=== PATIENT | female | born 1930 | race Caucasian/White ===

== ENCOUNTER 2016-11-23 23:17 | Inpatient (IN) | payer MEDICARE, OTHER ==
[~2016-11-23] VITALS: Ht 152.4 cm; Wt 70.2 kg
[~2016-11-23 23:17] MED LIST: ACET325T51 PO; ASPI-973 PO; BISA10SU61 RC; CHOL200025 PO; CITA40TA13 PO; FURO80TA83 PO; IPRA3AMP IH; LEVO100T6 PO; MAGN400O4 PO; NA P133E23 RC; POTA10TA12 PO; SIMV40TA5 PO; TOLT2TAB5 PO; WARF3TAB7 PO
[2016-11-24] VITALS (10 sets, daily range): BP systolic 111–115; BP diastolic 53–74; PULSE 82–126; RESP 16–32; O2SAT 91–96
--- NOTE | 2016-11-24 01:47 | NUR ---
Admission note Pt arrived from [facility] She is generally non verbal although she said "it hurts" when her left leg was moved. Breathing is mildly labored. Exp wheezes audible. Arias catheter in place. Moderate amt of dried blood visible Rash to bilat groin. Camoseptime applied. Pt has generalized bruising on all limbs. Saline locked x 2 Pt appears tired. She immediately goes to sleep when myself and SOLE LEATHER CUTTING MACHINE OPERATOR departed from room Will cont to monitor
--- NOTE | 2016-11-24 02:20 | PCM.HPMED ---
Subjective Date of Service Nov 24, 2016 Primary Provider: Admitting Physician: Jocelyn Black MD Primary Care Physician: Zafar Chapman DO Attending Physician: Jocelyn Black MD Admit Status: Direct Admit ([facility]) Chief Complaint: Dyspnea History of Present Illness: Note: Patient unable to give an HPI. HPI from [facility] records. Patient is an 86-year-old female with CHF, atrial fibrillation on warfarin, COPD , DM2 and hypothyroidism who presented to [facility] from her SNF complaining of shortness of breath. SNF called EMS who reported 73% on 3L O2. SNF reports diaphoresis, cough and decreased responsiveness in last day. At [facility] ED, CXR showed patchy opacity of the right lung & small right-sided pleural effusion. Pulmonary edema likely related to CHF. Lactic acid was 3.3, BMP of 530, Trop of 0.070, negative influenza A&B, WBC 13.3. BP 123/68; P 146, temp 36.3; RR was 27. Saturation at 92% on unknown amount of oxygen. [facility] gave her nebulizer treatment,1/2 L of fluid, ceftriaxone 2g and Azithromycin 500 at 16:43 on 11/23/16. She was weaned down from 5L O2 to her usual 3L O2. Review of Systems: Unable to get a ROS due to mental status Allergies Coded Allergies: Sulfa (Sulfonamide Antibiotics) (Verified Allergy, Severe, 10/17/16) lisinopril (Verified Allergy, Unknown, 10/17/16) pt doesn't know of any allergies, on records from [facility], states prinivil and sulfa Home Medications from [facility]: ipratropium/alb neb Q6 scheduled Citalopram 40 mg daily furosemide 40 mg daily levothyroxine 100 mcg daily KCl 10 Meq simvastatin 40 mg daily tolterodine 2mg QHS warfarin 3mg 5 days a week; 1.5mg twice a weekbisacodyl PRN milk of magnesia PRN Imodium PRN acetaminophen PRN aspirin 81mg daily vitamin D 2,000 IU PMH 1. Congestive Heart Failure, Diastolic Dysfunction, Acute Exacerbation: present on admission. Active 2. Acute on Chronic Respiratory Failure, Hypoxemic : present on admission. Acute on chronic. Improving 3. Altered mental status most likely due to pH and electrolyte disturbances with possible hospital delirium, acute. Not present on admission 4. H/o Mitral and Aortic Valve replacement 5. H/o CAD 6. Hypertension 7. Paroxysmal atrial fibrillation ( on Warfarin) : active 8. Hypothyroidism: active . Stable . on hormonal supplement 9. Depression: Active . Stable 10. Elevated troponin of uncertain significant, present on admission. Resolved 11. Hypokalemia, not present on admission, acute. Improving 12. Hypomagnesemia, not present on admission, acute. Resolved 12. Deconditioning, present on admission, acute on chronic. Improving 13. Urinary Retention, present on admission, acute on chronic. Stable Surgical History Aortic and mitral valve replacement Family History Unable to get from patient due to mental status Social History Hx Alcohol Use: No Hx Substance Use: No Hx Tobacco Use: No (QUIT 19 YEARS AGO) Smoking Status: Former Smoker Living Arrangement: [facility] Facility ([facility]) Exam Vital Signs Vital Sign - Last Date Time Temp Pulse Resp B/P Pulse Ox O2 Delivery O2 Flow Rate FiO2 11/24/16 01:28 Supplement Oxygen 11/24/16 01:12 36.7 94 26 115/64 91 3.00 Exam General: sleepy, confused, no acute distress Eyes: scleral anicteric Mouth: mouth normal, mucous membranes moist/pink Neck: supple, no thyromegaly Chest & Lungs:Diffuse wheezing, difficult examination due to patient's mental status Cardiovascular: no murmurs/rubs/gallops, irregular rate/rhythm Pulses: Radial (present and equal), Dorsalis Pedi (present and equal but diminished) Abdomen: soft, non-tender, non-distended, normoactive bowel tones Musculoskeletal: No swollen or erythematous joints Extremities: 1+ edema B/L LE, no cyanosis Skin: Numerous ecchymosis (consistent with warfarin use) Neurological: Confused Lymphatic: Lymph nodes: cervical not palpable Lab and Diagnostics Labs See [facility] New labs have been ordered X-Rays, CTs and MRIs See [facility] notes 12-lead ECG See [facility] note New EKG ordered Assessment & Plan Patient is an 86-year-old female with CHF, atrial fibrillation on warfarin, COPD , DM2 and hypothyroidism who presented to [facility] from her SNF complaining of shortness of breath. SNF called EMS who reported 73% on 3L O2. SNF reports diaphoresis, cough and decreased responsiveness in last day. 1. Severe sepsis, present on admission, acute - WBC 13.3. BP 123/68; P 146, temp 36.3; resp rate was 27 - End organ damage (increased confusion per SNF) - CXR patchy opacity of the right lung & small right-sided pleural effusion. Pulmonary edema likely related to CHF. - negative influenza A&B - Received 500ml of fluid at [facility] after lasix dropped her blood pressure. Patient has good skin turgor and moist oral mucosa. Will not give fluids at this time because of CHF. - Treat underlying condition Lactic acidosis, present on admission, acute - 3.3 at [facility], will trend Pneumonia, present on admission, acute - See above under sepsis - Started on ceftriaxone 2g and azithromycin 500mg at [facility], will continue cef at 2g and azith at 250mg IV until patient cleared to swallow - Procalcitonin pending - Duo Nebs - O2 at 3 liters currently, which is her home dose Altered mental status, present on admission, acute - Most likely from sepsis and pneumonia - fall risk - NPO until swallow evaluation Acute on chronic hypoxia, present on admission, resolved - Initially required 5 L, but now on 3 L which is her home dose Elevated troponin of unknown significance, present on admission, unknown chronicitiy - Chronically elevated in September 2016 and it is the same today - 0.070. Will redraw for trend - Did not find EKG from [facility]. EKG ordered CHF, diastolic, present on admission, chronic - Lasix dropped her blood pressure at [facility] - Holding lasix while patient is septic. Restart when appropriate - Does not appear fluid overloaded. - Difficult pulmonary exam, but no crackles appreciated - BNP is elevated chronically Atrial fibrillation ( on Warfarin), present on admission, chronic - warfarin per pharmacy. Currently therapeutic H/o mitral and aortic valve replacement H/o CAD Hypertension. present on admission. chronic - currently controlled. Re-evaluate Hypothyroidism, present on admission, chronic - continue levothyroxine Depression, present on admission, chronic - continue Citalopram Deconditioning, present on admission, chronic - PT ordered Urinary Retention, present on admission, chronic. - Continued tamsulosin - Patient has Arias Dyslipidemia, present on admission, chronic - Hold the statin in the acute setting - Acetaminophen as needed for mild pain/fever/headache - Bowel regimen as needed - Antiemetic as needed Patient admitted under inpatient status with expected length of stay > 2 midnights for severity of present symptoms, complexities of treatment plan and risk for adverse events. Patient is a resident of [facility]. Code status: Per POLST, DNR/DNI GI Prophylaxis: Proton Pump Inhibitor VTE Prophylaxis: Theraputic Anticoag with Warfarin Resuscitation Status: CPR: Attempt Resuscitation Attending Statement Pt seen and examined by myself and agree with above plan. Bing Day DO Nov 24, 2016 02:19 Jocelyn Black MD Nov 24, 2016 06:43
[2016-11-24] MEDS ORDERED: Acetaminophen IV 1,000 MG in IV Premix 1 EACH IV PRN (02:35)
[2016-11-24] MEDS ORDERED: Magnesium Hydroxide 355 mL Oral Suspension PO PRN (02:50)
[2016-11-24] MEDS: Albuterol-Ipratropium 3 mL Inhalation Solution NEB PRN ×3 (03:10→19:59)
[2016-11-24] MEDS ORDERED: IPRA3AMP IH (03:14)
[2016-11-24] MEDS ORDERED: TAMS0.4C98 PO (03:14)
[2016-11-24 03:25] LABS: Mean Corpuscular Hemoglobin 28.1 pg (27.0-35.0); Mean Corpuscular Volume 95.1 fL (81-100)
[2016-11-24 03:37] LABS: INR 3.08 ratio
[2016-11-24 04:10] LABS: Magnesium 1.7 mg/dL (1.6-2.6)
[2016-11-24 04:12] LABS: TROPONIN T 0.058 ug/L (0.0-0.011)
--- NOTE | 2016-11-24 06:17 | NUR ---
Mentation Pt oriented x 3. Requesting a drink of water I explained to her that speech therapy needs to evaluate her swallow prior to starting a diet Pt verbalized understanding
--- NOTE | 2016-11-24 09:22 | NUR ---
Evaluation completed. Please go to "Notes" then click on "Assessments and Notes" (bottom left corner of screen). Then select appropriate discipline tab on top of screen.
[2016-11-24] MEDS ORDERED: 0.9% Sodium Chloride 100 ML ONE (10:42)
--- NOTE | 2016-11-24 10:47 | NUR ---
Evaluation completed. Please go to "Notes" then click on "Assessments and Notes" (bottom left corner of screen). Then select appropriate discipline tab on top of screen.
[2016-11-24] MEDS ORDERED: Heparin 5,000 Unit/mL Inj IVPUSH ONE ×2 (11:00→12:25)
[2016-11-24] MEDS ORDERED: 0.9% Sodium Chloride 1,000 ML IV ONE ×2 (11:00→12:35)
[2016-11-24] MEDS ORDERED: Heparin 25K Unit/500mL 0.45 NS 25,000 UNIT in IV Premix 1 EACH IV SCH (11:00)
[2016-11-24] MEDS ORDERED: Heparin 5,000 Unit/mL Inj IVPUSH PRN (11:00)
--- NOTE | 2016-11-24 12:00 | NUR ---
heparin drip/1L bolus started heparin drip after baseline ptt was drawn at 1000un/hr 20ml/hr and bolus of 4550un per cardiac hep protocol of 72kg or >, double verified with talita hinson. per md orders admin wide open L of NS and check bp 5 min after completion. BP was 112/52, paged md as requested.
[2016-11-24] MEDS: 0.9% Sodium Chloride 1,000 ML IV SCH ×2 (12:01→13:15)
--- NOTE | 2016-11-24 12:01 | PCM.PHAPRO ---
Progress Warfarin Management by Pharmacy Indication: Afib CHADS2-VASc: 6 Home Dose: Warfarin 1.5 mg Tues/Thurs, 3 mg AOD INR Goal: 2-3 Duration: Unknown Vit K given: No Anticoagulation Trends Lab Date Result Dose INR 11/23/16 3.0 (OS[facility]) None INR 11/24/16 3.08 Pt started on heparin drip for SOB/chest PA on 11/24/16 Assessment/Plan -Supratherapeutic INR with no dose given while inpatient. Unclear if patient had dose prior to admit. -Will hold warfarin dose this evening. -Pharmacy to monitor INR/CBC/signs of bleeding. Thanks, José Manuel Casas, PharmD José Manuel Casas Nov 24, 2016 12:01
--- NOTE | 2016-11-24 13:28 | PCM.PNMED ---
Subjective Date of Service Nov 24, 2016 Subjective Pt oriented x 3. Requesting a drink of water,nurse explained to her that speech therapy needs to evaluate her swallow prior to starting a diet. Speech therapy recommends small bites and sips with supervision, sitting upright, no straw. Pt denies pain but seems to be mildly distressed. Exam Vital Signs Vital Sign - Last Date Time Temp Pulse Resp B/P Pulse Ox O2 Delivery O2 Flow Rate FiO2 11/24/16 04:44 36.6 90 22 112/74 Nasal Cannula 3.00 11/24/16 03:17 96 Intake and Output 11/23/16 11/23/16 11/24/16 Cumulative From/Thru 15:00 23:00 07:00 11/24/16 01:15 - 11/24/16 04:45 Intake Total 0 ml 0 ml Output Total 250 ml 250 ml Balance -250 ml -250 ml Intake Oral 0 ml 0 ml Output Urine Total 250 ml 250 ml Exam General: awake, no acute distress but somewhat anxious Eyes: scleral anicteric Mouth: mouth normal, mucous membranes dry/pink Neck: supple, no thyromegaly Chest & Lungs: Diffuse wheezing bilaterally Cardiovascular: no murmurs/rubs/gallops, irregular rate/rhythm Pulses: Radial (present and equal), Dorsalis Pedi (present and equal but diminished) Abdomen: soft, non-tender, non-distended, normoactive bowel tones Musculoskeletal: No swollen or erythematous joints Extremities: 1+ edema B/L LE, no cyanosis Skin: Numerous ecchymosis (consistent with warfarin use) Lymphatic: Lymph nodes: cervical not palpable Lab and Diagnostics Result Diagram: 11/24/160 Microbiology Microbiology REGINALDO STREP PNEUMONIAE AG URINE Final 11/24/16-741 STREP PNEUMO AG NEGATIVE Tests performed directly on clinical specimens are intended for screening purposes only and should augment, not replace, culture procedures Please Note: Streptococcus pneumoniae vaccine may cause false positive results in urine in the 48 hours following injection. Hence, it is recommended that the Alere Strep pneumoniae Antigen testing not be performed within five days of receiving the S. pneumoniae vaccine ----- NASOPHARYNGEAL: Microbiology ADENOVIRUS RESPIRATORY PCR Final 11/24/16 Not Detected CORONOVIRUS 229E Final 11/24/16 Not Detected CORONOVIRUS HKU1 Final 11/24/16 Not Detected CORONOVIRUS NL63 Final 11/24/16 Not Detected CORONOVIRUS OC43 Final 11/24/16 Not Detected INFLUENZA A PCR Final 11/24/16 Not Detected INFLUENZA B PCR Final 11/24/16 Not Detected METAPNEUMOVIRUS PCR Final 11/24/16 Not Detected RHINOVIRUS OR ENTEROVIRUS PCR Final 11/24/16 Not Detected PARAINFLUENZA 1 PCR Final 11/24/16 Not Detected PARAINFLUENZA 2 PCR Final 11/24/16 Not Detected PARAINFLUENZA 3 PCR Final 11/24/16 Not Detected PARAINFLUENZA 4 PCR Final 11/24/16 Not Detected RESP SYNCYTIAL VIRUS PCR Final 11/24/16 Not Detected CHLAMDOPHILIA PNEUMONIAE PCR Final 11/24/16 Not Detected MYCOPLASMA PNEUMONIAE PCR Final 11/24/16 MYCO PNEUMONIAE PCR Not Detected Reference Interval Not Detected INVERTER [employer] CLIPPER swab is the only specimen type cleared by the FDA. Nasal wash, tracheal aspirate, and bronchial lavage specimen types have not been cleared by the FDA. Therefore results on any specimen type other than nasopharyngeal are considered investigational testing only. X-Rays, CTs and MRIs PROCEDURE: X-RAY CHEST ONE VIEW, PORTABLE ([id number]) INDICATIONS: Follow up for congestive heart failure COMPARISON: [facility], CR, XR CHEST 1VW (PORTABLE), 10/17/2016, 12 :41. FINDINGS: Surgical changes and devices: Post median sternotomy with valvular replacement. Lungs and pleura: Interstitium is prominent no significant change from prior examination. No focal lung consolidation present. Mediastinum: Mediastinal contours appear normal. Heart size is enlarged. Bones and chest wall: No suspicious bony lesions. Overlying soft tissues appear unremarkable. IMPRESSION: 1. Cardiomegaly and chronic interstitial pulmonary densities with no significant change from prior examination which may be chronic but superimposed pulmonary edema cannot be excluded. Recommend clinical correlation. Dictated by: Kolby Turner RRA Interpreted: Tomas Medina MD on 10/23/2016 at 13: 46 Transcribed by: TRUDI on 10/23/2016 at 13:46 Approved by: Tomas Medina M.D. on 10/23/2016 at 15:37 12-lead ECG EKG: Right and left arm electrode reversal, interpretation assumes no reversal . Atrial fibrillation . Ventricular premature complex . Low voltage, extremity leads . Nonspecific T abnormalities, lateral leads . Prolonged QT interval Assessment & Plan Patient is an 86-year-old female with CHF, atrial fibrillation on warfarin, COPD , DM2 and hypothyroidism who presented to [facility] from her SNF complaining of shortness of breath. SNF called EMS who reported 73% on 3L O2. SNF reports diaphoresis, cough and decreased responsiveness in last day. Hospital day 1. 1. Severe sepsis, present on admission, acute - On adm: WBC 13.3, P 146, RR 27 - Today: WBC 11.4, P 90, RR 22 - End organ damage (increased confusion per SNF) - CXR at [facility]: patchy opacity of the right lung & small right-sided pleural effusion. Pulmonary edema likely related to CHF. - negative influenza A&B - negative viral PCR, negative urine L. pneumophilia and St. pneumo Ag - IVF NS 1L bolus at 80 mls/hr - Treat #2 2. Pneumonia, present on admission, acute - See above under sepsis - Started on ceftriaxone 2g and azithromycin 500mg at [facility], will continue cef at 2g and azith at 250mg IV - Procalcitonin 1.10 - Duo Nebs - O2 at 3 liters currently, which is her home dose, pulse ox 96% NC 3. Elevated troponin of unknown significance, present on admission, unknown chronicity - Chronically elevated in September 2016 and it is the same today - 0.070 on admission - 0.058 this morning, will redraw to trend - Did not find EKG from [facility] - EKG at [facility]: Atrial fibrillation, ventricular premature complex, nonspecific T abnormalities, lateral leads, prolonged QT interval - Start metoprolol 12.5 mg PO bid with hold parameters - Atorvastatin 20 mg PO hs 4. Lactic acidosis, acute, present on admission, improved - 3.3 at [facility] - 0.8 this morning 5. Altered mental status, present on admission, acute - Most likely from sepsis and pneumonia - fall risk - NPO until swallow evaluation 6. Acute on chronic hypoxia, present on admission, resolved - Initially required 5 L, but now on 3 L which is her home dose 7. CHF, diastolic, present on admission, chronic - Lasix dropped her blood pressure at [facility] - Holding lasix while patient is septic. Restart when appropriate - Does not appear fluid overloaded - No crackles appreciated - BNP is elevated chronically 8. Atrial fibrillation ( on Warfarin), present on admission, chronic - Warfarin per pharmacy, INR 3.08, today's dose withheld - IVF NS 1 L bolus at 80 mls/hr. Check BP. If BP >120/80 give Diltiazem 10 mg IV push. Recheck BP 9. REBA, acute, present on admission - Cr 1.09 - IVF NS 1 L bolus at 80 mls/hr - Monitor labs H/o mitral and aortic valve replacement H/o CAD Hypertension. present on admission. chronic - currently controlled. Re-evaluate Hypothyroidism, present on admission, chronic - continue levothyroxine Depression, present on admission, chronic - continue Citalopram Deconditioning, present on admission, chronic - PT ordered Urinary Retention, present on admission, chronic. - Continued tamsulosin - Patient has Arias Dyslipidemia, present on admission, chronic - Hold the statin in the acute setting - Acetaminophen as needed for mild pain/fever/headache - Bowel regimen as needed - Antiemetic as needed Patient admitted under inpatient status with expected length of stay > 2 midnights for severity of present symptoms, complexities of treatment plan and risk for adverse events. Patient is a resident of [facility]. Code status: Per POLST, DNR/DNI GI Prophylaxis: Proton Pump Inhibitor VTE Prophylaxis: Theraputic Anticoag with Warfarin Resuscitation Status: CPR: Attempt Resuscitation Attending Statement The patient was seen and examined together with Dr. Bustos on 11/24/2016 and I agree with the history, exam and plan as outlined in the note above. YAYA BUSTOS DO Nov 24, 2016 08:24 Xavier Cruz MD Nov 24, 2016 20:42 Code status: Per POLST, DNR/DNI GI Prophylaxis: Proton Pump Inhibitor VTE Prophylaxis: Theraputic Anticoag with Warfarin Resuscitation Status: CPR: Attempt Resuscitation YAYA BUSTOS DO Nov 24, 2016 08:24
--- NOTE | 2016-11-24 14:57 | NUR ---
Social Work-initial assessment: Data:See initial assessment. Pt is a 86 y/o female who was admitted on 11/24/16 for AFIB per H&P. Pt's insurance is [employer] and [employer] and PCP is Zafar Chapman DO. EMR Reviewed. MILLA placed a call to pt's son Garo Garza, or [phone] to discuss discharge planning, SW role explained. Pt has been residing at [facility] for rehab and family anticipates pt to return to this facility at discharge. MILLA placed a call and spoke with Celestina, admissions at [facility], who confirms that they are able to accept pt back when medically stable with Dr. Canela to follow, access given. Paperwork in the chart. SW will continue to follow. Assessment:Pt who resides at a SNF. Plan:Pt to return to [facility] when medically stable with Dr. Canela to follow when medically stable. Paperwork in the chart. SW will continue to follow. ARTI Garduno Addendum: 11/24/16 at 1506 by JANAE WELLER Amended: Links added.
--- NOTE | 2016-11-24 15:18 | NUR ---
[facility] can accept pt back at discharge with Dr. aLrry Canela to follow. ARTI Garduno
[2016-11-24] MEDS: cefTRIAXone Inj 2,000 MG in IV Premix 1 EACH IV SCH (16:18)
--- NOTE | 2016-11-24 17:43 | NUR ---
Shift note Pt is A&Ox3, QUINTERO, makes needs known and uses call light approp. Pt is tolerating PO meds crushed in applesauce and full liquid diet. 1PA to bsc, bmx2, marlow draining ramon urine. Heparin running at 1000un/hr with NS at 80mlhr. Pt is on 3L NC with Sp02 in mid 90s, lungs and tight and coarse throughout. Located bottom dentures from [facility]
[2016-11-25] VITALS (11 sets, daily range): BP systolic 105–118; BP diastolic 63–71; PULSE 83–114; RESP 24–32; O2SAT 91–96
[2016-11-25 05:49] LABS: INR 3.49 ratio
--- NOTE | 2016-11-25 05:52 | NUR ---
SOB, Urine culture: Pt reported needing air, oxygen has been 3-4 L NC tonight maintaining sats low to mid 90s. Night resident alert to pt's respiratory condition, IV fluids d/c'd; Heparin drip continues. PTTs have been at goal through the night with no changes to rate thus far. Arias draining ramon urine with sediment noted. 400 mls of urine out this shift. [facility] called with urine culture results positive for Klebsiella pneumoniae with susceptibility; in front of chart. aware for results from [facility].
[2016-11-25 07:55] LABS: BASOPHILS % (AUTO) 0.2 % (0-3); EOSINOPHILS % (AUTO) 0.2 % (0-5); MONOCYTES % (AUTO) 12.2 % (4-12); Mean Corpuscular Hemoglobin 28.6 pg (27.0-35.0); Mean Corpuscular Volume 94.3 fL (81-100); NEUTROPHILS % (AUTO) 74.7 % (40-74); Platelet Count 104 bil/L (150-400)
[2016-11-25] MEDS: Albuterol-Ipratropium 3 mL Inhalation Solution NEB PRN ×2 (08:22→14:45)
[2016-11-25] MEDS ORDERED: Diltiazem CD 120 mg ER24 Capsule PO SCH (10:16)
--- NOTE | 2016-11-25 11:23 | NUR ---
Social Work-continued d/c planning: Data:EMR reviewed. Pt is on day 1 of hospitalization for AFIB per H&P. Pt is not medically stable at this time for discharge at this time. Pt's son Garo requested to speak with SW regarding discharge planning. SW met with pt and family at bedside to further discuss. Son has questions about assisted living in [facility] for after discharge from [facility]. SW provided son with list of assisted living facilities. Son in agreement for pt to discharge back to [facility] when medically stable. SW provided update to Celestina at [facility]. Paperwork in the chart. SW will continue to follow. Assessment:Pt who would benefit from SNF. Plan:Pt to discharge back to [facility] with Dr. Canela to follow when medically stable. Paperwork in the chart. SW will continue to follow. ARTI Garduno
--- NOTE | 2016-11-25 14:22 | PCM.PNMED ---
Subjective Date of Service Nov 25, 2016 Subjective Overnight: Pt reported needing air, oxygen has been 3-4 L NC maintaining sats low to mid 90s. [facility] called with urine culture results positive for Klebsiella pneumoniae with susceptibility Pt denies pain. Labored breathing. She states "I am feeling fine". Exam Vital Signs Vital Sign - Last Date Time Temp Pulse Resp B/P Pulse Ox O2 Delivery O2 Flow Rate FiO2 11/25/16 09:31 36.7 101 26 107/68 91 Nasal Cannula 3.50 Intake and Output 11/24/16 11/24/16 11/25/16 Cumulative From/Thru 15:00 23:00 07:00 11/24/16 01:15 - 11/25/16 05:14 Intake Total 1997 ml 445 ml 2442 ml Output Total 425 ml 400 ml 1075 ml Balance 1572 ml 45 ml 1367 ml Intake Oral 400 ml 0 ml 400 ml IV Total 1597 ml 445 ml 2042 ml Output Urine Total 425 ml 400 ml 1075 ml Lab and Diagnostics General: awake, no acute distress, labored breathing Eyes: scleral anicteric Neck: supple, no thyromegaly Chest & Lungs: Diffuse wheezing bilaterally, new bibasilar crackles R>L Cardiovascular: no murmurs/rubs/gallops, irregular rate/rhythm Abdomen: soft, non-tender, non-distended, normoactive bowel tones Extremities: 1+ edema B/L LE, no cyanosis Skin: Numerous ecchymosis (consistent with warfarin use) Result Diagram: 11/25/1674411/25/16 0745 Microbiology Microbiology REGINALDO STREP PNEUMONIAE AG URINE Final 11/24/16-741 STREP PNEUMO AG NEGATIVE Tests performed directly on clinical specimens are intended for screening purposes only and should augment, not replace, culture procedures Please Note: Streptococcus pneumoniae vaccine may cause false positive results in urine in the 48 hours following injection. Hence, it is recommended that the Alere Strep pneumoniae Antigen testing not be performed within five days of receiving the S. pneumoniae vaccine ----- NASOPHARYNGEAL: Microbiology ADENOVIRUS RESPIRATORY PCR Final 11/24/16 Not Detected CORONOVIRUS 229E Final 11/24/16 Not Detected CORONOVIRUS HKU1 Final 11/24/16 Not Detected CORONOVIRUS NL63 Final 11/24/16 Not Detected CORONOVIRUS OC43 Final 11/24/16 Not Detected INFLUENZA A PCR Final 11/24/16 Not Detected INFLUENZA B PCR Final 11/24/16 Not Detected METAPNEUMOVIRUS PCR Final 11/24/16 Not Detected RHINOVIRUS OR ENTEROVIRUS PCR Final 11/24/16 Not Detected PARAINFLUENZA 1 PCR Final 11/24/16 Not Detected PARAINFLUENZA 2 PCR Final 11/24/16 Not Detected PARAINFLUENZA 3 PCR Final 11/24/16 Not Detected PARAINFLUENZA 4 PCR Final 11/24/16 Not Detected RESP SYNCYTIAL VIRUS PCR Final 11/24/16 Not Detected CHLAMDOPHILIA PNEUMONIAE PCR Final 11/24/16 Not Detected MYCOPLASMA PNEUMONIAE PCR Final 11/24/16 MYCO PNEUMONIAE PCR Not Detected Reference Interval Not Detected FARMHAND swab is the only specimen type cleared by the FDA. Nasal wash, tracheal aspirate, and bronchial lavage specimen types have not been cleared by the FDA. Therefore results on any specimen type other than nasopharyngeal are considered investigational testing only. Microbiology REGINALDO OCCULT BLOOD IMMUNOCHEM Final 11/25/16-1103 OCCULT BLD IMMUNOCHEMICAL POSITIVE REFERENCE INTERVAL NEGATIVE X-Rays, CTs and MRIs PROCEDURE: X-RAY CHEST ONE VIEW, PORTABLE ([id number]) INDICATIONS: Follow up for congestive heart failure COMPARISON: [facility], CR, XR CHEST 1VW (PORTABLE), 10/17/2016, 12 :41. FINDINGS: Surgical changes and devices: Post median sternotomy with valvular replacement. Lungs and pleura: Interstitium is prominent no significant change from prior examination. No focal lung consolidation present. Mediastinum: Mediastinal contours appear normal. Heart size is enlarged. Bones and chest wall: No suspicious bony lesions. Overlying soft tissues appear unremarkable. IMPRESSION: 1. Cardiomegaly and chronic interstitial pulmonary densities with no significant change from prior examination which may be chronic but superimposed pulmonary edema cannot be excluded. Recommend clinical correlation. Dictated by: Kolby Turner RRA Interpreted: Tomas Medina MD on 10/23/2016 at 13: 46 Transcribed by: TRUDI on 10/23/2016 at 13:46 Approved by: Tomas Medina M.D. on 10/23/2016 at 15:37 12-lead ECG EKG: Right and left arm electrode reversal, interpretation assumes no reversal . Atrial fibrillation . Ventricular premature complex . Low voltage, extremity leads . Nonspecific T abnormalities, lateral leads . Prolonged QT interval Assessment & Plan Patient is an 86-year-old female with CHF, atrial fibrillation on warfarin, COPD , DM2 and hypothyroidism who presented to [facility] from her SNF complaining of shortness of breath. SNF called EMS who reported 73% on 3L O2. SNF reports diaphoresis, cough and decreased responsiveness in last day. Hospital day 2. 1. Severe sepsis, present on admission, acute - On adm: WBC 13.3, P 146, RR 27 - Today: WBC 8.7, P 111, RR 24 - End organ damage (increased confusion per SNF) - CXR at [facility]: patchy opacity of the right lung & small right-sided pleural effusion. Pulmonary edema likely related to CHF. - negative influenza A&B - negative viral PCR, negative urine L. pneumophilia and St. pneumo Ag - D/C IVF NS 1L bolus at 80 mls/hr - Treat #2 2. Pneumonia, present on admission, acute - See above under sepsis - Started on ceftriaxone 2g and azithromycin 500mg at [facility], will continue cef at 2g and azith at 250mg IV - Procalcitonin 1.10 - Duo Nebs - O2 at 4 liters currently pulse ox 92% NC 3. Elevated troponin of unknown significance, present on admission, unknown chronicity - Chronically elevated in September 2016 and it is the same today - 0.070 on admission - 0.052 this morning, will redraw to trend - Did not find EKG from [facility] - EKG at [facility]: Atrial fibrillation, ventricular premature complex, nonspecific T abnormalities, lateral leads, prolonged QT interval - D/Ct metoprolol 12.5 mg PO bid - Atorvastatin 20 mg PO hs - Cardiology consult, Dr. Baez - Order limited echo - D/C heparin drip (FOBT positive) 4. Urinary tract infection, acute, present on admission - UA positive for Klebsiella Pneumoniae - Continue Ceftriaxone 2 g IV qd 5. Lactic acidosis, acute, present on admission, improved - 3.3 at [facility] - 0.8 this morning 6. Altered mental status, present on admission, acute - Most likely from sepsis and pneumonia - fall risk - NPO until swallow evaluation 7. Acute on chronic hypoxia, present on admission, resolved - Initially required 5 L, but now on 3 L which is her home dose - Angio CT scan chest ordered 8. CHF, diastolic, present on admission, chronic - Lasix dropped her blood pressure at [facility] - Holding lasix while patient is septic. Restart when appropriate - BNP is elevated chronically 9. Atrial fibrillation ( on Warfarin), present on admission, chronic - Warfarin per pharmacy, INR 3.49. Per pharmacy, therapeutic INR with updated INR goal. However, INR has increased while inpatient with no doses given while inpatient. Will hold warfarin again this evening given trend and reassess tomorrow morning. - Pharmacy to monitor INR/CBC/signs of bleeding. - D/C Metoprolol 12.5 mg PO bid - Start Diltiazem 120 mg PO qd 10. REBA, acute, present on admission, improved - Cr 0.85 (down from 1.09) - D/C IVF NS 1 L bolus at 80 mls/hr - Monitor labs H/o mitral and aortic valve replacement H/o CAD Hypertension. present on admission. chronic - currently controlled. Re-evaluate Hypothyroidism, present on admission, chronic - continue levothyroxine Depression, present on admission, chronic - continue Citalopram Deconditioning, present on admission, chronic - PT ordered Urinary Retention, present on admission, chronic. - Continued tamsulosin - Patient has Arias Dyslipidemia, present on admission, chronic - Hold the statin in the acute setting - Acetaminophen as needed for mild pain/fever/headache - Bowel regimen as needed - Antiemetic as needed Patient admitted under inpatient status with expected length of stay > 2 midnights for severity of present symptoms, complexities of treatment plan and risk for adverse events. Patient is a resident of [facility]. Code status: Per POLST, DNR/DNI GI Prophylaxis: Proton Pump Inhibitor VTE Prophylaxis: Theraputic Anticoag with Warfarin Resuscitation Status: CPR: Attempt Resuscitation Attending Statement The patient was seen and examined together with Dr. Bustos on 11/25/2016 and I agree with the history, exam and plan as outlined in the note above. YAYA BUSTOS DO Nov 25, 2016 09:59 Xavier Cruz MD Nov 26, 2016 09:46
--- NOTE | 2016-11-25 15:01 | PCM.PHAPRO ---
Progress Indication: Afib CHADS2-VASc: 6 Home Dose: Warfarin 1.5 mg Tues/Thurs, 3 mg AOD INR Goal: 2.5-3.5 (per Cardiology team on 11/25/16) Duration: Unknown Vit K given: No Anticoagulation Trends Lab Date Result Dose INR 11/23/16 3.0 (OSH) None INR 11/24/16 3.08 None INR 11/25/16 3.49 Heparin was discontinued on 11/25/16 Assessment/Plan -Therapeutic INR with updated INR goal. However, INR has increased while inpatient with no doses given while inpatient. -Will hold warfarin again this evening given trend and reassess tomorrow morning. -Pharmacy to monitor INR/CBC/signs of bleeding. Thanks, José Manuel Casas, PharmD José Manuel Casas Nov 25, 2016 15:01
[2016-11-25] MEDS: cefTRIAXone Inj 2,000 MG in IV Premix 1 EACH IV SCH (16:30)
--- NOTE | 2016-11-25 16:40 | NUR ---
Respiratory- Patient becomes short of breath and has audible wheezes with any exertion. Patient is also very weak, and able to sit up at bedside or on commode for short periods. O2 on at 2 liters. Denies chest pain or increased shortness of breath.
[2016-11-25 17:29] LABS: INR 3.72 ratio
[2016-11-25] MEDS ORDERED: Furosemide 10 mg/mL 4 mL Inj IVPUSH ONE (19:40)
[2016-11-26] VITALS (9 sets, daily range): BP systolic 103–129; BP diastolic 59–75; PULSE 80–95; RESP 2–26; O2SAT 92–98
--- NOTE | 2016-11-26 02:48 | NUR ---
Respiratory: Cough is more productive as the night progresses. Pt has declined offers for breathing treatments. Sating low to mid 90s on 2.5-3L. The operations and intelligence assistant was in to see pt at bedtime. New orders for one time IV Lasix, and Metoprolol scheduled for better rate control. While resting, pt does not sound audibly as wet. Although when awake and moving in bed, increased rattly breath sounds continue. Addendum: 11/26/16 at 0604 by STONE COYNE RN Heart rate decreased to the 80s-90s. Urine out from [facility] 500mls.
--- NOTE | 2016-11-26 06:02 | NUR ---
Tylenol: Tylenol administered x1 for a temp of 37.6 C Axillary.
[2016-11-26 06:50] LABS: INR 2.93 ratio
[2016-11-26 08:44] LABS: BASOPHILS % (AUTO) 0.6 % (0-3); MONOCYTES % (AUTO) 13.6 % (4-12); Mean Corpuscular Volume 94.9 fL (81-100); NEUTROPHILS % (AUTO) 70.9 % (40-74); Platelet Count 114 bil/L (150-400)
[2016-11-26] MEDS ORDERED: Furosemide 10 mg/mL 4 mL Inj IVPUSH ONE (08:55)
--- NOTE | 2016-11-26 09:24 | DRSVH ---
PROCEDURE: CT ANGIO CHEST PULMONARY EMBOLISM ([id number]) INDICATIONS: 86-year-old woman with shortness of breath. TECHNIQUE: After the administration of intravenous contrast, 2 mm thick sections acquired from the pulmonary api ivania to the posterior costophrenic angles. 3-dimensional maximum intensity projection (MIP) coronal a nd sagittal reformats were then acquired through the thorax. For radiation dose reduction, the follo wing was used: automated exposure control, adjustment of mA and/or kV according to patient size. COMPARISON: [facility], CR, XR CHEST 1VW (PORTABLE), 10/17/2016, 12:41. [facility], CR, XR CHEST 1V PORTABLE, 11/23/2016, 3:24 PM. FINDINGS: Image quality: Excellent. Pulmonary arteries: Pulmonary arteries are normal in size, and demonstrate no intraluminal filling d efects to suggest central pulmonary embolism. Lungs and pleura: There are right lower lobe infiltrates and consolidation consistent with pneumonia. Hyperdensities in the right lung base may be related to aspiration. There are small bilateral effusi ons with basilar atelectasis, left greater than right. Bilateral interstitial thickening likely secon jose to pulmonary edema. No pneumothorax. Central and peripheral airways are patent. Mediastinum: Heart is moderately to severely enlarged. No pericardial effusion. There is a prosthet ic aortic valve. No mediastinal or hilar adenopathy. Thoracic aorta is normal in caliber and enhance ment. Severe aortic calcification consistent with atherosclerosis with Esophagus is normal in calibe r, without hiatal hernia. Bones and chest wall: No suspicious bony lesions. Ribs and thoracic spine appear intact throughout. Thyroid gland is normal. No axillary or supraclavicular adenopathy. Abdomen: There is IV contrast reflux into the hepatic vein. A 2.9 x 3.9 cm cystic structure is noted in the left upper quadrant anterior to the superior pole of the left kidney, probably an exophytic cy st. IMPRESSION: 1. No acute central pulmonary embolism. 2. Right lower lobe infiltrates and consolidation consistent pneumonia. 3. Bilateral small pleural effusions with basilar atelectasis. 4. Marked cardiomegaly and prosthetic aortic valve. There is bilateral interstitial thickening sugges ting mild pulmonary edema secondary to congestive heart failure. 5. Hyperdense material in the right lung base suspicious for aspiration. Dictated by: Arsen Valenzuela M.D. on 11/26/2016 at 9:19 Approved by: Arsen Valenzuela M.D. on 11/26/2016 at 9:19
--- NOTE | 2016-11-26 09:35 | DRSVH ---
Study location field not populated with appropriate location Echocardiogram Report Name: CALLIE SINCLAIR Study Date: 11/25/2016 Height: 60 in Hospital Weight: 174 lb Gender: Female BSA: 1.8 m2 : 1930 Age: 86 yrs Performed By: [facility] Referring Physician: YAYA BUSTOS Interpretation Summary Limited echo to evaluate valve gradients for acute shortness of breath. Patient is in chronic afib with RVR. HR 87-105 bpm. Normal LV size; severe concentric LVH; global hypokinesis. EF is 30--35%. Valves are not well seen. 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 Aortic valve is replaced with a mechanical prosthesis. There is mild aortic stenosis. Mean gradient is 17 mm Hg. Compared to prior study 10/19/2016 EF is less dynamic, particularly on apical views. EF is down from about 45-50% to now 30-35%. Valve function is unchanged MMode/2D Measurements & Calculations LVIDd: 4.7 cm IVC diam EDV(MOD-sp2) LV crow. diameter/BSA LVIDs: 3.7 cm : 2.9 cm (cm/m^2): 2.7 FS: 20.8 % IVSd: 0.99 cm LVPWd: 0.96 cm LV sys. diameter/BSA (cm/m^2): 2.1 Doppler Measurements & Calculations Ao V2 max TR max barron MV V2 mean Ao V2 mean : 268.4 cm/sec : 313.1 cm/sec : 119.8 cm/sec : 194.1 cm/sec Ao max PG TR max PG MV mean PG Ao V2 VTI: 48.4 cm : 28.8 mmHg : 39.2 mmHg Ao mean PG MV V2 VTI: 27.9 cm : 16.9 mmHg LVOT Max Barron : 74.4 cm/sec sev ratio: 0.29 LV V1 max PG LV V1 VTI: 14.2 cm Reading Physician:09:34 AM
--- NOTE | 2016-11-26 09:49 | CONS ---
[address] [address] CONSULTATION REPORT PATIENT: CALLIE SINCLAIR : 1930 MR#: [id number] ADMIT: 11/24/2016 JOB ID: [id number] DATE OF SERVICE: 11/25/2016 CARDIOLOGY CONSULTATION: CHIEF COMPLAINT: Shortness of breath. HISTORY OF PRESENT ILLNESS: The patient is an 86-year-old woman admitted on November 24, 2016 from [facility]. She has multiple cardiac conditions and Cardiology is consulted to assist with severe shortness of breath. Interview is actually limited by her severe dyspnea. She is not able to speak in full sentences. The patient says that her shortness of breath is actually better than before but she is still struggling to breathe. She says that the breathing treatments are helping her. She reports cough productive of white frothy sputum. PAST MEDICAL HISTORY: 1. Rheumatic heart disease with critical mitral stenosis, severe aortic stenosis, status post aortic valve and mitral valve replacement at the [facility] February 12, 2006. Mitral valve replaced with a 37 mm Medtronic mechanical valve. Aortic valve replaced with a Region 19 mm mechanical aortic valve. 2. Coronary artery disease status post vein graft to diagonal in January 2006. 3. Postoperative stroke. 4. Peripheral arterial disease with occluded left internal carotid artery. 5. Postoperative course complicated by pericardial pleural effusion and pericardial effusion treated with pericardiocentesis. 6. Paroxysmal AFib diagnosed after surgery in 2005 which progressed since then to chronic Afib. 7. Oral anticoagulation with warfarin. 8. 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 This is a new diagnosis based on echocardiogram November 25, 2016. EF was about 30%-35% on personal review of the study. 9. Renal insufficiency. 10. Depression and panic attacks. 11. Hypothyroidism. 12. Hyperlipidemia. 13. Diabetes. PAST SURGICAL HISTORY: 1. Aortic valve replacement with mechanical prosthesis. 2. Mitral valve replacement with mechanical prosthesis and single-vessel bypass in January 2006 3. Vein stripping. 4. Hysterectomy. 5. Bladder suspension. 6. Cataract extraction. FAMILY HISTORY: Unable to obtain due to severe dyspnea. SOCIAL HISTORY: She does not drink. Does not smoke but she quit 19 years ago. She lives in [facility] and before that she used to live with her son in [place]. ALLERGIES: 1. SULFA. 2. LISINOPRIL. MEDICATIONS: At [place]: 1. Lasix 40 mg daily. 2. Levothyroxine 100 mcg daily. 3. Potassium 10 mEq daily. 4. Zocor 40 mg daily. 5. Detrol 2 mg every night. 6. Warfarin. 7. Aspirin 81 mg daily. 8. Citalopram 40 mg daily and various inhalers. REVIEW OF SYSTEMS: Unobtainable due to severe dyspnea. PHYSICAL EXAMINATION: Vital signs: T-max 37 degrees, blood pressure 105/64 up to 119/63, pulse 83 up to 114. She is satting 91%-96% on 2.5-4 liters nasal cannula. Cachectic woman, no apparent distress. Eyes: No scleral icterus. Heart is mechanical S1 and mechanical S2. There is a 2/6 systolic ejection murmur right upper sternal border and 1/6 holosystolic murmur at the apex. Lungs with diminished breath sounds bilaterally. Abdomen is soft, positive bowel sounds. Extremities show mild edema bilaterally. CURRENT MEDICATIONS: In the hospital: 1. Metoprolol tartrate 25 q.6. 2. Lipitor 20 mg daily. 3. Ceftriaxone. 4. Levothyroxine 100. 5. Potassium chloride 10 mEq daily. 6. She got a single dose of Lasix 40 mg IV on November 25, 2016. 7. Tamsulosin 0.4 mg daily. 8. Citalopram 40 mg daily. 9. Aspirin 81 mg daily. 10. Azithromycin. 11. Warfarin dosed by pharmacy. 12. Various p.r.n.'s. LABORATORIES: Reviewed. She is anemic. Her hematocrit is 27%. She has thrombocytopenia which is chronic at 104. Her INR is 3.7. Her creatinine is 0.85. Her troponin T peaked at 0.061. Her thyroid labs were not checked during this admission. Most recent available thyroid test was performed in September and it showed hypothyroidism. TSH was 5.6. IMAGING: CT scan was obtained November 25. I reviewed it. It showed bilateral severe infiltrates, right side worse than left, consistent with pneumonia in my opinion, and associated pleural effusion. ASSESSMENT AND PLAN: 1. In summary, this is an 86-year-old woman. She has severe new cardiomyopathy. Her EF is about 30%-35% which is new compared to prior echocardiogram in September. I believe her cardiomyopathy is rate-related. I was pleasantly surprised that her prosthetics are functioning well and she does not have mitral stenosis that is causing her pulmonary congestion. Unfortunately she is allergic to LISINOPRIL. I will clarify a little bit more the nature of her allergy but in the intermediate manager if maybe her allergy is cough, I think she would benefit from an attempt at angiotensin receptor bailey. 2. Anticoagulation. She has mechanical prosthetics. Her goal INR is between 2.5 and 3.5. 3. Elevated troponin. I recommend stopping checking serial troponins because I think it has already peaked and there is not much more information to be gained. I think offering this patient cardiac catheterization is prohibitively risky because of her advanced age, frailty, chronic oral anticoagulation, the technical aspects of the procedure and I think that there is a good chance her cardiomyopathy is rate related and we simply need to offer her medical management. I recommend continuing her warfarin. I do not recommend bridging her because I do not plan to do a procedure with her and then she can follow up as an outpatient with her primary information technology internship and see if they want to offer her invasive workup. At this juncture I do not think that is indicated in my opinion. Thank you for the opportunity to evaluate her.
[2016-11-26] MEDS: Albuterol-Ipratropium 3 mL Inhalation Solution NEB PRN ×2 (09:57→21:03)
--- NOTE | 2016-11-26 10:46 | PCM.PHAPRO ---
Progress Indication: Afib, MVR CHADS2-VASc: 6 Home Dose: Warfarin 1.5 mg Tues/Thurs, 3 mg AOD INR Goal: 2.5-3.5 (per Cardiology team on 11/25/16) Duration: Unknown Vit K given: No Anticoagulation Trends Lab Date Result Dose INR 11/23/16 3.0 (OSH) None INR 11/24/16 3.08 None INR 11/25/16 3.49 None INR 11/26/16 2.93 Heparin drip was discontinued on 11/25/16 Assessment/Plan -Therapeutic INR with updated INR goal. Level is now downtrending while inpatient with no doses given. -Will restart warfarin at 1.5 mg this evening given recent trends. -Pharmacy to monitor INR/CBC/signs of bleeding. Thanks, José Manuel Casas, PharmD José Manuel Casas Nov 26, 2016 10:46
--- NOTE | 2016-11-26 15:05 | PCM.PNMED ---
Subjective Date of Service Nov 26, 2016 Subjective Night nurse reports more productive cough, pt declines offers for breezing treatments, O2 90-95% on 3L. Patient was noted to have mild degree of confusion this morning during rounds, however was in her regular state of mind earlier. Exam Vital Signs Vital Sign - Last Date Time Temp Pulse Resp B/P Pulse Ox O2 Delivery O2 Flow Rate FiO2 11/26/16 13:43 36.1 90 20 107/67 92 Nasal Cannula 4.00 Intake and Output 11/25/16 11/25/16 11/26/16 Cumulative From/Thru 15:00 23:00 07:00 11/24/16 01:15 - 11/25/16 19:05 Intake Total 250 ml 412 ml 3104 ml Output Total 300 ml 1375 ml Balance 250 ml 112 ml 1729 ml Intake Oral 300 ml 700 ml IV Total 250 ml 112 ml 2404 ml Output Urine Total 300 ml 1375 ml # Bowel Movements 0 0 Exam General: awake, confused, labored breathing Eyes: scleral anicteric Neck: supple, no thyromegaly Chest & Lungs: Diffuse wheezing bilaterally, bibasilar crackles R>L, ronchi R>L Cardiovascular: no murmurs/rubs/gallops, irregular rate/rhythm Abdomen: soft, non-tender, non-distended, normoactive bowel tones Extremities: no edema LE, no cyanosis Skin: Numerous ecchymosis (consistent with warfarin use) Lab and Diagnostics Result Diagram: 11/26/16 0835 11/25/16 0745 Microbiology Microbiology REGINALDO STREP PNEUMONIAE AG URINE Final 11/24/16-42 STREP PNEUMO AG NEGATIVE Tests performed directly on clinical specimens are intended for screening purposes only and should augment, not replace, culture procedures Please Note: Streptococcus pneumoniae vaccine may cause false positive results in urine in the 48 hours following injection. Hence, it is recommended that the Alere Strep pneumoniae Antigen testing not be performed within five days of receiving the S. pneumoniae vaccine ----- NASOPHARYNGEAL: Microbiology ADENOVIRUS RESPIRATORY PCR Final 11/24/16 Not Detected CORONOVIRUS 229E Final 11/24/16 Not Detected CORONOVIRUS HKU1 Final 11/24/16 Not Detected CORONOVIRUS NL63 Final 11/24/16 Not Detected CORONOVIRUS OC43 Final 11/24/16 Not Detected INFLUENZA A PCR Final 11/24/16 Not Detected INFLUENZA B PCR Final 11/24/16 Not Detected METAPNEUMOVIRUS PCR Final 11/24/16 Not Detected RHINOVIRUS OR ENTEROVIRUS PCR Final 11/24/16 Not Detected PARAINFLUENZA 1 PCR Final 11/24/16 Not Detected PARAINFLUENZA 2 PCR Final 11/24/16 Not Detected PARAINFLUENZA 3 PCR Final 11/24/16 Not Detected PARAINFLUENZA 4 PCR Final 11/24/16 Not Detected RESP SYNCYTIAL VIRUS PCR Final 11/24/16 Not Detected CHLAMDOPHILIA PNEUMONIAE PCR Final 11/24/16 Not Detected MYCOPLASMA PNEUMONIAE PCR Final 11/24/16 MYCO PNEUMONIAE PCR Not Detected Reference Interval Not Detected COLDFUSION swab is the only specimen type cleared by the FDA. Nasal wash, tracheal aspirate, and bronchial lavage specimen types have not been cleared by the FDA. Therefore results on any specimen type other than nasopharyngeal are considered investigational testing only. Microbiology REGINALDO OCCULT BLOOD IMMUNOCHEM Final 11/25/16-1104 OCCULT BLD IMMUNOCHEMICAL POSITIVE REFERENCE INTERVAL NEGATIVE Microbiology REGINALDO CULT NASAL MRSA SCREEN Final 11/25/16-1304 Screen NEGATIVE for Methicillin Resistant Staph Aureus X-Rays, CTs and MRIs PROCEDURE: X-RAY CHEST ONE VIEW, PORTABLE ([id number]) INDICATIONS: Follow up for congestive heart failure COMPARISON: [facility], CR, XR CHEST 1VW (PORTABLE), 10/17/2016, 12 :41. FINDINGS: Surgical changes and devices: Post median sternotomy with valvular replacement. Lungs and pleura: Interstitium is prominent no significant change from prior examination. No focal lung consolidation present. Mediastinum: Mediastinal contours appear normal. Heart size is enlarged. Bones and chest wall: No suspicious bony lesions. Overlying soft tissues appear unremarkable. IMPRESSION: 1. Cardiomegaly and chronic interstitial pulmonary densities with no significant change from prior examination which may be chronic but superimposed pulmonary edema cannot be excluded. Recommend clinical correlation. Dictated by: Kolby Turner [facility] Interpreted: Tomas Medina MD on 10/23/2016 at 13: 46 Transcribed by: TRUDI on 10/23/2016 at 13:46 Approved by: Tomas Medina M.D. on 10/23/2016 at 15:37 PROCEDURE: CT ANGIO CHEST PULMONARY EMBOLISM ([id number]) FINDINGS: Pulmonary arteries: Pulmonary arteries are normal in size, and demonstrate no intraluminal filling defects to suggest central pulmonary embolism. Lungs and pleura: There are right lower lobe infiltrates and consolidation consistent with pneumonia. Hyperdensities in the right lung base may be related to aspiration. There are small bilateral effusions with basilar atelectasis, left greater than right. Bilateral interstitial thickening likely secondary to pulmonary edema. No pneumothorax. Central and peripheral airways are patent. Mediastinum: Heart is moderately to severely enlarged. No pericardial effusion. There is a prosthetic aortic valve. No mediastinal or hilar adenopathy. Thoracic aorta is normal in caliber and enhancement. Severe aortic calcification consistent with atherosclerosis with Esophagus is normal in caliber, without hiatal hernia. Bones and chest wall: No suspicious bony lesions. Ribs and thoracic spine appear intact throughout. Thyroid gland is normal. No axillary or supraclavicular adenopathy. Abdomen: There is IV contrast reflux into the hepatic vein. A 2.9 x 3.9 cm cystic structure is noted in the left upper quadrant anterior to the superior pole of the left kidney, probably an exophytic cyst. IMPRESSION: 1. No acute central pulmonary embolism. 2. Right lower lobe infiltrates and consolidation consistent pneumonia. 3. Bilateral small pleural effusions with basilar atelectasis. 4. Marked cardiomegaly and prosthetic aortic valve. There is bilateral interstitial thickening suggesting mild pulmonary edema secondary to congestive heart failure. 5. Hyperdense material in the right lung base suspicious for aspiration. Dictated by: Arsen Valenzuela M.D. on 11/26/2016 at 9:19 Approved by: Arsen Valenzuela M.D. on 11/26/2016 at 9:19 12-lead ECG EKG: Right and left arm electrode reversal, interpretation assumes no reversal . Atrial fibrillation . Ventricular premature complex . Low voltage, extremity leads . Nonspecific T abnormalities, lateral leads . Prolonged QT interval Cardiac Echo Impressions Echocardiogram Report Interpretation Summary Limited echo to evaluate valve gradients for acute shortness of breath. Patient is in chronic afib with RVR. HR 87-105 bpm. Normal LV size; severe concentric LVH; global hypokinesis. EF is 30--35%. Valves are not well seen. 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 Aortic valve is replaced with a mechanical prosthesis. There is mild aortic stenosis. Mean gradient is 17 mm Hg. Compared to prior study 10/19/2016 EF is less dynamic, particularly on apical views. EF is down from about 45-50% to now 30-35%. Valve function is unchanged Reading Physician:09:34 AM Assessment & Plan Patient is an 86-year-old female with CHF, atrial fibrillation on warfarin, COPD , DM2 and hypothyroidism who presented to [facility] from her SNF complaining of shortness of breath. SNF called EMS who reported 73% on 3L O2. SNF reports diaphoresis, cough and decreased responsiveness in last day. Hospital day 3. 1. Severe sepsis, present on admission, acute - On adm: WBC 13.3, P 146, RR 27 - Today: WBC 7.0, P 92, RR 22 - End organ damage (increased confusion per SNF) - [place] [facility] patchy opacity of the right lung & small right-sided pleural effusion. Pulmonary edema likely related to CHF. - Negative influenza A&B - Negative viral PCR, negative urine L. pneumophilia and St. pneumo Ag - Treat #2 and #4 2. Pneumonia, present on admission, acute - See above under sepsis - Procalcitonin 1.10 - Duo Nebs - CT angio chest: right lower lobe consolidation, bilateral small pleural effusion, hyperdense material in the right lung base suspicious for aspiration - Discontinue Ceftriaxone and Azithromycin - Start Augmentin 850/125 PO bid - Swallow eval 3. Elevated troponin of unknown significance, present on admission, unknown chronicity - Chronically elevated in September 2016 and it is the same today - 0.070 on admission - 0.052 yesterday, will stop trending at this moment - EKG at [facility]: Atrial fibrillation, ventricular premature complex, nonspecific T abnormalities, lateral leads, prolonged QT interval - D/C heparin drip (FOBT positive) - Cardiology consult, Dr. Baez, appreciate your assistance - ECHO: EF down from about 45-50% in September 2016 to 30-35%; marked cardiomegaly - D/C heparin drip (FOBT positive) - Atorvastatin 20 mg PO hs - Start Metoprolol 25 mg PO q6h - Start Losartan 12.5 qd - Patient is not a candidate for cardiac catheterization d/t her advanced age, frailty, chronic oral anticoagulation, the technical aspects of the procedure per Dr. 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 Urinary tract infection, acute, present on admission - UA positive for Klebsiella Pneumoniae - Discontinue Ceftriaxone IV - Start Augmentin PO 5. Lactic acidosis, acute, present on admission, resolved - 3.3 at [facility] - 0.8 this morning 6. Altered mental status, present on admission, acute, ongoing - New episode pf confusion this morning - Most likely from sepsis, UTI, pneumonia - Swallow evaluation 7. Acute on chronic hypoxia, present on admission, resolved - Initially required 5 L, but now on 3 L which is her home dose 8. CHF, diastolic, present on admission, chronic - BNP is elevated chronically - ECHO 11/25/16: EF down from about 45-50% in September 2016 to 30-35%; marked cardiomegaly - Furosemide 40 mg IV qd 9. Atrial fibrillation ( on Warfarin), present on admission, chronic - Warfarin per pharmacy. INR 2.93 today. Warfarin 1.5 mg tonight - H/o mitral and aortic valve replacement, maintain INR 2.5-3.5 - Metoprolol 25 mg PO q6h - Discontinue Diltiazem 120 mg PO qd 10. REBA, acute, present on admission, improved - Cr 0.85 (down from 1.09) - Monitor labs Chronic conditions: Hypertension. present on admission. chronic - currently controlled. Re-evaluate Hypothyroidism, present on admission, chronic - continue levothyroxine Depression, present on admission, chronic - continue Citalopram Deconditioning, present on admission, chronic - PT ordered Urinary Retention, present on admission, chronic. - Continued tamsulosin - Patient has Arias Dyslipidemia, present on admission, chronic - Hold the statin in the acute setting - Acetaminophen as needed for mild pain/fever/headache - Bowel regimen as needed - Antiemetic as needed Patient admitted under inpatient status with expected length of stay > 2 midnights for severity of present symptoms, complexities of treatment plan and risk for adverse events. Patient is a resident of [facility]. Code status: Per POLST, DNR/DNI GI Prophylaxis: Proton Pump Inhibitor VTE Prophylaxis: Theraputic Anticoag with Warfarin Resuscitation Status: CPR: Attempt Resuscitation Attending Statement The patient was seen and examined together with Dr. Bustos on 11/26/2015 and I agree with the history, exam and plan as outlined in the note above. YAYA BUSTOS DO Nov 26, 2016 15:05 Xavier Cruz MD Nov 27, 2016 10:10
[2016-11-26] MEDS: Amoxicillin-Clav 875-125 mg Tablet PO SCH (20:49)
[2016-11-27] VITALS (13 sets, daily range): BP systolic 103–141; BP diastolic 55–71; PULSE 74–110; RESP 20–32; O2SAT 90–98
--- NOTE | 2016-11-27 02:00 | PROG NOTE ---
[address] [address] PROGRESS NOTE PATIENT: CALLIE SINCLAIR : 1930 MR#: [id number] ADMIT: 11/24/2016 JOB ID: [id number] DATE: 11/26/2016 CHIEF COMPLAINT: Shortness of breath. SUBJECTIVE: The patient continues to be quite dyspneic. I personally reviewed her CT scan performed November 25, 2016, and it is quite obvious that she has severe right lower lobe pneumonia. She is accompanied today by her son, Darshan, and her [id number]-bpi, and they were quite happy with the care she is getting and did not really have any questions for me. OBJECTIVE: Vital signs: Temperature 37.6, blood pressure 103/60, up to 129/75, pulse 80, up to 95 beats per minute. She is satting 92% to 98% on 3-4 L nasal cannula. Well-nourished woman with increased use of accessory muscles, she has increased work with breathing. Eyes: No scleral icterus. Lungs with decreased breath sounds bilaterally and coarse breath sounds bilaterally. Heart is irregularly irregular with mechanical S1 and S2. No murmurs. Abdomen: Soft. No lower extremity edema. LABORATORIES: Reviewed. Troponin T 0.061. Creatinine 0.85. Hematocrit 27%, with somewhat diminished platelets of 104. INR was most recently 2.9. ASSESSMENT AND PLAN: This is an 86-year-old woman with severe shortness of breath. She has pneumonia in her right lower lobe and associated hypoxia. Her left ventricular systolic function has come down from prior diagnostic in September 2016 and is now about 30% to 35%. The plan for this patient is to continue attempts at diuresis with Lasix 40 mg IV. Continue warfarin goal INR between 2.5 and 3.5. Continue metoprolol 25 mg by mouth q.6. She carries an allergy to LISINOPRIL, but her son and iuwuesva-yw-vki do not really recall exactly what was the nature of her allergic reaction. We will go ahead and start her on losartan 12.5 mg daily and see if she can tolerate that okay. organism for pneumonia remains unknown. She is closely monitored by the primary team and I agree with their treatment plan. Thank you for the opportunity to evaluate her.
[2016-11-27] MEDS: Albuterol-Ipratropium 3 mL Inhalation Solution NEB PRN ×2 (02:07→21:29)
[2016-11-27] MEDS ORDERED: Furosemide 10 mg/mL 4 mL Inj IVPUSH ONE ×2 (05:55→22:30)
[2016-11-27 06:01] LABS: BASOPHILS % (AUTO) 0.6 % (0-3); EOSINOPHILS % (AUTO) 1.2 % (0-5); MONOCYTES % (AUTO) 14.1 % (4-12); Mean Corpuscular Hemoglobin 28.3 pg (27.0-35.0); NEUTROPHILS % (AUTO) 68.4 % (40-74); Platelet Count 117 bil/L (150-400)
--- NOTE | 2016-11-27 06:16 | NUR ---
RESPIRATORY LS coarse w/ wheezing. Pt has received prn neb treatments x 2 during shift. Pt has weak cough. Pt alternating between NC and oxymask 3-4L, depending on pts tolerance, low to mid 90s. RR mid to high 20s. Towards end of shift, pt using more accessory muscle use, appears in respiratory distress. LS sounds w/ more crackles and coarse than previously. Pt had very low UO for shift, marlow already in place. Noc notified, who came to assess pt. RT also called to assess pt. CXR ordered, IV lasix 40mg x 1 administered. Afrin nasal spray to be ordered, to assess if this will help w/ pts ease of breathing, as pt sounds congested in nares. Continue to monitor. Call light in reach. Bed alarm on. Intentional rounding.
[2016-11-27 06:38] LABS: INR 2.73 ratio
[2016-11-27] MEDS: Amoxicillin-Clav 875-125 mg Tablet PO SCH ×3 (09:09→20:51)
--- NOTE | 2016-11-27 09:40 | DRSVH ---
PROCEDURE: X-RAY CHEST ONE VIEW, PORTABLE ([id number]) INDICATIONS: dyspnea TECHNIQUE: One view of the chest was acquired. COMPARISON: [facility], CT, CT ANGIO CHEST PE, 11/25/2016, 18:56. [facility] , CR, XR CHEST 1VW (PORTABLE), 10/23/2016, 11:57. FINDINGS: Surgical changes and devices: Sternal wires and valve replacement are noted. Lungs and pleura: There is a persistent area of bilateral pulmonary opacities, most prominent in the left base/retrocardiac region, appearing relatively unchanged compared to 11/25/16. Minimal to mild ayanna ateral pleural effusions, left greater than right are noted, unchanged. Mediastinum: Mediastinal contours appear normal. Heart size is normal. Bones and chest wall: No suspicious bony lesions. Overlying soft tissues appear unremarkable. IMPRESSION: Relatively unchanged appearance of bilateral pulmonary opacities and pleural effusions, s uggestive of diffuse airspace disease such as pneumonia. Areas of widespread edema should also be con sidered. Dictated by: Nadege Gauthier M.D. on 11/27/2016 at 9:32 Approved by: Nadege Gauthier M.D. on 11/27/2016 at 9:32
--- NOTE | 2016-11-27 11:00 | NUR ---
Mentation This am RN went to complete assessment and administer medication. RN was having difficulty waking patient. RN voiced this to MD. MD and RN went to examine pt. With sternal rub, able to get pt to open eyes. Pt able to follow MD's directions for hand grasps and moving feet. Pt able to state date of , but did not answer any other questions. Pt's speech garbled. Stat head CT, CBC, CMP, and speech eval ordered. VS stable. Blood glucose obtained. Tele afib 80s- low 100s. MD alerted pt's family. Will continue to monitor closely.
[2016-11-27 11:04] LABS: BASOPHILS % (AUTO) 0.6 % (0-3); EOSINOPHILS % (AUTO) 1.3 % (0-5); MONOCYTES % (AUTO) 12.6 % (4-12); Mean Corpuscular Hemoglobin 28.5 pg (27.0-35.0); Mean Corpuscular Volume 95.1 fL (81-100); NEUTROPHILS % (AUTO) 69.2 % (40-74); Platelet Count 116 bil/L (150-400)
--- NOTE | 2016-11-27 11:04 | DRSVH ---
PROCEDURE: CT BRAIN WITHOUT CONTRAST ([id number]) INDICATIONS: change in mental status TECHNIQUE: Noncontrast 4.5 mm thick angled axial sections acquired from the foramen magnum to the vertex, with c oronal reformats. COMPARISON: [facility], CT, CT BRAIN WO CON, 10/17/2016, 13:13. FINDINGS: Image quality: Excellent. CSF spaces: Basal cisterns are patent. No extra-axial fluid collections. The ventricles are symmet yadira in size and shape. Brain: No intracranial bleeds or masses. There is cerebral volume loss for age, with resultant vent ricular and sulcal prominence. There are periventricular and deep white matter chronic small vessel ischemic changes. Old, small, left caudate body/barlow radiata lacunar infarct noted. Small punctate density in the left frontal periventricular white matter is stable compared to prior examination. The re is intracranial internal carotid artery atherosclerosis. Skull and face: Calvarium and visualized facial bones appear intact, without suspicious lesions. Sinuses: Visualized sinuses and mastoids are clear. IMPRESSION: 1. No acute intracranial disease process. 2. No intracranial hemorrhage. Dictated by: Rachel Nichols MD, PhD on 11/27/2016 at 11:02 Approved by: Rachel Nichols MD, PhD on 11/27/2016 at 11:02
--- NOTE | 2016-11-27 13:08 | NUR ---
Evaluation completed. Rec: NPO except essential medication crushed in applesauce. PATIENT INTAKE COORDINATOR to follow Please go to "Notes" then click on "Assessments and Notes" (bottom left corner of screen). Then select appropriate discipline tab on top of screen.
--- NOTE | 2016-11-27 13:37 | NUR ---
NUTRITION ASSESSMENT: ASSESS: Pt is an 86yo F admitted for SOB and pneumonia. ST is following pt. She was originally placed on FL with NT liquids with variable PO of bites-50%. Today, ST re-evaluated pt and made her NPO due to increased lethargy and increased confusion. RN noted some slurred speech. Pt is to have brain MRI. PMHX: CHF and COPD. CXR revealed patchy opacity of R-lung and small R-side plural effusion. LABS: Reviewed. Cl 96, Bun 36, Award Machine Operator 1.83, Glu 121, Alb 3.1 MEDS: Reviewed. GI: BMx1 11/27 SKIN: Mark 13 CURRENT WTS: 75.7kg, BMI 32.6kg/m2, admit wt 75.6kg, IBW 45.5kg DIET: NPO per EST. NEEDS: BMI Kcals: 1515-1665kcal/day (20-22kcal/kg) Pro: 55-70g/day (1.2-1.5g/kg IBW) NUTRITION DIAGNOSIS: 1.) Chew/swallow difficulty related to AMS and slurred speech as evidence by need for NPO diet order per ST 2.) Inadequate oral intake related to decreased ability to consume sufficient energy as evidenced by current NPO status. NUTRITION INTERVENTION: 1.) Will continue to monitor NPO status 2.) Advance diet per ST MONITOR / EVAL: NPO, ST, wt, diet advc, POC, nutrition status. Will continue to monitor per high nutrition risk guidelines
--- NOTE | 2016-11-27 15:26 | PROG NOTE ---
[address] [address] PROGRESS NOTE PATIENT: CALLIE SINCLAIR : 1930 MR#: [id number] ADMIT: 11/24/2016 JOB ID: [id number] DATE: 11/27/2016 SUBJECTIVE: This morning the patient is sleeping. She looks peaceful. I did not want to wake her up. Review of nursing notes suggests that she was having significant wheezing this morning and was using accessory muscles to breathe, was in respiratory distress. She responded favorably to respiratory therapy and IV Lasix. This morning she was obtunded but eventually responded to sternal rub. PHYSICAL EXAMINATION: Vital signs: Temperature 36.2, blood pressure 103/66 up to 135/68, pulse on tele 74 up to 103 beats per minute. She remains in AFib. She is saturating 90% to 97% on 3-4 L nasal cannula. I's and O's, she was actually, yesterday, t in more than out by 213 mL. Her weight is down 3.2 kg on the standing scale in the past 48 hours. CURRENT MEDICATIONS: 1. Lipitor 20 mg daily. 2. Augmentin. 3. Metoprolol tartrate 25 mg by mouth every 6 hours. 4. Aspirin 81 mg daily. 5. Warfarin dosed by Pharmacy. PHYSICAL EXAMINATION: Chronically ill-appearing woman, somnolent, but arousable. Eyes: No scleral icterus. Heart: Mechanical S1 and S2. No murmurs. Lungs with coarse breath sounds bilaterally. Abdomen is soft, positive bowel sounds. Extremities: No edema. LABORATORIES: Reviewed. Her INR today is 2.7. Creatinine is 1.9 consistent with acute renal failure. She is anemic, hematocrit is 29%. Platelet count 116, white count 6.2. ASSESSMENT AND PLAN: An 86-year-old woman with newly diagnosed cardiomyopathy. Her EF right now is 30% to 35%. She has a mechanical prosthesis in mitral and mechanical prosthesis in the aortic position. Normally, we would aggressively diurese her but we cannot really do that because of acute renal failure. Also, normally would put her on angiotensin-converting enzyme inhibitor. We cannot safely do that again because of renal insufficiency. She is tolerating beta bailey. Normally, I would consider her on digoxin but, again, we cannot really start it because of acute renal failure. Prosthetic valves appeared to be functioning normally. Continue warfarin. Goal INR between 2.5 and 3.5. I will continue to monitor her along with you. I think the imaging is quite compelling and suggests that the primary etiology of her respiratory distress is the infiltrates in the right lower lobe concerning for pneumonia. Thank you for the opportunity to evaluate this patient.
--- NOTE | 2016-11-27 16:05 | DRSVH ---
PROCEDURE: MRI BRAIN WITHOUT CONTRAST ([id number]) INDICATIONS: Slurred speech, unilateral weakness TECHNIQUE: Non-contrast axial T1 spin echo, axial T2 fast spin echo, sagittal and axial FLAIR, coronal T2 fast s pin echo, axial gradient echo, axial diffusion and ADC through the brain. COMPARISON: [facility], MR, MR BRAIN WO CON, 10/18/2016, 13:16. FINDINGS: Image quality: Motion artifact limits evaluation. CSF spaces: Ventricles appear symmetric in size and shape. Basal cisterns are patent. No extra-axi al fluid collections. Brain: No intracranial bleeds or mass effects. There is minimal cerebral volume loss for age. Ther e are mild periventricular and deep white matter chronic small vessel ischemic changes. Brainstem ap pears normal. Diffusion-weighted images show no acute ischemic insults. No chronic ischemic insults . Normal intravascular flow voids are present. Skull and face: Calvarial bone marrow is normal in signal. Orbits are normal. Sinuses: Sinuses and mastoids are clear. IMPRESSION: 1. Markedly limited study due to motion artifact. However, is no increased restricted diffusion to fonseca ggest acute or subacute infarct. 2. Considering patient age, there are only trace senescent finding likely associated with microvascul ar ischemia. Dictated by: Naida Matos M.D. on 11/27/2016 at 16:02 Approved by: Naida Matos M.D. on 11/27/2016 at 16:02
--- NOTE | 2016-11-27 16:06 | NUR ---
MRI Pt off unit at 1500 for MRI, returned at 1540. senior service technician aware. Transported by bed.
[2016-11-27 16:20] LABS: APPEARANCE,URINE CLOUDY (CLEAR,HAZY); COLOR,URINE YELLOW (YELLOW)
[2016-11-27 16:21] LABS: OCCULT BLOOD,URINE MODERATE (NEGATIVE); PH,URINE 5.5 (5.0-8.0); UROBILINOGEN,URINE NORMAL (NORMAL)
--- NOTE | 2016-11-27 17:21 | NUR ---
Mentation/Medications Pt is much more awake at this time. Opening eyes and responding more clearly to questions. RN felt comfortable administering medications to pt. 1430 metoprolol and warfarin administered- crushed in applesauce, with pt up at 90deg angle. Pt able to swallow medications well. Will continue to monitor.
--- NOTE | 2016-11-27 17:22 | PCM.PNMED ---
Subjective Date of Service Nov 27, 2016 Subjective Overnight patient had to use accessory muscles for breathing, received lasix 40 mg IV push once, had repeated x-ray. This morning patient was found to have slurred speech and weakness on the left side in both extremities. CT brain and MRI w/o contrast wee ordered. Patient's son was notified on the phone. Exam Vital Signs Vital Sign - Last Date Time Temp Pulse Resp B/P Pulse Ox O2 Delivery O2 Flow Rate FiO2 11/27/16 16:14 36.4 110 23 131/70 97 Nasal Cannula 3.00 Intake and Output 11/26/16 11/26/16 11/27/16 Cumulative From/Thru 15:00 23:00 07:00 11/24/16 01:15 - 11/27/16 06:51 Intake Total 255 ml 233 ml 50 ml 3642 ml Output Total 275 ml 100 ml 1750 ml Balance 255 ml -42 ml -50 ml 1892 ml Intake Oral 233 ml 50 ml 983 ml IV Total 255 ml 2659 ml Output Urine Total 275 ml 100 ml 1750 ml # Bowel Movements 1 1 2 Exam General: confused, attempting to answer questions but speech is slurred Neck: supple Chest & Lungs: Diffuse wheezing bilaterally Cardiovascular: no murmurs/rubs/gallops, irregular rate/rhythm Abdomen: soft, non-tender, non-distended, normoactive bowel tones Extremities: no edema LE, no cyanosis Skin: Numerous ecchymosis (consistent with warfarin use) Neuro: Slurred speech, following commands, weakness in left upper and lower extremities Lab and Diagnostics Result Diagram: 11/27/16 1050 11/27/16 1050 Microbiology Microbiology REGINALDO STREP PNEUMONIAE AG URINE Final 11/24/16-0742 STREP PNEUMO AG NEGATIVE Tests performed directly on clinical specimens are intended for screening purposes only and should augment, not replace, culture procedures Please Note: Streptococcus pneumoniae vaccine may cause false positive results in urine in the 48 hours following injection. Hence, it is recommended that the Alere Strep pneumoniae Antigen testing not be performed within five days of receiving the S. pneumoniae vaccine ----- NASOPHARYNGEAL: Microbiology ADENOVIRUS RESPIRATORY PCR Final 11/24/16 Not Detected CORONOVIRUS 229E Final 11/24/16 Not Detected CORONOVIRUS HKU1 Final 11/24/16 Not Detected CORONOVIRUS NL63 Final 11/24/16 Not Detected CORONOVIRUS OC43 Final 11/24/16 Not Detected INFLUENZA A PCR Final 11/24/16 Not Detected INFLUENZA B PCR Final 11/24/16 Not Detected METAPNEUMOVIRUS PCR Final 11/24/16 Not Detected RHINOVIRUS OR ENTEROVIRUS PCR Final 11/24/16 Not Detected PARAINFLUENZA 1 PCR Final 11/24/16 Not Detected PARAINFLUENZA 2 PCR Final 11/24/16 Not Detected PARAINFLUENZA 3 PCR Final 11/24/16 Not Detected PARAINFLUENZA 4 PCR Final 11/24/16 Not Detected RESP SYNCYTIAL VIRUS PCR Final 11/24/16 Not Detected CHLAMDOPHILIA PNEUMONIAE PCR Final 11/24/16 Not Detected MYCOPLASMA PNEUMONIAE PCR Final 11/24/16 MYCO PNEUMONIAE PCR Not Detected Reference Interval Not Detected RN PSYCHIATRIC swab is the only specimen type cleared by the FDA. Nasal wash, tracheal aspirate, and bronchial lavage specimen types have not been cleared by the FDA. Therefore results on any specimen type other than nasopharyngeal are considered investigational testing only. Microbiology REGINALDO OCCULT BLOOD IMMUNOCHEM Final 11/25/16-4 OCCULT BLD IMMUNOCHEMICAL POSITIVE REFERENCE INTERVAL NEGATIVE Microbiology REGINALDO CULT NASAL MRSA SCREEN Final 11/25/16-1304 Screen NEGATIVE for Methicillin Resistant Staph Aureus X-Rays, CTs and MRIs PROCEDURE: X-RAY CHEST ONE VIEW, PORTABLE ([id number]) INDICATIONS: Follow up for congestive heart failure COMPARISON: [facility], CR, XR CHEST 1VW (PORTABLE), 10/17/2016, 12 :41. FINDINGS: Surgical changes and devices: Post median sternotomy with valvular replacement. Lungs and pleura: Interstitium is prominent no significant change from prior examination. No focal lung consolidation present. Mediastinum: Mediastinal contours appear normal. Heart size is enlarged. Bones and chest wall: No suspicious bony lesions. Overlying soft tissues appear unremarkable. IMPRESSION: 1. Cardiomegaly and chronic interstitial pulmonary densities with no significant change from prior examination which may be chronic but superimposed pulmonary edema cannot be excluded. Recommend clinical correlation. Dictated by: Kolby Turner RR Interpreted: Tomas Medina MD on 10/23/2016 at 13: 46 Transcribed by: TRUDI on 10/23/2016 at 13:46 Approved by: Tomas Medina M.D. on 10/23/2016 at 15:37 PROCEDURE: CT ANGIO CHEST PULMONARY EMBOLISM ([id number]) FINDINGS: Pulmonary arteries: Pulmonary arteries are normal in size, and demonstrate no intraluminal filling defects to suggest central pulmonary embolism. Lungs and pleura: There are right lower lobe infiltrates and consolidation consistent with pneumonia. Hyperdensities in the right lung base may be related to aspiration. There are small bilateral effusions with basilar atelectasis, left greater than right. Bilateral interstitial thickening likely secondary to pulmonary edema. No pneumothorax. Central and peripheral airways are patent. Mediastinum: Heart is moderately to severely enlarged. No pericardial effusion. There is a prosthetic aortic valve. No mediastinal or hilar adenopathy. Thoracic aorta is normal in caliber and enhancement. Severe aortic calcification consistent with atherosclerosis with Esophagus is normal in caliber, without hiatal hernia. Bones and chest wall: No suspicious bony lesions. Ribs and thoracic spine appear intact throughout. Thyroid gland is normal. No axillary or supraclavicular adenopathy. Abdomen: There is IV contrast reflux into the hepatic vein. A 2.9 x 3.9 cm cystic structure is noted in the left upper quadrant anterior to the superior pole of the left kidney, probably an exophytic cyst. IMPRESSION: 1. No acute central pulmonary embolism. 2. Right lower lobe infiltrates and consolidation consistent pneumonia. 3. Bilateral small pleural effusions with basilar atelectasis. 4. Marked cardiomegaly and prosthetic aortic valve. There is bilateral interstitial thickening suggesting mild pulmonary edema secondary to congestive heart failure. 5. Hyperdense material in the right lung base suspicious for aspiration. Dictated by: Arsen Vaelnzuela M.D. on 11/26/2016 at 9:19 Approved by: Arsen Valenzuela M.D. on 11/26/2016 at 9:19 PROCEDURE: CT BRAIN WITHOUT CONTRAST ([id number]) INDICATIONS: change in mental status FINDINGS: Image quality: Excellent. CSF spaces: Basal cisterns are patent. No extra-axial fluid collections. The ventricles are symmetric in size and shape. Brain: No intracranial bleeds or masses. There is cerebral volume loss for age , with resultant ventricular and sulcal prominence. There are periventricular and deep white matter chronic small vessel ischemic changes. Old, small, left caudate body/barlow radiata lacunar infarct noted. Small punctate density in the left frontal periventricular white matter is stable compared to prior examination. There is intracranial internal carotid artery atherosclerosis. Skull and face: Calvarium and visualized facial bones appear intact, without suspicious lesions. Sinuses: Visualized sinuses and mastoids are clear. IMPRESSION: 1. No acute intracranial disease process. 2. No intracranial hemorrhage. Dictated by: Rachel Nichols MD, PhD on 11/27/2016 at 11:02 Approved by: Rachel Nichols MD, PhD on 11/27/2016 at 11:02 PROCEDURE: MRI BRAIN WITHOUT CONTRAST ([id number]) INDICATIONS: Slurred speech, unilateral weakness FINDINGS: Image quality: Motion artifact limits evaluation. CSF spaces: Ventricles appear symmetric in size and shape. Basal cisterns are patent. No extra-axial fluid collections. Brain: No intracranial bleeds or mass effects. There is minimal cerebral volume loss for age. There are mild periventricular and deep white matter chronic small vessel ischemic changes. Brainstem appears normal. Diffusion- weighted images show no acute ischemic insults. No chronic ischemic insults. Normal intravascular flow voids are present. Skull and face: Calvarial bone marrow is normal in signal. Orbits are normal. Sinuses: Sinuses and mastoids are clear. IMPRESSION: 1. Markedly limited study due to motion artifact. However, is no increased restricted diffusion to suggest acute or subacute infarct. 2. Considering patient age, there are only trace senescent finding likely associated with microvascular ischemia. Dictated by: Naida Matos M.D. on 11/27/2016 at 16:02 Approved by: Naida Matos M.D. on 11/27/2016 at 16:02 12-lead ECG EKG: Right and left arm electrode reversal, interpretation assumes no reversal . Atrial fibrillation . Ventricular premature complex . Low voltage, extremity leads . Nonspecific T abnormalities, lateral leads . Prolonged QT interval Cardiac Echo Impressions Echocardiogram Report Interpretation Summary Limited echo to evaluate valve gradients for acute shortness of breath. Patient is in chronic afib with RVR. HR 87-105 bpm. Normal LV size; severe concentric LVH; global hypokinesis. EF is 30--35%. Valves are not well seen. 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 Aortic valve is replaced with a mechanical prosthesis. There is mild aortic stenosis. Mean gradient is 17 mm Hg. Compared to prior study 10/19/2016 EF is less dynamic, particularly on apical views. EF is down from about 45-50% to now 30-35%. Valve function is unchanged Reading Physician:09:34 AM Assessment & Plan Patient is an 86-year-old female with CHF, atrial fibrillation on warfarin, COPD , DM2 and hypothyroidism who presented to [facility] from her SNF complaining of shortness of breath. SNF called EMS who reported 73% on 3L O2. SNF reports diaphoresis, cough and decreased responsiveness in last day. Hospital day 3. 1. Altered Mental Status - Etiology is unclear - STAT CT of the brain did not reveal any intracranial hemorrhage - Will order a STAT CBC and BMP as well as a UA with culture - Will order a STAT MRI of the brain without contrast to rule out acute embolic stroke 2. Pneumonia, present on admission, acute - See above under sepsis - Procalcitonin 1.10 - Duo Nebs - CT angio chest: right lower lobe consolidation, bilateral small pleural effusion, hyperdense material in the right lung base suspicious for aspiration - Discontinue Ceftriaxone and Azithromycin - Start Augmentin 850/125 PO bid - Swallow eval 3. Elevated troponin of unknown significance, present on admission, unknown chronicity - Chronically elevated in September 2016 and it is the same today - 0.070 on admission - 0.052 yesterday, will stop trending at this moment - EKG at [facility]: Atrial fibrillation, ventricular premature complex, nonspecific T abnormalities, lateral leads, prolonged QT interval - D/C heparin drip (FOBT positive) - Cardiology consult, Dr. Baez, appreciate your assistance - ECHO: EF down from about 45-50% in September 2016 to 30-35%; marked cardiomegaly - D/C heparin drip (FOBT positive) - Atorvastatin 20 mg PO hs - Start Metoprolol 25 mg PO q6h - Start Losartan 12.5 qd - Patient is not a candidate for cardiac catheterization d/t her advanced age, frailty, chronic oral anticoagulation, the technical aspects of the procedure per Dr. 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 Urinary tract infection, acute, present on admission - UA positive for Klebsiella Pneumoniae - Discontinue Ceftriaxone IV - Start Augmentin PO 5. Change in mental status, acute -Slurred speach and unilateral wekness tgis morning - CT head negative - MRI brain w/o con shows no increased restricted diffusion to suggest acute or subacute infarct; there are only trace senescent finding likely associated with microvascular ischemia - Swallow and speech eval- - Continue to monitor 6. Lactic acidosis, acute, present on admission, resolved - 3.3 at [facility], decreased to 0.8 7. Altered mental status, present on admission, acute, ongoing - New episode pf confusion this morning - Most likely from sepsis, UTI, pneumonia - Swallow evaluation 8. Acute on chronic hypoxia, present on admission, resolved - Initially required 5 L, but now on 3 L which is her home dose 9. CHF, diastolic, present on admission, chronic - BNP is elevated chronically - ECHO 11/25/16: EF down from about 45-50% in September 2016 to 30-35%; marked cardiomegaly - Furosemide 40 mg IV qd 10. Atrial fibrillation ( on Warfarin), present on admission, chronic - Warfarin per pharmacy. INR 2.73 today. Warfarin 2 mg tonight - H/o mitral and aortic valve replacement, maintain INR 2.5-3.5 - Metoprolol 25 mg PO q6h - Discontinue Diltiazem 120 mg PO qd 11. REBA, acute, present on admission, improved - Cr increased to 1.83 from 0.85 - Monitor labs - If Cr will not improve, consult nephrology tomorrow Chronic conditions: Hypertension. present on admission. chronic - currently controlled. Re-evaluate Hypothyroidism, present on admission, chronic - continue levothyroxine Depression, present on admission, chronic - continue Citalopram Deconditioning, present on admission, chronic - PT ordered Urinary Retention, present on admission, chronic. - Continued tamsulosin - Patient has Arias Dyslipidemia, present on admission, chronic - Hold the statin in the acute setting - Acetaminophen as needed for mild pain/fever/headache - Bowel regimen as needed - Antiemetic as needed Patient admitted under inpatient status with expected length of stay > 2 midnights for severity of present symptoms, complexities of treatment plan and risk for adverse events. Patient is a resident of [facility]. Code status: Per POLST, DNR/DNI 35 minutes critical care time spent managing pts acute altered mental status concerning for acute stroke. GI Prophylaxis: Proton Pump Inhibitor VTE Prophylaxis: Theraputic Anticoag with Warfarin Resuscitation Status: CPR: Attempt Resuscitation Attending Statement The patient was seen and examined together with Dr. Bustos on 11/27/2016 and I agree with the history, exam and plan as outlined in the note above. YAYA BUSTOS DO Nov 27, 2016 16:58 Xavier Cruz MD Nov 28, 2016 10:05
[2016-11-28] VITALS (9 sets, daily range): BP systolic 105–133; BP diastolic 66–78; PULSE 74–113; RESP 20–32; O2SAT 92–96
[2016-11-28 06:06] LABS: BASOPHILS % (AUTO) 0.8 % (0-3); EOSINOPHILS % (AUTO) 1.6 % (0-5); MONOCYTES % (AUTO) 11.3 % (4-12); Mean Corpuscular Hemoglobin 28.5 pg (27.0-35.0); NEUTROPHILS % (AUTO) 69.5 % (40-74); Platelet Count 124 bil/L (150-400)
[2016-11-28 06:37] LABS: INR 3.69 ratio
--- NOTE | 2016-11-28 06:59 | NUR ---
Industrial Refrigeration Mechanic Note Pt slept off an on all shift, awake more than asleep. Pt had 2 episodes of a minor bloody nose and lips becoming cracked and bleeding on a Oxy Mask. Pt switched back to NC with humidification. Pt has remained alert and oriented to self and place. Requires re-orientation at times Pt is confused. No salas in neurological function all shift.
[2016-11-28] MEDS: Amoxicillin-Clav 875-125 mg Tablet PO SCH ×2 (08:10→19:58)
[2016-11-28] MEDS ORDERED: cefTRIAXone Inj 2,000 MG in IV Premix 1 EACH IV SCH (08:30)
[2016-11-28] MEDS ORDERED: Darbepoetin Alfa 60 mCg/0.3 mL Inj SUBQ ONE (09:40)
[2016-11-28 09:56] LABS: Unsaturated Iron Binding 291.5 ug/dL
--- NOTE | 2016-11-28 10:08 | CONS ---
[address] [address] CONSULTATION REPORT PATIENT: CALLIE SINCLAIR : 1930 MR#: [id number] ADMIT: 11/24/2016 JOB ID: [id number] DATE OF SERVICE: 11/28/2016 RENAL CONSULTATION: HISTORY: The patient is an 86-year-old white female, who was admitted to [facility] in transfer from [facility] for pneumonia. Since admission, she has developed acute kidney injury and renal consultation is being sought for further evaluation and management of her acute kidney injury. The patient is unable to give me much information. Therefore, most of the history has been obtained from the patient's chart. At time of admission, her creatinine was 0.85 and I do not see any evidence of any chronic kidney disease. She does have a history of significant rheumatic heart disease involving both the mitral and aortic valve. She underwent replacement of both of these valves at the [facility] in 2005. She also has a history of coronary artery disease, peripheral vascular disease, atrial fibrillation and hypertension. At time of admission, she was initially at [facility] and subsequently transferred to our facility. She underwent a CT angiography for possible pulmonary embolus and this was negative. Since admission she has had relatively low blood pressures in the low 100 region, and for the last several days, has had minimal fluid intake. Apparently over the evening, she had been complaining of some shortness of breath and was empirically given Lasix which probably led to her worsening renal function. As noted above, I do not see any evidence of any chronic kidney disease. Aside from her significant cardiac history detailed above, there is a note in the chart about diabetes. However, I do not see that she is currently being treated for this as she has no medications for this and her blood sugars have been relatively normal without any type of therapy. Otherwise her past medical history is remarkable for significant cardiac disease as detailed above involving rheumatic heart disease with mitral and aortic valve replacement, coronary artery disease status post vein graft, peripheral vascular disease and an occluded left carotid artery. She developed a postoperative stroke, paroxysmal atrial fibrillation with chronic AFib on anticoagulation, hypothyroidism and hyperlipidemia. PAST SURGICAL HISTORY: Is significant for mitral and aortic valve replacement along with a single-vessel bypass as detailed above, hysterectomy, cataract extraction and a bladder suspension. ALLERGIES: She is allergic to SULFA and LISINOPRIL with unknown reactions. SOCIAL HISTORY: There is a remote history of smoking and no history of alcohol use. She currently was residing in a group home facility prior to her admission. FAMILY HISTORY: Unobtainable. REVIEW OF SYSTEMS: As detailed above. Otherwise is unobtainable. MEDICATIONS: At the time my evaluation, include warfarin, furosemide, Augmentin, metoprolol, atorvastatin and she had been on losartan, aspirin, citalopram, potassium chloride, tamsulosin, levothyroxine, albuterol, ipratropium inhaler. PHYSICAL EXAMINATION: Revealed a thin, pale, chronically ill-appearing 86-year-old white female, who was alert and able to answer only simple questions. Her blood pressure was 113/67 with a heart rate of 109. HEENT examination is remarkable for pale sclerae and bitemporal wasting. Her mucous membranes were somewhat dry. Neck is supple without adenopathy or thyromegaly. However, there was some moderate jugular venous distention at 60 degrees. Lungs showed a few scattered rhonchi and some bibasilar rales. Heart was irregularly regular. Abdomen was mildly distended with normal bowel sounds. There was some mild ill-defined nonfocal tenderness to palpation without rebound, guarding or masses noted. She did have hepatojugular reflux. Extremities not show any clubbing, cyanosis or edema. Skin turgor was slightly diminished and there was no evidence of any rashes. LABORATORY EXAMINATION: This morning, her white count is 6.3, hemoglobin 8.6, hematocrit 28.7. Red cell indices were within normal limits as were her platelets and differential. As noted above at the time of admission, her creatinine was 0.85 and this morning her sodium is 140, potassium 4.1, chloride 98, CO2 of 28, BUN and creatinine were 43 and 2.46. Her blood sugar is 82. Liver function studies are normal and her albumin is 3.1. On November 27, 2016, her urinalysis showed a specific gravity of 1.020, pH is 5.5. Test for protein, occult blood and leukocyte esterase were positive. She had 3-10 RBCs per high-power field and greater than 50 WBCs per high-power field with many epithelial cells and bacteria noted. IMPRESSION: 1. Acute kidney injury secondary to hypotension, intravascular volume depletion, and IV contrast from a CT angiography. 2. Dehydration. 3. Acute cystitis. 4. Hypertension with hypertensive heart disease and hypertensive nephrosclerosis. 5. Anemia which is most likely multifactorial. RECOMMENDATION: 1. I would like to get an abdominal ultrasound on her to evaluate her kidneys. 2. I would like to obtain a serum protein electrophoresis, along with a uric acid, serum iron and TIBC to fully evaluate her anemia. 3. I would like to try some cautious IV hydration with half normal saline over 1 L over a 12 hour period. I would like to try to avoid any further nephrotoxins and tried to raise her blood pressure up. I feel that with her significant left ventricular hypertrophy she probably has some component of diastolic dysfunction and will make her quite volume sensitive. I would also like to start her on Aranesp 60 mg subcutaneously for one dose today. Once again, I would like to thank you for allowing me to participate in the care of this most pleasant and interesting patient. I will be following her closely with you.
--- NOTE | 2016-11-28 12:06 | PCM.CONPHA ---
Subjective Date of Service: Nov 28, 2016 atrial fibrillation with AVR and MVR Reason for Pharmacy Consult: Anticoagulation Management Objective Vital Signs Date Time Temp Pulse Resp B/P Pulse Ox O2 Delivery O2 Flow Rate FiO2 11/28/16 09:00 Supplement Oxygen 11/28/16 08:56 36.8 109 25 113/67 94 Nasal Cannula 3.00 11/28/16 08:00 96 11/28/16 07:45 74 20 94 Nasal Cannula 3.00 11/28/16 04:53 36.6 90 32 123/78 94 OxyMask 4.00 11/28/16 04:52 100 11/28/16 04:00 Supplement Oxygen 11/28/16 01:40 36.7 90 30 133/71 94 OxyMask 4.00 11/27/16 21:30 81 20 98 Nasal Cannula 3.00 11/27/16 21:09 36.4 98 32 141/71 93 Nasal Cannula 3.00 11/27/16 20:26 81 20 98 Nasal Cannula 3.00 11/27/16 20:00 Supplement Oxygen 11/27/16 16:14 36.4 110 23 131/70 97 Nasal Cannula 3.00 11/27/16 14:37 Supplement Oxygen 11/27/16 12:23 36.2 103 21 103/66 97 Nasal Cannula 3.00 Intake and Output 11/26/16 11/27/16 11/28/16 00:00 00:00 00:00 Intake Total 1107 ml 488 ml 168 ml Output Total 700 ml 275 ml 300 ml Balance 407 ml 213 ml -132 ml Weight (Kilograms): 77.500 Height (Feet): 5 Height (Inches): 0.00 Test 11/24/16 03:10 11/24/16 05:00 11/25/16 05:20 11/25/16 17:04 Hemoglobin A1c 6.0% (4.8-5.6) Lactic Acid Level 0.8mmol/L (0.4-2.0) Magnesium Level 1.7mg/dL (1.6-2.6) Urine Legionella pneumophilia Ag Negative (Negative) Troponin T 0.052ug/L (0.0-0.011) Activated Partial Thromboplast Time 38.1sec (22.8-33.0) Test 11/26/16 05:15 11/27/16 15:44 11/28/16 05:25 Procalcitonin 0.59ng/mL (See Comment) Urine Color Yellow (YELLOW) Urine Appearance Cloudy (CLEAR,HAZY) Urine pH 5.5 (5.0-8.0) Urine Specific [place] 1.020 (1.003-1.035) Urine Protein 30mg/dL (NEG,TRACE) Urine Glucose (UA) Negativemg/dL (NEGATIVE) Urine Ketones Negativemg/dL (NEGATIVE) Urine Occult Blood Moderate (NEGATIVE) Urine Nitrite Negative (NEGATIVE) Urine Bilirubin Negative (NEGATIVE) Urine Urobilinogen Normalmg/dL (NORMAL) Urine Leukocyte Esterase Large (NEGATIVE) Urine RBC 3-10/hpf (0-2) Urine WBC >50/hpf (0-5) Urine Epithelial Cells Many/hpf (NONE-MOD) Urine Crystals None seen (NONE SEEN) Urine Bacteria Moderate/hpf (NONE-FEW) Urine Hyaline Casts None/lpf (NONE) Urine Granular Casts None seen (NONE SEEN) Urine Waxy Casts None seen (NONE SEEN) Urine Red Blood Cell Casts None seen (NONE SEEN) Urine White Blood Cell Casts None seen (NONE SEEN) Urine Mucus None seen (None Seen) Urine Trichomonas None seen (NONE SEEN) Urine Yeast None (NONE SEEN) Urinalysis Comment None Urine Culture Reflexed Indicated White Blood Count 6.3th/mm3 (3.8-10.1) Red Blood Count 3.02mil/mm3 (3.90-5.20) Hemoglobin 8.6g/dL (12.0-15.6) Hematocrit 28.7% (35.0-46.0) Mean Corpuscular Volume 95.0fL (81-100) Mean Corpuscular Hemoglobin 28.5pg (27.0-35.0) Mean Corpuscular Hemoglobin Concent 30.0% (32.0-37.0) Red Cell Distribution Width 16.9% (12.3-15.4) Platelet Count 124bil/L (150-400) Neutrophils (%) (Auto) 69.5% (40-74) Lymphocytes (%) (Auto) 16.3% (14-46) Monocytes (%) (Auto) 11.3% (4-12) Eosinophils (%) (Auto) 1.6% (0-5) Basophils (%) (Auto) 0.8% (0-3) Prothrombin Time 40.5sec (8.1-12.5) Prothromb Time International Ratio 3.69ratio Sodium Level 140mEq/L (134-144) Potassium Level 4.1mEq/L (3.5-5.2) Chloride Level 98mEq/L (97-108) Carbon Dioxide Level 28mmol/L (18-29) Blood Urea Nitrogen 43mg/dL (8-27) Creatinine 2.46mg/dL (0.57-1.00) Estimat Glomerular Filtration Rate 27mL/min (>59) Glucose Level 82mg/dL (60-99) Uric Acid 12.4mg/dL (2.6-7.2) Calcium Level 9.4mg/dL (8.5-10.1) Iron Level 71ug/dL (35-150) Total Iron Binding Capacity 363ug/dL (250-450) Percent Iron Saturation 20%sat (15-50) Unsaturated Iron Binding 291.5ug/dL Total Bilirubin 0.4mg/dL (0.0-1.2) Aspartate Amino Transf (AST/SGOT) 25U/L (0-50) Alanine Aminotransferase (ALT/SGPT) 9U/L (0-32) Alkaline Phosphatase 40U/L (25-165) Total Protein 7.3g/dL (6.4-8.4) Assessment/Plan Assessment/Plan Assessment: * Patient is needing warfarin management for atrial fibrillation with AVR and MVR. * Patient received warfarin 2 mg on 11/27/16 after the INR dropped slightly to 2.73. * Patient's INR goal range: 2.5 - 3.5 * Patient's INR on 11/28/16: 3.69 * Patient's INR is just slightly above the goal range, but the INR did make a large increase of 0.96 between 11/27/16 and 11/28/16. Plan: * Will hold the warfarin on 11/28/16 and will reevaluate with the PT/INR on . * Will continue to follow. Edil Fernandez Nov 28, 2016 12:06
--- NOTE | 2016-11-28 13:46 | DRSVH ---
PROCEDURE: US RENAL SONOGRAM INDICATIONS: otis TECHNIQUE: Real-time scanning was performed of the kidneys and bladder, with image documentation. COMPARISON: None. FINDINGS: Kidneys: Kidneys are normal in size. Right kidney measures 10.0 cm long; left kidney measures 10.9 cm long. Right renal cortical thickness is 1.2 cm; left renal cortical thickness is 1.3 cm. Renal c ortical echotexture is normal. No hydronephrosis or nephrolithiasis. No suspicious solid mass lesio ns. In the upper pole of the left kidney is a simple appearing exophytic cyst measuring 29 x 29 x 36 mm, unchanged from prior CT of 11/25/2016 Bladder: A Arias balloon catheter is present within the bladder. Bladder is nonvisualized. Miscellaneous: No free pelvic fluid. IMPRESSION: 1. Normal-appearing kidneys noting exophytic cyst upper pole left kidney 2. Urinary bladder not evaluated secondary to indwelling Arias catheter. Dictated by: Christopher Garcia M.D. on 11/28/2016 at 13:44 Approved by: Christopher Garcia M.D. on 11/28/2016 at 13:44
--- NOTE | 2016-11-28 16:34 | PCM.CHPMED ---
Subjective Date of Service: Nov 28, 2016 Provider requesting consult: YAYA BUSTOS DO Primary Physician: Admitting Physician: Jocelyn Black MD Primary Care Physician: Zafar Chapman DO Attending Physician: Jocelyn Black MD Admit Status: From the Emergency Department Chief Complaint: Chief Complaint: AMS and hypoxic resp distress History of Present Illness: NEUROLOGY CONSULT NOTE Family was not present at time of evaluation; patient unreliable historian 86 year old female with S-CHF, atrial fibrillation on warfarin, aortic and mitral valve replacement, COPD, DM2, and hypothyroidism who currently resides at [facility] presented from SNF on 11/24/16 due to shortness of breath with AMS. Pt does not recall the events that brought her to the hospital. SNF staff reported diaphoresis, cough, and AMS and called EMS, who reported that the patient was severely hypoxic on arrival. Pt was determined to be in acute on chronic CHF exacerbation with new decreased EF of 30%, as well as septic from pneumonia. On the morning of 11/27/16, it was identified that the patient had dramatic left sided weakness of her upper and lower extremities along with left facial droop that lasted through the day. Pt states that she does not remember this episode but that she frequently has global weakness when she awakes in the morning. Denies having hx of stroke, although it appears that she had one postoperatively after valve replacements. She currently denies any weakness, loss of sensation, dizziness, or trouble communicating. Other ROS negative. She states that she does not like machines in her room and disconnected the EEG leads during the exam because she "did not like them." PMH Past Medical History 1. Rheumatic heart disease with critical mitral stenosis, severe aortic stenosis, status post aortic valve and mitral valve replacement at the [facility] February 12, 2006. Mitral valve replaced with a 37 mm Medtronic mechanical valve. Aortic valve replaced with a Region 19 mm mechanical aortic valve. 2. Coronary artery disease status post vein graft to diagonal in January 2006. 3. Postoperative stroke. 4. Peripheral arterial disease with occluded left internal carotid artery. 5. Postoperative course complicated by pericardial pleural effusion and pericardial effusion treated with pericardiocentesis. 6. Paroxysmal AFib diagnosed after surgery in 2005 which progressed since then to chronic Afib. 7. Oral anticoagulation with warfarin. 8. Renal insufficiency. 9. Depression and panic attacks. 10. Hypothyroidism. 11. Hyperlipidemia. 12. Diabetes. Hx Diabetes: YesBedside Blood Glucose: 89 Surgical History 1. Aortic valve replacement with mechanical prosthesis. 2. Mitral valve replacement with mechanical prosthesis and single-vessel bypass in January 2006 3. Vein stripping. 4. Hysterectomy. 5. Bladder suspension. 6. Cataract extraction. Home Medications ipratropium/alb neb Q6 scheduled Citalopram 40 mg daily furosemide 40 mg daily levothyroxine 100 mcg daily KCl 10 Meq simvastatin 40 mg daily tolterodine 2mg QHS warfarin 3mg 5 days a week; 1.5mg twice a weekbisacodyl PRN milk of magnesia PRN Imodium PRN acetaminophen PRN aspirin 81mg daily vitamin D 2,000 IU Allergies: Coded Allergies: Sulfa (Sulfonamide Antibiotics) (Verified Allergy, Severe, 10/17/16) lisinopril (Verified Allergy, Unknown, 10/17/16) pt doesn't know of any allergies, on records from [facility], states prinivil and sulfa Family History Family History unable to obtain from pt Social History Hx Alcohol Use: NoHx Substance Use: NoHx Tobacco Use: No (QUIT 19 YEARS AGO) Smoking Status: Former Smoker Living Arrangement: Jail Facility ([facility]) Exam Vital Signs Vital Sign - Last Date Time Temp Pulse Resp B/P Pulse Ox O2 Delivery O2 Flow Rate FiO2 11/28/16 13:29 36.5 113 23 114/69 92 Nasal Cannula 3.00 Intake and Output 11/27/16 11/27/16 11/28/16 Cumulative From/Thru 15:00 23:00 07:00 11/24/16 01:15 - 11/28/16 04:54 Intake Total 118 ml 3760 ml Output Total 200 ml 1950 ml Balance -82 ml 1810 ml Intake Oral 118 ml 1101 ml IV Total 2659 ml Output Urine Total 200 ml 1950 ml # Bowel Movements 0 2 General: Alert, Cooperative, No Acute Distress, Other (unable to give clear answers on orientation, or would not answer) Head: Normal Eyes: PERRLA Mouth: Mucous Membranes Dry, Other (blood on lips and nose) Chest & Lungs: Chest Wall Normal, Coarse breath sounds Cardiovascular: Other (irregularly irregular; systolic murmur 2nd intercostal on right sternum) Extremities: Generalized Edema Neurological: Other (see below) Additional Information: Neuro: Pt hearing symmetrical to finger rub, PERRLA, unable/unwilling to follow commands to test EOM, sensation symmetric in face; no drooping of mouth or eye; swallowing intact; tongue is midline and symmetrical left to right; shoulders shrug difficult but intact and weak; sensation intact in all for extremities to pressure and touch; lower extremities weak (3 on left and 4 on right) on flexion but pt refused to cooperate half way through; upper extremities symmetrical and 4/5 with exception of elbow extension on left where the patient is 4-/5. Reflexes symmetrical; Babinski asymmetrical with mild upgoing on left. Pt unable to follow commands to assess cerebellar function; unable to do finger to nose. Lab and Diagnostics Result Diagram: 11/28/1652411/28/16524 X-Rays, CTs and MRIs MRI stroke protocol IMPRESSION: 1. Markedly limited study due to motion artifact. However, is no increased restricted diffusion to suggest acute or subacute infarct. 2. Considering patient age, there are only trace senescent finding likely associated with microvascular ischemia. Dictated by: Naida Matos M.D. on 11/27/2016 at 16:02 CT of head IMPRESSION: 1. No acute intracranial disease process. 2. No intracranial hemorrhage. Dictated by: Rachel Nichols MD, PhD on 11/27/2016 at 11:02 Additional Diagnostics: ECHO Interpretation Summary Limited echo to evaluate valve gradients for acute shortness of breath. Patient is in chronic afib with RVR. HR 87-105 bpm. Normal LV size; severe concentric LVH; global hypokinesis. EF is 30--35%. Valves are not well seen. 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 Aortic valve is replaced with a mechanical prosthesis. There is mild aortic stenosis. Mean gradient is 17 mm Hg. Compared to prior study 10/19/2016 EF is less dynamic, particularly on apical views. EF is down from about 45-50% to now 30-35%. Valve function is unchanged Read by Dr. Sissy Baez Assessment & Plan Assessment Impression: 1. Acute encephalopathy second to hypoxia/sepsis 2. Likely TIA vs less-likely Douglas's paralysis 3. Artificial aortic and mitral valves 4. Acute Kidney Injury 5. Chronic Anemia 6. Possible GI bleed Yesterday morning the patient had reported slurred speech and left sided weakness which resolved by the time the primary team rounded in the morning. Pt states that this is not a new event for her and that she has it every morning in the SNF, although at these times she reports it is global weakness in all 4 extremities and resolves throughout the morning. The pt is not a great historian and attempts to obtain information are difficult, and no family is present. MRI/CT of the head were negative for new stroke, however, these were not stroke protocol and will need to be re-ordered. EEG was attempted but pt pulled off the EEG leads. There is a possibility that this morning weakness is either related to a TIA or was post-ictal (Douglas's paralysis); MRI w/o contrast is negative and without an EEG there is no way to say definitively. However, it is likely that these morning symptoms are related to a TIA and we will recommend starting aspirin. Pt was already on maximum therapy for stroke prevention, being on aspirin and warfarin on admit. On admit there was a positive occult blood, however, the Hgb seems to be improving. Review of records suggests chronic anemia with acute drop of hgb prior to admission, with source of bleed unknown at this time. Plan: 1. EEG- if pt cooperates 2. Hold baby aspirin and the warfarin until occult stool repeated; restart if no GI bleed identified as this combination of asa and warfarin has been shown to be more beneficial in preventing stroke in patients with mechanical valves who have had a TIA or stroke while on therapeutic warfarin.Recommend continued optimization of control of stroke risk factors. 3. MRA head and neck and MRI with contrast when kidney injury has resolved 4. Stool test for occult blood 5. Consider starting pt on ranitidine or equivalent Recommend follow-up with primary care provider within 1 week after discharge and follow-up in the Neurology clinic. Thank you for allowing us to take part in the care of this patient. Please feel free to contact us with any questions or concerns. Problems: GI Prophylaxis: Proton Pump Inhibitor VTE Prophylaxis: Theraputic Anticoag with Warfarin VTE Mechanical Devices: Venous Foot Pump Resuscitation Status: CPR: Attempt Resuscitation Attending Statement Seen and examined with resident. Agree with above. Demetrius Hughes DO Nov 28, 2016 16:34 Abdulaziz Hernandez MD Dec 13, 2016 14:58
--- NOTE | 2016-11-28 17:32 | NUR ---
Shift note Pt stayed in bed most shift. Able to make needs known. Uses call light appropriately. Up to BSC. Catheter patent. Worked with PT. Still on NPO, waiting on swallow assessment by ST. Meds given crushed. AM meds given in vanilla pudding-pt noticed to have increasing cough afterwards. mid-day med given in apple sauce, no cough or difficulty swallowing observed. BG checked Q6hrs. EEG done at bedside. Renal US at bedside as well. VSS. Will continue with frequent rounding.
--- NOTE | 2016-11-28 17:41 | PCM.PNMED ---
Subjective Date of Service Nov 28, 2016 Subjective Patient had some difficulties breathing at night again; might be anxiety related. This morning patient is back to he neurological baseline. She is oriented to place and herself. States her breezing is better. Denies chest pain. Exam Vital Signs Vital Sign - Last Date Time Temp Pulse Resp B/P Pulse Ox O2 Delivery O2 Flow Rate FiO2 11/28/16 13:29 36.5 113 23 114/69 92 Nasal Cannula 3.00 Intake and Output 11/27/16 11/27/16 11/28/16 Cumulative From/Thru 15:00 23:00 07:00 11/24/16 01:15 - 11/28/16 04:54 Intake Total 118 ml 3760 ml Output Total 200 ml 1950 ml Balance -82 ml 1810 ml Intake Oral 118 ml 1101 ml IV Total 2659 ml Output Urine Total 200 ml 1950 ml # Bowel Movements 0 2 Exam General: awake, in no acute distress Neck: supple Chest & Lungs: Diffuse wheezing bilaterally, improved Cardiovascular: no murmurs/rubs/gallops, irregular rate/rhythm Abdomen: soft, non-tender, non-distended, normoactive bowel tones Extremities: no edema LE, no cyanosis Skin: Numerous ecchymosis (consistent with warfarin use) Neuro: alert & oriented x 2 Lab and Diagnostics Result Diagram: 11/28/1652411/28/16524 Microbiology Microbiology REGINALDO STREP PNEUMONIAE AG URINE Final 11/24/16-0742 STREP PNEUMO AG NEGATIVE Tests performed directly on clinical specimens are intended for screening purposes only and should augment, not replace, culture procedures Please Note: Streptococcus pneumoniae vaccine may cause false positive results in urine in the 48 hours following injection. Hence, it is recommended that the Alere Strep pneumoniae Antigen testing not be performed within five days of receiving the S. pneumoniae vaccine ----- NASOPHARYNGEAL: Microbiology ADENOVIRUS RESPIRATORY PCR Final 11/24/16-0750 Not Detected CORONOVIRUS 229E Final 11/24/16 Not Detected CORONOVIRUS HKU1 Final 11/24/16 Not Detected CORONOVIRUS NL63 Final 11/24/16 Not Detected CORONOVIRUS OC43 Final 11/24/16 Not Detected INFLUENZA A PCR Final 11/24/16 Not Detected INFLUENZA B PCR Final 11/24/16 Not Detected METAPNEUMOVIRUS PCR Final 11/24/16 Not Detected RHINOVIRUS OR ENTEROVIRUS PCR Final 11/24/16 Not Detected PARAINFLUENZA 1 PCR Final 11/24/16 Not Detected PARAINFLUENZA 2 PCR Final 11/24/16 Not Detected PARAINFLUENZA 3 PCR Final 11/24/16 Not Detected PARAINFLUENZA 4 PCR Final 11/24/16 Not Detected RESP SYNCYTIAL VIRUS PCR Final 11/24/16 Not Detected CHLAMDOPHILIA PNEUMONIAE PCR Final 11/24/16 Not Detected MYCOPLASMA PNEUMONIAE PCR Final 11/24/16 MYCO PNEUMONIAE PCR Not Detected Reference Interval Not Detected TALENT SOURCER swab is the only specimen type cleared by the FDA. Nasal wash, tracheal aspirate, and bronchial lavage specimen types have not been cleared by the FDA. Therefore results on any specimen type other than nasopharyngeal are considered investigational testing only. Microbiology REGINALDO OCCULT BLOOD IMMUNOCHEM Final 11/25/16-1104 OCCULT BLD IMMUNOCHEMICAL POSITIVE REFERENCE INTERVAL NEGATIVE Microbiology REGINALDO CULT NASAL MRSA SCREEN Final 11/25/16-1304 Screen NEGATIVE for Methicillin Resistant Staph Aureus X-Rays, CTs and MRIs PROCEDURE: X-RAY CHEST ONE VIEW, PORTABLE ([id number]) INDICATIONS: Follow up for congestive heart failure COMPARISON: [facility], CR, XR CHEST 1VW (PORTABLE), 10/17/2016, 12 :41. FINDINGS: Surgical changes and devices: Post median sternotomy with valvular replacement. Lungs and pleura: Interstitium is prominent no significant change from prior examination. No focal lung consolidation present. Mediastinum: Mediastinal contours appear normal. Heart size is enlarged. Bones and chest wall: No suspicious bony lesions. Overlying soft tissues appear unremarkable. IMPRESSION: 1. Cardiomegaly and chronic interstitial pulmonary densities with no significant change from prior examination which may be chronic but superimposed pulmonary edema cannot be excluded. Recommend clinical correlation. Dictated by: Kolby Turner [facility] Interpreted: Tomas Medina MD on 10/23/2016 at 13: 46 Transcribed by: TRUDI on 10/23/2016 at 13:46 Approved by: Tomas Medina M.D. on 10/23/2016 at 15:37 PROCEDURE: CT ANGIO CHEST PULMONARY EMBOLISM ([id number]) FINDINGS: Pulmonary arteries: Pulmonary arteries are normal in size, and demonstrate no intraluminal filling defects to suggest central pulmonary embolism. Lungs and pleura: There are right lower lobe infiltrates and consolidation consistent with pneumonia. Hyperdensities in the right lung base may be related to aspiration. There are small bilateral effusions with basilar atelectasis, left greater than right. Bilateral interstitial thickening likely secondary to pulmonary edema. No pneumothorax. Central and peripheral airways are patent. Mediastinum: Heart is moderately to severely enlarged. No pericardial effusion. There is a prosthetic aortic valve. No mediastinal or hilar adenopathy. Thoracic aorta is normal in caliber and enhancement. Severe aortic calcification consistent with atherosclerosis with Esophagus is normal in caliber, without hiatal hernia. Bones and chest wall: No suspicious bony lesions. Ribs and thoracic spine appear intact throughout. Thyroid gland is normal. No axillary or supraclavicular adenopathy. Abdomen: There is IV contrast reflux into the hepatic vein. A 2.9 x 3.9 cm cystic structure is noted in the left upper quadrant anterior to the superior pole of the left kidney, probably an exophytic cyst. IMPRESSION: 1. No acute central pulmonary embolism. 2. Right lower lobe infiltrates and consolidation consistent pneumonia. 3. Bilateral small pleural effusions with basilar atelectasis. 4. Marked cardiomegaly and prosthetic aortic valve. There is bilateral interstitial thickening suggesting mild pulmonary edema secondary to congestive heart failure. 5. Hyperdense material in the right lung base suspicious for aspiration. Dictated by: Arsen Valenzuela M.D. on 11/26/2016 at 9:19 Approved by: Arsen Valenzuela M.D. on 11/26/2016 at 9:19 PROCEDURE: CT BRAIN WITHOUT CONTRAST ([id number]) INDICATIONS: change in mental status FINDINGS: Image quality: Excellent. CSF spaces: Basal cisterns are patent. No extra-axial fluid collections. The ventricles are symmetric in size and shape. Brain: No intracranial bleeds or masses. There is cerebral volume loss for age , with resultant ventricular and sulcal prominence. There are periventricular and deep white matter chronic small vessel ischemic changes. Old, small, left caudate body/barlow radiata lacunar infarct noted. Small punctate density in the left frontal periventricular white matter is stable compared to prior examination. There is intracranial internal carotid artery atherosclerosis. Skull and face: Calvarium and visualized facial bones appear intact, without suspicious lesions. Sinuses: Visualized sinuses and mastoids are clear. IMPRESSION: 1. No acute intracranial disease process. 2. No intracranial hemorrhage. Dictated by: Rachel Nichols MD, PhD on 11/27/2016 at 11:02 Approved by: Rachel Nichols MD, PhD on 11/27/2016 at 11:02 PROCEDURE: MRI BRAIN WITHOUT CONTRAST ([id number]) INDICATIONS: Slurred speech, unilateral weakness FINDINGS: Image quality: Motion artifact limits evaluation. CSF spaces: Ventricles appear symmetric in size and shape. Basal cisterns are patent. No extra-axial fluid collections. Brain: No intracranial bleeds or mass effects. There is minimal cerebral volume loss for age. There are mild periventricular and deep white matter chronic small vessel ischemic changes. Brainstem appears normal. Diffusion- weighted images show no acute ischemic insults. No chronic ischemic insults. Normal intravascular flow voids are present. Skull and face: Calvarial bone marrow is normal in signal. Orbits are normal. Sinuses: Sinuses and mastoids are clear. IMPRESSION: 1. Markedly limited study due to motion artifact. However, is no increased restricted diffusion to suggest acute or subacute infarct. 2. Considering patient age, there are only trace senescent finding likely associated with microvascular ischemia. Dictated by: Naida Matos M.D. on 11/27/2016 at 16:02 Approved by: Naida Matos M.D. on 11/27/2016 at 16:02 PROCEDURE: US RENAL SONOGRAM INDICATIONS: reba IMPRESSION: 1. Normal-appearing kidneys noting exophytic cyst upper pole left kidney 2. Urinary bladder not evaluated secondary to indwelling Arias catheter. Dictated by: Christopher Garcia M.D. on 11/28/2016 at 13:44 Approved by: Christopher Garcia M.D. on 11/28/2016 at 13:44 12-lead ECG EKG: Right and left arm electrode reversal, interpretation assumes no reversal . Atrial fibrillation . Ventricular premature complex . Low voltage, extremity leads . Nonspecific T abnormalities, lateral leads . Prolonged QT interval Cardiac Echo Impressions Echocardiogram Report Interpretation Summary Limited echo to evaluate valve gradients for acute shortness of breath. Patient is in chronic afib with RVR. HR 87-105 bpm. Normal LV size; severe concentric LVH; global hypokinesis. EF is 30--35%. Valves are not well seen. 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 Aortic valve is replaced with a mechanical prosthesis. There is mild aortic stenosis. Mean gradient is 17 mm Hg. Compared to prior study 10/19/2016 EF is less dynamic, particularly on apical views. EF is down from about 45-50% to now 30-35%. Valve function is unchanged Reading Physician:09:34 AM Assessment & Plan Patient is an 86-year-old female with CHF, atrial fibrillation on warfarin, COPD , DM2 and hypothyroidism who presented to [facility] from her SNF complaining of shortness of breath. SNF called EMS who reported 73% on 3L O2. SNF reports diaphoresis, cough and decreased responsiveness in last day. Hospital day 3. 1. TIA, acute, not present on admission, resolved - Etiology is unclear. Patient is on warfarin for A-fib with goal INR of 2.5- 3.5 d/t aortic and mitral valve replacement - STAT CT of the brain and MRI negative - Neurology consulted, we appreciate they assistance. They attempted EEG but pt pulled off the EEG leads - Stop Aspirin and Warfarin (FOBT positive) - MRA head and neck and MRI with contrast when kidney injury is resolved 2. REBA, acute, present on admission, ongoing - Most likely d/t chest CT angio contrast and trial of Losartan - Cr increased to 2.46 from 0.85 - Nephrology consulted, we appreciate their assistance - Abdominal ultrasound revealed normal-appearing kidneys with exophytic cyst upper pole left kidney - Cautious IV hydration with 1/2 NS 1 L over a 12 hour period - Avoid nephrotoxins - Aranesp 60 mg subc x 1 3. Pneumonia, present on admission, acute, ongoing - CT angio chest: right lower lobe consolidation, bilateral small pleural effusion, hyperdense material in the right lung base suspicious for aspiration - Continue Augmentin 850/125 PO bid - Procalcitonin 1.10 4. Urinary tract infection, acute, present on admission, ongoing - UA positive for Klebsiella Pneumoniae - Continue Augmentin PO 5. Elevated troponin of unknown significance, present on admission, unknown chronicity - Chronically elevated in September 2016. 0.070 on admission - EKG at [facility]: Atrial fibrillation, ventricular premature complex, nonspecific T abnormalities, lateral leads, prolonged QT interval - Cardiology consult, Dr. Baez, appreciate your assistance - ECHO: EF down from about 45-50% in September 2016 to 30-35%; marked cardiomegaly - Atorvastatin 20 mg PO hs - Metoprolol 25 mg PO q6h - D/C Losartan - Patient is not a candidate for cardiac catheterization d/t her advanced age, frailty, chronic oral anticoagulation, the technical aspects of the procedure per Dr. 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 Atrial fibrillation, present on admission, chronic - Warfarin per pharmacy - H/o mitral and aortic valve replacement, maintain INR 2.5-3.5 - Metoprolol 25 mg PO q6h - Stop Continue Aspirin and Warfarin for now 7. Lactic acidosis, acute, present on admission, resolved - 3.3 at [facility], decreased to 0.8 8. Acute on chronic hypoxia, present on admission, resolved - Initially required 5 L, but now on 3 L which is her home dose 9. CHF, diastolic, present on admission, chronic - BNP is elevated chronically - ECHO 11/25/16: EF down from about 45-50% in September 2016 to 30-35%; marked cardiomegaly Chronic conditions: Hypertension. present on admission. chronic - currently controlled. Re-evaluate Hypothyroidism, present on admission, chronic - continue levothyroxine Depression, present on admission, chronic - continue Citalopram Deconditioning, present on admission, chronic - PT ordered Urinary Retention, present on admission, chronic. - Continued tamsulosin - Patient has Arias Dyslipidemia, present on admission, chronic - Hold the statin in the acute setting - Acetaminophen as needed for mild pain/fever/headache - Bowel regimen as needed - Antiemetic as needed Patient admitted under inpatient status with expected length of stay > 2 midnights for severity of present symptoms, complexities of treatment plan and risk for adverse events. Patient is a resident of [facility]. Code status: Per POLST, DNR/DNI GI Prophylaxis: Proton Pump Inhibitor VTE Prophylaxis: Theraputic Anticoag with Warfarin VTE Mechanical Devices: Venous Foot Pump Resuscitation Status: CPR: Attempt Resuscitation Attending Statement The patient was seen and examined together with Dr. Bustos on 11/28/2015 and I agree with the history, exam and plan as outlined in the note above. YAYA BUSTOS DO Nov 28, 2016 13:36 Xavier Cruz MD Nov 29, 2016 09:14
--- NOTE | 2016-11-28 22:32 | NUR ---
Mentation / Ambulation Presses call light every 10 minutes or so for first 4 hours of shift. When questioned about this behavior patient indicates she is alone in the room and would like some company. Offered to schedule a spiritual adviser visit in the morning or to call any family or friends she might like to visit. Patient refuses at this time. Up to bsc with minimum sba. Able to sit on commode without indications of fatigue.
[2016-11-29] VITALS (8 sets, daily range): BP systolic 114–132; BP diastolic 62–74; PULSE 83–104; RESP 24–28; O2SAT 91–98
[2016-11-29 05:58] LABS: BASOPHILS % (AUTO) 0.4 % (0-3); EOSINOPHILS % (AUTO) 1.9 % (0-5); MONOCYTES % (AUTO) 10.3 % (4-12); Mean Corpuscular Hemoglobin 27.6 pg (27.0-35.0); Mean Corpuscular Volume 94.2 fL (81-100); NEUTROPHILS % (AUTO) 68.7 % (40-74); Platelet Count 115 bil/L (150-400)
[2016-11-29 06:33] LABS: INR 5.38 ratio
--- NOTE | 2016-11-29 09:58 | PCM.PNMED ---
Subjective Date of Service Nov 29, 2016 Subjective Patient's renal function is slowly improving with IV hydration. Her mental status is still quite and she seems to have some mild conversational dyspnea. Exam Vital Signs Vital Sign - Last Date Time Temp Pulse Resp B/P Pulse Ox O2 Delivery O2 Flow Rate FiO2 11/29/16 06:10 98 11/29/16 05:42 36.6 28 125/66 98 OxyMask 3.00 Intake and Output 11/28/16 11/28/16 11/29/16 Cumulative From/Thru 15:00 23:00 07:00 11/24/16 01:15 - 11/29/16 05:57 Intake Total 0 ml 0 ml 863 ml 4623 ml Output Total 200 ml 250 ml 2400 ml Balance -200 ml -250 ml 863 ml 2223 ml Intake Oral 0 ml 0 ml 1101 ml IV Total 863 ml 3522 ml Output Urine Total 200 ml 250 ml 2400 ml # Bowel Movements 1 3 Exam HEENT examination is remarkable for pale sclera. Neck is supple without adenopathy or thyromegaly. Lungs show diffuse rales and end expiratory wheezes in all lung san. Heart was regular regular. Abdomen soft without tenderness rebound guarding masses or hepatosplenomegaly. Extremities symmetrical she clubbing cyanosis or edema. Skin turgor skull admission O evidence of any rashes. Lab and Diagnostics Result Diagram: 11/29/1652911/29/16 05 Microbiology Microbiology REGINALDO STREP PNEUMONIAE AG URINE Final 11/24/16-0742 STREP PNEUMO AG NEGATIVE Tests performed directly on clinical specimens are intended for screening purposes only and should augment, not replace, culture procedures Please Note: Streptococcus pneumoniae vaccine may cause false positive results in urine in the 48 hours following injection. Hence, it is recommended that the Alere Strep pneumoniae Antigen testing not be performed within five days of receiving the S. pneumoniae vaccine ----- NASOPHARYNGEAL: Microbiology ADENOVIRUS RESPIRATORY PCR Final 11/24/16 Not Detected CORONOVIRUS 229E Final 11/24/16 Not Detected CORONOVIRUS HKU1 Final 11/24/16 Not Detected CORONOVIRUS NL63 Final 11/24/16 Not Detected CORONOVIRUS OC43 Final 11/24/16 Not Detected INFLUENZA A PCR Final 11/24/16 Not Detected INFLUENZA B PCR Final 11/24/16 Not Detected METAPNEUMOVIRUS PCR Final 11/24/16 Not Detected RHINOVIRUS OR ENTEROVIRUS PCR Final 11/24/16 Not Detected PARAINFLUENZA 1 PCR Final 11/24/16 Not Detected PARAINFLUENZA 2 PCR Final 11/24/16 Not Detected PARAINFLUENZA 3 PCR Final 11/24/16 Not Detected PARAINFLUENZA 4 PCR Final 11/24/16 Not Detected RESP SYNCYTIAL VIRUS PCR Final 11/24/16 Not Detected CHLAMDOPHILIA PNEUMONIAE PCR Final 11/24/16 Not Detected MYCOPLASMA PNEUMONIAE PCR Final 11/24/16 MYCO PNEUMONIAE PCR Not Detected Reference Interval Not Detected [employer] swab is the only specimen type cleared by the FDA. Nasal wash, tracheal aspirate, and bronchial lavage specimen types have not been cleared by the FDA. Therefore results on any specimen type other than nasopharyngeal are considered investigational testing only. Microbiology REGINALDO OCCULT BLOOD IMMUNOCHEM Final 11/25/16-1104 OCCULT BLD IMMUNOCHEMICAL POSITIVE REFERENCE INTERVAL NEGATIVE Microbiology REGINALDO CULT NASAL MRSA SCREEN Final 11/25/16-1304 Screen NEGATIVE for Methicillin Resistant Staph Aureus X-Rays, CTs and MRIs PROCEDURE: X-RAY CHEST ONE VIEW, PORTABLE ([id number]) INDICATIONS: Follow up for congestive heart failure COMPARISON: [facility], CR, XR CHEST 1VW (PORTABLE), 10/17/2016, 12 :41. FINDINGS: Surgical changes and devices: Post median sternotomy with valvular replacement. Lungs and pleura: Interstitium is prominent no significant change from prior examination. No focal lung consolidation present. Mediastinum: Mediastinal contours appear normal. Heart size is enlarged. Bones and chest wall: No suspicious bony lesions. Overlying soft tissues appear unremarkable. IMPRESSION: 1. Cardiomegaly and chronic interstitial pulmonary densities with no significant change from prior examination which may be chronic but superimposed pulmonary edema cannot be excluded. Recommend clinical correlation. Dictated by: Kolby Turner [facility] Interpreted: Tomas Medina MD on 10/23/2016 at 13: 46 Transcribed by: TRUDI on 10/23/2016 at 13:46 Approved by: Tomas Medina M.D. on 10/23/2016 at 15:37 PROCEDURE: CT ANGIO CHEST PULMONARY EMBOLISM ([id number]) FINDINGS: Pulmonary arteries: Pulmonary arteries are normal in size, and demonstrate no intraluminal filling defects to suggest central pulmonary embolism. Lungs and pleura: There are right lower lobe infiltrates and consolidation consistent with pneumonia. Hyperdensities in the right lung base may be related to aspiration. There are small bilateral effusions with basilar atelectasis, left greater than right. Bilateral interstitial thickening likely secondary to pulmonary edema. No pneumothorax. Central and peripheral airways are patent. Mediastinum: Heart is moderately to severely enlarged. No pericardial effusion. There is a prosthetic aortic valve. No mediastinal or hilar adenopathy. Thoracic aorta is normal in caliber and enhancement. Severe aortic calcification consistent with atherosclerosis with Esophagus is normal in caliber, without hiatal hernia. Bones and chest wall: No suspicious bony lesions. Ribs and thoracic spine appear intact throughout. Thyroid gland is normal. No axillary or supraclavicular adenopathy. Abdomen: There is IV contrast reflux into the hepatic vein. A 2.9 x 3.9 cm cystic structure is noted in the left upper quadrant anterior to the superior pole of the left kidney, probably an exophytic cyst. IMPRESSION: 1. No acute central pulmonary embolism. 2. Right lower lobe infiltrates and consolidation consistent pneumonia. 3. Bilateral small pleural effusions with basilar atelectasis. 4. Marked cardiomegaly and prosthetic aortic valve. There is bilateral interstitial thickening suggesting mild pulmonary edema secondary to congestive heart failure. 5. Hyperdense material in the right lung base suspicious for aspiration. Dictated by: Arsen Valenzuela M.D. on 11/26/2016 at 9:19 Approved by: Arsen Valenzuela M.D. on 11/26/2016 at 9:19 PROCEDURE: CT BRAIN WITHOUT CONTRAST ([id number]) INDICATIONS: change in mental status FINDINGS: Image quality: Excellent. CSF spaces: Basal cisterns are patent. No extra-axial fluid collections. The ventricles are symmetric in size and shape. Brain: No intracranial bleeds or masses. There is cerebral volume loss for age , with resultant ventricular and sulcal prominence. There are periventricular and deep white matter chronic small vessel ischemic changes. Old, small, left caudate body/barolw radiata lacunar infarct noted. Small punctate density in the left frontal periventricular white matter is stable compared to prior examination. There is intracranial internal carotid artery atherosclerosis. Skull and face: Calvarium and visualized facial bones appear intact, without suspicious lesions. Sinuses: Visualized sinuses and mastoids are clear. IMPRESSION: 1. No acute intracranial disease process. 2. No intracranial hemorrhage. Dictated by: Rachel Nichols MD, PhD on 11/27/2016 at 11:02 Approved by: Rachel Nichols MD, PhD on 11/27/2016 at 11:02 PROCEDURE: MRI BRAIN WITHOUT CONTRAST ([id number]) INDICATIONS: Slurred speech, unilateral weakness FINDINGS: Image quality: Motion artifact limits evaluation. CSF spaces: Ventricles appear symmetric in size and shape. Basal cisterns are patent. No extra-axial fluid collections. Brain: No intracranial bleeds or mass effects. There is minimal cerebral volume loss for age. There are mild periventricular and deep white matter chronic small vessel ischemic changes. Brainstem appears normal. Diffusion- weighted images show no acute ischemic insults. No chronic ischemic insults. Normal intravascular flow voids are present. Skull and face: Calvarial bone marrow is normal in signal. Orbits are normal. Sinuses: Sinuses and mastoids are clear. IMPRESSION: 1. Markedly limited study due to motion artifact. However, is no increased restricted diffusion to suggest acute or subacute infarct. 2. Considering patient age, there are only trace senescent finding likely associated with microvascular ischemia. Dictated by: Naida Matos M.D. on 11/27/2016 at 16:02 Approved by: Naida Matos M.D. on 11/27/2016 at 16:02 PROCEDURE: US RENAL SONOGRAM INDICATIONS: otis IMPRESSION: 1. Normal-appearing kidneys noting exophytic cyst upper pole left kidney 2. Urinary bladder not evaluated secondary to indwelling Arias catheter. Dictated by: Christopher Garcia M.D. on 11/28/2016 at 13:44 Approved by: Christopher Garcia M.D. on 11/28/2016 at 13:44 12-lead ECG EKG: Right and left arm electrode reversal, interpretation assumes no reversal . Atrial fibrillation . Ventricular premature complex . Low voltage, extremity leads . Nonspecific T abnormalities, lateral leads . Prolonged QT interval Cardiac Echo Impressions Echocardiogram Report Interpretation Summary Limited echo to evaluate valve gradients for acute shortness of breath. Patient is in chronic afib with RVR. HR 87-105 bpm. Normal LV size; severe concentric LVH; global hypokinesis. EF is 30--35%. Valves are not well seen. 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 Aortic valve is replaced with a mechanical prosthesis. There is mild aortic stenosis. Mean gradient is 17 mm Hg. Compared to prior study 10/19/2016 EF is less dynamic, particularly on apical views. EF is down from about 45-50% to now 30-35%. Valve function is unchanged Reading Physician:09:34 AM Assessment & Plan Impression #1 kidney injury secondary to contrast and intravascular volume depletion which is resolving #2 pulmonary edema versus pneumonia #3 hypertension with hypertensive heart disease and hypertensive nephrosclerosis recommendations #1 anterior chest x-ray on her and also consider stopping her IV fluids. GI Prophylaxis: Proton Pump Inhibitor VTE Prophylaxis: Theraputic Anticoag with Warfarin VTE Mechanical Devices: Venous Foot Pump Resuscitation Status: CPR: Attempt Resuscitation Jorgito Mckeon DO Nov 29, 2016 09:58
[2016-11-29] MEDS: Amoxicillin-Clav 875-125 mg Tablet PO SCH ×2 (10:02→21:34)
[2016-11-29] MEDS ORDERED: Phytonadione (Adult) 10 MG in Dextrose 5%-Pha MIX 50 ML IV ONE (10:15)
--- NOTE | 2016-11-29 11:58 | DRSVH ---
PROCEDURE: X-RAY CHEST ONE VIEW, PORTABLE ([id number]) INDICATIONS: Acute kidney injury TECHNIQUE: One view of the chest was acquired. COMPARISON: [facility], CR, XR CHEST 1VW (PORTABLE), 11/27/2016, 5:45. FINDINGS: Surgical changes and devices: Sternotomy wires and cardiac valvular prosthesis.. Lungs and pleura: Bilateral small layering pleural effusions. Retrocardiac consolidation unchanged. D iffuse groundglass opacities are unchanged suggesting pulmonary edema. No pneumothorax. Mediastinum: Mediastinal contours appear normal. Heart size is normal. Bones and chest wall: No suspicious bony lesions. Overlying soft tissues appear unremarkable. IMPRESSION: Overall, no gross interval change since 11/27/16 Dictated by: Fili Carlos M.D. on 11/29/2016 at 11:56 Approved by: Fili Carlos M.D. on 11/29/2016 at 11:56
--- NOTE | 2016-11-29 13:23 | PCM.PNMED ---
Subjective Date of Service Nov 29, 2016 Subjective No overnight events. Pt is at her baseline. Denies any pain. Oriented to herself and place. Exam Vital Signs Vital Sign - Last Date Time Temp Pulse Resp B/P Pulse Ox O2 Delivery O2 Flow Rate FiO2 11/29/16 12:02 36.2 88 24 121/68 97 OxyMask 3.00 Intake and Output 11/28/16 11/28/16 11/29/16 Cumulative From/Thru 15:00 23:00 07:00 11/24/16 01:15 - 11/29/16 05:57 Intake Total 0 ml 0 ml 863 ml 4623 ml Output Total 200 ml 250 ml 2400 ml Balance -200 ml -250 ml 863 ml 2223 ml Intake Oral 0 ml 0 ml 1101 ml IV Total 863 ml 3522 ml Output Urine Total 200 ml 250 ml 2400 ml # Bowel Movements 1 3 Exam General: awake, in no acute distress Neck: supple Chest & Lungs: Diffuse wheezing bilaterally, R>L, improved Cardiovascular: no murmurs/rubs/gallops, irregular rate/rhythm Abdomen: soft, non-tender, non-distended, normoactive bowel tones Extremities: no edema LE, no cyanosis Skin: Numerous ecchymosis (consistent with warfarin use) Neuro: alert & oriented x 2 Lab and Diagnostics Result Diagram: 11/29/1652911/29/16529 Microbiology Microbiology REGINALDO STREP PNEUMONIAE AG URINE Final 11/24/16-0742 STREP PNEUMO AG NEGATIVE Tests performed directly on clinical specimens are intended for screening purposes only and should augment, not replace, culture procedures Please Note: Streptococcus pneumoniae vaccine may cause false positive results in urine in the 48 hours following injection. Hence, it is recommended that the Alere Strep pneumoniae Antigen testing not be performed within five days of receiving the S. pneumoniae vaccine ----- NASOPHARYNGEAL: Microbiology ADENOVIRUS RESPIRATORY PCR Final 11/24/16-0750 Not Detected CORONOVIRUS 229E Final 11/24/16 Not Detected CORONOVIRUS HKU1 Final 11/24/16 Not Detected CORONOVIRUS NL63 Final 11/24/16 Not Detected CORONOVIRUS OC43 Final 11/24/16 Not Detected INFLUENZA A PCR Final 11/24/16 Not Detected INFLUENZA B PCR Final 11/24/16 Not Detected METAPNEUMOVIRUS PCR Final 11/24/16 Not Detected RHINOVIRUS OR ENTEROVIRUS PCR Final 11/24/16 Not Detected PARAINFLUENZA 1 PCR Final 11/24/16 Not Detected PARAINFLUENZA 2 PCR Final 11/24/16 Not Detected PARAINFLUENZA 3 PCR Final 11/24/16 Not Detected PARAINFLUENZA 4 PCR Final 11/24/16 Not Detected RESP SYNCYTIAL VIRUS PCR Final 11/24/16 Not Detected CHLAMDOPHILIA PNEUMONIAE PCR Final 11/24/16 Not Detected MYCOPLASMA PNEUMONIAE PCR Final 11/24/16 MYCO PNEUMONIAE PCR Not Detected Reference Interval Not Detected LONG TERM swab is the only specimen type cleared by the FDA. Nasal wash, tracheal aspirate, and bronchial lavage specimen types have not been cleared by the FDA. Therefore results on any specimen type other than nasopharyngeal are considered investigational testing only. Microbiology REGINALDO OCCULT BLOOD IMMUNOCHEM Final 11/25/16-1104 OCCULT BLD IMMUNOCHEMICAL POSITIVE REFERENCE INTERVAL NEGATIVE Microbiology REGINALDO CULT NASAL MRSA SCREEN Final 11/25/16-1304 Screen NEGATIVE for Methicillin Resistant Staph Aureus X-Rays, CTs and MRIs PROCEDURE: X-RAY CHEST ONE VIEW, PORTABLE ([id number]) INDICATIONS: Follow up for congestive heart failure COMPARISON: [facility], CR, XR CHEST 1VW (PORTABLE), 10/17/2016, 12 :41. FINDINGS: Surgical changes and devices: Post median sternotomy with valvular replacement. Lungs and pleura: Interstitium is prominent no significant change from prior examination. No focal lung consolidation present. Mediastinum: Mediastinal contours appear normal. Heart size is enlarged. Bones and chest wall: No suspicious bony lesions. Overlying soft tissues appear unremarkable. IMPRESSION: 1. Cardiomegaly and chronic interstitial pulmonary densities with no significant change from prior examination which may be chronic but superimposed pulmonary edema cannot be excluded. Recommend clinical correlation. Dictated by: Kolby Turner [facility] Interpreted: Tomas Medina MD on 10/23/2016 at 13: 46 Transcribed by: TRUDI on 10/23/2016 at 13:46 Approved by: Tomas Medina M.D. on 10/23/2016 at 15:37 PROCEDURE: CT ANGIO CHEST PULMONARY EMBOLISM ([id number]) FINDINGS: Pulmonary arteries: Pulmonary arteries are normal in size, and demonstrate no intraluminal filling defects to suggest central pulmonary embolism. Lungs and pleura: There are right lower lobe infiltrates and consolidation consistent with pneumonia. Hyperdensities in the right lung base may be related to aspiration. There are small bilateral effusions with basilar atelectasis, left greater than right. Bilateral interstitial thickening likely secondary to pulmonary edema. No pneumothorax. Central and peripheral airways are patent. Mediastinum: Heart is moderately to severely enlarged. No pericardial effusion. There is a prosthetic aortic valve. No mediastinal or hilar adenopathy. Thoracic aorta is normal in caliber and enhancement. Severe aortic calcification consistent with atherosclerosis with Esophagus is normal in caliber, without hiatal hernia. Bones and chest wall: No suspicious bony lesions. Ribs and thoracic spine appear intact throughout. Thyroid gland is normal. No axillary or supraclavicular adenopathy. Abdomen: There is IV contrast reflux into the hepatic vein. A 2.9 x 3.9 cm cystic structure is noted in the left upper quadrant anterior to the superior pole of the left kidney, probably an exophytic cyst. IMPRESSION: 1. No acute central pulmonary embolism. 2. Right lower lobe infiltrates and consolidation consistent pneumonia. 3. Bilateral small pleural effusions with basilar atelectasis. 4. Marked cardiomegaly and prosthetic aortic valve. There is bilateral interstitial thickening suggesting mild pulmonary edema secondary to congestive heart failure. 5. Hyperdense material in the right lung base suspicious for aspiration. Dictated by: Arsen Valenzuela M.D. on 11/26/2016 at 9:19 Approved by: Arsen Valenzuela M.D. on 11/26/2016 at 9:19 PROCEDURE: CT BRAIN WITHOUT CONTRAST ([id number]) INDICATIONS: change in mental status FINDINGS: Image quality: Excellent. CSF spaces: Basal cisterns are patent. No extra-axial fluid collections. The ventricles are symmetric in size and shape. Brain: No intracranial bleeds or masses. There is cerebral volume loss for age , with resultant ventricular and sulcal prominence. There are periventricular and deep white matter chronic small vessel ischemic changes. Old, small, left caudate body/barlow radiata lacunar infarct noted. Small punctate density in the left frontal periventricular white matter is stable compared to prior examination. There is intracranial internal carotid artery atherosclerosis. Skull and face: Calvarium and visualized facial bones appear intact, without suspicious lesions. Sinuses: Visualized sinuses and mastoids are clear. IMPRESSION: 1. No acute intracranial disease process. 2. No intracranial hemorrhage. Dictated by: Rachel Nichols MD, PhD on 11/27/2016 at 11:02 Approved by: Rachel Nichols MD, PhD on 11/27/2016 at 11:02 PROCEDURE: MRI BRAIN WITHOUT CONTRAST ([id number]) INDICATIONS: Slurred speech, unilateral weakness FINDINGS: Image quality: Motion artifact limits evaluation. CSF spaces: Ventricles appear symmetric in size and shape. Basal cisterns are patent. No extra-axial fluid collections. Brain: No intracranial bleeds or mass effects. There is minimal cerebral volume loss for age. There are mild periventricular and deep white matter chronic small vessel ischemic changes. Brainstem appears normal. Diffusion- weighted images show no acute ischemic insults. No chronic ischemic insults. Normal intravascular flow voids are present. Skull and face: Calvarial bone marrow is normal in signal. Orbits are normal. Sinuses: Sinuses and mastoids are clear. IMPRESSION: 1. Markedly limited study due to motion artifact. However, is no increased restricted diffusion to suggest acute or subacute infarct. 2. Considering patient age, there are only trace senescent finding likely associated with microvascular ischemia. Dictated by: Naida Matos M.D. on 11/27/2016 at 16:02 Approved by: Naida Matos M.D. on 11/27/2016 at 16:02 PROCEDURE: US RENAL SONOGRAM INDICATIONS: reba IMPRESSION: 1. Normal-appearing kidneys noting exophytic cyst upper pole left kidney 2. Urinary bladder not evaluated secondary to indwelling Arias catheter. Dictated by: Christopher Garcia M.D. on 11/28/2016 at 13:44 Approved by: Christopher Garcia M.D. on 11/28/2016 at 13:44 PROCEDURE: X-RAY CHEST ONE VIEW, PORTABLE ([id number]) INDICATIONS: Acute kidney injury COMPARISON: [facility], CR, XR CHEST 1VW (PORTABLE), 11/27/2016, 5: 45. FINDINGS: Surgical changes and devices: Sternotomy wires and cardiac valvular prosthesis.. Lungs and pleura: Bilateral small layering pleural effusions. Retrocardiac consolidation unchanged. Diffuse groundglass opacities are unchanged suggesting pulmonary edema. No pneumothorax. Mediastinum: Mediastinal contours appear normal. Heart size is normal. Bones and chest wall: No suspicious bony lesions. Overlying soft tissues appear unremarkable. IMPRESSION: Overall, no gross interval change since 11/27/16 Dictated by: Fili Carlos M.D. on 11/29/2016 at 11:56 Approved by: Fili Carlos M.D. on 11/29/2016 at 11:56 12-lead ECG EKG: Right and left arm electrode reversal, interpretation assumes no reversal . Atrial fibrillation . Ventricular premature complex . Low voltage, extremity leads . Nonspecific T abnormalities, lateral leads . Prolonged QT interval Cardiac Echo Impressions Echocardiogram Report Interpretation Summary Limited echo to evaluate valve gradients for acute shortness of breath. Patient is in chronic afib with RVR. HR 87-105 bpm. Normal LV size; severe concentric LVH; global hypokinesis. EF is 30--35%. Valves are not well seen. 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 Aortic valve is replaced with a mechanical prosthesis. There is mild aortic stenosis. Mean gradient is 17 mm Hg. Compared to prior study 10/19/2016 EF is less dynamic, particularly on apical views. EF is down from about 45-50% to now 30-35%. Valve function is unchanged Reading Physician:09:34 AM Assessment & Plan Patient is an 86-year-old female with CHF, atrial fibrillation on warfarin, COPD , DM2 and hypothyroidism who presented to [facility] from her SNF complaining of shortness of breath. SNF called EMS who reported 73% on 3L O2. SNF reports diaphoresis, cough and decreased responsiveness in last day. Hospital day 5. 1. TIA, acute, not present on admission, resolved - Etiology is unclear. Patient is on warfarin for A-fib with goal INR of 2.5- 3.5 d/t aortic and mitral valve replacement - STAT CT of the brain and MRI negative - Neurology consulted, we appreciate they assistance - Stop Aspirin and Warfarin (FOBT positive, INR 5.38) - MRA head and neck and MRI with contrast when kidney injury is resolved 2. REBA, acute, present on admission, ongoing - Secondary to contrast and intravascular volume depletion - Cr improving, 2.35 today - Nephrology consulted, we appreciate their assistance - Abdominal ultrasound revealed normal-appearing kidneys with exophytic cyst upper pole left kidney - Stop IV hydration, avoid nephrotoxins 3. Pneumonia, present on admission, acute, ongoing - CT angio chest: right lower lobe consolidation, bilateral small pleural effusion, hyperdense material in the right lung base suspicious for aspiration - Continue Augmentin 850/125 PO bid - Procalcitonin dropped to 0.30 - CXR 11/29/15: overall no gross change from 11/27/15 4. Urinary tract infection, acute, present on admission, ongoing - UA positive for Klebsiella Pneumoniae - Continue Augmentin PO 5. Elevated troponin of unknown significance, present on admission, unknown chronicity - Chronically elevated in September 2016. 0.070 on admission - [facility]: Atrial fibrillation, ventricular premature complex, nonspecific T abnormalities, lateral leads, prolonged QT interval - Cardiology consult, Dr. Baez, appreciate your assistance - ECHO: EF down from about 45-50% in September 2016 to 30-35%; marked cardiomegaly - Atorvastatin 20 mg PO hs - Metoprolol 25 mg PO q6h - Patient is not a candidate for cardiac catheterization d/t her advanced age, frailty, chronic oral anticoagulation, the technical aspects of the procedure per Dr. 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 Atrial fibrillation, present on admission, chronic - INR 5.38, Vit K 10 mg IV given - H/o mitral and aortic valve replacement, maintain INR 2.5-3.5 - Metoprolol 25 mg PO q6h - Stop Aspirin and Warfarin (reginaldo occult blood positive) - Monitor HGB&HCT q8h x 3 7. Lactic acidosis, acute, present on admission, resolved - 3.3 at H, decreased to 0.8 8. Acute on chronic hypoxia, present on admission, resolved - Initially required 5 L, but now on 3 L which is her home dose 9. CHF, diastolic, present on admission, chronic - BNP is elevated chronically - ECHO 11/25/16: EF down from about 45-50% in September 2016 to 30-35%; marked cardiomegaly Chronic conditions: Hypertension. present on admission. chronic - currently controlled. Re-evaluate Hypothyroidism, present on admission, chronic - continue levothyroxine Depression, present on admission, chronic - continue Citalopram Deconditioning, present on admission, chronic - PT ordered Urinary Retention, present on admission, chronic. - Continued tamsulosin - Patient has Arias Dyslipidemia, present on admission, chronic - Hold the statin in the acute setting - Acetaminophen as needed for mild pain/fever/headache - Bowel regimen as needed - Antiemetic as needed Patient admitted under inpatient status with expected length of stay > 2 midnights for severity of present symptoms, complexities of treatment plan and risk for adverse events. Patient is a resident of [facility]. Code status: Per POLST, DNR/DNI Impression #1 kidney injury secondary to contrast and intravascular volume depletion which is resolving #2 pulmonary edema versus pneumonia #3 hypertension with hypertensive heart disease and hypertensive nephrosclerosis recommendations #1 anterior chest x-ray on her and also consider stopping her IV fluids. GI Prophylaxis: Proton Pump Inhibitor VTE Prophylaxis: SCDs VTE Mechanical Devices: Venous Foot Pump Resuscitation Status: DNR/DNI:Do Not Resuscitate/Intubate Attending Statement The patient was seen and examined together with Dr. Bustos on 11/29/2016 and I agree with the history, exam and plan as outlined in the note above. YAYA BUSTOS DO Nov 29, 2016 13:23 Xavier Cruz MD Nov 30, 2016 11:13
--- NOTE | 2016-11-29 13:36 | NUR ---
NUTRITION ASSESSMENT: ASSESS: 86 YO female admitted with SOB and pneumonia. Speech Therapy is following pt. She was originally placed on full liquids with NT liquids with variable PO of bites-50%. She was downgraded to NPO status 11/27 due to increased lethargy and increased confusion. Today diet was advanced again to full liquids, nectar thick liquids. PO intake not yet recorded. Her renal function has improved with IV hydration. Her mentation is at baseline. PMHX:CHF and COPD. CXR revealed patchy opacity of R-lung and small R-side plural effusion. LABS: Reviewed. Na 129, Chloride 94, BUN 41, Cr 2.35, Glu 54, Ca 7.3. MEDS:Reviewed. Lopressor, synthroid. GI: BM x 2 today. SKIN: Mark 14. WT: 77.5 kg, BMI 33.0 kg/m2, admit wt 75.6kg, IBW 45.5kg DIET: Full liquid, nectar thick liquid. PO intake not yet recorded. EST. NEEDS: BMI Kcals: 1515-1665kcal/day (20-22kcal/kg) Pro: 55-70g/day (1.2-1.5g/kg IBW) NUTRITION DIAGNOSIS: 1) Chew/swallow difficulty related to AMS and slurred speech as evidence by need for NPO diet order per ST - IMPROVED WITH ADVANCE TO FULL LIQUIDS, NECTAR THICK LIQUIDS. 2) Inadequate oral intake related to decreased ability to consume sufficient energy as evidenced by current NPO status - HOPEFULLY IMPROVED WITH DIET ADVANCE. NUTRITION INTERVENTION: 1) Will add supplements to trays. MONITOR / EVAL: Diet advance, PO intake, labs, POC, nutrition status. Will continue to monitor per high nutrition risk guidelines.
[2016-11-29 17:36] LABS: INR 2.51 ratio
[2016-11-30] VITALS (10 sets, daily range): BP systolic 113–137; BP diastolic 62–78; PULSE 84–108; RESP 20–24; O2SAT 89–98
[2016-11-30 06:37] LABS: INR 1.6 ratio
[2016-11-30 06:48] LABS: BASOPHILS % (AUTO) 0.7 % (0-3); EOSINOPHILS % (AUTO) 1.5 % (0-5); MONOCYTES % (AUTO) 11.4 % (4-12); Mean Corpuscular Volume 93.5 fL (81-100); NEUTROPHILS % (AUTO) 65.9 % (40-74); Platelet Count 133 bil/L (150-400)
--- NOTE | 2016-11-30 08:30 | NUR ---
ANTIONE signed Verbal permission to sign by pt. ARTI Hutchinson
[2016-11-30] MEDS ORDERED: Furosemide 10 mg/mL 10 mL Inj IVPUSH ONE (09:45)
--- NOTE | 2016-11-30 09:46 | PCM.PNMED ---
Subjective Date of Service Nov 30, 2016 Subjective The patient's condition is unchanged. Mental status she was confused and she is only able to answer simple questions. Her chest x-ray is unchanged from her previous exam and continues to demonstrate pulmonary edema. Intake and output for the last 24-hour for 1708 in and 475 out. Her serum creatinine continues to rise to a level of 2.81. Exam Vital Signs Vital Sign - Last Date Time Temp Pulse Resp B/P Pulse Ox O2 Delivery O2 Flow Rate FiO2 11/30/16 09:20 36.7 94 24 137/62 89 OxyMask 3.00 Intake and Output 11/29/16 11/29/16 11/30/16 Cumulative From/Thru 15:00 23:00 07:00 11/24/16 01:15 - 11/30/16 05:27 Intake Total 595 ml 250 ml 0 ml 5468 ml Output Total 275 ml 200 ml 300 ml 3175 ml Balance 320 ml 50 ml -300 ml 2293 ml Intake Oral 0 ml 250 ml 0 ml 1351 ml IV Total 595 ml 4117 ml Output Urine Total 275 ml 200 ml 300 ml 3175 ml # Bowel Movements 2 5 Exam HEENT examination is remarkable for pale sclera and some bitemporal wasting. Neck is supple without adenopathy thyromegaly or turgor venous distention. JVD is noted an approximate 45. Lungs continue to show diffuse rales and expiratory wheezes bilaterally. Heart is regular irregularly irregular. Abdomen soft without any tenderness or rebound guarding masses or hepatosplenomegaly. Extremities no transient clubbing cyanosis or edema. Lab and Diagnostics Result Diagram: 11/30/1655 11/30/16 0555 Microbiology Microbiology REGINALDO STREP PNEUMONIAE AG URINE Final 11/24/16-741 STREP PNEUMO AG NEGATIVE Tests performed directly on clinical specimens are intended for screening purposes only and should augment, not replace, culture procedures Please Note: Streptococcus pneumoniae vaccine may cause false positive results in urine in the 48 hours following injection. Hence, it is recommended that the Alere Strep pneumoniae Antigen testing not be performed within five days of receiving the S. pneumoniae vaccine ----- NASOPHARYNGEAL: Microbiology ADENOVIRUS RESPIRATORY PCR Final 11/24/16 Not Detected CORONOVIRUS 229E Final 11/24/16 Not Detected CORONOVIRUS HKU1 Final 11/24/16 Not Detected CORONOVIRUS NL63 Final 11/24/16 Not Detected CORONOVIRUS OC43 Final 11/24/16 Not Detected INFLUENZA A PCR Final 11/24/16 Not Detected INFLUENZA B PCR Final 11/24/16 Not Detected METAPNEUMOVIRUS PCR Final 11/24/16 Not Detected RHINOVIRUS OR ENTEROVIRUS PCR Final 11/24/16 Not Detected PARAINFLUENZA 1 PCR Final 11/24/16 Not Detected PARAINFLUENZA 2 PCR Final 11/24/16 Not Detected PARAINFLUENZA 3 PCR Final 11/24/16 Not Detected PARAINFLUENZA 4 PCR Final 11/24/16 Not Detected RESP SYNCYTIAL VIRUS PCR Final 11/24/16 Not Detected CHLAMDOPHILIA PNEUMONIAE PCR Final 11/24/16 Not Detected MYCOPLASMA PNEUMONIAE PCR Final 11/24/16 MYCO PNEUMONIAE PCR Not Detected Reference Interval Not Detected FIRER LOCOMOTIVE CRANE swab is the only specimen type cleared by the FDA. Nasal wash, tracheal aspirate, and bronchial lavage specimen types have not been cleared by the FDA. Therefore results on any specimen type other than nasopharyngeal are considered investigational testing only. Microbiology REGINALDO OCCULT BLOOD IMMUNOCHEM Final 11/25/16-4 OCCULT BLD IMMUNOCHEMICAL POSITIVE REFERENCE INTERVAL NEGATIVE Microbiology REGINALDO CULT NASAL MRSA SCREEN Final 11/25/16-1304 Screen NEGATIVE for Methicillin Resistant Staph Aureus X-Rays, CTs and MRIs PROCEDURE: X-RAY CHEST ONE VIEW, PORTABLE ([id number]) INDICATIONS: Follow up for congestive heart failure COMPARISON: [facility], CR, XR CHEST 1VW (PORTABLE), 10/17/2016, 12 :41. FINDINGS: Surgical changes and devices: Post median sternotomy with valvular replacement. Lungs and pleura: Interstitium is prominent no significant change from prior examination. No focal lung consolidation present. Mediastinum: Mediastinal contours appear normal. Heart size is enlarged. Bones and chest wall: No suspicious bony lesions. Overlying soft tissues appear unremarkable. IMPRESSION: 1. Cardiomegaly and chronic interstitial pulmonary densities with no significant change from prior examination which may be chronic but superimposed pulmonary edema cannot be excluded. Recommend clinical correlation. Dictated by: Kolby Turner RR Interpreted: Tomas Medina MD on 10/23/2016 at 13: 46 Transcribed by: TRUDI on 10/23/2016 at 13:46 Approved by: Tomas Medina M.D. on 10/23/2016 at 15:37 PROCEDURE: CT ANGIO CHEST PULMONARY EMBOLISM ([id number]) FINDINGS: Pulmonary arteries: Pulmonary arteries are normal in size, and demonstrate no intraluminal filling defects to suggest central pulmonary embolism. Lungs and pleura: There are right lower lobe infiltrates and consolidation consistent with pneumonia. Hyperdensities in the right lung base may be related to aspiration. There are small bilateral effusions with basilar atelectasis, left greater than right. Bilateral interstitial thickening likely secondary to pulmonary edema. No pneumothorax. Central and peripheral airways are patent. Mediastinum: Heart is moderately to severely enlarged. No pericardial effusion. There is a prosthetic aortic valve. No mediastinal or hilar adenopathy. Thoracic aorta is normal in caliber and enhancement. Severe aortic calcification consistent with atherosclerosis with Esophagus is normal in caliber, without hiatal hernia. Bones and chest wall: No suspicious bony lesions. Ribs and thoracic spine appear intact throughout. Thyroid gland is normal. No axillary or supraclavicular adenopathy. Abdomen: There is IV contrast reflux into the hepatic vein. A 2.9 x 3.9 cm cystic structure is noted in the left upper quadrant anterior to the superior pole of the left kidney, probably an exophytic cyst. IMPRESSION: 1. No acute central pulmonary embolism. 2. Right lower lobe infiltrates and consolidation consistent pneumonia. 3. Bilateral small pleural effusions with basilar atelectasis. 4. Marked cardiomegaly and prosthetic aortic valve. There is bilateral interstitial thickening suggesting mild pulmonary edema secondary to congestive heart failure. 5. Hyperdense material in the right lung base suspicious for aspiration. Dictated by: Arsen Valenzuela M.D. on 11/26/2016 at 9:19 Approved by: Arsen Valenzuela M.D. on 11/26/2016 at 9:19 PROCEDURE: CT BRAIN WITHOUT CONTRAST ([id number]) INDICATIONS: change in mental status FINDINGS: Image quality: Excellent. CSF spaces: Basal cisterns are patent. No extra-axial fluid collections. The ventricles are symmetric in size and shape. Brain: No intracranial bleeds or masses. There is cerebral volume loss for age , with resultant ventricular and sulcal prominence. There are periventricular and deep white matter chronic small vessel ischemic changes. Old, small, left caudate body/barlow radiata lacunar infarct noted. Small punctate density in the left frontal periventricular white matter is stable compared to prior examination. There is intracranial internal carotid artery atherosclerosis. Skull and face: Calvarium and visualized facial bones appear intact, without suspicious lesions. Sinuses: Visualized sinuses and mastoids are clear. IMPRESSION: 1. No acute intracranial disease process. 2. No intracranial hemorrhage. Dictated by: Rachel Nichols MD, PhD on 11/27/2016 at 11:02 Approved by: Rachel Nichols MD, PhD on 11/27/2016 at 11:02 PROCEDURE: MRI BRAIN WITHOUT CONTRAST ([id number]) INDICATIONS: Slurred speech, unilateral weakness FINDINGS: Image quality: Motion artifact limits evaluation. CSF spaces: Ventricles appear symmetric in size and shape. Basal cisterns are patent. No extra-axial fluid collections. Brain: No intracranial bleeds or mass effects. There is minimal cerebral volume loss for age. There are mild periventricular and deep white matter chronic small vessel ischemic changes. Brainstem appears normal. Diffusion- weighted images show no acute ischemic insults. No chronic ischemic insults. Normal intravascular flow voids are present. Skull and face: Calvarial bone marrow is normal in signal. Orbits are normal. Sinuses: Sinuses and mastoids are clear. IMPRESSION: 1. Markedly limited study due to motion artifact. However, is no increased restricted diffusion to suggest acute or subacute infarct. 2. Considering patient age, there are only trace senescent finding likely associated with microvascular ischemia. Dictated by: Naida Matos M.D. on 11/27/2016 at 16:02 Approved by: Naida Matos M.D. on 11/27/2016 at 16:02 PROCEDURE: US RENAL SONOGRAM INDICATIONS: otis IMPRESSION: 1. Normal-appearing kidneys noting exophytic cyst upper pole left kidney 2. Urinary bladder not evaluated secondary to indwelling Arias catheter. Dictated by: Christopher Garcia M.D. on 11/28/2016 at 13:44 Approved by: Christophre Garcia M.D. on 11/28/2016 at 13:44 PROCEDURE: X-RAY CHEST ONE VIEW, PORTABLE ([id number]) INDICATIONS: Acute kidney injury COMPARISON: [facility], CR, XR CHEST 1VW (PORTABLE), 11/27/2016, 5: 45. FINDINGS: Surgical changes and devices: Sternotomy wires and cardiac valvular prosthesis.. Lungs and pleura: Bilateral small layering pleural effusions. Retrocardiac consolidation unchanged. Diffuse groundglass opacities are unchanged suggesting pulmonary edema. No pneumothorax. Mediastinum: Mediastinal contours appear normal. Heart size is normal. Bones and chest wall: No suspicious bony lesions. Overlying soft tissues appear unremarkable. IMPRESSION: Overall, no gross interval change since 11/27/16 Dictated by: Flii Carlos M.D. on 11/29/2016 at 11:56 Approved by: Fili Carlos M.D. on 11/29/2016 at 11:56 12-lead ECG EKG: Right and left arm electrode reversal, interpretation assumes no reversal . Atrial fibrillation . Ventricular premature complex . Low voltage, extremity leads . Nonspecific T abnormalities, lateral leads . Prolonged QT interval Cardiac Echo Impressions Echocardiogram Report Interpretation Summary Limited echo to evaluate valve gradients for acute shortness of breath. Patient is in chronic afib with RVR. HR 87-105 bpm. Normal LV size; severe concentric LVH; global hypokinesis. EF is 30--35%. Valves are not well seen. 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 Aortic valve is replaced with a mechanical prosthesis. There is mild aortic stenosis. Mean gradient is 17 mm Hg. Compared to prior study 10/19/2016 EF is less dynamic, particularly on apical views. EF is down from about 45-50% to now 30-35%. Valve function is unchanged Reading Physician:09:34 AM Assessment & Plan Impression #1 kidney injury secondary to contrast and intravascular volume depletion which is resolving #2 pulmonary edema versus pneumonia #3 hypertension with hypertensive heart disease and hypertensive nephrosclerosis recommendations #1 anterior chest x-ray on her and also consider stopping her IV fluids. Impression #1 acute kidney injury secondary to contrast and probable other etiologies #2. Edema #3 hypertension with hypertensive heart disease and hypertensive nephrosclerosis Recommendation we will cautiously give her a single dose of furosemide today in light of her acute kidney injury I do not want to run the risk of intravascularly volume depleting her. GI Prophylaxis: Proton Pump Inhibitor VTE Prophylaxis: SCDs VTE Mechanical Devices: Venous Foot Pump Resuscitation Status: DNR/DNI:Do Not Resuscitate/Intubate Jorgito Mckeon DO Nov 30, 2016 09:46
--- NOTE | 2016-11-30 10:15 | NUR ---
Social Work: Continued d/c planning Data: Pt is on day 6 of hospitalization. EMR reviewed, pt discussed in rounds. MD states in rounds that pt continues to be very sick and confusion has increased and expects her to remain in hospital for 2-3 more days at least. [employer]INEER will continue to follow. Assessment: Pt from SNF. Plan: Pt will d/c to [facility] when medically stable, MD states likely at least 2-3 more days. [employer] ENGINEER will continue to follow. ARTI Hutchinson
[2016-11-30] MEDS: Amoxicillin-Clav 875-125 mg Tablet PO SCH ×2 (10:42→20:12)
--- NOTE | 2016-11-30 15:39 | NUR ---
Bloody Nose: Patient had dried blood around nasal area and down right side of cheek. Patients face cleaned. MD notified. No new orders received.
--- NOTE | 2016-11-30 15:54 | PCM.PNMED ---
Subjective Date of Service Nov 30, 2016 Subjective Overnight: No acute events reported Today: Patient somewhat interactive, but not responding appropriately to questioning. Mentions a garden when asked location. Stated that she was upset with the garden, but could not tell me why. Cannot correctly identify location or date. Appears confused. No acute distress. Exam Vital Signs Vital Sign - Last Date Time Temp Pulse Resp B/P Pulse Ox O2 Delivery O2 Flow Rate FiO2 11/30/16 15:23 Supplement Oxygen 11/30/16 14:40 37.0 108 24 133/77 95 3.00 Intake and Output 11/29/16 11/29/16 11/30/16 Cumulative From/Thru 15:00 23:00 07:00 11/24/16 01:15 - 11/30/16 05:27 Intake Total 595 ml 250 ml 0 ml 5468 ml Output Total 275 ml 200 ml 300 ml 3175 ml Balance 320 ml 50 ml -300 ml 2293 ml Intake Oral 0 ml 250 ml 0 ml 1351 ml IV Total 595 ml 4117 ml Output Urine Total 275 ml 200 ml 300 ml 3175 ml # Bowel Movements 2 5 Exam General: awake, in no acute distress Neck: supple Chest & Lungs: Diffuse wheezing bilaterally, R>L, faint coarse sounds BL bases Cardiovascular: no murmurs/rubs/gallops, irregular rate/rhythm Abdomen: soft, non-tender, non-distended, normoactive bowel tones Extremities: no edema LE, no cyanosis Skin: Numerous ecchymosis (consistent with warfarin use); warm and dry Neuro: alert & oriented x 2 Lab and Diagnostics Result Diagram: 11/30/1655411/30/16554 Microbiology Microbiology REGINALDO STREP PNEUMONIAE AG URINE Final 11/24/16-741 STREP PNEUMO AG NEGATIVE Tests performed directly on clinical specimens are intended for screening purposes only and should augment, not replace, culture procedures Please Note: Streptococcus pneumoniae vaccine may cause false positive results in urine in the 48 hours following injection. Hence, it is recommended that the Alere Strep pneumoniae Antigen testing not be performed within five days of receiving the S. pneumoniae vaccine ----- NASOPHARYNGEAL: Microbiology ADENOVIRUS RESPIRATORY PCR Final 11/24/16 Not Detected CORONOVIRUS 229E Final 11/24/16 Not Detected CORONOVIRUS HKU1 Final 11/24/16 Not Detected CORONOVIRUS NL63 Final 11/24/16 Not Detected CORONOVIRUS OC43 Final 11/24/16 Not Detected INFLUENZA A PCR Final 11/24/16 Not Detected INFLUENZA B PCR Final 11/24/16 Not Detected METAPNEUMOVIRUS PCR Final 11/24/16 Not Detected RHINOVIRUS OR ENTEROVIRUS PCR Final 11/24/16 Not Detected PARAINFLUENZA 1 PCR Final 11/24/16 Not Detected PARAINFLUENZA 2 PCR Final 11/24/16 Not Detected PARAINFLUENZA 3 PCR Final 11/24/16 Not Detected PARAINFLUENZA 4 PCR Final 11/24/16 Not Detected RESP SYNCYTIAL VIRUS PCR Final 11/24/16 Not Detected CHLAMDOPHILIA PNEUMONIAE PCR Final 11/24/16 Not Detected MYCOPLASMA PNEUMONIAE PCR Final 11/24/16 MYCO PNEUMONIAE PCR Not Detected Reference Interval Not Detected [employer] swab is the only specimen type cleared by the FDA. Nasal wash, tracheal aspirate, and bronchial lavage specimen types have not been cleared by the FDA. Therefore results on any specimen type other than nasopharyngeal are considered investigational testing only. Microbiology REGINALDO OCCULT BLOOD IMMUNOCHEM Final 11/25/16-4 OCCULT BLD IMMUNOCHEMICAL POSITIVE REFERENCE INTERVAL NEGATIVE Microbiology REGINALDO CULT NASAL MRSA SCREEN Final 11/25/16-1304 Screen NEGATIVE for Methicillin Resistant Staph Aureus X-Rays, CTs and MRIs PROCEDURE: X-RAY CHEST ONE VIEW, PORTABLE ([id number]) INDICATIONS: Follow up for congestive heart failure COMPARISON: [facility], CR, XR CHEST 1VW (PORTABLE), 10/17/2016, 12 :41. FINDINGS: Surgical changes and devices: Post median sternotomy with valvular replacement. Lungs and pleura: Interstitium is prominent no significant change from prior examination. No focal lung consolidation present. Mediastinum: Mediastinal contours appear normal. Heart size is enlarged. Bones and chest wall: No suspicious bony lesions. Overlying soft tissues appear unremarkable. IMPRESSION: 1. Cardiomegaly and chronic interstitial pulmonary densities with no significant change from prior examination which may be chronic but superimposed pulmonary edema cannot be excluded. Recommend clinical correlation. Dictated by: Kolby Turner RR Interpreted: Tomas Medina MD on 10/23/2016 at 13: 46 Transcribed by: TRUDI on 10/23/2016 at 13:46 Approved by: Tomas Medina M.D. on 10/23/2016 at 15:37 PROCEDURE: CT ANGIO CHEST PULMONARY EMBOLISM ([id number]) FINDINGS: Pulmonary arteries: Pulmonary arteries are normal in size, and demonstrate no intraluminal filling defects to suggest central pulmonary embolism. Lungs and pleura: There are right lower lobe infiltrates and consolidation consistent with pneumonia. Hyperdensities in the right lung base may be related to aspiration. There are small bilateral effusions with basilar atelectasis, left greater than right. Bilateral interstitial thickening likely secondary to pulmonary edema. No pneumothorax. Central and peripheral airways are patent. Mediastinum: Heart is moderately to severely enlarged. No pericardial effusion. There is a prosthetic aortic valve. No mediastinal or hilar adenopathy. Thoracic aorta is normal in caliber and enhancement. Severe aortic calcification consistent with atherosclerosis with Esophagus is normal in caliber, without hiatal hernia. Bones and chest wall: No suspicious bony lesions. Ribs and thoracic spine appear intact throughout. Thyroid gland is normal. No axillary or supraclavicular adenopathy. Abdomen: There is IV contrast reflux into the hepatic vein. A 2.9 x 3.9 cm cystic structure is noted in the left upper quadrant anterior to the superior pole of the left kidney, probably an exophytic cyst. IMPRESSION: 1. No acute central pulmonary embolism. 2. Right lower lobe infiltrates and consolidation consistent pneumonia. 3. Bilateral small pleural effusions with basilar atelectasis. 4. Marked cardiomegaly and prosthetic aortic valve. There is bilateral interstitial thickening suggesting mild pulmonary edema secondary to congestive heart failure. 5. Hyperdense material in the right lung base suspicious for aspiration. Dictated by: Arsen Valenzuela M.D. on 11/26/2016 at 9:19 Approved by: Arsen Valenzuela M.D. on 11/26/2016 at 9:19 PROCEDURE: CT BRAIN WITHOUT CONTRAST ([id number]) INDICATIONS: change in mental status FINDINGS: Image quality: Excellent. CSF spaces: Basal cisterns are patent. No extra-axial fluid collections. The ventricles are symmetric in size and shape. Brain: No intracranial bleeds or masses. There is cerebral volume loss for age , with resultant ventricular and sulcal prominence. There are periventricular and deep white matter chronic small vessel ischemic changes. Old, small, left caudate body/barlow radiata lacunar infarct noted. Small punctate density in the left frontal periventricular white matter is stable compared to prior examination. There is intracranial internal carotid artery atherosclerosis. Skull and face: Calvarium and visualized facial bones appear intact, without suspicious lesions. Sinuses: Visualized sinuses and mastoids are clear. IMPRESSION: 1. No acute intracranial disease process. 2. No intracranial hemorrhage. Dictated by: Rachel Nichols MD, PhD on 11/27/2016 at 11:02 Approved by: Rachel Nichols MD, PhD on 11/27/2016 at 11:02 PROCEDURE: MRI BRAIN WITHOUT CONTRAST ([id number]) INDICATIONS: Slurred speech, unilateral weakness FINDINGS: Image quality: Motion artifact limits evaluation. CSF spaces: Ventricles appear symmetric in size and shape. Basal cisterns are patent. No extra-axial fluid collections. Brain: No intracranial bleeds or mass effects. There is minimal cerebral volume loss for age. There are mild periventricular and deep white matter chronic small vessel ischemic changes. Brainstem appears normal. Diffusion- weighted images show no acute ischemic insults. No chronic ischemic insults. Normal intravascular flow voids are present. Skull and face: Calvarial bone marrow is normal in signal. Orbits are normal. Sinuses: Sinuses and mastoids are clear. IMPRESSION: 1. Markedly limited study due to motion artifact. However, is no increased restricted diffusion to suggest acute or subacute infarct. 2. Considering patient age, there are only trace senescent finding likely associated with microvascular ischemia. Dictated by: Naida Matos M.D. on 11/27/2016 at 16:02 Approved by: Naida Matos M.D. on 11/27/2016 at 16:02 PROCEDURE: US RENAL SONOGRAM INDICATIONS: reba IMPRESSION: 1. Normal-appearing kidneys noting exophytic cyst upper pole left kidney 2. Urinary bladder not evaluated secondary to indwelling Arias catheter. Dictated by: Christopher Garcia M.D. on 11/28/2016 at 13:44 Approved by: Christopher Garcia M.D. on 11/28/2016 at 13:44 PROCEDURE: X-RAY CHEST ONE VIEW, PORTABLE ([id number]) INDICATIONS: Acute kidney injury COMPARISON: [facility], CR, XR CHEST 1VW (PORTABLE), 11/27/2016, 5: 45. FINDINGS: Surgical changes and devices: Sternotomy wires and cardiac valvular prosthesis.. Lungs and pleura: Bilateral small layering pleural effusions. Retrocardiac consolidation unchanged. Diffuse groundglass opacities are unchanged suggesting pulmonary edema. No pneumothorax. Mediastinum: Mediastinal contours appear normal. Heart size is normal. Bones and chest wall: No suspicious bony lesions. Overlying soft tissues appear unremarkable. IMPRESSION: Overall, no gross interval change since 11/27/16 Dictated by: Fili Carlos M.D. on 11/29/2016 at 11:56 Approved by: Fili Carlos M.D. on 11/29/2016 at 11:56 12-lead ECG EKG: Right and left arm electrode reversal, interpretation assumes no reversal . Atrial fibrillation . Ventricular premature complex . Low voltage, extremity leads . Nonspecific T abnormalities, lateral leads . Prolonged QT interval Cardiac Echo Impressions Echocardiogram Report Interpretation Summary Limited echo to evaluate valve gradients for acute shortness of breath. Patient is in chronic afib with RVR. HR 87-105 bpm. Normal LV size; severe concentric LVH; global hypokinesis. EF is 30--35%. Valves are not well seen. 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 Aortic valve is replaced with a mechanical prosthesis. There is mild aortic stenosis. Mean gradient is 17 mm Hg. Compared to prior study 10/19/2016 EF is less dynamic, particularly on apical views. EF is down from about 45-50% to now 30-35%. Valve function is unchanged Reading Physician:09:34 AM Assessment & Plan Patient is an 86-year-old female with CHF, atrial fibrillation on warfarin, COPD , DM2 and hypothyroidism who presented to [facility] from her SNF complaining of shortness of breath. SNF called EMS who reported 73% on 3L O2. SNF reports diaphoresis, cough and decreased responsiveness in last day. - Hospital day 7. 1. TIA, acute, not present on admission, resolved - Etiology is unclear. Patient is on warfarin for A-fib with goal INR of 2.5- 3.5 d/t aortic and mitral valve replacement - STAT CT of the brain and MRI negative - Neurology consulted, we appreciate their assistance - Stop Aspirin and Warfarin (FOBT positive, INR 5.38); repeat ordered, not yet completed - MRA head and neck and MRI with contrast when kidney injury is resolved 2. REBA, acute, present on admission, ongoing - Secondary to contrast and intravascular volume depletion - Cr worsening, Cr 2.81 - Nephrology consulted, we appreciate their assistance - Abdominal ultrasound revealed normal-appearing kidneys with exophytic cyst upper pole left kidney - Stopped IV hydration, avoid nephrotoxins - Lasix 60mg IV x1 per nephro 3. Pneumonia, present on admission, acute, ongoing - CT angio chest: right lower lobe consolidation, bilateral small pleural effusion, hyperdense material in the right lung base suspicious for aspiration - Continue Augmentin 875/125 PO bid; start date 11/26 pm dose - Procalcitonin dropped to 0.30 - CXR 11/29/15: overall no gross change from 11/27/15 4. Urinary tract infection, acute, present on admission, ongoing - UA positive for Klebsiella Pneumoniae - Continue Augmentin PO 5. Elevated troponin of unknown significance, present on admission, unknown chronicity - Chronically elevated in September 2016. 0.070 on admission - EKG at [facility]: Atrial fibrillation, ventricular premature complex, nonspecific T abnormalities, lateral leads, prolonged QT interval - Cardiology consult, Dr. Baez, appreciate your assistance - ECHO: EF down from about 45-50% in September 2016 to 30-35%; marked cardiomegaly - Atorvastatin 20 mg PO hs - Metoprolol 25 mg PO q6h - Patient is not a candidate for cardiac catheterization d/t her advanced age, frailty, chronic oral anticoagulation, the technical aspects of the procedure per Dr. Baez - Follow up as an outpatient with patient's primary rx specialist 6. Atrial fibrillation, present on admission, chronic - On admit: INR 5.38, Vit K 10 mg IV given - H/o mitral and aortic valve replacement, maintain INR 2.5-3.5 - Metoprolol 25 mg PO q6h - Stop Aspirin and Warfarin (reginaldo occult blood positive) - Monitor HGB&HCT 7. Lactic acidosis, acute, present on admission, resolved - 3.3 at [facility], decreased to 0.8 8. Acute on chronic hypoxia, present on admission, resolved - Initially required 5 L, but now on 3 L which is her home dose 9. CHF, diastolic, present on admission, chronic - BNP is elevated chronically - ECHO 11/25/16: EF down from about 45-50% in September 2016 to 30-35%; marked cardiomegaly 10. Goals of care, ongoing - DNR/DNI - Many chronic conditions make pt high risk readmission - Palliative care consultation Chronic conditions: Hypertension. present on admission. chronic - currently controlled. Re-evaluate Hypothyroidism, present on admission, chronic - continue levothyroxine Depression, present on admission, chronic - continue Citalopram Deconditioning, present on admission, chronic - PT ordered Urinary Retention, present on admission, chronic. - Continued tamsulosin - Arias DC'd Dyslipidemia, present on admission, chronic - Continued statin - Acetaminophen as needed for mild pain/fever/headache - Bowel regimen as needed - Antiemetic as needed Code status: Per [facility], DNR/DNI Dispo: Will return to SNF when medically stable, anticipate additional 1-2 days. Current needs include palliative care consultation to discuss goals of care and realistic outcomes. Patient is high risk for re-admission, has numerous chronic conditions. Will need to discuss with family patient likely to be stable for return to SNF in next 24-48h, and baseline mentation and health condition is declining despite medical therapies. Pain Evaluation: Adequate Pain Control GI Prophylaxis: Proton Pump Inhibitor VTE Prophylaxis: SCDs VTE Mechanical Devices: Venous Foot Pump Resuscitation Status: DNR/DNI:Do Not Resuscitate/Intubate Attending Statement The patient was seen and examined together with Dr. Israel on 11/30/2016 and I agree with the history, exam and plan as outlined in the note above. Danyelle Israel DO Nov 30, 2016 15:54 Xavier Cruz MD Dec 01, 2016 09:19
[2016-12-01] VITALS (10 sets, daily range): BP systolic 115–138; BP diastolic 61–76; PULSE 64–112; RESP 20–24; O2SAT 94–99
--- NOTE | 2016-12-01 01:21 | NUR ---
Activity: Pt has been up to the BSC x2 thus far tonight; minimal one assist; moderate soft BM. Pt is alert and oriented to self, birthday. Is confused and hard of hearing, did not answer all questions when asked. Has been able to sleep for brief periods of times, calls out to staff with needs; not using call light thus far tonight. Bed alarm is activated for pt safety.
[2016-12-01 05:44] LABS: BASOPHILS % (AUTO) 0.8 % (0-3); MONOCYTES % (AUTO) 12.8 % (4-12); Mean Corpuscular Hemoglobin 27.8 pg (27.0-35.0); Mean Corpuscular Volume 93.1 fL (81-100); NEUTROPHILS % (AUTO) 58.8 % (40-74); Platelet Count 130 bil/L (150-400)
[2016-12-01 06:05] LABS: INR 1.37 ratio
[2016-12-01 06:11] LABS: Magnesium 1.8 mg/dL (1.6-2.6); Phosphorus 4.4 mg/dL (2.5-4.9)
--- NOTE | 2016-12-01 10:47 | NUR ---
Palliative Care Palliative Care received verbal order from Dr Huyen Lira 12/01/16 to assist with goals of care. Patient is an 86 year old woman with numerous chronic conditions. She has history of CHF and afib and was admitted 11/24/16 from her SNF due to shortness of breath and decreased responsiveness. Patient lives at [facility]. Garo Garza (son) [phone], Stephan Garza (son) [phone] Palliative Care to follow. Ely Curiel
--- NOTE | 2016-12-01 11:45 | PCM.PNMED ---
Subjective Date of Service Dec 01, 2016 Subjective This is a 86-year-old debilitated lady, p/w diaphoresis, cough and decreased responsiveness, found to have hypoxia, pt has been treated for multiple conditions such as UTI, PNA, REBA today HD7 pt oriented to herself, denied pain, not communicative. palliative care consulted Exam Vital Signs Vital Sign - Last Date Time Temp Pulse Resp B/P Pulse Ox O2 Delivery O2 Flow Rate FiO2 12/01/16 10:56 Supplement Oxygen 12/01/16 09:57 36.7 86 20 126/71 99 3.00 Intake and Output 11/30/16 11/30/16 12/01/16 Cumulative From/Thru 15:00 23:00 07:00 11/24/16 01:15 - 12/01/16 06:52 Intake Total 300 ml 50 ml 5818 ml Output Total 700 ml 1000 ml 4875 ml Balance -400 ml -950 ml 943 ml Intake Oral 300 ml 50 ml 1701 ml IV Total 4117 ml Output Urine Total 700 ml 1000 ml 4875 ml # Bowel Movements 0 1 6 Exam NAD, comfortably laying down on the bed no JVD, MMM, no LAD RRR, nl s1, s2 no mrg CTAB, no w,c S,ND,NT,normoactive BS+ warm, no edema, pulses 2/[address] IVs and Medications Medications Reviewed: Medications were reviewed in detail Lab and Diagnostics Result Diagram: 12/01/1652912/01/16529 Microbiology Microbiology REGINALDO STREP PNEUMONIAE AG URINE Final 11/24/16-741 STREP PNEUMO AG NEGATIVE Tests performed directly on clinical specimens are intended for screening purposes only and should augment, not replace, culture procedures Please Note: Streptococcus pneumoniae vaccine may cause false positive results in urine in the 48 hours following injection. Hence, it is recommended that the Alere Strep pneumoniae Antigen testing not be performed within five days of receiving the S. pneumoniae vaccine ----- NASOPHARYNGEAL: Microbiology ADENOVIRUS RESPIRATORY PCR Final 11/24/16 Not Detected CORONOVIRUS 229E Final 11/24/16 Not Detected CORONOVIRUS HKU1 Final 11/24/16 Not Detected CORONOVIRUS NL63 Final 11/24/16 Not Detected CORONOVIRUS OC43 Final 11/24/16 Not Detected INFLUENZA A PCR Final 11/24/16 Not Detected INFLUENZA B PCR Final 11/24/16 Not Detected METAPNEUMOVIRUS PCR Final 11/24/16 Not Detected RHINOVIRUS OR ENTEROVIRUS PCR Final 11/24/16 Not Detected PARAINFLUENZA 1 PCR Final 11/24/16 Not Detected PARAINFLUENZA 2 PCR Final 11/24/16 Not Detected PARAINFLUENZA 3 PCR Final 11/24/16 Not Detected PARAINFLUENZA 4 PCR Final 11/24/16 Not Detected RESP SYNCYTIAL VIRUS PCR Final 11/24/16 Not Detected CHLAMDOPHILIA PNEUMONIAE PCR Final 11/24/16 Not Detected MYCOPLASMA PNEUMONIAE PCR Final 11/24/16 MYCO PNEUMONIAE PCR Not Detected Reference Interval Not Detected LOGISTICS MANAGEMENT SPECIALIST swab is the only specimen type cleared by the FDA. Nasal wash, tracheal aspirate, and bronchial lavage specimen types have not been cleared by the FDA. Therefore results on any specimen type other than nasopharyngeal are considered investigational testing only. Microbiology REGINALDO OCCULT BLOOD IMMUNOCHEM Final 11/25/16-1103 OCCULT BLD IMMUNOCHEMICAL POSITIVE REFERENCE INTERVAL NEGATIVE Microbiology REGINALDO CULT NASAL MRSA SCREEN Final 11/25/16-1304 Screen NEGATIVE for Methicillin Resistant Staph Aureus X-Rays, CTs and MRIs PROCEDURE: X-RAY CHEST ONE VIEW, PORTABLE ([id number]) INDICATIONS: Follow up for congestive heart failure COMPARISON: [facility], CR, XR CHEST 1VW (PORTABLE), 10/17/2016, 12 :41. FINDINGS: Surgical changes and devices: Post median sternotomy with valvular replacement. Lungs and pleura: Interstitium is prominent no significant change from prior examination. No focal lung consolidation present. Mediastinum: Mediastinal contours appear normal. Heart size is enlarged. Bones and chest wall: No suspicious bony lesions. Overlying soft tissues appear unremarkable. IMPRESSION: 1. Cardiomegaly and chronic interstitial pulmonary densities with no significant change from prior examination which may be chronic but superimposed pulmonary edema cannot be excluded. Recommend clinical correlation. Dictated by: Kolby Turner [facility] Interpreted: Tomas Medina MD on 10/23/2016 at 13: 46 Transcribed by: TRUDI on 10/23/2016 at 13:46 Approved by: Tomas Medina M.D. on 10/23/2016 at 15:37 PROCEDURE: CT ANGIO CHEST PULMONARY EMBOLISM ([id number]) FINDINGS: Pulmonary arteries: Pulmonary arteries are normal in size, and demonstrate no intraluminal filling defects to suggest central pulmonary embolism. Lungs and pleura: There are right lower lobe infiltrates and consolidation consistent with pneumonia. Hyperdensities in the right lung base may be related to aspiration. There are small bilateral effusions with basilar atelectasis, left greater than right. Bilateral interstitial thickening likely secondary to pulmonary edema. No pneumothorax. Central and peripheral airways are patent. Mediastinum: Heart is moderately to severely enlarged. No pericardial effusion. There is a prosthetic aortic valve. No mediastinal or hilar adenopathy. Thoracic aorta is normal in caliber and enhancement. Severe aortic calcification consistent with atherosclerosis with Esophagus is normal in caliber, without hiatal hernia. Bones and chest wall: No suspicious bony lesions. Ribs and thoracic spine appear intact throughout. Thyroid gland is normal. No axillary or supraclavicular adenopathy. Abdomen: There is IV contrast reflux into the hepatic vein. A 2.9 x 3.9 cm cystic structure is noted in the left upper quadrant anterior to the superior pole of the left kidney, probably an exophytic cyst. IMPRESSION: 1. No acute central pulmonary embolism. 2. Right lower lobe infiltrates and consolidation consistent pneumonia. 3. Bilateral small pleural effusions with basilar atelectasis. 4. Marked cardiomegaly and prosthetic aortic valve. There is bilateral interstitial thickening suggesting mild pulmonary edema secondary to congestive heart failure. 5. Hyperdense material in the right lung base suspicious for aspiration. Dictated by: Arsen Valenzuela M.D. on 11/26/2016 at 9:19 Approved by: Arsen Valenzuela M.D. on 11/26/2016 at 9:19 PROCEDURE: CT BRAIN WITHOUT CONTRAST ([id number]) INDICATIONS: change in mental status FINDINGS: Image quality: Excellent. CSF spaces: Basal cisterns are patent. No extra-axial fluid collections. The ventricles are symmetric in size and shape. Brain: No intracranial bleeds or masses. There is cerebral volume loss for age , with resultant ventricular and sulcal prominence. There are periventricular and deep white matter chronic small vessel ischemic changes. Old, small, left caudate body/barlow radiata lacunar infarct noted. Small punctate density in the left frontal periventricular white matter is stable compared to prior examination. There is intracranial internal carotid artery atherosclerosis. Skull and face: Calvarium and visualized facial bones appear intact, without suspicious lesions. Sinuses: Visualized sinuses and mastoids are clear. IMPRESSION: 1. No acute intracranial disease process. 2. No intracranial hemorrhage. Dictated by: Rachel Nichols MD, PhD on 11/27/2016 at 11:02 Approved by: Rachel Nichols MD, PhD on 11/27/2016 at 11:02 PROCEDURE: MRI BRAIN WITHOUT CONTRAST ([id number]) INDICATIONS: Slurred speech, unilateral weakness FINDINGS: Image quality: Motion artifact limits evaluation. CSF spaces: Ventricles appear symmetric in size and shape. Basal cisterns are patent. No extra-axial fluid collections. Brain: No intracranial bleeds or mass effects. There is minimal cerebral volume loss for age. There are mild periventricular and deep white matter chronic small vessel ischemic changes. Brainstem appears normal. Diffusion- weighted images show no acute ischemic insults. No chronic ischemic insults. Normal intravascular flow voids are present. Skull and face: Calvarial bone marrow is normal in signal. Orbits are normal. Sinuses: Sinuses and mastoids are clear. IMPRESSION: 1. Markedly limited study due to motion artifact. However, is no increased restricted diffusion to suggest acute or subacute infarct. 2. Considering patient age, there are only trace senescent finding likely associated with microvascular ischemia. Dictated by: Naida Matos M.D. on 11/27/2016 at 16:02 Approved by: Naida Matos M.D. on 11/27/2016 at 16:02 PROCEDURE: US RENAL SONOGRAM INDICATIONS: reba IMPRESSION: 1. Normal-appearing kidneys noting exophytic cyst upper pole left kidney 2. Urinary bladder not evaluated secondary to indwelling Marlow catheter. Dictated by: Christopher Garcia M.D. on 11/28/2016 at 13:44 Approved by: Christopher Garcia M.D. on 11/28/2016 at 13:44 PROCEDURE: X-RAY CHEST ONE VIEW, PORTABLE ([id number]) INDICATIONS: Acute kidney injury COMPARISON: [facility], CR, XR CHEST 1VW (PORTABLE), 11/27/2016, 5: 45. FINDINGS: Surgical changes and devices: Sternotomy wires and cardiac valvular prosthesis.. Lungs and pleura: Bilateral small layering pleural effusions. Retrocardiac consolidation unchanged. Diffuse groundglass opacities are unchanged suggesting pulmonary edema. No pneumothorax. Mediastinum: Mediastinal contours appear normal. Heart size is normal. Bones and chest wall: No suspicious bony lesions. Overlying soft tissues appear unremarkable. IMPRESSION: Overall, no gross interval change since 11/27/16 Dictated by: Fili Carlos M.D. on 11/29/2016 at 11:56 Approved by: Fili Carlos M.D. on 11/29/2016 at 11:56 12-lead ECG EKG: Right and left arm electrode reversal, interpretation assumes no reversal . Atrial fibrillation . Ventricular premature complex . Low voltage, extremity leads . Nonspecific T abnormalities, lateral leads . Prolonged QT interval Cardiac Echo Impressions Echocardiogram Report Interpretation Summary Limited echo to evaluate valve gradients for acute shortness of breath. Patient is in chronic afib with RVR. HR 87-105 bpm. Normal LV size; severe concentric LVH; global hypokinesis. EF is 30--35%. Valves are not well seen. 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 Aortic valve is replaced with a mechanical prosthesis. There is mild aortic stenosis. Mean gradient is 17 mm Hg. Compared to prior study 10/19/2016 EF is less dynamic, particularly on apical views. EF is down from about 45-50% to now 30-35%. Valve function is unchanged Reading Physician:09:34 AM Assessment & Plan Patient is an 86-year-old female with CHF, atrial fibrillation on warfarin, COPD , DM2 and hypothyroidism who presented to [facility] from her SNF complaining of shortness of breath. SNF called EMS who reported 73% on 3L O2. SNF reports diaphoresis, cough and decreased responsiveness in last day. acute, active #REBA, POA, Secondary to contrast and intravascular volume depletion, Abdominal ultrasound revealed normal-appearing kidneys with exophytic cyst upper pole left kidney, Cr slight improved today - appreciate Nephrology input - Stopped IV hydration, avoid nephrotoxins - Lasix 60mg IV x1 per nephro, daily lasix dosing based on volume status per renal #Pneumonia, POA, CT angio chest: right lower lobe consolidation, bilateral small pleural effusion, hyperdense material in the right lung base suspicious for aspiration - Continue Augmentin 875/125 PO bid; start date 11/26 pm dose - Procalcitonin dropped to 0.30 - CXR 11/29/15: overall no gross change from 11/27/15 #Urinary tract infection,POA, UA positive for Klebsiella Pneumoniae - Continue Augmentin PO chronic, stable, 1. TIA, acute, not present on admission, resolved - Etiology is unclear. Patient is on warfarin for A-fib with goal INR of 2.5- 3.5 d/t aortic and mitral valve replacement - STAT CT of the brain and MRI negative - Neurology consulted, we appreciate their assistance - Stop Aspirin and Warfarin (FOBT positive, INR 5.38); repeat ordered, not yet completed - MRA head and neck and MRI with contrast when kidney injury is resolved 5. Elevated troponin of unknown significance, present on admission, unknown chronicity - Chronically elevated in September 2016. 0.070 on admission - EKG at [facility]: Atrial fibrillation, ventricular premature complex, nonspecific T abnormalities, lateral leads, prolonged QT interval - Cardiology consult, Dr. Baez, appreciate your assistance - ECHO: EF down from about 45-50% in September 2016 to 30-35%; marked cardiomegaly - Atorvastatin 20 mg PO hs - Metoprolol 25 mg PO q6h - Patient is not a candidate for cardiac catheterization d/t her advanced age, frailty, chronic oral anticoagulation, the technical aspects of the procedure per Dr. Baez - Follow up as an outpatient with patient's primary sole tacker 6. Atrial fibrillation, present on admission, chronic - On admit: INR 5.38, Vit K 10 mg IV given - H/o mitral and aortic valve replacement, maintain INR 2.5-3.5 - Metoprolol 25 mg PO q6h - Stop Aspirin and Warfarin (reginaldo occult blood positive) - Monitor HGB&HCT 7. Lactic acidosis, acute, present on admission, resolved - 3.3 at [facility], decreased to 0.8 8. Acute on chronic hypoxia, present on admission, resolved - Initially required 5 L, but now on 3 L which is her home dose 9. CHF, diastolic, present on admission, chronic - BNP is elevated chronically - ECHO 11/25/16: EF down from about 45-50% in September 2016 to 30-35%; marked cardiomegaly Hypertension. present on admission. chronic - currently controlled. Re-evaluate Hypothyroidism, present on admission, chronic - continue levothyroxine Depression, present on admission, chronic - continue Citalopram Deconditioning, present on admission, chronic - PT ordered Urinary Retention, present on admission, chronic. - Continued tamsulosin - Marlow DC'd Dyslipidemia, present on admission, chronic - Continued statin - Acetaminophen as needed for mild pain/fever/headache - Bowel regimen as needed - Antiemetic as needed Code status: Per POLST, DNR/DNI Dispo: pt seems good hospice candidate, appreciate palliative care input, back SNF within 1-2days GI Prophylaxis: Proton Pump Inhibitor VTE Prophylaxis: SCDs VTE Mechanical Devices: Venous Foot Pump Resuscitation Status: DNR/DNI:Do Not Resuscitate/Intubate Time spent 35min Reba Lira MD Dec 01, 2016 11:45
--- NOTE | 2016-12-01 12:48 | PCM.PNMED ---
Subjective Date of Service Dec 01, 2016 Subjective Pt is confused at times. no acute issue overnight. BP stable. BUN/cr trending down. Exam Vital Signs Vital Sign - Last Date Time Temp Pulse Resp B/P Pulse Ox O2 Delivery O2 Flow Rate FiO2 12/01/16 10:56 Supplement Oxygen 12/01/16 09:57 36.7 86 20 126/71 99 3.00 Intake and Output 11/30/16 11/30/16 12/01/16 Cumulative From/Thru 14:59 22:59 06:59 11/24/16 01:15 - 12/01/16 06:52 Intake Total 300 ml 50 ml 5818 ml Output Total 700 ml 1000 ml 4875 ml Balance -400 ml -950 ml 943 ml Intake Oral 300 ml 50 ml 1701 ml IV Total 4117 ml Output Urine Total 700 ml 1000 ml 4875 ml # Bowel Movements 0 1 6 Exam General: awake, in no acute distress Neck: supple Chest & Lungs: fine crackles at bases. Cardiovascular: no murmurs/rubs/gallops, irregular rate/rhythm Abdomen: soft, non-tender, non-distended, normoactive bowel tones Extremities: no edema LE, no cyanosis Skin: multiple ecchymosis, warm and dry Neuro: alert & oriented x 2 Lab and Diagnostics Result Diagram: 12/01/1652912/01/16529 Microbiology Microbiology REGINALDO STREP PNEUMONIAE AG URINE Final 11/24/16-741 STREP PNEUMO AG NEGATIVE Tests performed directly on clinical specimens are intended for screening purposes only and should augment, not replace, culture procedures Please Note: Streptococcus pneumoniae vaccine may cause false positive results in urine in the 48 hours following injection. Hence, it is recommended that the Alere Strep pneumoniae Antigen testing not be performed within five days of receiving the S. pneumoniae vaccine ----- NASOPHARYNGEAL: Microbiology ADENOVIRUS RESPIRATORY PCR Final 11/24/16 Not Detected CORONOVIRUS 229E Final 11/24/16 Not Detected CORONOVIRUS HKU1 Final 11/24/16 Not Detected CORONOVIRUS NL63 Final 11/24/16 Not Detected CORONOVIRUS OC43 Final 11/24/16 Not Detected INFLUENZA A PCR Final 11/24/16 Not Detected INFLUENZA B PCR Final 11/24/16 Not Detected METAPNEUMOVIRUS PCR Final 11/24/16 Not Detected RHINOVIRUS OR ENTEROVIRUS PCR Final 11/24/16 Not Detected PARAINFLUENZA 1 PCR Final 11/24/16 Not Detected PARAINFLUENZA 2 PCR Final 11/24/16 Not Detected PARAINFLUENZA 3 PCR Final 11/24/16 Not Detected PARAINFLUENZA 4 PCR Final 11/24/16 Not Detected RESP SYNCYTIAL VIRUS PCR Final 11/24/16 Not Detected CHLAMDOPHILIA PNEUMONIAE PCR Final 11/24/16 Not Detected MYCOPLASMA PNEUMONIAE PCR Final 11/24/16 MYCO PNEUMONIAE PCR Not Detected Reference Interval Not Detected [employer] WORKER swab is the only specimen type cleared by the FDA. Nasal wash, tracheal aspirate, and bronchial lavage specimen types have not been cleared by the FDA. Therefore results on any specimen type other than nasopharyngeal are considered investigational testing only. Microbiology REGINALDO OCCULT BLOOD IMMUNOCHEM Final 11/25/16-1104 OCCULT BLD IMMUNOCHEMICAL POSITIVE REFERENCE INTERVAL NEGATIVE Microbiology REGINALDO CULT NASAL MRSA SCREEN Final 11/25/16-1304 Screen NEGATIVE for Methicillin Resistant Staph Aureus X-Rays, CTs and MRIs PROCEDURE: X-RAY CHEST ONE VIEW, PORTABLE ([id number]) INDICATIONS: Follow up for congestive heart failure COMPARISON: [facility], CR, XR CHEST 1VW (PORTABLE), 10/17/2016, 12 :41. FINDINGS: Surgical changes and devices: Post median sternotomy with valvular replacement. Lungs and pleura: Interstitium is prominent no significant change from prior examination. No focal lung consolidation present. Mediastinum: Mediastinal contours appear normal. Heart size is enlarged. Bones and chest wall: No suspicious bony lesions. Overlying soft tissues appear unremarkable. IMPRESSION: 1. Cardiomegaly and chronic interstitial pulmonary densities with no significant change from prior examination which may be chronic but superimposed pulmonary edema cannot be excluded. Recommend clinical correlation. Dictated by: Kolby Turner RR Interpreted: Tomas Medina MD on 10/23/2016 at 13: 46 Transcribed by: TRUDI on 10/23/2016 at 13:46 Approved by: Tomas Medina M.D. on 10/23/2016 at 15:37 PROCEDURE: CT ANGIO CHEST PULMONARY EMBOLISM ([id number]) FINDINGS: Pulmonary arteries: Pulmonary arteries are normal in size, and demonstrate no intraluminal filling defects to suggest central pulmonary embolism. Lungs and pleura: There are right lower lobe infiltrates and consolidation consistent with pneumonia. Hyperdensities in the right lung base may be related to aspiration. There are small bilateral effusions with basilar atelectasis, left greater than right. Bilateral interstitial thickening likely secondary to pulmonary edema. No pneumothorax. Central and peripheral airways are patent. Mediastinum: Heart is moderately to severely enlarged. No pericardial effusion. There is a prosthetic aortic valve. No mediastinal or hilar adenopathy. Thoracic aorta is normal in caliber and enhancement. Severe aortic calcification consistent with atherosclerosis with Esophagus is normal in caliber, without hiatal hernia. Bones and chest wall: No suspicious bony lesions. Ribs and thoracic spine appear intact throughout. Thyroid gland is normal. No axillary or supraclavicular adenopathy. Abdomen: There is IV contrast reflux into the hepatic vein. A 2.9 x 3.9 cm cystic structure is noted in the left upper quadrant anterior to the superior pole of the left kidney, probably an exophytic cyst. IMPRESSION: 1. No acute central pulmonary embolism. 2. Right lower lobe infiltrates and consolidation consistent pneumonia. 3. Bilateral small pleural effusions with basilar atelectasis. 4. Marked cardiomegaly and prosthetic aortic valve. There is bilateral interstitial thickening suggesting mild pulmonary edema secondary to congestive heart failure. 5. Hyperdense material in the right lung base suspicious for aspiration. Dictated by: Arsen Valenzuela M.D. on 11/26/2016 at 9:19 Approved by: Arsen Valenzuela M.D. on 11/26/2016 at 9:19 PROCEDURE: CT BRAIN WITHOUT CONTRAST ([id number]) INDICATIONS: change in mental status FINDINGS: Image quality: Excellent. CSF spaces: Basal cisterns are patent. No extra-axial fluid collections. The ventricles are symmetric in size and shape. Brain: No intracranial bleeds or masses. There is cerebral volume loss for age , with resultant ventricular and sulcal prominence. There are periventricular and deep white matter chronic small vessel ischemic changes. Old, small, left caudate body/barlow radiata lacunar infarct noted. Small punctate density in the left frontal periventricular white matter is stable compared to prior examination. There is intracranial internal carotid artery atherosclerosis. Skull and face: Calvarium and visualized facial bones appear intact, without suspicious lesions. Sinuses: Visualized sinuses and mastoids are clear. IMPRESSION: 1. No acute intracranial disease process. 2. No intracranial hemorrhage. Dictated by: Rachel Nichols MD, PhD on 11/27/2016 at 11:02 Approved by: Rachel Nichols MD, PhD on 11/27/2016 at 11:02 PROCEDURE: MRI BRAIN WITHOUT CONTRAST ([id number]) INDICATIONS: Slurred speech, unilateral weakness FINDINGS: Image quality: Motion artifact limits evaluation. CSF spaces: Ventricles appear symmetric in size and shape. Basal cisterns are patent. No extra-axial fluid collections. Brain: No intracranial bleeds or mass effects. There is minimal cerebral volume loss for age. There are mild periventricular and deep white matter chronic small vessel ischemic changes. Brainstem appears normal. Diffusion- weighted images show no acute ischemic insults. No chronic ischemic insults. Normal intravascular flow voids are present. Skull and face: Calvarial bone marrow is normal in signal. Orbits are normal. Sinuses: Sinuses and mastoids are clear. IMPRESSION: 1. Markedly limited study due to motion artifact. However, is no increased restricted diffusion to suggest acute or subacute infarct. 2. Considering patient age, there are only trace senescent finding likely associated with microvascular ischemia. Dictated by: Naida Matos M.D. on 11/27/2016 at 16:02 Approved by: Naida Matos M.D. on 11/27/2016 at 16:02 PROCEDURE: US RENAL SONOGRAM INDICATIONS: reba IMPRESSION: 1. Normal-appearing kidneys noting exophytic cyst upper pole left kidney 2. Urinary bladder not evaluated secondary to indwelling Arias catheter. Dictated by: Christopher Garica M.D. on 11/28/2016 at 13:44 Approved by: Christopher Garcia M.D. on 11/28/2016 at 13:44 PROCEDURE: X-RAY CHEST ONE VIEW, PORTABLE ([id number]) INDICATIONS: Acute kidney injury COMPARISON: [facility], CR, XR CHEST 1VW (PORTABLE), 11/27/2016, 5: 45. FINDINGS: Surgical changes and devices: Sternotomy wires and cardiac valvular prosthesis.. Lungs and pleura: Bilateral small layering pleural effusions. Retrocardiac consolidation unchanged. Diffuse groundglass opacities are unchanged suggesting pulmonary edema. No pneumothorax. Mediastinum: Mediastinal contours appear normal. Heart size is normal. Bones and chest wall: No suspicious bony lesions. Overlying soft tissues appear unremarkable. IMPRESSION: Overall, no gross interval change since 11/27/16 Dictated by: Fili Carlos M.D. on 11/29/2016 at 11:56 Approved by: Fili Carlos M.D. on 11/29/2016 at 11:56 12-lead ECG EKG: Right and left arm electrode reversal, interpretation assumes no reversal . Atrial fibrillation . Ventricular premature complex . Low voltage, extremity leads . Nonspecific T abnormalities, lateral leads . Prolonged QT interval Cardiac Echo Impressions Echocardiogram Report Interpretation Summary Limited echo to evaluate valve gradients for acute shortness of breath. Patient is in chronic afib with RVR. HR 87-105 bpm. Normal LV size; severe concentric LVH; global hypokinesis. EF is 30--35%. Valves are not well seen. 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 Aortic valve is replaced with a mechanical prosthesis. There is mild aortic stenosis. Mean gradient is 17 mm Hg. Compared to prior study 10/19/2016 EF is less dynamic, particularly on apical views. EF is down from about 45-50% to now 30-35%. Valve function is unchanged Reading Physician:09:34 AM Assessment & Plan 1. REAB secondary to contrast-induced nephropathy. - improving. 2. Klebsiella UTI 3. CAP 4. Chronic AFib 5. Diastolic HF Plan: continue supportive treatment, add bumex 1 mg BID. repeat BMP. GI Prophylaxis: Proton Pump Inhibitor VTE Prophylaxis: SCDs VTE Mechanical Devices: Venous Foot Pump Resuscitation Status: DNR/DNI:Do Not Resuscitate/Intubate Alyssa Vargas MD Dec 01, 2016 12:48
--- NOTE | 2016-12-01 14:57 | PCM.CONPAL ---
Date of Service Dec 01, 2016 Date of Hospital Admission: Nov 24, 2016 at 00:58 Date of Palliative Consult: Dec 01, 2016 Requesting Provider: YAYA BUSTOS DO Reason Palliative Care Consult: Goals of Care Discussion Hospital Unit @time of consult: Medical/Pediatric Care Palliative Care Recommendation Summary of palliative recommendations: Requested Palliative Care consult to discuss goals of care in this frail patient with worsening CHF and pneumonia and comorbidities -Symptom management (Pain/other) Dyspnea- improved. Transitioning off mask to NC and off IV to oral meds and hydration Delirium-due to illness, hospitalization and some baseline dementia. Probable vascular component. Recent L weakness thought TIA CHF-difficult to tell dyspnea source as CHF vs pneumonia vs COPD. Worsened systolic fxn. GOC discussion to continue tomorrow- hopefully with Garo in the AM. -DPOA/Advanced Directives/POLST-DNR/DNI reiterated by her son. For now still limited interventions including hospitalizations but reviewed concept of comfort. -Family/emotional support- 4 devoted sons and their families but Garo is the close one. -Spiritual support-not addressed Additional Medical Diagnoses with primary management by Hospitalist team include : RLL pneumonia High risk for aspiration UTI- Klebs- on antibiotics CHF- worsening New to worsening CRI Anemia/thrombocytopenia-chronic-?etiology DM Valve replacements-on warfarin Problems: End of Life Preferences DNR/DNI Goals of Care DNR/DNI with limited intervention. Goal is to get back to [facility] and see if can strengthen. Disposition Hopefully back to [facility] in next few days Resuscitation Status Resuscitation Status: DNR/DNI:Do Not Resuscitate/Intubate Limited Interventions: BiPAP, Medications and IV Fluid POLST Updates/Changes POLST Discussed with: Spouse/Other (sons) . Symptom management: Agitation, Dyspnea, Delirium Pt History History of Present Illness PALLIATIVE CARE CONSULT NOTE REASON FOR CONSULT: Establish goals [facility] to son Garo but he deferred to conversation to proceed with son Stephan who is also here with his . Pt unable to participate due to dementia/delirium 86 yo patient who had been living with her son Garo for the past 12 yrs- starting after her AVR/MVR in 2005 at . She has needed progressive assistance over the past yr or so until end of Aug when she became ill and seen in ER then hospital. She has been hospitalized 10/03 and 10/17 and then again 1/2/17 gor CHF, UTI and now pneumonia- concern for aspiration. She had an EF on ECHO of 45- 50% in Nov but then with this hospitalization it dropped to 30-35% with mod MS otherwise OK valve protheses. She has afib on aticoag and had acute L weakness with dx of TIA 11/27/16.The families hope was for her to get stronger so she could go to a more social assisted care environment. Instead she seems to be getting weaker. She has had hx of CRI with a baseline 1.6 which is now 2.3 down from 2.81 She has been treated with IV fluids and antibiotics. Recent UTI- Klebsiella, pneumonia R base- dense and chronic anemia and thrombocytopenia which is unchanged. 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 Social Support: very supportive sons- Brodie Living Situation: most recently in [facility] Responsive Patient Symptoms Pain (current): None Anorexia: Moderate (son identifies anorexia but not sure about wt loss) Shortness of Breath: Moderate Delirium progressive confusion, some paranoia Palliative Performance Scale PPS Patient Status: Current PPS Ambulation: Mainly Sit/Lie PPS Activity: Unable to do any activity PPS Self-Care: 2 person assist PPS Intake: Minimal to sips PPS Conscious Level: Full or drowsey, +/- confusion Performance Scale: 40% Allergy Allergies Reviewed: Yes Medications Current Medications: Current Medications Amoxicillin/ Clavulanate Potassium 1 tab BID PO; Start 12/01/16 at 20:30 Bumetanide 1 mg BID PO Last administered on 12/01/16t 14:23; Admin Dose 1 MG; Start 12/01/16 at 12:45 Scheduled Aspirin (Aspirin) 81 Mg Tablet 81 MG PO DAILY Cholecalciferol (Vitamin D3) (Vitamin D3) 2,000 Unit Tablet 2,000 UNIT PO DAILY Citalopram (Citalopram) 40 Mg Tablet 40 MG PO DAILY Furosemide (Lasix) 80 Mg Tablet 80 MG PO DAILY Ipratropium/Albuterol Sulfate (Iprat-Albut 0.5-3(2.5) mg/3 mL Inhalant Soln) 3 Ml Ampul.neb 3 ML IH Q6 Levothyroxine (Levothyroxine) 100 Mcg Tablet 100 MCG PO QAM Potassium Chloride ER (Potassium Chloride ER) 10 Meq Tablet 10 MEQ PO DAILY TAKE WITH FOOD Simvastatin (Simvastatin) 40 Mg Tablet 40 MG PO HS Tamsulosin (Flomax) 0.4 Mg Capsule 0.4 MG PO QPM Tolterodine Tartrate (Tolterodine Tartrate) 2 Mg Tablet 2 MG PO QPM Warfarin Sodium (Warfarin Sodium) 3 Mg Tablet 3 MG PO QPM Scheduled PRN Acetaminophen (Acetaminophen) 325 Mg Tablet 650 MG PO Q4H PRN PRN For Pain Bisacodyl (Dulcolax Rectal) 10 Mg Supp.rect 10 MG RC ONCE PRN PRN For Constipation Ipratropium/Albuterol Sulfate (Iprat-Albut 0.5-3(2.5) mg/3 mL Inhalant Soln) 3 Ml Ampul.neb 3 ML IH Q4H PRN PRN For Shortness of Breath Ipratropium/Albuterol Sulfate (Iprat-Albut 0.5-3(2.5) mg/3 mL Inhalant Soln) 3 Ml Ampul.neb 3 ML IH q4 PRN PRN For Shortness of Breath Magnesium Hydroxide (Milk of Magnesia) 400 Mg/5 Ml Oral.susp 30 ML PO ONCE PRN PRN For Constipation NTE 2x/month Objective Findings Exam Vital Sign - Last Date Time Temp Pulse Resp B/P Pulse Ox O2 Delivery O2 Flow Rate FiO2 12/01/16 13:47 36.9 90 20 120/69 95 OxyMask 3.00 Intake and Output 11/30/16 11/30/16 12/01/16 Cumulative From/Thru 15:00 23:00 07:00 11/24/16 01:15 - 12/01/16 06:52 Intake Total 300 ml 50 ml 5818 ml Output Total 700 ml 1000 ml 4875 ml Balance -400 ml -950 ml 943 ml Intake Oral 300 ml 50 ml 1701 ml IV Total 4117 ml Output Urine Total 700 ml 1000 ml 4875 ml # Bowel Movements 0 1 6 General: Alert, Oriented, Person, Agitated (mildly so- paranoid about someone taking her clothes) Lungs: Rhonchorus, Tachypneic (on mask) Abdomen: Soft Neuro: Follows Commands, Cranial Nerve 3-12 Intact Extremities: No Edema Lab/Diagnostics Lab and Imaging results reviewed in detail in EMR. CR 2.8 now 2.3 Hgb 8.6 UTI klebsiella BG 200's Patient/Family Conference Members Present Family Members Present son Stephan and his ROXY to Garo-brief Medical Team Members Present? DNorthMD Discussion/Goals of Care Discussion FAMILY UNDERSTANDING OF DISEASE: Reviewed chronic debility but specifically progressive decline over the last 3 months. Stephan recognizes that she is not rebounding as they had hoped- goal was for rehab at SNF and then move to "custodial" assisted care. Reviewed consideration for continued restorative with hope that she will be able to gain strength. Or more comfort approach dominick if she again deteriorates. Garo does not sound ready to make this decision. Family did not have a good experience with hospice 10 yrs ago when she had severe valvular HD so is unlikely to find this of benefit. Reviewed support through ECF with appropriate meds as alternative. Reviewed worsening of HD and well as KD and her pneumonia. SYMPTOM BURDEN: Stephan does not think that Garo has any expectations to take his mother home-too significant of a burden and Stephan does not think he wants to have her there. The family recognizes the burden and the dedication that garo has put into this and the emotional toll her weakening is having on him. GOALS: For now to get back to [facility] for restorative care there. If she can sustain rehab with PT they are fine with that. At this time I do not think she could participate. HOPES/WORRIES: FAMILY WISHES/VALUES: Do you want to be told truth about his illness, even if unpleasant? yes Goal for the family is that she be comfortable. Palliative Care counselled: Time spent Total time [70 ] minutes; >50% face to face with patient and/or family, providing counselling regarding plans and recommendations, and in care coordination with his/her medical teams. Including TC, F2F encounter and discussion with Dr. Lira. I also spent an additional [ ] minutes counseling for advanced care planning with the patient/the patients family/the surrogate decision maker. copies to: Zafar Chapman Deborah A MD Dec 01, 2016 14:57
--- NOTE | 2016-12-01 15:39 | NUR ---
Confusion: Patient confused and restless this am, did not recognize family while visiting. States "I need to get out of here", attempting to get out of bed. Repeatedly takes off oxy mask, O2 sats in mid 70s, visibly short of breath. Encouraging patient to keep O2 mask on. O2 sats increase to 89-90% with oxy mask on. Bed alarm on for safety. MD aware of confusion. At afternoon assessment, patient resting quietly with eyes closed. O2 sats 98% 3L oxygen via oxy mask.
[2016-12-01] MEDS: Amoxicillin-Clav 500-125 mg Tablet PO SCH (20:30)
[2016-12-02] VITALS (8 sets, daily range): BP systolic 98–129; BP diastolic 51–78; PULSE 76–111; RESP 20–24; O2SAT 82–98
[2016-12-02 06:14] LABS: BASOPHILS % (AUTO) 0.7 % (0-3); EOSINOPHILS % (AUTO) 1.7 % (0-5); MONOCYTES % (AUTO) 12.8 % (4-12); Mean Corpuscular Hemoglobin 28.3 pg (27.0-35.0); Mean Corpuscular Volume 94.6 fL (81-100); NEUTROPHILS % (AUTO) 55.3 % (40-74); Platelet Count 112 bil/L (150-400)
[2016-12-02 06:58] LABS: Magnesium 1.5 mg/dL (1.6-2.6); Phosphorus 3.3 mg/dL (2.5-4.9)
[2016-12-02] MEDS ORDERED: Potassium Chloride 20 mEq/15 mL 15mL Oral Soln PO ONE (08:00)
[2016-12-02] MEDS ORDERED: Magnesium Sulf 2 Gm/50mL Water 2 GM in IV Premix 1 EACH IV ONE (08:00)
[2016-12-02] MEDS: Amoxicillin-Clav 500-125 mg Tablet PO SCH ×2 (08:21→20:48)
[2016-12-02] MEDS: Dextrose 5% 0.45% NaCl 1,000 ML IV SCH ×2 (08:24→19:23)
--- NOTE | 2016-12-02 10:36 | NUR ---
Social Work-readiness for discharge: Data:EMR Reviewed. Pt is on day 8 of hospitalization for AFIB per H&P. Per MD, pt may be ready to discharge tomorrow. SW placed a call to Celestina delatorre at [facility], and confirmed they are still able to accept pt back at discharge. palliative care meet with pt and family yesterday, plan remains to return to [facility]. Paperwork in the chart. SW will continue to follow. Assessment:Pt who would benefit from SNF. Plan:Pt to discharge back to [facility] when medically stable with Dr. Canela to follow. Paperwork in the chart. SW will continue to follow. ARTI Garduno
--- NOTE | 2016-12-02 11:31 | PCM.PNMED ---
Subjective Date of Service Dec 02, 2016 Subjective doing about the same, confused at times. good UOP, poor oral intake. now on d5 1/2NS 100 m/hr. Kidney function has improved. Exam Vital Signs Vital Sign - Last Date Time Temp Pulse Resp B/P Pulse Ox O2 Delivery O2 Flow Rate FiO2 12/02/16 09:26 36.2 78 20 98/51 96 OxyMask 4.00 Intake and Output 12/01/16 12/01/16 12/02/16 Cumulative From/Thru 15:00 23:00 07:00 11/24/16 01:15 - 12/02/16 06:42 Intake Total 150 ml 0 ml 5968 ml Output Total 650 ml 600 ml 6125 ml Balance -500 ml -600 ml -157 ml Intake Oral 150 ml 0 ml 1851 ml IV Total 4117 ml Output Urine Total 650 ml 600 ml 6125 ml # Bowel Movements 0 6 Exam General: lying in bed comfortably, not cooperative, confused, in no acute distress Neck: supple Chest & Lungs: fine crackles at bases. Cardiovascular: no murmurs/rubs/gallops, irregular rate/rhythm Abdomen: soft, non-tender, non-distended, normoactive bowel tones Extremities: no edema LE, no cyanosis Skin: multiple ecchymosis, warm and dry Lab and Diagnostics Result Diagram: 12/02/1640 12/02/1640 Microbiology Microbiology REGINALDO STREP PNEUMONIAE AG URINE Final 11/24/16-0742 STREP PNEUMO AG NEGATIVE Tests performed directly on clinical specimens are intended for screening purposes only and should augment, not replace, culture procedures Please Note: Streptococcus pneumoniae vaccine may cause false positive results in urine in the 48 hours following injection. Hence, it is recommended that the Alere Strep pneumoniae Antigen testing not be performed within five days of receiving the S. pneumoniae vaccine ----- NASOPHARYNGEAL: Microbiology ADENOVIRUS RESPIRATORY PCR Final 11/24/16-0750 Not Detected CORONOVIRUS 229E Final 11/24/16 Not Detected CORONOVIRUS HKU1 Final 11/24/16 Not Detected CORONOVIRUS NL63 Final 11/24/16 Not Detected CORONOVIRUS OC43 Final 11/24/16 Not Detected INFLUENZA A PCR Final 11/24/16 Not Detected INFLUENZA B PCR Final 11/24/16 Not Detected METAPNEUMOVIRUS PCR Final 11/24/16 Not Detected RHINOVIRUS OR ENTEROVIRUS PCR Final 11/24/16 Not Detected PARAINFLUENZA 1 PCR Final 11/24/16 Not Detected PARAINFLUENZA 2 PCR Final 11/24/16 Not Detected PARAINFLUENZA 3 PCR Final 11/24/16 Not Detected PARAINFLUENZA 4 PCR Final 11/24/16 Not Detected RESP SYNCYTIAL VIRUS PCR Final 11/24/16 Not Detected CHLAMDOPHILIA PNEUMONIAE PCR Final 11/24/16 Not Detected MYCOPLASMA PNEUMONIAE PCR Final 11/24/16 MYCO PNEUMONIAE PCR Not Detected Reference Interval Not Detected [employer] swab is the only specimen type cleared by the FDA. Nasal wash, tracheal aspirate, and bronchial lavage specimen types have not been cleared by the FDA. Therefore results on any specimen type other than nasopharyngeal are considered investigational testing only. Microbiology REGINALDO OCCULT BLOOD IMMUNOCHEM Final 11/25/16-1104 OCCULT BLD IMMUNOCHEMICAL POSITIVE REFERENCE INTERVAL NEGATIVE Microbiology REGINALDO CULT NASAL MRSA SCREEN Final 11/25/16-1304 Screen NEGATIVE for Methicillin Resistant Staph Aureus X-Rays, CTs and MRIs PROCEDURE: X-RAY CHEST ONE VIEW, PORTABLE ([id number]) INDICATIONS: Follow up for congestive heart failure COMPARISON: [facility], CR, XR CHEST 1VW (PORTABLE), 10/17/2016, 12 :41. FINDINGS: Surgical changes and devices: Post median sternotomy with valvular replacement. Lungs and pleura: Interstitium is prominent no significant change from prior examination. No focal lung consolidation present. Mediastinum: Mediastinal contours appear normal. Heart size is enlarged. Bones and chest wall: No suspicious bony lesions. Overlying soft tissues appear unremarkable. IMPRESSION: 1. Cardiomegaly and chronic interstitial pulmonary densities with no significant change from prior examination which may be chronic but superimposed pulmonary edema cannot be excluded. Recommend clinical correlation. Dictated by: Kolby Turner [facility] Interpreted: Tomas Medina MD on 10/23/2016 at 13: 46 Transcribed by: TRUDI on 10/23/2016 at 13:46 Approved by: Tomas Medina M.D. on 10/23/2016 at 15:37 PROCEDURE: CT ANGIO CHEST PULMONARY EMBOLISM ([id number]) FINDINGS: Pulmonary arteries: Pulmonary arteries are normal in size, and demonstrate no intraluminal filling defects to suggest central pulmonary embolism. Lungs and pleura: There are right lower lobe infiltrates and consolidation consistent with pneumonia. Hyperdensities in the right lung base may be related to aspiration. There are small bilateral effusions with basilar atelectasis, left greater than right. Bilateral interstitial thickening likely secondary to pulmonary edema. No pneumothorax. Central and peripheral airways are patent. Mediastinum: Heart is moderately to severely enlarged. No pericardial effusion. There is a prosthetic aortic valve. No mediastinal or hilar adenopathy. Thoracic aorta is normal in caliber and enhancement. Severe aortic calcification consistent with atherosclerosis with Esophagus is normal in caliber, without hiatal hernia. Bones and chest wall: No suspicious bony lesions. Ribs and thoracic spine appear intact throughout. Thyroid gland is normal. No axillary or supraclavicular adenopathy. Abdomen: There is IV contrast reflux into the hepatic vein. A 2.9 x 3.9 cm cystic structure is noted in the left upper quadrant anterior to the superior pole of the left kidney, probably an exophytic cyst. IMPRESSION: 1. No acute central pulmonary embolism. 2. Right lower lobe infiltrates and consolidation consistent pneumonia. 3. Bilateral small pleural effusions with basilar atelectasis. 4. Marked cardiomegaly and prosthetic aortic valve. There is bilateral interstitial thickening suggesting mild pulmonary edema secondary to congestive heart failure. 5. Hyperdense material in the right lung base suspicious for aspiration. Dictated by: Arsen Valenzuela M.D. on 11/26/2016 at 9:19 Approved by: Arsen Valenzuela M.D. on 11/26/2016 at 9:19 PROCEDURE: CT BRAIN WITHOUT CONTRAST ([id number]) INDICATIONS: change in mental status FINDINGS: Image quality: Excellent. CSF spaces: Basal cisterns are patent. No extra-axial fluid collections. The ventricles are symmetric in size and shape. Brain: No intracranial bleeds or masses. There is cerebral volume loss for age , with resultant ventricular and sulcal prominence. There are periventricular and deep white matter chronic small vessel ischemic changes. Old, small, left caudate body/barlow radiata lacunar infarct noted. Small punctate density in the left frontal periventricular white matter is stable compared to prior examination. There is intracranial internal carotid artery atherosclerosis. Skull and face: Calvarium and visualized facial bones appear intact, without suspicious lesions. Sinuses: Visualized sinuses and mastoids are clear. IMPRESSION: 1. No acute intracranial disease process. 2. No intracranial hemorrhage. Dictated by: Rachel Nichols MD, PhD on 11/27/2016 at 11:02 Approved by: Rachel Nichols MD, PhD on 11/27/2016 at 11:02 PROCEDURE: MRI BRAIN WITHOUT CONTRAST ([id number]) INDICATIONS: Slurred speech, unilateral weakness FINDINGS: Image quality: Motion artifact limits evaluation. CSF spaces: Ventricles appear symmetric in size and shape. Basal cisterns are patent. No extra-axial fluid collections. Brain: No intracranial bleeds or mass effects. There is minimal cerebral volume loss for age. There are mild periventricular and deep white matter chronic small vessel ischemic changes. Brainstem appears normal. Diffusion- weighted images show no acute ischemic insults. No chronic ischemic insults. Normal intravascular flow voids are present. Skull and face: Calvarial bone marrow is normal in signal. Orbits are normal. Sinuses: Sinuses and mastoids are clear. IMPRESSION: 1. Markedly limited study due to motion artifact. However, is no increased restricted diffusion to suggest acute or subacute infarct. 2. Considering patient age, there are only trace senescent finding likely associated with microvascular ischemia. Dictated by: Naida Matos M.D. on 11/27/2016 at 16:02 Approved by: Naida Matos M.D. on 11/27/2016 at 16:02 PROCEDURE: US RENAL SONOGRAM INDICATIONS: reba IMPRESSION: 1. Normal-appearing kidneys noting exophytic cyst upper pole left kidney 2. Urinary bladder not evaluated secondary to indwelling Arias catheter. Dictated by: Christopher Garcia M.D. on 11/28/2016 at 13:44 Approved by: Christopher Garcia M.D. on 11/28/2016 at 13:44 PROCEDURE: X-RAY CHEST ONE VIEW, PORTABLE ([id number]) INDICATIONS: Acute kidney injury COMPARISON: [facility], CR, XR CHEST 1VW (PORTABLE), 11/27/2016, 5: 45. FINDINGS: Surgical changes and devices: Sternotomy wires and cardiac valvular prosthesis.. Lungs and pleura: Bilateral small layering pleural effusions. Retrocardiac consolidation unchanged. Diffuse groundglass opacities are unchanged suggesting pulmonary edema. No pneumothorax. Mediastinum: Mediastinal contours appear normal. Heart size is normal. Bones and chest wall: No suspicious bony lesions. Overlying soft tissues appear unremarkable. IMPRESSION: Overall, no gross interval change since 11/27/16 Dictated by: Fili Carlos M.D. on 11/29/2016 at 11:56 Approved by: Fili Carlos M.D. on 11/29/2016 at 11:56 12-lead ECG EKG: Right and left arm electrode reversal, interpretation assumes no reversal . Atrial fibrillation . Ventricular premature complex . Low voltage, extremity leads . Nonspecific T abnormalities, lateral leads . Prolonged QT interval Cardiac Echo Impressions Echocardiogram Report Interpretation Summary Limited echo to evaluate valve gradients for acute shortness of breath. Patient is in chronic afib with RVR. HR 87-105 bpm. Normal LV size; severe concentric LVH; global hypokinesis. EF is 30--35%. Valves are not well seen. 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 Aortic valve is replaced with a mechanical prosthesis. There is mild aortic stenosis. Mean gradient is 17 mm Hg. Compared to prior study 10/19/2016 EF is less dynamic, particularly on apical views. EF is down from about 45-50% to now 30-35%. Valve function is unchanged Reading Physician:09:34 AM Assessment & Plan 1. REBA secondary to contrast-induced nephropathy. - improving. 2. Klebsiella UTI 3. CAP 4. Chronic AFib 5. Diastolic HF Plan: continue supportive treatment, Bumex 1 mg PO daily, will sign off, please do not hesitate to call with any question. Thank you for the consultation. GI Prophylaxis: Proton Pump Inhibitor VTE Prophylaxis: SCDs VTE Mechanical Devices: Venous Foot Pump Resuscitation Status: DNR/DNI:Do Not Resuscitate/Intubate Limited Interventions: BiPAP, Medications and IV Fluid Alyssa Vargas MD Dec 02, 2016 11:31
--- NOTE | 2016-12-02 12:43 | PCM.PNMED ---
Subjective Date of Service Dec 02, 2016 Subjective pt looked more stronger, remained confused, oriented to herself, started Bumex per renal team yesterday net -1.5 output Exam Vital Signs Vital Sign - Last Date Time Temp Pulse Resp B/P Pulse Ox O2 Delivery O2 Flow Rate FiO2 12/02/16 09:26 36.2 78 20 98/51 96 OxyMask 4.00 Intake and Output 12/01/16 12/01/16 12/02/16 Cumulative From/Thru 15:00 23:00 07:00 11/24/16 01:15 - 12/02/16 06:42 Intake Total 150 ml 0 ml 5968 ml Output Total 650 ml 600 ml 6125 ml Balance -500 ml -600 ml -157 ml Intake Oral 150 ml 0 ml 1851 ml IV Total 4117 ml Output Urine Total 650 ml 600 ml 6125 ml # Bowel Movements 0 6 Exam NAD, comfortably laying down on the bed no JVD, MMM, no LAD RRR, nl s1, s2 no mrg CTAB, no w,c S,ND,NT,normoactive BS+ warm, no edema, pulses 2/[address] IVs and Medications Medications Reviewed: Medications were reviewed in detail Lab and Diagnostics Result Diagram: 12/02/1653912/02/16539 Microbiology Microbiology REGINALDO STREP PNEUMONIAE AG URINE Final 11/24/16-741 STREP PNEUMO AG NEGATIVE Tests performed directly on clinical specimens are intended for screening purposes only and should augment, not replace, culture procedures Please Note: Streptococcus pneumoniae vaccine may cause false positive results in urine in the 48 hours following injection. Hence, it is recommended that the Alere Strep pneumoniae Antigen testing not be performed within five days of receiving the S. pneumoniae vaccine ----- NASOPHARYNGEAL: Microbiology ADENOVIRUS RESPIRATORY PCR Final 11/24/16-749 Not Detected CORONOVIRUS 229E Final 11/24/16-749 Not Detected CORONOVIRUS HKU1 Final 11/24/16 Not Detected CORONOVIRUS NL63 Final 11/24/16 Not Detected CORONOVIRUS OC43 Final 11/24/16 Not Detected INFLUENZA A PCR Final 11/24/16 Not Detected INFLUENZA B PCR Final 11/24/16 Not Detected METAPNEUMOVIRUS PCR Final 11/24/16 Not Detected RHINOVIRUS OR ENTEROVIRUS PCR Final 11/24/16 Not Detected PARAINFLUENZA 1 PCR Final 11/24/16 Not Detected PARAINFLUENZA 2 PCR Final 11/24/16 Not Detected PARAINFLUENZA 3 PCR Final 11/24/16 Not Detected PARAINFLUENZA 4 PCR Final 11/24/16 Not Detected RESP SYNCYTIAL VIRUS PCR Final 11/24/16 Not Detected CHLAMDOPHILIA PNEUMONIAE PCR Final 11/24/16 Not Detected MYCOPLASMA PNEUMONIAE PCR Final 11/24/16 MYCO PNEUMONIAE PCR Not Detected Reference Interval Not Detected SUPERINTENDENT PRESSURE swab is the only specimen type cleared by the FDA. Nasal wash, tracheal aspirate, and bronchial lavage specimen types have not been cleared by the FDA. Therefore results on any specimen type other than nasopharyngeal are considered investigational testing only. Microbiology REGINALDO OCCULT BLOOD IMMUNOCHEM Final 11/25/16-1103 OCCULT BLD IMMUNOCHEMICAL POSITIVE REFERENCE INTERVAL NEGATIVE Microbiology REGINALDO CULT NASAL MRSA SCREEN Final 11/25/16-1304 Screen NEGATIVE for Methicillin Resistant Staph Aureus X-Rays, CTs and MRIs PROCEDURE: X-RAY CHEST ONE VIEW, PORTABLE ([id number]) INDICATIONS: Follow up for congestive heart failure COMPARISON: [facility], CR, XR CHEST 1VW (PORTABLE), 10/17/2016, 12 :41. FINDINGS: Surgical changes and devices: Post median sternotomy with valvular replacement. Lungs and pleura: Interstitium is prominent no significant change from prior examination. No focal lung consolidation present. Mediastinum: Mediastinal contours appear normal. Heart size is enlarged. Bones and chest wall: No suspicious bony lesions. Overlying soft tissues appear unremarkable. IMPRESSION: 1. Cardiomegaly and chronic interstitial pulmonary densities with no significant change from prior examination which may be chronic but superimposed pulmonary edema cannot be excluded. Recommend clinical correlation. Dictated by: Kolby Turner [facility] Interpreted: Tomas Medina MD on 10/23/2016 at 13: 46 Transcribed by: TRUDI on 10/23/2016 at 13:46 Approved by: Tomas Medina M.D. on 10/23/2016 at 15:37 PROCEDURE: CT ANGIO CHEST PULMONARY EMBOLISM ([id number]) FINDINGS: Pulmonary arteries: Pulmonary arteries are normal in size, and demonstrate no intraluminal filling defects to suggest central pulmonary embolism. Lungs and pleura: There are right lower lobe infiltrates and consolidation consistent with pneumonia. Hyperdensities in the right lung base may be related to aspiration. There are small bilateral effusions with basilar atelectasis, left greater than right. Bilateral interstitial thickening likely secondary to pulmonary edema. No pneumothorax. Central and peripheral airways are patent. Mediastinum: Heart is moderately to severely enlarged. No pericardial effusion. There is a prosthetic aortic valve. No mediastinal or hilar adenopathy. Thoracic aorta is normal in caliber and enhancement. Severe aortic calcification consistent with atherosclerosis with Esophagus is normal in caliber, without hiatal hernia. Bones and chest wall: No suspicious bony lesions. Ribs and thoracic spine appear intact throughout. Thyroid gland is normal. No axillary or supraclavicular adenopathy. Abdomen: There is IV contrast reflux into the hepatic vein. A 2.9 x 3.9 cm cystic structure is noted in the left upper quadrant anterior to the superior pole of the left kidney, probably an exophytic cyst. IMPRESSION: 1. No acute central pulmonary embolism. 2. Right lower lobe infiltrates and consolidation consistent pneumonia. 3. Bilateral small pleural effusions with basilar atelectasis. 4. Marked cardiomegaly and prosthetic aortic valve. There is bilateral interstitial thickening suggesting mild pulmonary edema secondary to congestive heart failure. 5. Hyperdense material in the right lung base suspicious for aspiration. Dictated by: Arsen Valenzuela M.D. on 11/26/2016 at 9:19 Approved by: Arsen Valenzuela M.D. on 11/26/2016 at 9:19 PROCEDURE: CT BRAIN WITHOUT CONTRAST ([id number]) INDICATIONS: change in mental status FINDINGS: Image quality: Excellent. CSF spaces: Basal cisterns are patent. No extra-axial fluid collections. The ventricles are symmetric in size and shape. Brain: No intracranial bleeds or masses. There is cerebral volume loss for age , with resultant ventricular and sulcal prominence. There are periventricular and deep white matter chronic small vessel ischemic changes. Old, small, left caudate body/barlow radiata lacunar infarct noted. Small punctate density in the left frontal periventricular white matter is stable compared to prior examination. There is intracranial internal carotid artery atherosclerosis. Skull and face: Calvarium and visualized facial bones appear intact, without suspicious lesions. Sinuses: Visualized sinuses and mastoids are clear. IMPRESSION: 1. No acute intracranial disease process. 2. No intracranial hemorrhage. Dictated by: Rachel Nichols MD, PhD on 11/27/2016 at 11:02 Approved by: Rachel Nichols MD, PhD on 11/27/2016 at 11:02 PROCEDURE: MRI BRAIN WITHOUT CONTRAST ([id number]) INDICATIONS: Slurred speech, unilateral weakness FINDINGS: Image quality: Motion artifact limits evaluation. CSF spaces: Ventricles appear symmetric in size and shape. Basal cisterns are patent. No extra-axial fluid collections. Brain: No intracranial bleeds or mass effects. There is minimal cerebral volume loss for age. There are mild periventricular and deep white matter chronic small vessel ischemic changes. Brainstem appears normal. Diffusion- weighted images show no acute ischemic insults. No chronic ischemic insults. Normal intravascular flow voids are present. Skull and face: Calvarial bone marrow is normal in signal. Orbits are normal. Sinuses: Sinuses and mastoids are clear. IMPRESSION: 1. Markedly limited study due to motion artifact. However, is no increased restricted diffusion to suggest acute or subacute infarct. 2. Considering patient age, there are only trace senescent finding likely associated with microvascular ischemia. Dictated by: Naida Matos M.D. on 11/27/2016 at 16:02 Approved by: Naida Matos M.D. on 11/27/2016 at 16:02 PROCEDURE: US RENAL SONOGRAM INDICATIONS: reba IMPRESSION: 1. Normal-appearing kidneys noting exophytic cyst upper pole left kidney 2. Urinary bladder not evaluated secondary to indwelling Marlow catheter. Dictated by: Christopher Garcia M.D. on 11/28/2016 at 13:44 Approved by: Christopher Garcia M.D. on 11/28/2016 at 13:44 PROCEDURE: X-RAY CHEST ONE VIEW, PORTABLE ([id number]) INDICATIONS: Acute kidney injury COMPARISON: [facility], CR, XR CHEST 1VW (PORTABLE), 11/27/2016, 5: 45. FINDINGS: Surgical changes and devices: Sternotomy wires and cardiac valvular prosthesis.. Lungs and pleura: Bilateral small layering pleural effusions. Retrocardiac consolidation unchanged. Diffuse groundglass opacities are unchanged suggesting pulmonary edema. No pneumothorax. Mediastinum: Mediastinal contours appear normal. Heart size is normal. Bones and chest wall: No suspicious bony lesions. Overlying soft tissues appear unremarkable. IMPRESSION: Overall, no gross interval change since 11/27/16 Dictated by: Fili Carlos M.D. on 11/29/2016 at 11:56 Approved by: Fili Carlos M.D. on 11/29/2016 at 11:56 12-lead ECG EKG: Right and left arm electrode reversal, interpretation assumes no reversal . Atrial fibrillation . Ventricular premature complex . Low voltage, extremity leads . Nonspecific T abnormalities, lateral leads . Prolonged QT interval Cardiac Echo Impressions Echocardiogram Report Interpretation Summary Limited echo to evaluate valve gradients for acute shortness of breath. Patient is in chronic afib with RVR. HR 87-105 bpm. Normal LV size; severe concentric LVH; global hypokinesis. EF is 30--35%. Valves are not well seen. 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 Aortic valve is replaced with a mechanical prosthesis. There is mild aortic stenosis. Mean gradient is 17 mm Hg. Compared to prior study 10/19/2016 EF is less dynamic, particularly on apical views. EF is down from about 45-50% to now 30-35%. Valve function is unchanged Reading Physician:09:34 AM Assessment & Plan Patient is an 86-year-old female with CHF, atrial fibrillation on warfarin, COPD , DM2 and hypothyroidism who presented to [facility] from her SNF complaining of shortness of breath. SNF called EMS who reported 73% on 3L O2. SNF reports diaphoresis, cough and decreased responsiveness in last day. acute, active #REBA, POA, Secondary to contrast and intravascular volume depletion, Abdominal ultrasound revealed normal-appearing kidneys with exophytic cyst upper pole left kidney, Cr further improves, - appreciate Nephrology input - Stopped IV hydration, avoid nephrotoxins - s/p Lasix 60mg IV, bumex 1mg bid per nephro, switch to Bumex 1g daily today, #Pneumonia, POA, CT angio chest: right lower lobe consolidation, bilateral small pleural effusion, hyperdense material in the right lung base suspicious for aspiration - Continue Augmentin 875/125 PO bid; start date 11/26 pm dose, likely to finish 10-14days - Procalcitonin dropped to 0.30 - CXR 11/29/15: overall no gross change from 11/27/15 #Urinary tract infection,POA, UA positive for Klebsiella Pneumoniae - Continue Augmentin PO chronic, stable, 1. TIA, acute, not present on admission, resolved - Etiology is unclear. Patient is on warfarin for A-fib with goal INR of 2.5- 3.5 d/t aortic and mitral valve replacement - STAT CT of the brain and MRI negative - Neurology consulted, we appreciate their assistance - Stop Aspirin and Warfarin (FOBT positive, INR 5.38); repeat ordered, not yet completed - MRA head and neck and MRI with contrast when kidney injury is resolved 5. Elevated troponin of unknown significance, present on admission, unknown chronicity - Chronically elevated in September 2016. 0.070 on admission - EKG at [facility]: Atrial fibrillation, ventricular premature complex, nonspecific T abnormalities, lateral leads, prolonged QT interval - Cardiology consult, Dr. Baez, appreciate your assistance - ECHO: EF down from about 45-50% in September 2016 to 30-35%; marked cardiomegaly - Atorvastatin 20 mg PO hs - Metoprolol 25 mg PO q6h - Patient is not a candidate for cardiac catheterization d/t her advanced age, frailty, chronic oral anticoagulation, the technical aspects of the procedure per Dr. 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 Atrial fibrillation, present on admission, chronic - On admit: INR 5.38, Vit K 10 mg IV given - H/o mitral and aortic valve replacement, maintain INR 2.5-3.5 - Metoprolol 25 mg PO q6h - Stop Aspirin and Warfarin (reginaldo occult blood positive) - Monitor HGB&HCT 7. Lactic acidosis, acute, present on admission, resolved - 3.3 at [facility], decreased to 0.8 8. Acute on chronic hypoxia, present on admission, resolved - Initially required 5 L, but now on 3 L which is her home dose 9. CHF, diastolic, present on admission, chronic - BNP is elevated chronically - ECHO 11/25/16: EF down from about 45-50% in September 2016 to 30-35%; marked cardiomegaly Hypertension. present on admission. chronic - currently controlled. Re-evaluate Hypothyroidism, present on admission, chronic - continue levothyroxine Depression, present on admission, chronic - continue Citalopram Deconditioning, present on admission, chronic - PT ordered Urinary Retention, present on admission, chronic. - Continued tamsulosin - Marlow DC'd Dyslipidemia, present on admission, chronic - Continued statin - Acetaminophen as needed for mild pain/fever/headache - Bowel regimen as needed - Antiemetic as needed Code status: Per POLST, DNR/DNI Dispo: Back SNF, [facility] tomorrow, with oral Augmentin GI Prophylaxis: Proton Pump Inhibitor VTE Prophylaxis: SCDs VTE Mechanical Devices: Venous Foot Pump Resuscitation Status: DNR/DNI:Do Not Resuscitate/Intubate Limited Interventions: BiPAP, Medications and IV Fluid Time spent 35min Reba Lira MD Dec 02, 2016 12:43
--- NOTE | 2016-12-02 15:47 | NUR ---
NUTRITION FOLLOW UP: ASSESS: 86 YO female admitted with SOB and pneumonia. Pt diet remains unchanged at full liquids w/ NTL (x4 days). Last ST evaluation completed on 11/29. PO remains low at PO refused-25%. Per notes, pt remains confused but oriented to self. Palliative consulted, but pt and family wish to continue current care regimen. PMHX: CHF, COPD, CAD, HTN, Afib, Depression, chronic Respiratory Failure, DM II LABS: Reviewed. Na 146, CO2 33, BUN 36, Drum Carrier 1.51, Mg 1.5, Alb 3.0 MEDS: Reviewed. Lopressor, Synthroid, Potassium Chloride. GI: BMx1 (12/01). SKIN: Mark 13. CURRENT WT: 73.6 kg BMI 31.7 kg/m2 ADMIT WT 75.6kg IBW 45.5kg DIET: Full liquid, nectar thick liquid. PO Refused-25% EST. NEEDS: BMI Kcals: 8404-4889 kcal/day (20-22kcal/kg) Pro: 55-70 g/day (1.2-1.5g/kg IBW) NUTRITION DIAGNOSIS: 1) Chew/swallow difficulty related to AMS and slurred speech as evidence by need for texture altered diet per ST ---PERSISTS 2) Inadequate oral intake related to decreased ability to consume sufficient energy as evidenced by current PO of 0-25% x 5 days ---PERSISTS NUTRITION INTERVENTION: 1) Will continue to send Glucerna supplement on L trays. 2) Will add Gelatein 20 supplements BID on B&D trays. MONITOR / EVAL: Diet advance, PO intake, labs, POC, nutrition status. Will continue to monitor per high nutrition risk guidelines.
--- NOTE | 2016-12-02 18:28 | NUR ---
Mentation and activity Wakens to soft touch and voice, answering questions appropriately. Up to chair for meal and feeding self. Otherwise sleeping in bed with Q2T.
[2016-12-03] VITALS (7 sets, daily range): BP systolic 106–118; BP diastolic 55–62; PULSE 60–88; RESP 18–20; O2SAT 95–98
[2016-12-03] MEDS: Dextrose 5% 0.45% NaCl 1,000 ML IV SCH (05:54)
[2016-12-03 06:27] LABS: BASOPHILS % (AUTO) 0.6 % (0-3); EOSINOPHILS % (AUTO) 2.4 % (0-5); MONOCYTES % (AUTO) 13.4 % (4-12); Mean Corpuscular Hemoglobin 27.5 pg (27.0-35.0); Mean Corpuscular Volume 95.5 fL (81-100); NEUTROPHILS % (AUTO) 56.4 % (40-74); Platelet Count 109 bil/L (150-400)
[2016-12-03 06:58] LABS: Magnesium 1.7 mg/dL (1.6-2.6); Phosphorus 2.5 mg/dL (2.5-4.9)
[2016-12-03] MEDS: Amoxicillin-Clav 500-125 mg Tablet PO SCH ×2 (07:39→20:50)
--- NOTE | 2016-12-03 09:13 | NUR ---
ANTIONE: Patient is unable to sign, was attempted yesterday. AD CLERK is following up with family today via phone.
--- NOTE | 2016-12-03 10:58 | NUR ---
ANTIONE Signed with son Garo via Phone. ARTI Garduno
--- NOTE | 2016-12-03 14:47 | NUR ---
Social Work-readiness for discharge: Data:EMR Reviewed. Pt is on day 9 of hospitalization for AFIB per H&P. Per MD, pt may be ready to discharge tomorrow. MILLA placed a call to Celestina delatorre at [facility], and confirmed they are still able to accept pt back at discharge. SW confirmed plan with garland Wyman via phone. PT continues to recommend SNF.Paperwork in the chart. SW will continue to follow. Assessment:Pt who would benefit from SNF. Plan:Pt to discharge back to [facility] when medically stable with Dr. Canela to follow. Paperwork in the chart. SW will continue to follow. ARTI Garduno
--- NOTE | 2016-12-03 21:30 | PCM.PNMED ---
Subjective Date of Service Dec 03, 2016 Subjective Patient is more awake than she has been all admission. She is sitting up in chair and eating a pured diet. She remains pleasantly confused. Exam Vital Signs Vital Sign - Last Date Time Temp Pulse Resp B/P Pulse Ox O2 Delivery O2 Flow Rate FiO2 12/03/16 20:47 37.0 68 18 107/56 95 Nasal Cannula 3.00 Intake and Output 12/02/16 12/02/16 12/03/16 Cumulative From/Thru 15:00 23:00 07:00 11/24/16 01:15 - 12/03/16 06:20 Intake Total 1860 ml 1054 ml 8882 ml Output Total 1250 ml 450 ml 7825 ml Balance 610 ml 604 ml 1057 ml Intake Oral 900 ml 0 ml 2751 ml IV Total 960 ml 1054 ml 6131 ml Output Urine Total 1250 ml 450 ml 7825 ml # Bowel Movements 1 7 Exam General: Patient is in no apparent distress sitting up eating. Diet in a bedside chair. HEENT: Head is atraumatic normocephalic. Eyes: Pupils are equally round and reactive to light and accommodation. Extraocular muscles are intact. Sclera are white anicteric. Subconjunctival mucosa is pink. Ears and nose are unremarkable. Oropharynx: There is no mucosal lesions, there is no thrush, there is no pharyngitis. Neck: Is supple, there are no nodes, or masses, or tenderness. Chest: There are bilateral rales at the bases right greater than left. The rales on the right are 1/3-1/[address] up the posterior lung field Heart: Rate, rhythm is regular. There is no murmur, rub or gallop. Abdomen: Good bowel sounds are present. Abdomen is soft, nontender, no organomegaly or masses were appreciated. Extremities: Are symmetrical and well perfused. There is minimal edema, there is no cellulitis, no rash. Neurologic: There are no focal neurological deficits. Cranial nerves II through XII are intact. There are no sensory or motor deficits. Psychiatric: Patients mood is calm and shows no sign of agitation. Genital: Deferred Rectal: Deferred Lab and Diagnostics Result Diagram: 12/03/16 0540 12/03/16 0540 Microbiology Microbiology REGINALDO STREP PNEUMONIAE AG URINE Final 11/24/16-0742 STREP PNEUMO AG NEGATIVE Tests performed directly on clinical specimens are intended for screening purposes only and should augment, not replace, culture procedures Please Note: Streptococcus pneumoniae vaccine may cause false positive results in urine in the 48 hours following injection. Hence, it is recommended that the Alere Strep pneumoniae Antigen testing not be performed within five days of receiving the S. pneumoniae vaccine ----- NASOPHARYNGEAL: Microbiology ADENOVIRUS RESPIRATORY PCR Final 11/24/16 Not Detected CORONOVIRUS 229E Final 11/24/16 Not Detected CORONOVIRUS HKU1 Final 11/24/16 Not Detected CORONOVIRUS NL63 Final 11/24/16 Not Detected CORONOVIRUS OC43 Final 11/24/16 Not Detected INFLUENZA A PCR Final 11/24/16 Not Detected INFLUENZA B PCR Final 11/24/16 Not Detected METAPNEUMOVIRUS PCR Final 11/24/16 Not Detected RHINOVIRUS OR ENTEROVIRUS PCR Final 11/24/16 Not Detected PARAINFLUENZA 1 PCR Final 11/24/16 Not Detected PARAINFLUENZA 2 PCR Final 11/24/16 Not Detected PARAINFLUENZA 3 PCR Final 11/24/16 Not Detected PARAINFLUENZA 4 PCR Final 11/24/16 Not Detected RESP SYNCYTIAL VIRUS PCR Final 11/24/16 Not Detected CHLAMDOPHILIA PNEUMONIAE PCR Final 11/24/16 Not Detected MYCOPLASMA PNEUMONIAE PCR Final 11/24/16 MYCO PNEUMONIAE PCR Not Detected Reference Interval Not Detected SENIOR COBOL DEVELOPER swab is the only specimen type cleared by the FDA. Nasal wash, tracheal aspirate, and bronchial lavage specimen types have not been cleared by the FDA. Therefore results on any specimen type other than nasopharyngeal are considered investigational testing only. Microbiology REGINALDO OCCULT BLOOD IMMUNOCHEM Final 11/25/16-110 OCCULT BLD IMMUNOCHEMICAL POSITIVE REFERENCE INTERVAL NEGATIVE Microbiology REGINALDO CULT NASAL MRSA SCREEN Final 11/25/16-130 Screen NEGATIVE for Methicillin Resistant Staph Aureus Name: CALLIE SINCLAIR Age/Sex: 86/F Attend Dr: Jocelyn Black MD Acct: [id number] Unit: [id number] Status: [place] [facility] [place]-1 Re11/24/16 Disch: Specimen: [id number] Collected: 11/27/16 Status: MAGDI Pandya#: [id number] Received: 11/27/16 Source: RANDOM Sp Desc : Subm Dr: Xavier Cruz MD Ordered: URINE CULT Procedure Result Verified Site Microbiology REGINALDO CULT URINE Final 11/30/16-1030 Organism 1 EMILIA ALBICANS U COLONY COUNT/QUANTITY >100,000 CFU/ml SENSITIVITY COMMENTS Sensitivity not routinely performed on this org this source X-Rays, CTs and MRIs PROCEDURE: X-RAY CHEST ONE VIEW, PORTABLE ([id number]) INDICATIONS: Follow up for congestive heart failure COMPARISON: [facility], CR, XR CHEST 1VW (PORTABLE), 10/17/2016, 12 :41. FINDINGS: Surgical changes and devices: Post median sternotomy with valvular replacement. Lungs and pleura: Interstitium is prominent no significant change from prior examination. No focal lung consolidation present. Mediastinum: Mediastinal contours appear normal. Heart size is enlarged. Bones and chest wall: No suspicious bony lesions. Overlying soft tissues appear unremarkable. IMPRESSION: 1. Cardiomegaly and chronic interstitial pulmonary densities with no significant change from prior examination which may be chronic but superimposed pulmonary edema cannot be excluded. Recommend clinical correlation. Dictated by: Kolby Turner RR Interpreted: Tomas Medina MD on 10/23/2016 at 13: 46 Transcribed by: TRUDI on 10/23/2016 at 13:46 Approved by: Tomas Medina M.D. on 10/23/2016 at 15:37 PROCEDURE: CT ANGIO CHEST PULMONARY EMBOLISM ([id number]) FINDINGS: Pulmonary arteries: Pulmonary arteries are normal in size, and demonstrate no intraluminal filling defects to suggest central pulmonary embolism. Lungs and pleura: There are right lower lobe infiltrates and consolidation consistent with pneumonia. Hyperdensities in the right lung base may be related to aspiration. There are small bilateral effusions with basilar atelectasis, left greater than right. Bilateral interstitial thickening likely secondary to pulmonary edema. No pneumothorax. Central and peripheral airways are patent. Mediastinum: Heart is moderately to severely enlarged. No pericardial effusion. There is a prosthetic aortic valve. No mediastinal or hilar adenopathy. Thoracic aorta is normal in caliber and enhancement. Severe aortic calcification consistent with atherosclerosis with Esophagus is normal in caliber, without hiatal hernia. Bones and chest wall: No suspicious bony lesions. Ribs and thoracic spine appear intact throughout. Thyroid gland is normal. No axillary or supraclavicular adenopathy. Abdomen: There is IV contrast reflux into the hepatic vein. A 2.9 x 3.9 cm cystic structure is noted in the left upper quadrant anterior to the superior pole of the left kidney, probably an exophytic cyst. IMPRESSION: 1. No acute central pulmonary embolism. 2. Right lower lobe infiltrates and consolidation consistent pneumonia. 3. Bilateral small pleural effusions with basilar atelectasis. 4. Marked cardiomegaly and prosthetic aortic valve. There is bilateral interstitial thickening suggesting mild pulmonary edema secondary to congestive heart failure. 5. Hyperdense material in the right lung base suspicious for aspiration. Dictated by: Arsen Valenzuela M.D. on 11/26/2016 at 9:19 Approved by: Arsen Valenzuela M.D. on 11/26/2016 at 9:19 PROCEDURE: CT BRAIN WITHOUT CONTRAST ([id number]) INDICATIONS: change in mental status FINDINGS: Image quality: Excellent. CSF spaces: Basal cisterns are patent. No extra-axial fluid collections. The ventricles are symmetric in size and shape. Brain: No intracranial bleeds or masses. There is cerebral volume loss for age , with resultant ventricular and sulcal prominence. There are periventricular and deep white matter chronic small vessel ischemic changes. Old, small, left caudate body/barlow radiata lacunar infarct noted. Small punctate density in the left frontal periventricular white matter is stable compared to prior examination. There is intracranial internal carotid artery atherosclerosis. Skull and face: Calvarium and visualized facial bones appear intact, without suspicious lesions. Sinuses: Visualized sinuses and mastoids are clear. IMPRESSION: 1. No acute intracranial disease process. 2. No intracranial hemorrhage. Dictated by: Rachel Nichols MD, PhD on 11/27/2016 at 11:02 Approved by: Rachel Nichols MD, PhD on 11/27/2016 at 11:02 PROCEDURE: MRI BRAIN WITHOUT CONTRAST ([id number]) INDICATIONS: Slurred speech, unilateral weakness FINDINGS: Image quality: Motion artifact limits evaluation. CSF spaces: Ventricles appear symmetric in size and shape. Basal cisterns are patent. No extra-axial fluid collections. Brain: No intracranial bleeds or mass effects. There is minimal cerebral volume loss for age. There are mild periventricular and deep white matter chronic small vessel ischemic changes. Brainstem appears normal. Diffusion- weighted images show no acute ischemic insults. No chronic ischemic insults. Normal intravascular flow voids are present. Skull and face: Calvarial bone marrow is normal in signal. Orbits are normal. Sinuses: Sinuses and mastoids are clear. IMPRESSION: 1. Markedly limited study due to motion artifact. However, is no increased restricted diffusion to suggest acute or subacute infarct. 2. Considering patient age, there are only trace senescent finding likely associated with microvascular ischemia. Dictated by: Naida Matos M.D. on 11/27/2016 at 16:02 Approved by: Naida Matos M.D. on 11/27/2016 at 16:02 PROCEDURE: US RENAL SONOGRAM INDICATIONS: reba IMPRESSION: 1. Normal-appearing kidneys noting exophytic cyst upper pole left kidney 2. Urinary bladder not evaluated secondary to indwelling Arias catheter. Dictated by: Christopher Garcia M.D. on 11/28/2016 at 13:44 Approved by: Christopher Garcia M.D. on 11/28/2016 at 13:44 PROCEDURE: X-RAY CHEST ONE VIEW, PORTABLE ([id number]) INDICATIONS: Acute kidney injury COMPARISON: [facility], CR, XR CHEST 1VW (PORTABLE), 11/27/2016, 5: 45. FINDINGS: Surgical changes and devices: Sternotomy wires and cardiac valvular prosthesis.. Lungs and pleura: Bilateral small layering pleural effusions. Retrocardiac consolidation unchanged. Diffuse groundglass opacities are unchanged suggesting pulmonary edema. No pneumothorax. Mediastinum: Mediastinal contours appear normal. Heart size is normal. Bones and chest wall: No suspicious bony lesions. Overlying soft tissues appear unremarkable. IMPRESSION: Overall, no gross interval change since 11/27/16 Dictated by: Fili Carlos M.D. on 11/29/2016 at 11:56 Approved by: Fili Carlos M.D. on 11/29/2016 at 11:56 12-lead ECG EKG: Right and left arm electrode reversal, interpretation assumes no reversal . Atrial fibrillation . Ventricular premature complex . Low voltage, extremity leads . Nonspecific T abnormalities, lateral leads . Prolonged QT interval Cardiac Echo Impressions Echocardiogram Report Interpretation Summary Limited echo to evaluate valve gradients for acute shortness of breath. Patient is in chronic afib with RVR. HR 87-105 bpm. Normal LV size; severe concentric LVH; global hypokinesis. EF is 30--35%. Valves are not well seen. 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 Aortic valve is replaced with a mechanical prosthesis. There is mild aortic stenosis. Mean gradient is 17 mm Hg. Compared to prior study 10/19/2016 EF is less dynamic, particularly on apical views. EF is down from about 45-50% to now 30-35%. Valve function is unchanged Reading Physician:09:34 AM Assessment & Plan Patient is an 86-year-old female with CHF, atrial fibrillation on warfarin, COPD , DM2 and hypothyroidism who presented to [facility] from her SNF complaining of shortness of breath. SNF called EMS who reported 73% on 3L O2. SNF reports diaphoresis, cough and decreased responsiveness in last day. Acute, active # REBA, present on admission, Secondary to contrast and intravascular volume depletion, Abdominal ultrasound revealed normal-appearing kidneys with exophytic cyst upper pole left kidney, Cr further improves, - appreciate Nephrology input - Stopped IV hydration, IV hydration started again yesterday and stopped today due to potential for fluid overload. We will continue to avoid nephrotoxins. - s/p Lasix 60mg IV, bumex 1mg bid per nephro, switch to Bumex 1g daily today, # Pneumonia, present on admission, CT angio chest: right lower lobe consolidation, bilateral small pleural effusion, hyperdense material in the right lung base suspicious for aspiration - Continue Augmentin 875/125 PO bid; start date 11/26 pm dose, likely to finish 10-14days - Procalcitonin dropped to 0.30 - CXR 11/29/15: overall no gross change from 11/27/15. Will repeat chest x-ray in a.m. as there are more adventitious sounds on physical exam today. # Urinary tract infection, present on admission, urine culture reportedly positive for Klebsiella Pneumoniae. However, urine culture from 11/27/2015 is positive for Emilia albicans. -We will start Diflucan 200 mg by mouth daily. -We will discontinue Arias catheter. - Continue Augmentin PO Chronic, stable, # TIA, acute, not present on admission, resolved - Etiology is unclear. Patient is on warfarin for A-fib with goal INR of 2.5- 3.5 d/t aortic and mitral valve replacement - STAT CT of the brain and MRI negative - Neurology consulted, we appreciate their assistance - Stop Aspirin and Warfarin (FOBT positive, INR 5.38); repeat ordered, not yet completed. Hemoglobin and hematocrit INR stable - MRA head and neck and MRI with contrast when kidney injury is resolved # Elevated troponin of unknown significance, present on admission, unknown chronicity - Chronically elevated in September 2016. 0.070 on admission - EKG at [facility]: Atrial fibrillation, ventricular premature complex, nonspecific T abnormalities, lateral leads, prolonged QT interval - Cardiology consult, Dr. Baez, appreciate your assistance - ECHO: EF down from about 45-50% in September 2016 to 30-35%; marked cardiomegaly - Atorvastatin 20 mg PO hs - Metoprolol 25 mg PO q6h - Patient is not a candidate for cardiac catheterization d/t her advanced age, frailty, chronic oral anticoagulation, the technical aspects of the procedure per Dr. Baez - Follow up as an outpatient with patient's primary manager mechanical # Atrial fibrillation, present on admission, chronic - On admit: INR 5.38, Vit K 10 mg IV given - H/o mitral and aortic valve replacement, maintain INR 2.5-3.5 - Metoprolol 25 mg PO q6h - Stop Aspirin and Warfarin (reginaldo occult blood positive) - Monitor HGB&HCT # Lactic acidosis, acute, present on admission, resolved - 3.3 at [facility], decreased to 0.8 # Acute on chronic hypoxia, present on admission, resolved - Initially required 5 L, but now on 3 L which is her home dose # CHF, diastolic, present on admission, chronic - BNP is elevated chronically - ECHO 11/25/16: EF down from about 45-50% in September 2016 to 30-35%; marked cardiomegaly # Hypertension. present on admission. chronic - currently controlled. Re-evaluate # Hypothyroidism, present on admission, chronic - continue levothyroxine # Depression, present on admission, chronic - continue Citalopram # Deconditioning, present on admission, chronic - PT ordered # Urinary Retention, present on admission, chronic. - Continued tamsulosin - Arias to be removed today # Dyslipidemia, present on admission, chronic - Continued statin - Acetaminophen as needed for mild pain/fever/headache - Bowel regimen as needed - Antiemetic as needed Code status: Per POLST, DNR/DNI Dispo: Plan to transfer back to [facility], [facility], tomorrow with oral Augmentin Pain Evaluation: Adequate Pain Control GI Prophylaxis: Proton Pump Inhibitor VTE Prophylaxis: SCDs VTE Mechanical Devices: Venous Foot Pump Resuscitation Status: DNR/DNI:Do Not Resuscitate/Intubate Limited Interventions: BiPAP, Medications and IV Fluid Oniel Kasper MD Dec 03, 2016 21:30
[2016-12-04 04:58] VITALS: BP 103/50; PULSE 74; RESP 18; O2SAT 96
[2016-12-04 05:52] VITALS: PULSE 66; RESP 18; O2SAT 92
[2016-12-04] MEDS: Albuterol-Ipratropium 3 mL Inhalation Solution NEB PRN (05:53)
[2016-12-04 07:07] LABS: BASOPHILS % (AUTO) 0.6 % (0-3); EOSINOPHILS % (AUTO) 2.9 % (0-5); MONOCYTES % (AUTO) 9.9 % (4-12); Mean Corpuscular Volume 97.7 fL (81-100); NEUTROPHILS % (AUTO) 55.7 % (40-74); Platelet Count 107 bil/L (150-400)
[2016-12-04 07:40] LABS: Magnesium 1.3 mg/dL (1.6-2.6); Phosphorus 2.5 mg/dL (2.5-4.9)
[2016-12-04] MEDS: Amoxicillin-Clav 500-125 mg Tablet PO SCH ×2 (08:14→20:20)
[2016-12-04] MEDS: Potassium Chloride 20 mEq/15 mL 15mL Oral Soln PO SCH (08:14)
[2016-12-04] MEDS ORDERED: Magnesium Sulf 4 Gm/100 mL H2O 4 GM in IV Premix 1 EACH IV ONE (08:30)
[2016-12-04] MEDS ORDERED: Potassium Chloride 20 mEq/15 mL 15mL Oral Soln PO SCH (08:30)
[2016-12-04 09:46] VITALS: BP 119/59; PULSE 64; RESP 18; O2SAT 96
[2016-12-04] MEDS ORDERED: Magnesium Sulf 2 Gm/50mL Water 2 GM in IV Premix 1 EACH IV ONE (11:30)
--- NOTE | 2016-12-04 12:06 | NUR ---
Social Work: Continued d/c planning Data: Pt is on day 10 of hospitalization. EMR reviewed, pt discussed in rounds. MD states that pt likely ready for d/c today. MD states pt will be receiving magnesium today and RN states that she should be done around 2:30pm. HISTOLOGY TECHNICIAN called [facility] and updated Marcela on anticipated d/c time. HISTOLOGY TECHNICIAN will continue to follow. Assessment: Pt going to SNF. Plan: Pt will d/c to [facility] today after 2:30pm. HISTOLOGY TECHNICIAN will continue to follow. ARTI Hutchinson
--- NOTE | 2016-12-04 14:23 | NUR ---
Arias removed Patient had orders to remove Arias catheter. Nurse removed Arias at 0945 fully intact. Patient has been voiding spontaneously with no problems.
--- NOTE | 2016-12-04 14:51 | NUR ---
Social Work: Continued d/c planning Data: Pt is on day 10 of hospitalization. GIS WEB DEVELOPER spoke with who states that pt will not d/c today. Pt's family feels pt is not ready for d/c and told UR RN that pt seems to be fluid overloaded and is ordering a chest x-ray. states he will speak with Palliative to see if they may be appropriate for this pt and family. GIS WEB DEVELOPER updated Marcela with Geoffrey who states understanding. GIS WEB DEVELOPER will continue to follow. Assessment: Pt from SNF. Plan: Pt will d/c to [facility] when medically stable, likely tomorrow. GIS WEB DEVELOPER will continue to follow. ARTI Hutchinson
[2016-12-04] MEDS ORDERED: Furosemide 10 mg/mL 4 mL Inj IVPUSH ONE (15:15)
--- NOTE | 2016-12-04 15:22 | NUR ---
Palliative Milk And Cream Grader Review5:00 This health science writer spoke with Dr. Kasper about plan for pt. to return to [facility] for care. Pt. was going to DC today, but Dr. Kasper notes that pt. requires another day at [facility] for treatment of UTI, respiratory distress, and also for a low magnesium level. He shared that pt.'s overall condition seems to have declined since yesterday, so the initial plan to DC pt. today is not clinically sound. This health science writer offered to call pt.'s sons, Stephan and Garo, to talk through the plan for pt. to return to [facility] SNF tomorrow and Dr. Kasper agreed this might be helpful. This health science writer then spoke with GINA Manley who understands that pt. will need to remain at [facility] for further treatment. Sindhu was notified that this health science writer will call pt.'s sons to clarify that pt. will return to [facility] tomorrow. This health science writer spoke with both Garo and Stephan who are in agreement that pt. will DC to [facility] tomorrow for rehab care. Garo expressed that he had hoped pt. would eventually be able to return to her home, but he now realizes pt.'s overall health may be slowly declining and that a return to her baseline status may not be possible. ARTI Bell, [facility] Palliative Milk And Cream Grader
[2016-12-04 17:37] VITALS: BP 108/61; PULSE 77; RESP 18; O2SAT 95
--- NOTE | 2016-12-04 20:01 | PCM.PNMED ---
Subjective Date of Service Dec 04, 2016 Subjective Patient appears slightly more confused today. Both her sons feel that she is more confused. She did recognize them. However, when she was brought her fresh lunch, directly from the kitchen, she insisted that it was rotten and not good to eat. She accused me of trying to poison her with bad food. Exam Vital Signs Vital Sign - Last Date Time Temp Pulse Resp B/P Pulse Ox O2 Delivery O2 Flow Rate FiO2 12/04/16 17:37 36.8 77 18 108/61 95 Nasal Cannula 3.00 Intake and Output 12/03/16 12/03/16 12/04/16 Cumulative From/Thru 15:00 23:00 07:00 11/24/16 01:15 - 12/04/16 06:03 Intake Total 230 ml 887 ml 180 ml 62645 ml Output Total 650 ml 480 ml 8955 ml Balance 230 ml 237 ml -300 ml 1224 ml Intake Oral 887 ml 180 ml 3818 ml IV Total 230 ml 6361 ml Output Urine Total 650 ml 480 ml 8955 ml # Bowel Movements 2 2 11 Exam General: Patient is in no apparent distress. She was able to ambulate on her own with a walker from the bathroom to the bed. HEENT: Head is atraumatic normocephalic. Eyes: Pupils are equally round and reactive to light and accommodation. Extraocular muscles are intact. Sclera are white anicteric. Subconjunctival mucosa is pink. Ears and nose are unremarkable. Oropharynx: There is no mucosal lesions, there is no thrush, there is no pharyngitis. Neck: Is supple, there are no nodes, or masses, or tenderness. Chest: There are bilateral rales at the bases right greater than left. The lungs are much clearer than yesterday. Heart: Rate, rhythm is regular. There is no murmur, rub or gallop. Abdomen: Good bowel sounds are present. Abdomen is soft, nontender, no organomegaly or masses were appreciated. Extremities: Are symmetrical and well perfused. There is minimal edema, there is no cellulitis, no rash. Neurologic: There are no focal neurological deficits. Cranial nerves II through XII are intact. There are no sensory or motor deficits. Psychiatric: Patients mood is calm and she shows no sign of agitation. Genital: Deferred Rectal: Deferred Lab and Diagnostics Result Diagram: 12/04/1663812/04/16638 Microbiology Microbiology REGINALDO STREP PNEUMONIAE AG URINE Final 11/24/16 STREP PNEUMO AG NEGATIVE Tests performed directly on clinical specimens are intended for screening purposes only and should augment, not replace, culture procedures Please Note: Streptococcus pneumoniae vaccine may cause false positive results in urine in the 48 hours following injection. Hence, it is recommended that the Alere Strep pneumoniae Antigen testing not be performed within five days of receiving the S. pneumoniae vaccine ----- NASOPHARYNGEAL: Microbiology ADENOVIRUS RESPIRATORY PCR Final 11/24/16 Not Detected CORONOVIRUS 229E Final 11/24/16 Not Detected CORONOVIRUS HKU1 Final 11/24/16 Not Detected CORONOVIRUS NL63 Final 11/24/16 Not Detected CORONOVIRUS OC43 Final 11/24/16 Not Detected INFLUENZA A PCR Final 11/24/16 Not Detected INFLUENZA B PCR Final 11/24/16 Not Detected METAPNEUMOVIRUS PCR Final 11/24/16 Not Detected RHINOVIRUS OR ENTEROVIRUS PCR Final 11/24/16 Not Detected PARAINFLUENZA 1 PCR Final 11/24/16 Not Detected PARAINFLUENZA 2 PCR Final 11/24/16 Not Detected PARAINFLUENZA 3 PCR Final 11/24/16 Not Detected PARAINFLUENZA 4 PCR Final 11/24/16 Not Detected RESP SYNCYTIAL VIRUS PCR Final 11/24/16 Not Detected CHLAMDOPHILIA PNEUMONIAE PCR Final 11/24/16 Not Detected MYCOPLASMA PNEUMONIAE PCR Final 11/24/16 MYCO PNEUMONIAE PCR Not Detected Reference Interval Not Detected MARKETING PROJECT COORDINATOR swab is the only specimen type cleared by the FDA. Nasal wash, tracheal aspirate, and bronchial lavage specimen types have not been cleared by the FDA. Therefore results on any specimen type other than nasopharyngeal are considered investigational testing only. Microbiology REGINALDO OCCULT BLOOD IMMUNOCHEM Final 11/25/16-110 OCCULT BLD IMMUNOCHEMICAL POSITIVE REFERENCE INTERVAL NEGATIVE Microbiology REGINALDO CULT NASAL MRSA SCREEN Final 11/25/16-1303 Screen NEGATIVE for Methicillin Resistant Staph Aureus Name: CALLIE SINCLAIR Age/Sex: 86/F Attend Dr: Jocelyn Black MD Acct: [id number] Unit: [id number] Status: [place] [facility] [place]02/17 Disch: Specimen: [id number] Collected: 11/27/16 Status: COMP Req#: [id number] Received: 11/27/16 Source: RANDOM Sp Desc : Subm Dr: Xavier Cruz MD Ordered: URINE CULT Procedure Result Verified Site Microbiology REGINALDO CULT URINE Final 11/30/16-1029 Organism 1 EMILIA ALBICANS U COLONY COUNT/QUANTITY >100,000 CFU/ml SENSITIVITY COMMENTS Sensitivity not routinely performed on this org this source X-Rays, CTs and MRIs PROCEDURE: X-RAY CHEST ONE VIEW, PORTABLE ([id number]) INDICATIONS: Follow up for congestive heart failure COMPARISON: [facility], CR, XR CHEST 1VW (PORTABLE), 10/17/2016, 12 :41. FINDINGS: Surgical changes and devices: Post median sternotomy with valvular replacement. Lungs and pleura: Interstitium is prominent no significant change from prior examination. No focal lung consolidation present. Mediastinum: Mediastinal contours appear normal. Heart size is enlarged. Bones and chest wall: No suspicious bony lesions. Overlying soft tissues appear unremarkable. IMPRESSION: 1. Cardiomegaly and chronic interstitial pulmonary densities with no significant change from prior examination which may be chronic but superimposed pulmonary edema cannot be excluded. Recommend clinical correlation. Dictated by: Kolby Turner RRA Interpreted: Tomas Medina MD on 10/23/2016 at 13: 46 Transcribed by: TRUDI on 10/23/2016 at 13:46 Approved by: Tomas Medina M.D. on 10/23/2016 at 15:37 PROCEDURE: CT ANGIO CHEST PULMONARY EMBOLISM ([id number]) FINDINGS: Pulmonary arteries: Pulmonary arteries are normal in size, and demonstrate no intraluminal filling defects to suggest central pulmonary embolism. Lungs and pleura: There are right lower lobe infiltrates and consolidation consistent with pneumonia. Hyperdensities in the right lung base may be related to aspiration. There are small bilateral effusions with basilar atelectasis, left greater than right. Bilateral interstitial thickening likely secondary to pulmonary edema. No pneumothorax. Central and peripheral airways are patent. Mediastinum: Heart is moderately to severely enlarged. No pericardial effusion. There is a prosthetic aortic valve. No mediastinal or hilar adenopathy. Thoracic aorta is normal in caliber and enhancement. Severe aortic calcification consistent with atherosclerosis with Esophagus is normal in caliber, without hiatal hernia. Bones and chest wall: No suspicious bony lesions. Ribs and thoracic spine appear intact throughout. Thyroid gland is normal. No axillary or supraclavicular adenopathy. Abdomen: There is IV contrast reflux into the hepatic vein. A 2.9 x 3.9 cm cystic structure is noted in the left upper quadrant anterior to the superior pole of the left kidney, probably an exophytic cyst. IMPRESSION: 1. No acute central pulmonary embolism. 2. Right lower lobe infiltrates and consolidation consistent pneumonia. 3. Bilateral small pleural effusions with basilar atelectasis. 4. Marked cardiomegaly and prosthetic aortic valve. There is bilateral interstitial thickening suggesting mild pulmonary edema secondary to congestive heart failure. 5. Hyperdense material in the right lung base suspicious for aspiration. Dictated by: Arsen Valenzuela M.D. on 11/26/2016 at 9:19 Approved by: Arsen Valenzuela M.D. on 11/26/2016 at 9:19 PROCEDURE: CT BRAIN WITHOUT CONTRAST ([id number]) INDICATIONS: change in mental status FINDINGS: Image quality: Excellent. CSF spaces: Basal cisterns are patent. No extra-axial fluid collections. The ventricles are symmetric in size and shape. Brain: No intracranial bleeds or masses. There is cerebral volume loss for age , with resultant ventricular and sulcal prominence. There are periventricular and deep white matter chronic small vessel ischemic changes. Old, small, left caudate body/barlow radiata lacunar infarct noted. Small punctate density in the left frontal periventricular white matter is stable compared to prior examination. There is intracranial internal carotid artery atherosclerosis. Skull and face: Calvarium and visualized facial bones appear intact, without suspicious lesions. Sinuses: Visualized sinuses and mastoids are clear. IMPRESSION: 1. No acute intracranial disease process. 2. No intracranial hemorrhage. Dictated by: Rachel Nichols MD, PhD on 11/27/2016 at 11:02 Approved by: Rachel Nichols MD, PhD on 11/27/2016 at 11:02 PROCEDURE: MRI BRAIN WITHOUT CONTRAST ([id number]) INDICATIONS: Slurred speech, unilateral weakness FINDINGS: Image quality: Motion artifact limits evaluation. CSF spaces: Ventricles appear symmetric in size and shape. Basal cisterns are patent. No extra-axial fluid collections. Brain: No intracranial bleeds or mass effects. There is minimal cerebral volume loss for age. There are mild periventricular and deep white matter chronic small vessel ischemic changes. Brainstem appears normal. Diffusion- weighted images show no acute ischemic insults. No chronic ischemic insults. Normal intravascular flow voids are present. Skull and face: Calvarial bone marrow is normal in signal. Orbits are normal. Sinuses: Sinuses and mastoids are clear. IMPRESSION: 1. Markedly limited study due to motion artifact. However, is no increased restricted diffusion to suggest acute or subacute infarct. 2. Considering patient age, there are only trace senescent finding likely associated with microvascular ischemia. Dictated by: Naida Matos M.D. on 11/27/2016 at 16:02 Approved by: Naida Matos M.D. on 11/27/2016 at 16:02 PROCEDURE: US RENAL SONOGRAM INDICATIONS: reba IMPRESSION: 1. Normal-appearing kidneys noting exophytic cyst upper pole left kidney 2. Urinary bladder not evaluated secondary to indwelling Arias catheter. Dictated by: Christopher Garcia M.D. on 11/28/2016 at 13:44 Approved by: Christopher Garcia M.D. on 11/28/2016 at 13:44 PROCEDURE: X-RAY CHEST ONE VIEW, PORTABLE ([id number]) INDICATIONS: Acute kidney injury COMPARISON: [facility], CR, XR CHEST 1VW (PORTABLE), 11/27/2016, 5: 45. FINDINGS: Surgical changes and devices: Sternotomy wires and cardiac valvular prosthesis.. Lungs and pleura: Bilateral small layering pleural effusions. Retrocardiac consolidation unchanged. Diffuse groundglass opacities are unchanged suggesting pulmonary edema. No pneumothorax. Mediastinum: Mediastinal contours appear normal. Heart size is normal. Bones and chest wall: No suspicious bony lesions. Overlying soft tissues appear unremarkable. IMPRESSION: Overall, no gross interval change since 11/27/16 Dictated by: Fili Carlos M.D. on 11/29/2016 at 11:56 Approved by: Fili Carlos M.D. on 11/29/2016 at 11:56 12-lead ECG EKG: Right and left arm electrode reversal, interpretation assumes no reversal . Atrial fibrillation . Ventricular premature complex . Low voltage, extremity leads . Nonspecific T abnormalities, lateral leads . Prolonged QT interval Cardiac Echo Impressions Echocardiogram Report Interpretation Summary Limited echo to evaluate valve gradients for acute shortness of breath. Patient is in chronic afib with RVR. HR 87-105 bpm. Normal LV size; severe concentric LVH; global hypokinesis. EF is 30--35%. Valves are not well seen. 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 Aortic valve is replaced with a mechanical prosthesis. There is mild aortic stenosis. Mean gradient is 17 mm Hg. Compared to prior study 10/19/2016 EF is less dynamic, particularly on apical views. EF is down from about 45-50% to now 30-35%. Valve function is unchanged Reading Physician:09:34 AM Assessment & Plan Patient is an 86-year-old female with CHF, atrial fibrillation on warfarin, COPD , DM2 and hypothyroidism who presented to [facility] from her SNF complaining of shortness of breath. SNF called EMS who reported 73% on 3L O2. SNF reports diaphoresis, cough and decreased responsiveness in last day. Acute, active # REBA, present on admission, Secondary to contrast and intravascular volume depletion, Abdominal ultrasound revealed normal-appearing kidneys with exophytic cyst upper pole left kidney, the serum creatinine has normalized. - appreciate Nephrology input - Stopped IV hydration, IV hydration started again and stopped 12/03/2016 due to fluid overload. -We will continue to avoid nephrotoxins. - s/p Lasix 60mg IV, bumex 1mg bid per nephro. We will continue Bumex 1g daily today, -We will give an extra dose of Lasix 40 mg IV today, 12/04/2016. # Pneumonia, present on admission, CT angio chest: right lower lobe consolidation, bilateral small pleural effusion, hyperdense material in the right lung base suspicious for aspiration - Continue Augmentin 875/125 PO bid day #8 of -; start date 11/26 pm dose - Procalcitonin dropped to 0.30 - CXR 11/29/15: overall no gross change from 11/27/15. Will repeat chest x-ray in a.m. as there are more adventitious sounds on physical exam today. # Urinary tract infection, present on admission, urine culture reportedly positive for Klebsiella Pneumoniae. However, urine culture from 11/27/2015 is positive for Emilia albicans. I see no evidence of a recent Klebsiella pneumonia urinary tract infection -We have started Diflucan 200 mg by mouth daily 12/03/2016. We will continue -We will discontinue Arias catheter. This was done this morning 12/04/2016 - Continue Augmentin PO day #8 of 10-14 days. Chronic, stable, # TIA, acute, not present on admission, resolved - Etiology is unclear. Patient is on warfarin for A-fib with goal INR of 2.5- 3.5 d/t aortic and mitral valve replacement - STAT CT of the brain and MRI negative - Neurology consulted, we appreciate their assistance - Stopped Aspirin and Warfarin (FOBT positive, INR 5.38) after admission; repeat ordered, not yet completed. Hemoglobin and hematocrit INR stable. Consider restarting anticoagulation will speak with patient and patient's again about this. They are concerned about bleeding risk. - MRA head and neck and MRI with contrast when kidney injury is resolved # Elevated troponin of unknown significance, present on admission, unknown chronicity - Chronically elevated in September 2016. 0.070 on admission - EKG at [facility]: Atrial fibrillation, ventricular premature complex, nonspecific T abnormalities, lateral leads, prolonged QT interval - Cardiology consult, Dr. Baez, appreciate your assistance - ECHO: EF down from about 45-50% in September 2016 to 30-35%; marked cardiomegaly - Atorvastatin 20 mg PO hs - Metoprolol 25 mg PO q6h - Patient is not a candidate for cardiac catheterization d/t her advanced age, frailty, chronic oral anticoagulation, the technical aspects of the procedure per Dr. Baez - Follow up as an outpatient with patient's primary e learning coordinator # Atrial fibrillation, present on admission, chronic - On admit: INR 5.38, Vit K 10 mg IV given - H/o mitral and aortic valve replacement, maintain INR 2.5-3.5 - Metoprolol 25 mg PO q6h - Stop Aspirin and Warfarin (reginaldo occult blood positive) we will discuss potential for restarting. - Monitor HGB&HCT # Lactic acidosis, acute, present on admission, resolved - 3.3 at [facility], decreased to 0.8 # Acute on chronic hypoxia, present on admission, resolved - Initially required 5 L, but now on 3 L which is her home dose # CHF, diastolic, present on admission, chronic - BNP is elevated chronically - ECHO 11/25/16: EF down from about 45-50% in September 2016 to 30-35%; marked cardiomegaly # Hypertension. present on admission. chronic - currently controlled. Re-evaluate # Hypothyroidism, present on admission, chronic - continue levothyroxine # Depression, present on admission, chronic - continue Citalopram # Deconditioning, present on admission, chronic - PT ordered # Urinary Retention, present on admission, chronic. - Continued tamsulosin - Arias to be removed today # Dyslipidemia, present on admission, chronic - Continued statin - Acetaminophen as needed for mild pain/fever/headache - Bowel regimen as needed - Antiemetic as needed Code status: Per [facility]EC[facility], DNR/DNI Dispo: Discussed with patient's 2 sons today they are very concerned about her mother going back to a fdc when she has had some frequent readmissions. I discussed the palliative care and they had long discussions with the 2 sons who are not ready for the patient to go to hospice yet. They are hopeful that the patient will make some painful recovery and be able to go to an assisted living center. Plan to transfer back to [facility], [facility], tomorrow with oral Augmentin and oral Diflucan. Pain Evaluation: Adequate Pain Control GI Prophylaxis: Proton Pump Inhibitor VTE Prophylaxis: SCDs VTE Mechanical Devices: Venous Foot Pump Resuscitation Status: DNR/DNI:Do Not Resuscitate/Intubate Limited Interventions: BiPAP, Medications and IV Fluid Oniel Kasper MD Dec 04, 2016 20:01
[2016-12-04 20:32] VITALS: BP 137/66; PULSE 73; RESP 22; O2SAT 99
[2016-12-05 05:23] VITALS: BP 119/69; PULSE 75; RESP 20; O2SAT 88
[2016-12-05] MEDS ORDERED: Furosemide 10 mg/mL 4 mL Inj IVPUSH ONE (05:45)
--- NOTE | 2016-12-05 05:58 | NUR ---
Respiratory/Urine retention Patient had coarse lung sounds with midnight assessment, did not appear short of breath at rest. Patient up to bathroom at 0500, had audible gurgles and was very dyspneic with exertion. On 3L oxygen, saturations 88%. Auscultated lung san, sounds moist throughout. paged, new order for OT 40mg IV Lasix. Administered medication. Bladder scanned patient at this time, found 505 ml urine retained. Patient denies urinary discomfort. Paged again, awaiting call back. Addendum: 12/05/16 at 0648 by JHONY KAPLAN RN returned call, new order obtained to place Arias catheter. Patient agreeable, tolerated procedure well. 650 ml pale urine output immediately.
[2016-12-05 06:40] LABS: BASOPHILS % (AUTO) 0.4 % (0-3); EOSINOPHILS % (AUTO) 2.6 % (0-5); MONOCYTES % (AUTO) 10.3 % (4-12); Mean Corpuscular Hemoglobin 27.9 pg (27.0-35.0); Mean Corpuscular Volume 96.5 fL (81-100); NEUTROPHILS % (AUTO) 60.8 % (40-74); Platelet Count 109 bil/L (150-400)
[2016-12-05] MEDS: Amoxicillin-Clav 500-125 mg Tablet PO SCH ×2 (07:44→21:37)
[2016-12-05] MEDS: Potassium Chloride 20 mEq/15 mL 15mL Oral Soln PO SCH (07:44)
--- NOTE | 2016-12-05 10:11 | DRSVH ---
PROCEDURE: X-RAY CHEST ONE VIEW, PORTABLE ([id number]) INDICATIONS: Follow up for Pneumonia/CHF TECHNIQUE: One view of the chest was acquired. COMPARISON: [facility], CR, XR CHEST 1VW (PORTABLE), 11/27/2016, 5:45. [facility], CR, XR CHEST 1VW (PORTABLE), 11/29/2016, 10:09. FINDINGS: Surgical changes and devices: There are post surgical changes redemonstrated in the mediastinum. Lungs and pleura: There are persistent small bilateral pleural effusions, right greater than left. There are patchy airspace opacities in the lung bases which appear similar to slightly increased on t he right. There is persistent pulmonary edema which appears similar to the prior study. Mediastinum: Mediastinal contours appear prominent likely due to rotation. Heart size is enlarged. Bones and chest wall: No suspicious bony lesions. Overlying soft tissues appear unremarkable. IMPRESSION: 1. Persistent small bilateral pleural effusions, pulmonary edema, and cardiomegaly consistent with c ongestive heart failure. Findings appear similar to the prior study. 2. Patchy airspace opacities in the lung bases compatible with consolidation pneumonia versus atelec tasis appear slightly increased on the right. Dictated by: Connor Elizabeth M.D. on 12/05/2016 at 10:09 Approved by: Connor Elizabeth M.D. on 12/05/2016 at 10:09
[2016-12-05] MEDS ORDERED: Potassium Chloride 20 mEq SR Tablet PO ONE (10:40)
--- NOTE | 2016-12-05 11:02 | NUR ---
IV Patient had no IV access this AM. Patient antibiotics were changed to PO. Kidney doctor ordered IV Lasix. IV therapy called to start new peripheral IV.
--- NOTE | 2016-12-05 12:17 | NUR ---
ANTIONE signed Verbal consent to sign by son over phone. ARTI Hutchinson
[2016-12-05 12:58] VITALS: BP 99/63; PULSE 71; RESP 20; O2SAT 96
--- NOTE | 2016-12-05 13:11 | NUR ---
NUTRITION FOLLOW UP: ASSESS: 86 YO female admitted with SOB and pneumonia. Pt continues on full liquids w/ NTL. DOCENT COORDINATOR has signed off as this is baseline. PO has slightly improved to 25-50%. Per notes, pt remains confused but oriented to self. Palliative involved for goals of care. Nephrology involved for REBA PMHX: CHF, COPD, CAD, HTN, Afib, Depression, chronic Respiratory Failure, DM II LABS: Reviewed. CO2 34, Alb 3.4 MEDS: Reviewed. Lopressor, Synthroid, Potassium Chloride. GI: BMx2 (12/05). SKIN: Mark 17 CURRENT WT: 74.6kg BMI 32.1kg/m2 ADMIT WT 75.6kg IBW 45.5kg DIET: Full liquid, nectar thick liquid. PO 25-50% EST. NEEDS: BMI Kcals: 5751-2574 kcal/day (20-22kcal/kg) Pro: 55-70 g/day (1.2-1.5g/kg IBW) NUTRITION DIAGNOSIS: 1) Chew/swallow difficulty related to AMS and slurred speech as evidence by need for texture altered diet per ST ---AT BASELINE PER ST 2) Inadequate oral intake related to decreased ability to consume sufficient energy as evidenced by current PO of 0-25% x 5 days --IMPROVING NUTRITION INTERVENTION: 1) Will continue to send Glucerna on L trays and Gelatein 20 on B&D trays. MONITOR / EVAL: PO intake, labs, wt, GI, POC, nutrition status. Will continue to monitor per moderate nutrition risk guidelines.
--- NOTE | 2016-12-05 14:12 | NUR ---
Metoprolol held Patient scheduled for 1430 Metoprolol. Patient BP was 99/63. Blood pressure medication held due to low BP. notified.
--- NOTE | 2016-12-05 15:18 | NUR ---
Discussed the importance of feeding this SGA every time she is acting hungry and at least every 3 hours. Discussed 5.1% eight loss in first 36 hours and encouraged mother to be assertive about feeds with baby and if she is worried that infant is not getting enough from the breast to offer bottle supplementation. recommends weight and color check tomorrow. Addendum: 12/05/16 at 1524 by TOD GILLIAM RN Charted on wrong patient in error. Please disregard above note.
--- NOTE | 2016-12-05 17:44 | DRSVH ---
PROCEDURE: X-RAY CHEST, TWO VIEWS ([id number]) INDICATIONS: Follow up for CHF? Pneumonia TECHNIQUE: 2 views of the chest were acquired. COMPARISON: [facility], CR, XR CHEST 1VW (PORTABLE), 12/04/2016, 20:33. FINDINGS: Surgical changes and devices: Valvular prostheses and sternotomy wires. Lungs and pleura: No pleural effusions or pneumothorax. Patchy perihilar and bibasilar consolidative opacities grossly unchanged since yesterday. Mediastinum: Mediastinal contours are normal. Heart size is enlarged. Bones and chest wall: No suspicious bony abnormalities. Soft tissues appear unremarkable. IMPRESSION: Overall, stable examination since yesterday as above Dictated by: Fili Carlos M.D. on 12/05/2016 at 17:43 Approved by: Fili Carlos M.D. on 12/05/2016 at 17:43
[2016-12-05 19:53] VITALS: PULSE 86; RESP 22; O2SAT 91
[2016-12-05 21:05] VITALS: BP 123/66; PULSE 104; RESP 20; O2SAT 96
--- NOTE | 2016-12-05 21:56 | PCM.PNMED ---
Subjective Date of Service Dec 05, 2016 Subjective Patient is more confused today. She appears to somewhat delirious and is speaking to people she believes that her in the room when there is no one in the room. Exam Vital Signs Vital Sign - Last Date Time Temp Pulse Resp B/P Pulse Ox O2 Delivery O2 Flow Rate FiO2 12/05/16 21:05 36.8 104 20 123/66 96 Nasal Cannula 3.00 Intake and Output 12/04/16 12/04/16 12/05/16 Cumulative From/Thru 14:59 22:59 06:59 11/24/16 01:15 - 12/05/16 06:54 Intake Total 176 ml 240 ml 100 ml 81711 ml Output Total 1200 ml 22978 ml Balance 176 ml -960 ml 100 ml 540 ml Intake Oral 240 ml 100 ml 4158 ml IV Total 176 ml 6537 ml Output Urine Total 1200 ml 21484 ml # Voids 4 4 # Bowel Movements 3 2 16 Exam General: Patient is in no apparent distress. She appears more confused today. HEENT: Head is atraumatic normocephalic. Eyes: Pupils are equally round and reactive to light and accommodation. Extraocular muscles are intact. Sclera are white anicteric. Subconjunctival mucosa is pink. Ears and nose are unremarkable. Oropharynx: There is no mucosal lesions, there is no thrush, there is no pharyngitis. Neck: Is supple, there are no nodes, or masses, or tenderness. Chest: There are bilateral rales at the bases right greater than left. The lungs are much clearer than yesterday. Heart: Rate, rhythm is regular. There is no murmur, rub or gallop. Abdomen: Good bowel sounds are present. Abdomen is soft, nontender, no organomegaly or masses were appreciated. Extremities: Are symmetrical and well perfused. There is minimal edema, there is no cellulitis, no rash. Neurologic: There are no focal neurological deficits. Cranial nerves II through XII are intact. There are no sensory or motor deficits. Patient is more confused today and appears to be delirious with hallucinations. Psychiatric: Patients mood is calm and she shows no sign of agitation. She is pleasantly confused. Genital: Deferred Rectal: Deferred Lab and Diagnostics Result Diagram: 12/05/16 0550 12/05/16 0550 Microbiology Microbiology REGINALDO STREP PNEUMONIAE AG URINE Final 11/24/16 STREP PNEUMO AG NEGATIVE Tests performed directly on clinical specimens are intended for screening purposes only and should augment, not replace, culture procedures Please Note: Streptococcus pneumoniae vaccine may cause false positive results in urine in the 48 hours following injection. Hence, it is recommended that the Alere Strep pneumoniae Antigen testing not be performed within five days of receiving the S. pneumoniae vaccine ----- NASOPHARYNGEAL: Microbiology ADENOVIRUS RESPIRATORY PCR Final 11/24/16 Not Detected CORONOVIRUS 229E Final 11/24/16 Not Detected CORONOVIRUS HKU1 Final 11/24/16 Not Detected CORONOVIRUS NL63 Final 11/24/16 Not Detected CORONOVIRUS OC43 Final 11/24/16 Not Detected INFLUENZA A PCR Final 11/24/16 Not Detected INFLUENZA B PCR Final 11/24/16 Not Detected METAPNEUMOVIRUS PCR Final 11/24/16 Not Detected RHINOVIRUS OR ENTEROVIRUS PCR Final 11/24/16 Not Detected PARAINFLUENZA 1 PCR Final 11/24/16 Not Detected PARAINFLUENZA 2 PCR Final 11/24/16 Not Detected PARAINFLUENZA 3 PCR Final 11/24/16 Not Detected PARAINFLUENZA 4 PCR Final 11/24/16 Not Detected RESP SYNCYTIAL VIRUS PCR Final 11/24/16 Not Detected CHLAMDOPHILIA PNEUMONIAE PCR Final 11/24/16 Not Detected MYCOPLASMA PNEUMONIAE PCR Final 11/24/16 MYCO PNEUMONIAE PCR Not Detected Reference Interval Not Detected [employer] swab is the only specimen type cleared by the FDA. Nasal wash, tracheal aspirate, and bronchial lavage specimen types have not been cleared by the FDA. Therefore results on any specimen type other than nasopharyngeal are considered investigational testing only. Microbiology REGINALDO OCCULT BLOOD IMMUNOCHEM Final 11/25/16-110 OCCULT BLD IMMUNOCHEMICAL POSITIVE REFERENCE INTERVAL NEGATIVE Microbiology REGINALDO CULT NASAL MRSA SCREEN Final 11/25/16-130 Screen NEGATIVE for Methicillin Resistant Staph Aureus Name: CALLIE SINCLAIR Age/Sex: 86/F Attend Dr: Jocelyn Black MD Acct: [id number] Unit: [id number] Status: ADM IN Location: [facility] 3004-1 Re11/24/16 Disch: Specimen: [id number] Collected: 11/27/16 Status: MAGDI Req#: [id number] Received: 11/27/16 Source: RANDOM Sp Desc : Subm Dr: Xavier Cruz MD Ordered: URINE CULT Procedure Result Verified Site Microbiology REGINALDO CULT URINE Final 11/30/16-1030 Organism 1 EMILIA ALBICANS U COLONY COUNT/QUANTITY >100,000 CFU/ml SENSITIVITY COMMENTS Sensitivity not routinely performed on this org this source source X-Rays, CTs and MRIs PROCEDURE: X-RAY CHEST ONE VIEW, PORTABLE ([id number]) INDICATIONS: Follow up for congestive heart failure COMPARISON: [facility], CR, XR CHEST 1VW (PORTABLE), 10/17/2016, 12 :41. FINDINGS: Surgical changes and devices: Post median sternotomy with valvular replacement. Lungs and pleura: Interstitium is prominent no significant change from prior examination. No focal lung consolidation present. Mediastinum: Mediastinal contours appear normal. Heart size is enlarged. Bones and chest wall: No suspicious bony lesions. Overlying soft tissues appear unremarkable. IMPRESSION: 1. Cardiomegaly and chronic interstitial pulmonary densities with no significant change from prior examination which may be chronic but superimposed pulmonary edema cannot be excluded. Recommend clinical correlation. Dictated by: Kolby Turner RRA Interpreted: Tomas Medina MD on 10/23/2016 at 13: 46 Transcribed by: TRUDI on 10/23/2016 at 13:46 Approved by: Tomas Medina M.D. on 10/23/2016 at 15:37 PROCEDURE: CT ANGIO CHEST PULMONARY EMBOLISM ([id number]) FINDINGS: Pulmonary arteries: Pulmonary arteries are normal in size, and demonstrate no intraluminal filling defects to suggest central pulmonary embolism. Lungs and pleura: There are right lower lobe infiltrates and consolidation consistent with pneumonia. Hyperdensities in the right lung base may be related to aspiration. There are small bilateral effusions with basilar atelectasis, left greater than right. Bilateral interstitial thickening likely secondary to pulmonary edema. No pneumothorax. Central and peripheral airways are patent. Mediastinum: Heart is moderately to severely enlarged. No pericardial effusion. There is a prosthetic aortic valve. No mediastinal or hilar adenopathy. Thoracic aorta is normal in caliber and enhancement. Severe aortic calcification consistent with atherosclerosis with Esophagus is normal in caliber, without hiatal hernia. Bones and chest wall: No suspicious bony lesions. Ribs and thoracic spine appear intact throughout. Thyroid gland is normal. No axillary or supraclavicular adenopathy. Abdomen: There is IV contrast reflux into the hepatic vein. A 2.9 x 3.9 cm cystic structure is noted in the left upper quadrant anterior to the superior pole of the left kidney, probably an exophytic cyst. IMPRESSION: 1. No acute central pulmonary embolism. 2. Right lower lobe infiltrates and consolidation consistent pneumonia. 3. Bilateral small pleural effusions with basilar atelectasis. 4. Marked cardiomegaly and prosthetic aortic valve. There is bilateral interstitial thickening suggesting mild pulmonary edema secondary to congestive heart failure. 5. Hyperdense material in the right lung base suspicious for aspiration. Dictated by: Arsen Valenzuela M.D. on 11/26/2016 at 9:19 Approved by: Arsen Valenzuela M.D. on 11/26/2016 at 9:19 PROCEDURE: CT BRAIN WITHOUT CONTRAST ([id number]) INDICATIONS: change in mental status FINDINGS: Image quality: Excellent. CSF spaces: Basal cisterns are patent. No extra-axial fluid collections. The ventricles are symmetric in size and shape. Brain: No intracranial bleeds or masses. There is cerebral volume loss for age , with resultant ventricular and sulcal prominence. There are periventricular and deep white matter chronic small vessel ischemic changes. Old, small, left caudate body/barlow radiata lacunar infarct noted. Small punctate density in the left frontal periventricular white matter is stable compared to prior examination. There is intracranial internal carotid artery atherosclerosis. Skull and face: Calvarium and visualized facial bones appear intact, without suspicious lesions. Sinuses: Visualized sinuses and mastoids are clear. IMPRESSION: 1. No acute intracranial disease process. 2. No intracranial hemorrhage. Dictated by: Rachel Nichols MD, PhD on 11/27/2016 at 11:02 Approved by: Rachel Nichols MD, PhD on 11/27/2016 at 11:02 PROCEDURE: MRI BRAIN WITHOUT CONTRAST ([id number]) INDICATIONS: Slurred speech, unilateral weakness FINDINGS: Image quality: Motion artifact limits evaluation. CSF spaces: Ventricles appear symmetric in size and shape. Basal cisterns are patent. No extra-axial fluid collections. Brain: No intracranial bleeds or mass effects. There is minimal cerebral volume loss for age. There are mild periventricular and deep white matter chronic small vessel ischemic changes. Brainstem appears normal. Diffusion- weighted images show no acute ischemic insults. No chronic ischemic insults. Normal intravascular flow voids are present. Skull and face: Calvarial bone marrow is normal in signal. Orbits are normal. Sinuses: Sinuses and mastoids are clear. IMPRESSION: 1. Markedly limited study due to motion artifact. However, is no increased restricted diffusion to suggest acute or subacute infarct. 2. Considering patient age, there are only trace senescent finding likely associated with microvascular ischemia. Dictated by: Naida Matos M.D. on 11/27/2016 at 16:02 Approved by: Naida Matos M.D. on 11/27/2016 at 16:02 PROCEDURE: US RENAL SONOGRAM INDICATIONS: reba IMPRESSION: 1. Normal-appearing kidneys noting exophytic cyst upper pole left kidney 2. Urinary bladder not evaluated secondary to indwelling Arias catheter. Dictated by: Christopher Garcia M.D. on 11/28/2016 at 13:44 Approved by: Christopher Garcia M.D. on 11/28/2016 at 13:44 PROCEDURE: X-RAY CHEST ONE VIEW, PORTABLE ([id number]) INDICATIONS: Acute kidney injury COMPARISON: [facility], CR, XR CHEST 1VW (PORTABLE), 11/27/2016, 5: 45. FINDINGS: Surgical changes and devices: Sternotomy wires and cardiac valvular prosthesis.. Lungs and pleura: Bilateral small layering pleural effusions. Retrocardiac consolidation unchanged. Diffuse groundglass opacities are unchanged suggesting pulmonary edema. No pneumothorax. Mediastinum: Mediastinal contours appear normal. Heart size is normal. Bones and chest wall: No suspicious bony lesions. Overlying soft tissues appear unremarkable. IMPRESSION: Overall, no gross interval change since 11/27/16 Dictated by: Fili Carlos M.D. on 11/29/2016 at 11:56 Approved by: Fili Carlos M.D. on 11/29/2016 at 11:56 PROCEDURE: X-RAY CHEST, TWO VIEWS ([id number]) INDICATIONS: Follow up for CHF? Pneumonia TECHNIQUE: 2 views of the chest were acquired. COMPARISON: [facility], CR, XR CHEST 1VW (PORTABLE), 12/04/2016, 20: 33. FINDINGS: Surgical changes and devices: Valvular prostheses and sternotomy wires. Lungs and pleura: No pleural effusions or pneumothorax. Patchy perihilar and bibasilar consolidative opacities grossly unchanged since yesterday. Mediastinum: Mediastinal contours are normal. Heart size is enlarged. Bones and chest wall: No suspicious bony abnormalities. Soft tissues appear unremarkable. IMPRESSION: Overall, stable examination since yesterday as above Dictated by: Fili Carlos M.D. on 12/05/2016 at 17:43 Approved by: Fili Carlos M.D. on 12/05/2016 at 17:43 ADDENDUM: COMPARISON: [facility], CR, XR CHEST 2VW, 10/06/2016, 10:25. Lower thoracic/upper lumbar vertebral body anterior wedging unchanged Dictated by: Fili Carlos M.D. on 12/05/2016 at 17:45 Approved by: Fili Carlos M.D. on 12/05/2016 at 17:45 12-lead ECG EKG: Right and left arm electrode reversal, interpretation assumes no reversal . Atrial fibrillation . Ventricular premature complex . Low voltage, extremity leads . Nonspecific T abnormalities, lateral leads . Prolonged QT interval Cardiac Echo Impressions Echocardiogram Report Interpretation Summary Limited echo to evaluate valve gradients for acute shortness of breath. Patient is in chronic afib with RVR. HR 87-105 bpm. Normal LV size; severe concentric LVH; global hypokinesis. EF is 30--35%. Valves are not well seen. 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 Aortic valve is replaced with a mechanical prosthesis. There is mild aortic stenosis. Mean gradient is 17 mm Hg. Compared to prior study 10/19/2016 EF is less dynamic, particularly on apical views. EF is down from about 45-50% to now 30-35%. Valve function is unchanged Reading Physician:09:34 AM Assessment & Plan Patient is an 86-year-old female with CHF, atrial fibrillation on warfarin, COPD , DM2 and hypothyroidism who presented [facility] from her SNF complaining of shortness of breath. SNF called EMS who reported 73% on 3L O2. SNF reports diaphoresis, cough and decreased responsiveness in last day. Acute, active # REBA, present on admission, Secondary to contrast and intravascular volume depletion, Abdominal ultrasound revealed normal-appearing kidneys with exophytic cyst upper pole left kidney, the serum creatinine has normalized. - appreciate Nephrology input - Stopped IV hydration, IV hydration started again and stopped 12/03/2016 due to fluid overload. -We will continue to avoid nephrotoxins. - s/p Lasix 60mg IV, bumex 1mg bid per nephro. This was then re discuss with and non-duced to Bumex 1 mg by mouth daily. Patient appears to still be fluid overloaded and will increase to twice a day again today on 12/05/2015. -We will give an extra dose of Lasix 40 mg IV today, 12/04/2016. -Discussed with Dr. Martin of nephrology and ask her to reassess the patient and a.m. She has agreed to do so. # Pneumonia, present on admission, CT angio chest: right lower lobe consolidation, bilateral small pleural effusion, hyperdense material in the right lung base suspicious for aspiration - Continue Augmentin 875/125 PO bid day #9 of 10-; start date 11/26 pm dose - Procalcitonin dropped to 0.30 - CXR 11/29/15: overall no gross change from 11/27/15. Will repeat chest x-ray today as there are more adventitious sounds on physical exam today. # Urinary tract infection, present on admission, urine culture reportedly positive for Klebsiella Pneumoniae. However, urine culture from 11/27/2015 is positive for Emilia albicans. I see no evidence of a recent Klebsiella pneumonia urinary tract infection -We have started Diflucan 200 mg by mouth daily 12/03/2016. We will continue -We discontinued the Arias catheter. This was done this morning 12/04/2016 - Continue Augmentin PO day #9 of 10-14 days. Chronic, stable, # TIA, acute, not present on admission, resolved - Etiology is unclear. Patient is on warfarin for A-fib with goal INR of 2.5- 3.5 d/t aortic and mitral valve replacement - STAT CT of the brain and MRI negative - Neurology consulted, we appreciate their assistance - Stopped Aspirin and Warfarin (FOBT positive, INR 5.38) after admission; repeat ordered, not yet completed. Hemoglobin and hematocrit INR stable. Consider restarting anticoagulation will speak with patient and patient's children about this. They are concerned about bleeding risk. - MRA head and neck and MRI with contrast when kidney injury is resolved # Elevated troponin of unknown significance, present on admission, unknown chronicity - Chronically elevated in September 2016. 0.070 on admission - EKG at [facility]: Atrial fibrillation, ventricular premature complex, nonspecific T abnormalities, lateral leads, prolonged QT interval - Cardiology consult, Dr. Baez, appreciate your assistance - ECHO: EF down from about 45-50% in September 2016 to 30-35%; marked cardiomegaly - Atorvastatin 20 mg PO hs - Metoprolol 25 mg PO q6h - Patient is not a candidate for cardiac catheterization d/t her advanced age, frailty, chronic oral anticoagulation, the technical aspects of the procedure per Dr. Baez - Follow up as an outpatient with patient's primary insurance verifier # Atrial fibrillation, present on admission, chronic - On admit: INR 5.38, Vit K 10 mg IV given - H/o mitral and aortic valve replacement, maintain INR 2.5-3.5 - Metoprolol 25 mg PO q6h - Stop Aspirin and Warfarin (reginaldo occult blood positive) we will discuss potential for restarting. - Monitor HGB&HCT # Lactic acidosis, acute, present on admission, resolved - 3.3 at [facility], decreased to 0.8 # Acute on chronic hypoxia, present on admission, resolved - Initially required 5 L, but now on 3 L which is her home dose # CHF, diastolic, present on admission, chronic - BNP is elevated chronically. However patient appears to be fluid overloaded at this time. Will increase Bumex 2 twice a day - ECHO 11/25/16: EF down from about 45-50% in September 2016 to 30-35%; marked cardiomegaly # Hypertension. present on admission. chronic - currently controlled. Re-evaluate # Hypothyroidism, present on admission, chronic - continue levothyroxine # Depression, present on admission, chronic - continue Citalopram # Deconditioning, present on admission, chronic - PT ordered # Urinary Retention, present on admission, chronic. - Continued tamsulosin - Arias removed # Dyslipidemia, present on admission, chronic - Continued statin - Acetaminophen as needed for mild pain/fever/headache - Bowel regimen as needed - Antiemetic as needed Code status: Per [facility], DNR/DNI Dispo: Discussed with patient's 2 sons yesterday, they are very concerned about her mother going back to a [facility] when she has had some frequent readmissions. I discussed the palliative care and they had long discussions with the 2 sons who are not ready for the patient to go to hospice yet. They are hopeful that the patient will make some meaningful recovery and be able to go to an assisted living center. Plan to transfer back to SNF, [facility], when more stable. Pain Evaluation: Adequate Pain Control GI Prophylaxis: Proton Pump Inhibitor VTE Prophylaxis: Sub-Q Heparin (Unfractionated), SCDs VTE Mechanical Devices: Venous Foot Pump Resuscitation Status: DNR/DNI:Do Not Resuscitate/Intubate Limited Interventions: BiPAP, Medications and IV Fluid Oniel Kasper MD Dec 05, 2016 21:55
[2016-12-05] MEDS: Heparin 5,000 Unit/mL Inj SUBQ SCH (22:47)
--- NOTE | 2016-12-06 04:45 | NUR ---
activity Pt remained in bed for the shift. Cooperative with cares and med pass, takes pills crushed in pudding well. Pt slept well. left room with call light at bedside.
[2016-12-06 06:01] VITALS: BP 113/61; PULSE 67; RESP 20; O2SAT 100
[2016-12-06] MEDS: Pantoprazole 40 mg ER24 Tablet PO SCH (06:24)
[2016-12-06 07:22] LABS: BASOPHILS % (AUTO) 0.7 % (0-3); MONOCYTES % (AUTO) 8.6 % (4-12); Mean Corpuscular Hemoglobin 28.2 pg (27.0-35.0); Mean Corpuscular Volume 97.7 fL (81-100); NEUTROPHILS % (AUTO) 57.8 % (40-74); Platelet Count 99 bil/L (150-400)
[2016-12-06 07:57] LABS: Magnesium 1.5 mg/dL (1.6-2.6); Phosphorus 3.1 mg/dL (2.5-4.9)
[2016-12-06] MEDS: Potassium Chloride 20 mEq/15 mL 15mL Oral Soln PO SCH (08:19)
[2016-12-06] MEDS: Heparin 5,000 Unit/mL Inj SUBQ SCH (08:21)
[2016-12-06] MEDS: Amoxicillin-Clav 500-125 mg Tablet PO SCH ×2 (08:22→21:50)
[2016-12-06] MEDS ORDERED: Heparin 25K Unit/500mL 0.45 NS 25,000 UNIT in IV Premix 1 EACH IV SCH ×2 (08:50→12:05)
[2016-12-06 09:20] LABS: ERYTHROCYTE SEDIMENTATION RATE 48 mm/hr (0-40)
[2016-12-06 10:08] LABS: INR 1.37 ratio
[2016-12-06 10:22] VITALS: PULSE 75; RESP 18; O2SAT 99
[2016-12-06] MEDS ORDERED: Heparin 5,000 Unit/mL Inj IVPUSH ONE (12:05)
[2016-12-06] MEDS ORDERED: Heparin 5,000 Unit/mL Inj IVPUSH PRN (12:05)
--- NOTE | 2016-12-06 12:15 | PCM.PHAPRO ---
Progress AMS and hypoxic resp distress WARFARIN DOSING PER PHARMACY Indication: Hx of mitral and aortic valve replacement, afib Home dose: 3 mg PO daily INR Goal: 2.5-3.5 Additional Anticoagulation: Heparin Drip Antiplatelet Tx: ASA 81mg daily DI: Augmentin, citalopram, fluconazole HCT/PLT: 30. Lab Date Result Dose INR 12/06/16 1.37 Note: Pts INR was 5.38 on admission Plan: - Pt was FOBT + and is currently on multiple medications that interact with warfarin - Will give patient one time dose of warfarin 2mg PO tonight - Pharmacy will continue to monitor INR/CBC/signs and symptoms of bleeding Lary Puente PharmD Dec 06, 2016 12:15
[2016-12-06 12:44] VITALS: BP 128/56; PULSE 72; RESP 20; O2SAT 97
--- NOTE | 2016-12-06 14:55 | NUR ---
Imaging Pt off the unit for completion of CT, very drowsy, no complains of increased pain. Addendum: 12/06/16 at 1844 by MEGAN RAINES RN Pt returned to [facility] appro 15 minutes after leaving.
--- NOTE | 2016-12-06 15:29 | DRSVH ---
PROCEDURE: CT BRAIN WITHOUT CONTRAST ([id number]) INDICATIONS: Altered Mental Status/Possible CVA TECHNIQUE: Noncontrast 4.5 mm thick angled axial sections acquired from the foramen magnum to the vertex, with c oronal reformats. COMPARISON: [facility], CT, CT BRAIN WO CON, 10/12/2016, 13:31. [facility], CT, CT BRAIN WO CON, 11/27/2016, 10:28. [facility], CT, CT BRAIN WO CON, 10/17/2016, 13: 13. CT brain 01/12/15. FINDINGS: Image quality: Excellent. CSF spaces: Basal cisterns are patent. No extra-axial fluid collections. The ventricles are symmet yadira in size and shape. There is moderate cerebral volume loss, with resultant ventricular and sulcal prominence. Brain: No intracranial hemorrhage, mass, or mass effect. A small periventricular echogenic focus al mamie the frontal horn of the left lateral ventricle is unchanged compared to prior studies. There are subcortical, periventricular and deep white matter hypodensities consistent with mild chronic small vessel ischemic changes. There is an old lacunar infarct redemonstrated in the left caudate head. T here is a small left choroidal fissure cyst inferior to the left basal ganglia. There is intracrania l internal carotid artery atherosclerosis. Skull and face: Calvarium and visualized facial bones appear intact, without suspicious lesions. Sinuses: Visualized sinuses and mastoids are clear. IMPRESSION: 1. No definite acute intracranial abnormality. 2. Chronic white matter small vessel ischemic changes and cerebral volume loss. 3. 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 4. Echogenic focus along the frontal horn of the left lateral ventricle unchanged compared to prior studies compatible with calcification. Dictated by: Connor Elizabeth M.D. on 12/06/2016 at 15:28 Approved by: Connor Elizabeth M.D. on 12/06/2016 at 15:28
[2016-12-06] MEDS ORDERED: Furosemide 10 mg/mL 4 mL Inj IVPUSH SCH (15:45)
[2016-12-06] MEDS ORDERED: Magnesium Sulf 2 Gm/50mL Water 2 GM in IV Premix 1 EACH IV ONE (15:55)
--- NOTE | 2016-12-06 15:55 | PCM.PNMED ---
Subjective Date of Service Dec 06, 2016 Subjective weak, more confused. CT showed no acute abnormality. (+) SOB. serum creatinine has normalized. on Bumex 1 mg BID. Exam Vital Signs Vital Sign - Last Date Time Temp Pulse Resp B/P Pulse Ox O2 Delivery O2 Flow Rate FiO2 12/06/16 12:44 36.6 72 20 128/56 97 Nasal Cannula 3.00 Intake and Output 12/05/16 12/05/16 12/06/16 Cumulative From/Thru 15:00 23:00 07:00 11/24/16 01:15 - 12/06/16 07:00 Intake Total 430 ml 100 ml 83415 ml Output Total 1650 ml 1300 ml 07765 ml Balance -1220 ml -1200 ml -1880 ml Intake Oral 420 ml 100 ml 4678 ml IV Total 10 ml 6547 ml Output Urine Total 1650 ml 1300 ml 57001 ml # Voids 4 # Bowel Movements 0 16 Exam General: nonverbal, confused, frail. HEENT: Head is atraumatic normocephalic. Eyes: Pupils are equally round and reactive to light and accommodation. Neck: (+) JVD. Chest: poor air entry, expiratory wheezing noted. Heart: Rate, rhythm is regular. (+) valve click. Abdomen: Good bowel sounds are present. Abdomen is soft, nontender, no organomegaly or masses were appreciated. Extremities: trace edema on LE, (+) varicose vein. Lab and Diagnostics Result Diagram: 12/06/1662112/06/16621 Microbiology Microbiology REGINALDO STREP PNEUMONIAE AG URINE Final 11/24/16-0742 STREP PNEUMO AG NEGATIVE Tests performed directly on clinical specimens are intended for screening purposes only and should augment, not replace, culture procedures Please Note: Streptococcus pneumoniae vaccine may cause false positive results in urine in the 48 hours following injection. Hence, it is recommended that the Alere Strep pneumoniae Antigen testing not be performed within five days of receiving the S. pneumoniae vaccine ----- NASOPHARYNGEAL: Microbiology ADENOVIRUS RESPIRATORY PCR Final 11/24/16 Not Detected CORONOVIRUS 229E Final 11/24/16 Not Detected CORONOVIRUS HKU1 Final 11/24/16 Not Detected CORONOVIRUS NL63 Final 11/24/16 Not Detected CORONOVIRUS OC43 Final 11/24/16 Not Detected INFLUENZA A PCR Final 11/24/16 Not Detected INFLUENZA B PCR Final 11/24/16 Not Detected METAPNEUMOVIRUS PCR Final 11/24/16 Not Detected RHINOVIRUS OR ENTEROVIRUS PCR Final 11/24/16 Not Detected PARAINFLUENZA 1 PCR Final 11/24/16 Not Detected PARAINFLUENZA 2 PCR Final 11/24/16 Not Detected PARAINFLUENZA 3 PCR Final 11/24/16 Not Detected PARAINFLUENZA 4 PCR Final 11/24/16 Not Detected RESP SYNCYTIAL VIRUS PCR Final 11/24/16 Not Detected CHLAMDOPHILIA PNEUMONIAE PCR Final 11/24/16 Not Detected MYCOPLASMA PNEUMONIAE PCR Final 11/24/16 MYCO PNEUMONIAE PCR Not Detected Reference Interval Not Detected [employer] swab is the only specimen type cleared by the FDA. Nasal wash, tracheal aspirate, and bronchial lavage specimen types have not been cleared by the FDA. Therefore results on any specimen type other than nasopharyngeal are considered investigational testing only. Microbiology REGINALDO OCCULT BLOOD IMMUNOCHEM Final 11/25/16-1103 OCCULT BLD IMMUNOCHEMICAL POSITIVE REFERENCE INTERVAL NEGATIVE Microbiology REGINALDO CULT NASAL MRSA SCREEN Final 11/25/16 Screen NEGATIVE for Methicillin Resistant Staph Aureus Name: CALLIE SINCLAIR Age/Sex: 86/F Attend Dr: Jocelyn Black MD Acct: [id number] Unit: [id number] Status: [place] [facility] [place]11/24/[place] Disch: Specimen: [id number] Collected: 11/27/16 Status: COMP Req#: [id number] Received: 11/27/16 Source: RANDOM Sp Desc : Subm Dr: Xavier Cruz MD Ordered: URINE CULT Procedure Result Verified Site Microbiology REGINALDO CULT URINE Final 11/30/16-1030 Organism 1 HAMILTON ALBICANS U COLONY COUNT/QUANTITY >100,000 CFU/ml SENSITIVITY COMMENTS Sensitivity not routinely performed on this org this source source X-Rays, CTs and MRIs PROCEDURE: X-RAY CHEST ONE VIEW, PORTABLE ([id number]) INDICATIONS: Follow up for congestive heart failure COMPARISON: [facility], CR, XR CHEST 1VW (PORTABLE), 10/17/2016, 12 :41. FINDINGS: Surgical changes and devices: Post median sternotomy with valvular replacement. Lungs and pleura: Interstitium is prominent no significant change from prior examination. No focal lung consolidation present. Mediastinum: Mediastinal contours appear normal. Heart size is enlarged. Bones and chest wall: No suspicious bony lesions. Overlying soft tissues appear unremarkable. IMPRESSION: 1. Cardiomegaly and chronic interstitial pulmonary densities with no significant change from prior examination which may be chronic but superimposed pulmonary edema cannot be excluded. Recommend clinical correlation. Dictated by: Kolby DOLAN Interpreted: Tomas Medina MD on 10/23/2016 at 13: 46 Transcribed by: TRUDI on 10/23/2016 at 13:46 Approved by: Tomas Medina M.D. on 10/23/2016 at 15:37 PROCEDURE: CT ANGIO CHEST PULMONARY EMBOLISM ([id number]) FINDINGS: Pulmonary arteries: Pulmonary arteries are normal in size, and demonstrate no intraluminal filling defects to suggest central pulmonary embolism. Lungs and pleura: There are right lower lobe infiltrates and consolidation consistent with pneumonia. Hyperdensities in the right lung base may be related to aspiration. There are small bilateral effusions with basilar atelectasis, left greater than right. Bilateral interstitial thickening likely secondary to pulmonary edema. No pneumothorax. Central and peripheral airways are patent. Mediastinum: Heart is moderately to severely enlarged. No pericardial effusion. There is a prosthetic aortic valve. No mediastinal or hilar adenopathy. Thoracic aorta is normal in caliber and enhancement. Severe aortic calcification consistent with atherosclerosis with Esophagus is normal in caliber, without hiatal hernia. Bones and chest wall: No suspicious bony lesions. Ribs and thoracic spine appear intact throughout. Thyroid gland is normal. No axillary or supraclavicular adenopathy. Abdomen: There is IV contrast reflux into the hepatic vein. A 2.9 x 3.9 cm cystic structure is noted in the left upper quadrant anterior to the superior pole of the left kidney, probably an exophytic cyst. IMPRESSION: 1. No acute central pulmonary embolism. 2. Right lower lobe infiltrates and consolidation consistent pneumonia. 3. Bilateral small pleural effusions with basilar atelectasis. 4. Marked cardiomegaly and prosthetic aortic valve. There is bilateral interstitial thickening suggesting mild pulmonary edema secondary to congestive heart failure. 5. Hyperdense material in the right lung base suspicious for aspiration. Dictated by: Arsen Valenzuela M.D. on 11/26/2016 at 9:19 Approved by: Arsen Valenzuela M.D. on 11/26/2016 at 9:19 PROCEDURE: CT BRAIN WITHOUT CONTRAST ([id number]) INDICATIONS: change in mental status FINDINGS: Image quality: Excellent. CSF spaces: Basal cisterns are patent. No extra-axial fluid collections. The ventricles are symmetric in size and shape. Brain: No intracranial bleeds or masses. There is cerebral volume loss for age , with resultant ventricular and sulcal prominence. There are periventricular and deep white matter chronic small vessel ischemic changes. Old, small, left caudate body/barlow radiata lacunar infarct noted. Small punctate density in the left frontal periventricular white matter is stable compared to prior examination. There is intracranial internal carotid artery atherosclerosis. Skull and face: Calvarium and visualized facial bones appear intact, without suspicious lesions. Sinuses: Visualized sinuses and mastoids are clear. IMPRESSION: 1. No acute intracranial disease process. 2. No intracranial hemorrhage. Dictated by: Rachel Nichols MD, PhD on 11/27/2016 at 11:02 Approved by: Rachel Nichols MD, PhD on 11/27/2016 at 11:02 PROCEDURE: MRI BRAIN WITHOUT CONTRAST ([id number]) INDICATIONS: Slurred speech, unilateral weakness FINDINGS: Image quality: Motion artifact limits evaluation. CSF spaces: Ventricles appear symmetric in size and shape. Basal cisterns are patent. No extra-axial fluid collections. Brain: No intracranial bleeds or mass effects. There is minimal cerebral volume loss for age. There are mild periventricular and deep white matter chronic small vessel ischemic changes. Brainstem appears normal. Diffusion- weighted images show no acute ischemic insults. No chronic ischemic insults. Normal intravascular flow voids are present. Skull and face: Calvarial bone marrow is normal in signal. Orbits are normal. Sinuses: Sinuses and mastoids are clear. IMPRESSION: 1. Markedly limited study due to motion artifact. However, is no increased restricted diffusion to suggest acute or subacute infarct. 2. Considering patient age, there are only trace senescent finding likely associated with microvascular ischemia. Dictated by: Naida Matos M.D. on 11/27/2016 at 16:02 Approved by: Naida Matos M.D. on 11/27/2016 at 16:02 PROCEDURE: US RENAL SONOGRAM INDICATIONS: reba IMPRESSION: 1. Normal-appearing kidneys noting exophytic cyst upper pole left kidney 2. Urinary bladder not evaluated secondary to indwelling Arias catheter. Dictated by: Christopher Garcia M.D. on 11/28/2016 at 13:44 Approved by: Christopher Garcia M.D. on 11/28/2016 at 13:44 PROCEDURE: X-RAY CHEST ONE VIEW, PORTABLE ([id number]) INDICATIONS: Acute kidney injury COMPARISON: [facility], CR, XR CHEST 1VW (PORTABLE), 11/27/2016, 5: 45. FINDINGS: Surgical changes and devices: Sternotomy wires and cardiac valvular prosthesis.. Lungs and pleura: Bilateral small layering pleural effusions. Retrocardiac consolidation unchanged. Diffuse groundglass opacities are unchanged suggesting pulmonary edema. No pneumothorax. Mediastinum: Mediastinal contours appear normal. Heart size is normal. Bones and chest wall: No suspicious bony lesions. Overlying soft tissues appear unremarkable. IMPRESSION: Overall, no gross interval change since 11/27/16 Dictated by: Fili Carlos M.D. on 11/29/2016 at 11:56 Approved by: Fili Carlos M.D. on 11/29/2016 at 11:56 PROCEDURE: X-RAY CHEST, TWO VIEWS ([id number]) INDICATIONS: Follow up for CHF? Pneumonia TECHNIQUE: 2 views of the chest were acquired. COMPARISON: [facility], CR, XR CHEST 1VW (PORTABLE), 12/04/2016, 20: 33. FINDINGS: Surgical changes and devices: Valvular prostheses and sternotomy wires. Lungs and pleura: No pleural effusions or pneumothorax. Patchy perihilar and bibasilar consolidative opacities grossly unchanged since yesterday. Mediastinum: Mediastinal contours are normal. Heart size is enlarged. Bones and chest wall: No suspicious bony abnormalities. Soft tissues appear unremarkable. IMPRESSION: Overall, stable examination since yesterday as above Dictated by: Fili Carlos M.D. on 12/05/2016 at 17:43 Approved by: Fili Carlos M.D. on 12/05/2016 at 17:43 ADDENDUM: COMPARISON: [facility], CR, XR CHEST 2VW, 10/06/2016, 10:25. Lower thoracic/upper lumbar vertebral body anterior wedging unchanged Dictated by: Fili Carlos M.D. on 12/05/2016 at 17:45 Approved by: Fili Carlos M.D. on 12/05/2016 at 17:45 12-lead ECG EKG: Right and left arm electrode reversal, interpretation assumes no reversal . Atrial fibrillation . Ventricular premature complex . Low voltage, extremity leads . Nonspecific T abnormalities, lateral leads . Prolonged QT interval Cardiac Echo Impressions Echocardiogram Report Interpretation Summary Limited echo to evaluate valve gradients for acute shortness of breath. Patient is in chronic afib with RVR. HR 87-105 bpm. Normal LV size; severe concentric LVH; global hypokinesis. EF is 30--35%. Valves are not well seen. 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 Aortic valve is replaced with a mechanical prosthesis. There is mild aortic stenosis. Mean gradient is 17 mm Hg. Compared to prior study 10/19/2016 EF is less dynamic, particularly on apical views. EF is down from about 45-50% to now 30-35%. Valve function is unchanged Reading Physician:09:34 AM Assessment & Plan 1. REBA secondary to contrast-induced nephropathy. 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 - with CHF exacerbation. 3. AMS. - no acute abnormality. - will check ABG, suspected CO2 retention. 4. Metabolic alkalosis - check ABG. Plan: check ABG. d/c PO bumex. start IV lasix 40 mg q 8 hr. add Mg sulfate 2 gm IVPB. GI Prophylaxis: Proton Pump Inhibitor VTE Prophylaxis: Sub-Q Heparin (Unfractionated), SCDs VTE Mechanical Devices: Venous Foot Pump Resuscitation Status: DNR/DNI:Do Not Resuscitate/Intubate Limited Interventions: BiPAP, Medications and IV Fluid Alyssa Vargas MD Dec 06, 2016 15:55
--- NOTE | 2016-12-06 17:09 | DRSVH ---
[facility] [address] [place] [address] Echocardiogram Report Name: CALLIE SINCLAIR Study Date: 12/06/2016 Height: 60 in Hospital Exam Location: [facility] Weight: 161 lb Gender: Female BSA: 1.7 m2 : 1930 Age: 86 yrs BP: 113/61 mm Hg Reason For Study: Hypotension Ordering Physician: HOSPITALIST SVHPerformed By: Andra King Referring Physician: Dr. Titi Chapman Interpretation Summary This is a limited study 1. LV function appears stable as compared to the previous study of 11/25/16 2. Gradients across the mitral and aortic valves have not increased when compared to the study of 11/25/16 Procedure: A two-dimensional transthoracic echocardiogram with color flow and Doppler was performed in limited views only. The study quality was technically adequate. Comparison is made with the echocardiogram of 11-25-16. Views were somewhat limited as the patient was unable to cooperate. The heart rate ranged between 61-78 bpm during the study. Left Ventricle: The left ventricle is normal in size. There is normal left ventricular wall thickness. There has been no significant change since the previous study. The left ventricular function appears similar to the previous study. Mitral Valve: There is a mechanical mitral valve. The prosthetic mitral valve is well-seated. Limited views are obtained, however, in these limited views, the occluders appear to be moving. The mean gradient is 3.3 mm Hg. Aortic Valve: There is a mechanical aortic valve. This is not optimally visualized but it appears well seated. The mean gradient is 6.84 mm Hg. No aortic regurgitation is present. Tricuspid Valve: The tricuspid valve is normal in structure and function. There is mild tricuspid regurgitation. MMode/2D Measurements & Calculations LVIDd LVOT diam LV crow. diameter/BSA LV sys. diameter/BSA : 4.3 cm (cm/m^2): 2.5 (cm/m^2): 1.7 LVIDs asc Aorta Diam : 3.0 cm FS: 31.0 % IVSd : 0.9cm LVPWd : 0.8cm Doppler Measurements & Calculations Ao V2 max MVA(VTI) TR max barron: 266.2 cm/sec MV V2 mean : 181.0 cm/sec TR max P.3 mmHg : 72.7 cm/sec Ao max PG : 1.1 cm2 MV mean PG : 13.1 mmHg Ao mean PG MV V2 VTI : 37.4 cm LVOT Max Barron : 48.8 cm/sec LINDA(I,D): 0.95 cm sev ratio Ao V2 mean LV V1 max PG LINDA indexed to BSA : 119.2 cm/sec (cm^2/m^2): 0.56 Ao V2 VTI: 43.7 cm LV V1 VTI LINDA(V,D): 0.93 cm2 : 12.0 cm Reading Physician:05:08 PM
--- NOTE | 2016-12-06 17:17 | ABG ---
DateTimeAnalyzed 17:09:00 -_ pH ____7.525 - 7.350 7.450 pCO2 ___48.5__ -mmHg 35.0 45.0 pO2 ___79.5__ -mmHg 69.0 116 HCO3- ___39.9__ -mmol/L 22.0 26.0 ABE ___15.2__ -mmol/L -2.0 2.0 tHb ____8.4__ -g/dL O2Hb ___95.4__ -% COHb ____2.3__ -% MetHb ____0.8__ -% sO2 ___98.5__ -% FIO2 ___28.0__ -% Drawn By [facility] - Date/Time Notified____ 17:16:00 -_ Oxygen Device 1 __CANNULA - Notified By [facility] - Notified [facility], [facility] MD - B 764 -mmHg tO2 ___11.4__ -Vol% Krzysztof test _Positive -
--- NOTE | 2016-12-06 18:33 | NUR ---
PTT Call from lab, PTT of 171, infusion stopped, stat PTT ordered. MD notified via FYI page. Frequent rounding in place, will continue to monitor.
[2016-12-06 19:55] VITALS: PULSE 84; RESP 18; O2SAT 95
[2016-12-06 21:36] VITALS: BP 107/67; PULSE 73; RESP 24; O2SAT 95
--- NOTE | 2016-12-06 21:50 | PCM.PNMED ---
Subjective Date of Service Dec 06, 2016 Subjective Patient throughout the day has had periods of lucidity and periods of somnolence. During my visit she was quite somnolent but would follow some commands. Patient's nurse states that she appears to be less confused and less delirious as yesterday. Exam Vital Signs Vital Sign - Last Date Time Temp Pulse Resp B/P Pulse Ox O2 Delivery O2 Flow Rate FiO2 12/06/16 19:55 84 18 95 Nasal Cannula 2.00 12/06/16 12:44 36.6 128/56 Intake and Output 12/05/16 12/05/16 12/06/16 Cumulative From/Thru 15:00 23:00 07:00 11/24/16 01:15 - 12/06/16 07:00 Intake Total 430 ml 100 ml 27838 ml Output Total 1650 ml 1300 ml 96752 ml Balance -1220 ml -1200 ml -1880 ml Intake Oral 420 ml 100 ml 4678 ml IV Total 10 ml 6547 ml Output Urine Total 1650 ml 1300 ml 58988 ml # Voids 4 # Bowel Movements 0 16 Exam General: Patient is in no apparent distress. She appears more somnolent to me today. However, her nurse states that she has periods of alertness and has had normal conversations with her.. HEENT: Head is atraumatic normocephalic. Eyes: Pupils are equally round and reactive to light and accommodation. Extraocular muscles are intact. Sclera are white anicteric. Subconjunctival mucosa is pink. Ears and nose are unremarkable. Oropharynx: There are no mucosal lesions, there is no thrush, there is no pharyngitis. Neck: Is supple, there are no nodes, or masses, or tenderness. Chest: The lungs are much clearer today. Heart: Rate, rhythm is regular. There is no murmur, rub or gallop. Abdomen: Good bowel sounds are present. Abdomen is soft, nontender, no organomegaly or masses were appreciated. Extremities: Are symmetrical and well perfused. There is minimal edema, there is no cellulitis, no rash. Neurologic: There are no focal neurological deficits. Cranial nerves II through XII are intact. There are no sensory or motor deficits. Patient is less confused today. Psychiatric: Patients mood is calm and she shows no sign of agitation. She is pleasantly confused. Genital: Deferred Rectal: Deferred Lab and Diagnostics Result Diagram: 12/06/1662112/06/16621 Microbiology Microbiology REGINALDO STREP PNEUMONIAE AG URINE Final 11/24/16 STREP PNEUMO AG NEGATIVE Tests performed directly on clinical specimens are intended for screening purposes only and should augment, not replace, culture procedures Please Note: Streptococcus pneumoniae vaccine may cause false positive results in urine in the 48 hours following injection. Hence, it is recommended that the Alere Strep pneumoniae Antigen testing not be performed within five days of receiving the S. pneumoniae vaccine ----- NASOPHARYNGEAL: Microbiology ADENOVIRUS RESPIRATORY PCR Final 11/24/16 Not Detected CORONOVIRUS 229E Final 11/24/16 Not Detected CORONOVIRUS HKU1 Final 11/24/16 Not Detected CORONOVIRUS NL63 Final 11/24/16 Not Detected CORONOVIRUS OC43 Final 11/24/16 Not Detected INFLUENZA A PCR Final 11/24/16 Not Detected INFLUENZA B PCR Final 11/24/16 Not Detected METAPNEUMOVIRUS PCR Final 11/24/16 Not Detected RHINOVIRUS OR ENTEROVIRUS PCR Final 11/24/16 Not Detected PARAINFLUENZA 1 PCR Final 11/24/16 Not Detected PARAINFLUENZA 2 PCR Final 11/24/16 Not Detected PARAINFLUENZA 3 PCR Final 11/24/16 Not Detected PARAINFLUENZA 4 PCR Final 11/24/16 Not Detected RESP SYNCYTIAL VIRUS PCR Final 11/24/16 Not Detected CHLAMDOPHILIA PNEUMONIAE PCR Final 11/24/16 Not Detected MYCOPLASMA PNEUMONIAE PCR Final 11/24/16 MYCO PNEUMONIAE PCR Not Detected Reference Interval Not Detected WARP BLEACHING VAT TENDER swab is the only specimen type cleared by the FDA. Nasal wash, tracheal aspirate, and bronchial lavage specimen types have not been cleared by the FDA. Therefore results on any specimen type other than nasopharyngeal are considered investigational testing only. Microbiology REGINALDO OCCULT BLOOD IMMUNOCHEM Final 11/25/16-1103 OCCULT BLD IMMUNOCHEMICAL POSITIVE REFERENCE INTERVAL NEGATIVE Microbiology REGINALDO CULT NASAL MRSA SCREEN Final 11/25/16-1303 Screen NEGATIVE for Methicillin Resistant Staph Aureus Name: CALLIE SINCLAIR Age/Sex: 86/F Attend Dr: Jocelyn Black MD Acct: [id number] Unit: [id number] Status: ADM IN Location: [facility] 3004-1 Re11/24/16 Disch: Specimen: [id number] Collected: 11/27/16 Status: COMP Req#: [id number] Received: 11/27/16 Source: RANDOM Sp Desc : Subm Dr: Xavier Cruz MD Ordered: URINE CULT Procedure Result Verified Site Microbiology REGINALDO CULT URINE Final 11/30/16-1030 Organism 1 EMILIA ALBICANS U COLONY COUNT/QUANTITY >100,000 CFU/ml SENSITIVITY COMMENTS Sensitivity not routinely performed on this org this source source X-Rays, CTs and MRIs PROCEDURE: X-RAY CHEST ONE VIEW, PORTABLE ([id number]) INDICATIONS: Follow up for congestive heart failure COMPARISON: [facility], CR, XR CHEST 1VW (PORTABLE), 10/17/2016, 12 :41. FINDINGS: Surgical changes and devices: Post median sternotomy with valvular replacement. Lungs and pleura: Interstitium is prominent no significant change from prior examination. No focal lung consolidation present. Mediastinum: Mediastinal contours appear normal. Heart size is enlarged. Bones and chest wall: No suspicious bony lesions. Overlying soft tissues appear unremarkable. IMPRESSION: 1. Cardiomegaly and chronic interstitial pulmonary densities with no significant change from prior examination which may be chronic but superimposed pulmonary edema cannot be excluded. Recommend clinical correlation. Dictated by: Kolby Turner RRA Interpreted: Tomas Medina MD on 10/23/2016 at 13: 46 Transcribed by: TRUDI on 10/23/2016 at 13:46 Approved by: Tomas Medina M.D. on 10/23/2016 at 15:37 PROCEDURE: CT ANGIO CHEST PULMONARY EMBOLISM ([id number]) FINDINGS: Pulmonary arteries: Pulmonary arteries are normal in size, and demonstrate no intraluminal filling defects to suggest central pulmonary embolism. Lungs and pleura: There are right lower lobe infiltrates and consolidation consistent with pneumonia. Hyperdensities in the right lung base may be related to aspiration. There are small bilateral effusions with basilar atelectasis, left greater than right. Bilateral interstitial thickening likely secondary to pulmonary edema. No pneumothorax. Central and peripheral airways are patent. Mediastinum: Heart is moderately to severely enlarged. No pericardial effusion. There is a prosthetic aortic valve. No mediastinal or hilar adenopathy. Thoracic aorta is normal in caliber and enhancement. Severe aortic calcification consistent with atherosclerosis with Esophagus is normal in caliber, without hiatal hernia. Bones and chest wall: No suspicious bony lesions. Ribs and thoracic spine appear intact throughout. Thyroid gland is normal. No axillary or supraclavicular adenopathy. Abdomen: There is IV contrast reflux into the hepatic vein. A 2.9 x 3.9 cm cystic structure is noted in the left upper quadrant anterior to the superior pole of the left kidney, probably an exophytic cyst. IMPRESSION: 1. No acute central pulmonary embolism. 2. Right lower lobe infiltrates and consolidation consistent pneumonia. 3. Bilateral small pleural effusions with basilar atelectasis. 4. Marked cardiomegaly and prosthetic aortic valve. There is bilateral interstitial thickening suggesting mild pulmonary edema secondary to congestive heart failure. 5. Hyperdense material in the right lung base suspicious for aspiration. Dictated by: Arsen Valenzuela M.D. on 11/26/2016 at 9:19 Approved by: Arsen Valenzuela M.D. on 11/26/2016 at 9:19 PROCEDURE: CT BRAIN WITHOUT CONTRAST ([id number]) INDICATIONS: change in mental status FINDINGS: Image quality: Excellent. CSF spaces: Basal cisterns are patent. No extra-axial fluid collections. The ventricles are symmetric in size and shape. Brain: No intracranial bleeds or masses. There is cerebral volume loss for age , with resultant ventricular and sulcal prominence. There are periventricular and deep white matter chronic small vessel ischemic changes. Old, small, left caudate body/barlow radiata lacunar infarct noted. Small punctate density in the left frontal periventricular white matter is stable compared to prior examination. There is intracranial internal carotid artery atherosclerosis. Skull and face: Calvarium and visualized facial bones appear intact, without suspicious lesions. Sinuses: Visualized sinuses and mastoids are clear. IMPRESSION: 1. No acute intracranial disease process. 2. No intracranial hemorrhage. Dictated by: Rachel Nichols MD, PhD on 11/27/2016 at 11:02 Approved by: Rachel Nichols MD, PhD on 11/27/2016 at 11:02 PROCEDURE: MRI BRAIN WITHOUT CONTRAST ([id number]) INDICATIONS: Slurred speech, unilateral weakness FINDINGS: Image quality: Motion artifact limits evaluation. CSF spaces: Ventricles appear symmetric in size and shape. Basal cisterns are patent. No extra-axial fluid collections. Brain: No intracranial bleeds or mass effects. There is minimal cerebral volume loss for age. There are mild periventricular and deep white matter chronic small vessel ischemic changes. Brainstem appears normal. Diffusion- weighted images show no acute ischemic insults. No chronic ischemic insults. Normal intravascular flow voids are present. Skull and face: Calvarial bone marrow is normal in signal. Orbits are normal. Sinuses: Sinuses and mastoids are clear. IMPRESSION: 1. Markedly limited study due to motion artifact. However, is no increased restricted diffusion to suggest acute or subacute infarct. 2. Considering patient age, there are only trace senescent finding likely associated with microvascular ischemia. Dictated by: Naida Matos M.D. on 11/27/2016 at 16:02 Approved by: Naida Matos M.D. on 11/27/2016 at 16:02 PROCEDURE: US RENAL SONOGRAM INDICATIONS: reba IMPRESSION: 1. Normal-appearing kidneys noting exophytic cyst upper pole left kidney 2. Urinary bladder not evaluated secondary to indwelling Arias catheter. Dictated by: Christopher Garcia M.D. on 11/28/2016 at 13:44 Approved by: Christopher Garcia M.D. on 11/28/2016 at 13:44 PROCEDURE: X-RAY CHEST ONE VIEW, PORTABLE ([id number]) INDICATIONS: Acute kidney injury COMPARISON: [facility], , XR CHEST 1VW (PORTABLE), 11/27/2016, 5: 45. FINDINGS: Surgical changes and devices: Sternotomy wires and cardiac valvular prosthesis.. Lungs and pleura: Bilateral small layering pleural effusions. Retrocardiac consolidation unchanged. Diffuse groundglass opacities are unchanged suggesting pulmonary edema. No pneumothorax. Mediastinum: Mediastinal contours appear normal. Heart size is normal. Bones and chest wall: No suspicious bony lesions. Overlying soft tissues appear unremarkable. IMPRESSION: Overall, no gross interval change since 11/27/16 Dictated by: Fili Carlos M.D. on 11/29/2016 at 11:56 Approved by: Fili Carlos M.D. on 11/29/2016 at 11:56 PROCEDURE: X-RAY CHEST, TWO VIEWS ([id number]) INDICATIONS: Follow up for CHF? Pneumonia TECHNIQUE: 2 views of the chest were acquired. COMPARISON: [facility], CR, XR CHEST 1VW (PORTABLE), 12/04/2016, 20: 33. FINDINGS: Surgical changes and devices: Valvular prostheses and sternotomy wires. Lungs and pleura: No pleural effusions or pneumothorax. Patchy perihilar and bibasilar consolidative opacities grossly unchanged since yesterday. Mediastinum: Mediastinal contours are normal. Heart size is enlarged. Bones and chest wall: No suspicious bony abnormalities. Soft tissues appear unremarkable. IMPRESSION: Overall, stable examination since yesterday as above Dictated by: Fili Carlos M.D. on 12/05/2016 at 17:43 Approved by: Fili Carlos M.D. on 12/05/2016 at 17:43 ADDENDUM: COMPARISON: [facility], CR, XR CHEST 2VW, 10/06/2016, 10:25. Lower thoracic/upper lumbar vertebral body anterior wedging unchanged Dictated by: Fili Carlos M.D. on 12/05/2016 at 17:45 Approved by: Fili Carlos M.D. on 12/05/2016 at 17:45 12-lead ECG EKG: Right and left arm electrode reversal, interpretation assumes no reversal . Atrial fibrillation . Ventricular premature complex . Low voltage, extremity leads . Nonspecific T abnormalities, lateral leads . Prolonged QT interval Cardiac Echo Impressions Echocardiogram Report Interpretation Summary Limited echo to evaluate valve gradients for acute shortness of breath. Patient is in chronic afib with RVR. HR 87-105 bpm. Normal LV size; severe concentric LVH; global hypokinesis. EF is 30--35%. Valves are not well seen. 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 Aortic valve is replaced with a mechanical prosthesis. There is mild aortic stenosis. Mean gradient is 17 mm Hg. Compared to prior study 10/19/2016 EF is less dynamic, particularly on apical views. EF is down from about 45-50% to now 30-35%. Valve function is unchanged Reading Physician:09:34 AM Echocardiogram Report Name: CALLIE SINCLAIR Study Date: 12/06/2016 Height: 60 in Hospital Exam Location: [facility] Weight: 161 lb Gender: Female BSA: 1.7 m2 : 1930 Age: 86 yrs BP: 113/61 mm Hg Reason For Study: Hypotension Ordering Physician: HOSPITALIST SVHPerformed By: Andra King Referring Physician: Dr. Titi Chapman Interpretation Summary This is a limited study 1. LV function appears stable as compared to the previous study of 11/25/16 2. Gradients across the mitral and aortic valves have not increased when compared to the study of 11/25/16 Assessment & Plan Patient is an 86-year-old female with CHF, atrial fibrillation on warfarin, COPD , DM2 and hypothyroidism who presented to [facility] SNF complaining of shortness of breath. SNF called EMS who reported 73% on 3L O2. SNF reports diaphoresis, cough and decreased responsiveness in last day. Acute, active # REBA, present on admission, Secondary to contrast and intravascular volume depletion, Abdominal ultrasound revealed normal-appearing kidneys with exophytic cyst upper pole left kidney, the serum creatinine has normalized. - appreciate Nephrology input - Stopped IV hydration, IV hydration started again and stopped 12/03/2016 due to fluid overload. -We will continue to avoid nephrotoxins. - s/p Lasix 60mg IV, bumex 1mg bid per nephro. This was then re discuss with and non-duced to Bumex 1 mg by mouth daily. Patient appears to still be fluid overloaded and will increase to twice a day again today on 12/05/2015. -We will give an extra dose of Lasix 40 mg IV today, 12/04/2016. -Discussed with Dr. Martin of nephrology and ask her to reassess the patient and should her assessment and recommendations are as follows: "1. REBA secondary to contrast-induced nephropathy. 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 - with CHF exacerbation. 3. AMS. - no acute abnormality. - will check ABG, suspected CO2 retention. 4. Metabolic alkalosis - check ABG. Plan: check ABG. d/c PO bumex. start IV lasix 40 mg q 8 hr. add Mg sulfate 2 gm IVPB". Nephrology consult appreciated and will follow their recommendations. # Pneumonia, present on admission, CT angio chest: right lower lobe consolidation, bilateral small pleural effusion, hyperdense material in the right lung base suspicious for aspiration - Continue Augmentin 875/125 PO bid day #10 of -; start date 11/26 pm dose - Procalcitonin dropped to 0.30 - CXR 11/29/15: overall no gross change from 11/27/15. Will repeat chest x-ray today as there are more adventitious sounds on physical exam today. # Urinary tract infection, present on admission, urine culture reportedly positive for Klebsiella Pneumoniae. However, urine culture from 11/27/2015 is positive for Emilia albicans. I see no evidence of a recent Klebsiella pneumonia urinary tract infection -We have started Diflucan 200 mg by mouth daily 12/03/2016. We will continue -We discontinued the Arias catheter. This was done this morning 12/04/2016 - Continue Augmentin PO day #10 of 10-14 days. Chronic, stable, # TIA, acute, not present on admission, resolved - Etiology is unclear. Patient is on warfarin for A-fib with goal INR of 2.5- 3.5 d/t aortic and mitral valve replacement - STAT CT of the brain and MRI negative - Neurology consulted, we appreciate their assistance - Stopped Aspirin and Warfarin (FOBT positive, INR 5.38) after admission; repeat ordered, not yet completed. Hemoglobin and hematocrit INR stable. Consider restarting anticoagulation will speak with patient and patient's children about this. They are concerned about bleeding risk. - MRA head and neck and MRI with contrast when kidney injury is resolved # Elevated troponin of unknown significance, present on admission, unknown chronicity - Chronically elevated in September 2016. 0.070 on admission - EKG at [facility]: Atrial fibrillation, ventricular premature complex, nonspecific T abnormalities, lateral leads, prolonged QT interval - Cardiology consult, Dr. Baez, appreciate your assistance - ECHO: EF down from about 45-50% in September 2016 to 30-35%; marked cardiomegaly - Atorvastatin 20 mg PO hs - Metoprolol 25 mg PO q6h - Patient is not a candidate for cardiac catheterization d/t her advanced age, frailty, chronic oral anticoagulation, the technical aspects of the procedure per Dr. Baez - Follow up as an outpatient with patient's primary well cleaner # Atrial fibrillation, present on admission, chronic - On admit: INR 5.38, Vit K 10 mg IV given - H/o mitral and aortic valve replacement, maintain INR 2.5-3.5 - Metoprolol 25 mg PO q6h - Aspirin and Warfarin were stopped (stool was occult blood positive) we will restart Coumadin with IV heparin drip for bridging therapy. There is any evidence of bleeding IV heparin may be discontinued. - Monitor HGB&HCT - I have asked social insurance analyst to set up a family meeting bike and discuss the patient's case with the many family members as possible. With 2 mechanical valves one in the mitral position and one in the aortic position patient needs to be on warfarin anticoagulation. If she is not able to tolerate warfarin anticoagulation would recommend hospice care for the patient. # Lactic acidosis, acute, present on admission, resolved - 3.3 at H, decreased to 0.8 # Acute on chronic hypoxia, present on admission, resolved - Initially required 5 L, but now on 3 L which is her home dose # CHF, diastolic, present on admission, chronic - BNP is elevated chronically. However patient appears to be fluid overloaded at this time. Will increase Bumex 2 twice a day - ECHO 11/25/16: EF down from about 45-50% in September 2016 to 30-35%; marked cardiomegaly -Bumex has been changed to Lasix IV every 8 hours by nephrology service. Appreciate their help. # Hypertension. present on admission. chronic - currently controlled. Re-evaluate # Hypothyroidism, present on admission, chronic - continue levothyroxine # Depression, present on admission, chronic - continue Citalopram # Deconditioning, present on admission, chronic - PT ordered # Urinary Retention, present on admission, chronic. - Continued tamsulosin - Arias removed # Dyslipidemia, present on admission, chronic - Continued statin - Acetaminophen as needed for mild pain/fever/headache - Bowel regimen as needed - Antiemetic as needed Code status: Per POLST, DNR/DNI Pain Evaluation: Adequate Pain Control GI Prophylaxis: Proton Pump Inhibitor VTE Prophylaxis: Sub-Q Heparin (Unfractionated), SCDs VTE Mechanical Devices: Venous Foot Pump Resuscitation Status: DNR/DNI:Do Not Resuscitate/Intubate Limited Interventions: BiPAP, Medications and IV Fluid Oniel Kasper MD Dec 06, 2016 21:49
[2016-12-07 01:50] VITALS: BP 110/56; PULSE 67; RESP 16; O2SAT 95
[2016-12-07 04:47] VITALS: BP 129/59; PULSE 70; RESP 20; O2SAT 95
--- NOTE | 2016-12-07 05:25 | NUR ---
ACTIVITY Pt has slept most of shift with few complaints. Pt takes meds well in pudding crushed and whole if cannot be crushed. Pt refuses to sit up at 90 degrees for adolescent medicine specialist, but swallows without difficulty. No complaints of pain. Transfers well 1 PA to [facility]. Hugo patent. Continuing care.
[2016-12-07] MEDS: Pantoprazole 40 mg ER24 Tablet PO SCH (05:42)
[2016-12-07] MEDS: Potassium Chloride 20 mEq/15 mL 15mL Oral Soln PO SCH (07:53)
[2016-12-07 08:26] VITALS: PULSE 76; RESP 18; O2SAT 96
[2016-12-07 08:31] LABS: BASOPHILS % (AUTO) 0.8 % (0-3); EOSINOPHILS % (AUTO) 1.6 % (0-5); MONOCYTES % (AUTO) 10.4 % (4-12); Mean Corpuscular Volume 97.1 fL (81-100); NEUTROPHILS % (AUTO) 57.9 % (40-74); Platelet Count 107 bil/L (150-400)
--- NOTE | 2016-12-07 08:54 | NUR ---
ANTIONE signed with son Garo via Phone. ARTI Garduno
--- NOTE | 2016-12-07 09:01 | NUR ---
Social Work-continued d/c planning: Data:EMR reviewed. pt is on day 13 of hospitalization for AFIB per H&P. Pt is not medically stable. requested that MILLA set up family meeting with pt's sons to discuss goals of care for today. MILLA spoke with both son Garo and Stephan this morning who are agreeable to a meeting and can be at the hospital at 1200. SW updated MD. Plan at this time remains for pt to discharge back to [facility] when medically stable. Paperwork in the chart. SW will continue to follow. Assessment:Pt who will return to [facility]. Plan:Pt to discharge back to [facility] when medically stable. Family meeting scheduled today for 1200 with MD and pt's sons. Paperwork in the chart. SW will continue to follow. ARTI Garduno
[2016-12-07 09:07] LABS: INR 1.38 ratio
[2016-12-07 09:46] LABS: Magnesium 1.7 mg/dL (1.6-2.6); Phosphorus 3.3 mg/dL (2.5-4.9)
[2016-12-07] MEDS: Amoxicillin-Clav 500-125 mg Tablet PO SCH ×2 (10:11→21:45)
[2016-12-07 13:53] VITALS: BP 100/55; PULSE 67; RESP 18; O2SAT 98
--- NOTE | 2016-12-07 14:12 | NUR ---
Social Work-continued d/c planning: Data:EMR Reviewed. Pt is on day 13 of hospitalization for AFIB per H&P. MILLA met with - Dr Kasper, two sons- Stephan and Garo and daughter in laws Heather and Ruthann at bedside to discuss pt's prognosis further. MD explained information to family and at the end of the meeting family has decided to move forward with Hospice care. Family feels like they would not be able to manage pt at home and are interested in having Hospice at [facility]. MILLA explained that Hospice would be paid for by [facility] and room and board would be a private cost, SW estimated between $8,000-$10,000 monthly. Family states the would be able to afford this. MILLA spoke with Nancy at Hospice and arranged informational visit from tomorrow 12/08/16 at 1130. SW updated both sons- Stephan and Garo and they will be in to speak with Hospice tomorrow. SW placed a call to [facility] who states they will be able to have pt return on Hospice and informed SW that private pay rate would be $260.00 a day and the family would need to pay a month up front $7,800.00. SW to follow up with family tomorrow and provided them with this information. Paperwork in the chart. SW will continue to follow. Assessment:pt to have Hospice information visit. Plan:Pt to have Hospice informational visit tomorrow at 1130. Family agreeable for pt to return to [facility]( paying privately) with Hospice services. SW to follow up with Family tomorrow and provide them with exact private pay quote $7,800 for the month, upfront. Paperwork in the chart. SW will continue to follow. ARTI Garduno
--- NOTE | 2016-12-07 15:45 | NUR ---
Epistaxis Epistaxis noted by this RN. Pt reports "happens all the time". O2 humidified, nares cleaned and moisturized with NS and thinly spread lip balm. Nasal cannula removed and changed to oxy mask. Pt reports "nose feels much better". Pt encouraged to alert the staff if this occurs again. Frequent rounding in place, will continue to monitor.
[2016-12-07 19:52] VITALS: PULSE 57; RESP 16; O2SAT 97
[2016-12-07 20:17] VITALS: BP 115/66; PULSE 67; RESP 20; O2SAT 99
--- NOTE | 2016-12-07 21:57 | PCM.PNMED ---
Subjective Date of Service Dec 07, 2016 Subjective Patient is more alert today and responsive. She is less confused and less delusional. Exam Vital Signs Vital Sign - Last Date Time Temp Pulse Resp B/P Pulse Ox O2 Delivery O2 Flow Rate FiO2 12/07/16 20:17 36.4 67 20 115/66 99 OxyMask 3.00 Intake and Output 12/06/16 12/06/16 12/07/16 Cumulative From/Thru 15:00 23:00 07:00 11/24/16 01:15 - 12/07/16 06:21 Intake Total 217 ml 99575 ml Output Total 55420 ml Balance 217 ml -1663 ml Intake Oral 4678 ml IV Total 217 ml 6764 ml Output Urine Total 94247 ml # Voids 4 # Bowel Movements 16 Exam General: Patient is in no apparent distress. She appears more awake and alert today. HEENT: Head is atraumatic normocephalic. Eyes: Pupils are equally round and reactive to light and accommodation. Extraocular muscles are intact. Sclera are white anicteric. Subconjunctival mucosa is pink. Ears and nose are unremarkable. Oropharynx: There are no mucosal lesions, there is no thrush, there is no pharyngitis. Neck: Is supple, there are no nodes, or masses, or tenderness. Chest: The lungs are much clearer today. Heart: Rate, rhythm is regular. There is no murmur, rub or gallop. Abdomen: Good bowel sounds are present. Abdomen is soft, nontender, no organomegaly or masses were appreciated. Extremities: Are symmetrical and well perfused. There is minimal edema, there is no cellulitis, no rash. Neurologic: There are no focal neurological deficits. Cranial nerves II through XII are intact. There are no sensory or motor deficits. Patient is less confused today. Psychiatric: Patients mood is calm and she shows no sign of agitation. She is pleasantly confused. Genital: Deferred Rectal: Deferred Lab and Diagnostics Result Diagram: 12/07/16 0800 12/07/16 0800 Microbiology Microbiology REGINALDO STREP PNEUMONIAE AG URINE Final 11/24/16-0742 STREP PNEUMO AG NEGATIVE Tests performed directly on clinical specimens are intended for screening purposes only and should augment, not replace, culture procedures Please Note: Streptococcus pneumoniae vaccine may cause false positive results in urine in the 48 hours following injection. Hence, it is recommended that the Alere Strep pneumoniae Antigen testing not be performed within five days of receiving the S. pneumoniae vaccine ----- NASOPHARYNGEAL: Microbiology ADENOVIRUS RESPIRATORY PCR Final 11/24/16 Not Detected CORONOVIRUS 229E Final 11/24/16 Not Detected CORONOVIRUS HKU1 Final 11/24/16 Not Detected CORONOVIRUS NL63 Final 11/24/16 Not Detected CORONOVIRUS OC43 Final 11/24/16 Not Detected INFLUENZA A PCR Final 11/24/16 Not Detected INFLUENZA B PCR Final 11/24/16 Not Detected METAPNEUMOVIRUS PCR Final 11/24/16 Not Detected RHINOVIRUS OR ENTEROVIRUS PCR Final 11/24/16 Not Detected PARAINFLUENZA 1 PCR Final 11/24/16 Not Detected PARAINFLUENZA 2 PCR Final 11/24/16 Not Detected PARAINFLUENZA 3 PCR Final 11/24/16 Not Detected PARAINFLUENZA 4 PCR Final 11/24/16 Not Detected RESP SYNCYTIAL VIRUS PCR Final 11/24/16 Not Detected CHLAMDOPHILIA PNEUMONIAE PCR Final 11/24/16 Not Detected MYCOPLASMA PNEUMONIAE PCR Final 11/24/16 MYCO PNEUMONIAE PCR Not Detected Reference Interval Not Detected ONCOLOGY COORDINATOR swab is the only specimen type cleared by the FDA. Nasal wash, tracheal aspirate, and bronchial lavage specimen types have not been cleared by the FDA. Therefore results on any specimen type other than nasopharyngeal are considered investigational testing only. Microbiology REGINALDO OCCULT BLOOD IMMUNOCHEM Final 11/25/16-110 OCCULT BLD IMMUNOCHEMICAL POSITIVE REFERENCE INTERVAL NEGATIVE Microbiology REGINALDO CULT NASAL MRSA SCREEN Final 11/25/16-1303 Screen NEGATIVE for Methicillin Resistant Staph Aureus Name: CALLIE SINCLAIR Age/Sex: 86/F Attend Dr: Jocelyn Black MD Acct: [id number] Unit: [id number] Status: ADM IN Location: [facility] 3004-1 Re11/24/16 Disch: Specimen: [id number] Collected: 11/27/16 Status: MAGDI Pandya#: [id number] Received: 11/27/16 Source: RANDOM Sp Desc : Subm Dr: Xavier Cruz MD Ordered: URINE CULT Procedure Result Verified Site Microbiology REGINALDO CULT URINE Final 11/30/16-1030 Organism 1 EMILIA ALBICANS U COLONY COUNT/QUANTITY >100,000 CFU/ml SENSITIVITY COMMENTS Sensitivity not routinely performed on this org this source source X-Rays, CTs and MRIs PROCEDURE: X-RAY CHEST ONE VIEW, PORTABLE ([id number]) INDICATIONS: Follow up for congestive heart failure COMPARISON: [facility], CR, XR CHEST 1VW (PORTABLE), 10/17/2016, 12 :41. FINDINGS: Surgical changes and devices: Post median sternotomy with valvular replacement. Lungs and pleura: Interstitium is prominent no significant change from prior examination. No focal lung consolidation present. Mediastinum: Mediastinal contours appear normal. Heart size is enlarged. Bones and chest wall: No suspicious bony lesions. Overlying soft tissues appear unremarkable. IMPRESSION: 1. Cardiomegaly and chronic interstitial pulmonary densities with no significant change from prior examination which may be chronic but superimposed pulmonary edema cannot be excluded. Recommend clinical correlation. Dictated by: Kolby Turner [facility] Interpreted: Tomas Medina MD on 10/23/2016 at 13: 46 Transcribed by: TRUDI on 10/23/2016 at 13:46 Approved by: Tomas Medina M.D. on 10/23/2016 at 15:37 PROCEDURE: CT ANGIO CHEST PULMONARY EMBOLISM ([id number]) FINDINGS: Pulmonary arteries: Pulmonary arteries are normal in size, and demonstrate no intraluminal filling defects to suggest central pulmonary embolism. Lungs and pleura: There are right lower lobe infiltrates and consolidation consistent with pneumonia. Hyperdensities in the right lung base may be related to aspiration. There are small bilateral effusions with basilar atelectasis, left greater than right. Bilateral interstitial thickening likely secondary to pulmonary edema. No pneumothorax. Central and peripheral airways are patent. Mediastinum: Heart is moderately to severely enlarged. No pericardial effusion. There is a prosthetic aortic valve. No mediastinal or hilar adenopathy. Thoracic aorta is normal in caliber and enhancement. Severe aortic calcification consistent with atherosclerosis with Esophagus is normal in caliber, without hiatal hernia. Bones and chest wall: No suspicious bony lesions. Ribs and thoracic spine appear intact throughout. Thyroid gland is normal. No axillary or supraclavicular adenopathy. Abdomen: There is IV contrast reflux into the hepatic vein. A 2.9 x 3.9 cm cystic structure is noted in the left upper quadrant anterior to the superior pole of the left kidney, probably an exophytic cyst. IMPRESSION: 1. No acute central pulmonary embolism. 2. Right lower lobe infiltrates and consolidation consistent pneumonia. 3. Bilateral small pleural effusions with basilar atelectasis. 4. Marked cardiomegaly and prosthetic aortic valve. There is bilateral interstitial thickening suggesting mild pulmonary edema secondary to congestive heart failure. 5. Hyperdense material in the right lung base suspicious for aspiration. Dictated by: Arsen Valenzuela M.D. on 11/26/2016 at 9:19 Approved by: Arsen Valenzuela M.D. on 11/26/2016 at 9:19 PROCEDURE: CT BRAIN WITHOUT CONTRAST ([id number]) INDICATIONS: change in mental status FINDINGS: Image quality: Excellent. CSF spaces: Basal cisterns are patent. No extra-axial fluid collections. The ventricles are symmetric in size and shape. Brain: No intracranial bleeds or masses. There is cerebral volume loss for age , with resultant ventricular and sulcal prominence. There are periventricular and deep white matter chronic small vessel ischemic changes. Old, small, left caudate body/barlow radiata lacunar infarct noted. Small punctate density in the left frontal periventricular white matter is stable compared to prior examination. There is intracranial internal carotid artery atherosclerosis. Skull and face: Calvarium and visualized facial bones appear intact, without suspicious lesions. Sinuses: Visualized sinuses and mastoids are clear. IMPRESSION: 1. No acute intracranial disease process. 2. No intracranial hemorrhage. Dictated by: Rachel Nichols MD, PhD on 11/27/2016 at 11:02 Approved by: Rachel Nichols MD, PhD on 11/27/2016 at 11:02 PROCEDURE: MRI BRAIN WITHOUT CONTRAST ([id number]) INDICATIONS: Slurred speech, unilateral weakness FINDINGS: Image quality: Motion artifact limits evaluation. CSF spaces: Ventricles appear symmetric in size and shape. Basal cisterns are patent. No extra-axial fluid collections. Brain: No intracranial bleeds or mass effects. There is minimal cerebral volume loss for age. There are mild periventricular and deep white matter chronic small vessel ischemic changes. Brainstem appears normal. Diffusion- weighted images show no acute ischemic insults. No chronic ischemic insults. Normal intravascular flow voids are present. Skull and face: Calvarial bone marrow is normal in signal. Orbits are normal. Sinuses: Sinuses and mastoids are clear. IMPRESSION: 1. Markedly limited study due to motion artifact. However, is no increased restricted diffusion to suggest acute or subacute infarct. 2. Considering patient age, there are only trace senescent finding likely associated with microvascular ischemia. Dictated by: Naida Matos M.D. on 11/27/2016 at 16:02 Approved by: Naida Matos M.D. on 11/27/2016 at 16:02 PROCEDURE: US RENAL SONOGRAM INDICATIONS: reba IMPRESSION: 1. Normal-appearing kidneys noting exophytic cyst upper pole left kidney 2. Urinary bladder not evaluated secondary to indwelling Arias catheter. Dictated by: Christopher Garcia M.D. on 11/28/2016 at 13:44 Approved by: Christopher Garcia M.D. on 11/28/2016 at 13:44 PROCEDURE: X-RAY CHEST ONE VIEW, PORTABLE ([id number]) INDICATIONS: Acute kidney injury COMPARISON: [facility], CR, XR CHEST 1VW (PORTABLE), 11/27/2016, 5: 45. FINDINGS: Surgical changes and devices: Sternotomy wires and cardiac valvular prosthesis.. Lungs and pleura: Bilateral small layering pleural effusions. Retrocardiac consolidation unchanged. Diffuse groundglass opacities are unchanged suggesting pulmonary edema. No pneumothorax. Mediastinum: Mediastinal contours appear normal. Heart size is normal. Bones and chest wall: No suspicious bony lesions. Overlying soft tissues appear unremarkable. IMPRESSION: Overall, no gross interval change since 11/27/16 Dictated by: Fili Carlos M.D. on 11/29/2016 at 11:56 Approved by: Fili Carlos M.D. on 11/29/2016 at 11:56 PROCEDURE: X-RAY CHEST, TWO VIEWS ([id number]) INDICATIONS: Follow up for CHF? Pneumonia TECHNIQUE: 2 views of the chest were acquired. COMPARISON: [facility], CR, XR CHEST 1VW (PORTABLE), 12/04/2016, 20: 33. FINDINGS: Surgical changes and devices: Valvular prostheses and sternotomy wires. Lungs and pleura: No pleural effusions or pneumothorax. Patchy perihilar and bibasilar consolidative opacities grossly unchanged since yesterday. Mediastinum: Mediastinal contours are normal. Heart size is enlarged. Bones and chest wall: No suspicious bony abnormalities. Soft tissues appear unremarkable. IMPRESSION: Overall, stable examination since yesterday as above Dictated by: Fili Carlos M.D. on 12/05/2016 at 17:43 Approved by: Fili Carlos M.D. on 12/05/2016 at 17:43 ADDENDUM: COMPARISON: [facility], CR, XR CHEST 2VW, 10/06/2016, 10:25. Lower thoracic/upper lumbar vertebral body anterior wedging unchanged Dictated by: Fili Carlos M.D. on 12/05/2016 at 17:45 Approved by: Fili Carlos M.D. on 12/05/2016 at 17:45 12-lead ECG EKG: Right and left arm electrode reversal, interpretation assumes no reversal . Atrial fibrillation . Ventricular premature complex . Low voltage, extremity leads . Nonspecific T abnormalities, lateral leads . Prolonged QT interval Cardiac Echo Impressions Echocardiogram Report Interpretation Summary Limited echo to evaluate valve gradients for acute shortness of breath. Patient is in chronic afib with RVR. HR 87-105 bpm. Normal LV size; severe concentric LVH; global hypokinesis. EF is 30--35%. Valves are not well seen. 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 Aortic valve is replaced with a mechanical prosthesis. There is mild aortic stenosis. Mean gradient is 17 mm Hg. Compared to prior study 10/19/2016 EF is less dynamic, particularly on apical views. EF is down from about 45-50% to now 30-35%. Valve function is unchanged Reading Physician:09:34 AM Echocardiogram Report Name: CALLIE SINCLAIR Study Date: 12/06/2016 Height: 60 in Hospital Exam Location: [facility] Weight: 161 lb Gender: Female BSA: 1.7 m2 : 1930 Age: 86 yrs BP: 113/61 mm Hg Reason For Study: Hypotension Ordering Physician: HOSPITALIST SVHPerformed By: Andra King Referring Physician: Dr. Titi Chapman Interpretation Summary This is a limited study 1. LV function appears stable as compared to the previous study of 11/25/16 2. Gradients across the mitral and aortic valves have not increased when compared to the study of 11/25/16 Assessment & Plan Patient is an 86-year-old female with CHF, atrial fibrillation, and history of aortic valve replacement and mitral valve replacement, on warfarin, COPD, DM2 and hypothyroidism who presented to [facility] from her SNF complaining of shortness of breath. SNF called EMS who reported 73% on 3L O2. SNF reports diaphoresis, cough and decreased responsiveness in last day. Acute, active # REBA, present on admission, Secondary to contrast and intravascular volume depletion, Abdominal ultrasound revealed normal-appearing kidneys with exophytic cyst upper pole left kidney, the serum creatinine has normalized. - appreciate Nephrology input - Stopped IV hydration, IV hydration started again and stopped 12/03/2016 due to fluid overload. -We will continue to avoid nephrotoxins. - s/p Lasix 60mg IV, bumex 1mg bid per nephro. This was then re discuss with Dr. Borrego changed to Bumex 1 mg by mouth daily. Patient appeared to still be fluid overloaded and will increase to twice a day again today on 12/05/2015. -We will give an extra dose of Lasix 40 mg IV today, 12/04/2016. -Discussed again with Dr. Martin of nephrology and asked her to reassess the patient and her assessment and recommendations are as follows: "1. REBA secondary to contrast-induced nephropathy. 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 - with CHF exacerbation. 3. AMS. - no acute abnormality. - will check ABG, suspected CO2 retention. 4. Metabolic alkalosis - check ABG. Plan: check ABG. d/c PO bumex. start IV lasix 40 mg q 8 hr. add Mg sulfate 2 gm IVPB". Nephrology consult appreciated and will follow their recommendations. # Pneumonia, present on admission, CT angio chest: right lower lobe consolidation, bilateral small pleural effusion, hyperdense material in the right lung base suspicious for aspiration - Continue Augmentin 875/125 PO bid day #11 of -; start date 11/26 pm dose - Procalcitonin dropped to 0.30 - CXR 11/29/15: overall no gross change from 11/27/15. Will repeat chest x-ray today as there are more adventitious sounds on physical exam today. # Urinary tract infection, present on admission, urine culture reportedly positive for Klebsiella Pneumoniae. However, urine culture from 11/27/2015 is positive for Emilia albicans. I see no evidence of a recent Klebsiella pneumonia urinary tract infection -We have started Diflucan 200 mg by mouth daily 12/03/2016. We will continue -We discontinued the Arias catheter. This was done this morning 12/04/2016 - Continue Augmentin PO day #11 of 10-14 days. Chronic, stable, # TIA, acute, not present on admission, resolved - Etiology is unclear. Patient is on warfarin for A-fib with goal INR of 2.5- 3.5 d/t aortic and mitral valve replacement - STAT CT of the brain and MRI negative - Neurology consulted, we appreciate their assistance - Stopped Aspirin and Warfarin (FOBT positive, INR 5.38) after admission. Hemoglobin and hematocrit INR stable. IV heparin for bridging therapy and oral Coumadin has been restarted. - MRA head and neck and MRI with contrast when kidney injury is resolved # Elevated troponin of unknown significance, present on admission, unknown chronicity - Chronically elevated in September 2016. 0.070 on admission - EKG at [facility]: Atrial fibrillation, ventricular premature complex, nonspecific T abnormalities, lateral leads, prolonged QT interval - Cardiology consult, Dr. Baez, appreciate your assistance - ECHO: EF down from about 45-50% in September 2016 to 30-35%; marked cardiomegaly - Atorvastatin 20 mg PO hs - Metoprolol 25 mg PO q6h - Patient is not a candidate for cardiac catheterization d/t her advanced age, frailty, chronic oral anticoagulation, the technical aspects of the procedure per Dr. Baez - Follow up as an outpatient with patient's primary die finisher forging # Atrial fibrillation, present on admission, chronic - On admit: INR 5.38, Vit K 10 mg IV given - H/o mitral and aortic valve replacement, maintain INR 2.5-3.5 - Metoprolol 25 mg PO q6h - Aspirin and Warfarin were stopped (stool was occult blood positive) we will restart Coumadin with IV heparin drip for bridging therapy. There is any evidence of bleeding IV heparin may be discontinued. - Monitor HGB&HCT - I have asked social science teacher to set up a family meeting bike and discuss the patient's case with the many family members as possible. With 2 mechanical valves one in the mitral position and one in the aortic position patient needs to be on warfarin anticoagulation. If she is not able to tolerate warfarin anticoagulation would recommend hospice care for the patient. This advanced care plan meeting was held today and included the patient's son Stephan along with his and son Garo along with his . We discussed the patient's complicated medical conditions and her long-term prognosis which is very poor. We discussed her frequent admissions over the last 3 months her swallowing difficulties and her quality of life. Dr. Borrego of nephrology was briefly involved in the discussion as well. Sandra from social science teacher was also present. All were in agreement that patient was ready for end-of-life care and hospice will be consulted in a.m. for an informational meeting. This advanced care planning meeting took well over 30 minutes. # Lactic acidosis, acute, present on admission, resolved - 3.3 at [facility], decreased to 0.8 # Acute on chronic hypoxia, present on admission, resolved - Initially required 5 L, but now on 3 L which is her home dose # CHF, diastolic, present on admission, chronic - BNP is elevated chronically. However patient appears to be fluid overloaded at this time. Will increase Bumex 2 twice a day - ECHO 11/25/16: EF down from about 45-50% in September 2016 to 30-35%; marked cardiomegaly -Bumex has been changed to Lasix IV every 8 hours by nephrology service. Appreciate their help. # Hypertension. present on admission. chronic - currently controlled. Re-evaluate # Hypothyroidism, present on admission, chronic - continue levothyroxine # Depression, present on admission, chronic - continue Citalopram # Deconditioning, present on admission, chronic - PT ordered # Urinary Retention, present on admission, chronic. - Continued tamsulosin - Arias removed on 10/04/2016. However, due to significant postvoid residual and risk of obstructive uropathy Arias was removed placed and will remain in place. # Dyslipidemia, present on admission, chronic - Continued statin - Acetaminophen as needed for mild pain/fever/headache - Bowel regimen as needed - Antiemetic as needed Code status: Per POLST, DNR/DNI Pain Evaluation: Adequate Pain Control GI Prophylaxis: Proton Pump Inhibitor VTE Prophylaxis: Sub-Q Heparin (Unfractionated), SCDs VTE Mechanical Devices: Venous Foot Pump Resuscitation Status: DNR/DNI:Do Not Resuscitate/Intubate Limited Interventions: BiPAP, Medications and IV Fluid Oniel Kasper MD Dec 07, 2016 21:56
[2016-12-08 04:25] VITALS: BP 103/53; PULSE 62; RESP 24; O2SAT 98
[2016-12-08 05:42] LABS: BASOPHILS % (AUTO) 0.6 % (0-3); EOSINOPHILS % (AUTO) 2.4 % (0-5); MONOCYTES % (AUTO) 10.1 % (4-12); Mean Corpuscular Hemoglobin 28.3 pg (27.0-35.0); NEUTROPHILS % (AUTO) 60.2 % (40-74); Platelet Count 97 bil/L (150-400)
--- NOTE | 2016-12-08 06:21 | NUR ---
Epistaxis No noted epistaxis this shift, continued with face mask. Pt cooperative with keeping mask on, left room with call light at bedside.
[2016-12-08 06:23] LABS: INR 1.41 ratio
[2016-12-08] MEDS: Pantoprazole 40 mg ER24 Tablet PO SCH (06:34)
[2016-12-08 07:52] VITALS: PULSE 67; RESP 16; O2SAT 99
[2016-12-08] MEDS: Potassium Chloride 20 mEq/15 mL 15mL Oral Soln PO SCH (09:20)
--- NOTE | 2016-12-08 12:16 | PCM.PHAPRO ---
Progress AMS and hypoxic resp distress WARFARIN DOSING PER PHARMACY Indication: Hx of mitral and aortic valve replacement, afib Home dose: 3 mg PO daily INR Goal: 2.5-3.5 Additional Anticoagulation: Heparin Drip Antiplatelet Tx: ASA 81mg daily DI: Augmentin, citalopram, fluconazole HCT/PLT: 30. Lab Date Result Dose INR 12/06/16 1.37 2 MG INR 12/07/16 1.38 3 MG INR 12/08/16 1.41 Plan: - Will give patient one time dose of warfarin 4 mg PO tonight - Pharmacy will continue to monitor INR/CBC/signs and symptoms of bleeding Lary Puente PharmD Dec 08, 2016 12:16
[2016-12-08 13:45] VITALS: BP 99/56; PULSE 71; RESP 22; O2SAT 99
--- NOTE | 2016-12-08 14:26 | NUR ---
Social Work-readiness for discharge: Data:EMR Reviewed. Pt is on day 14 of hospitalization for AFIB per H&P. Pt will be medically stable to discharge tomorrow. Hospice came and saw pt today and family did sign consents with Hospice. MILLA spoke with Nancy at [facility] who confirms that Hospice can open with pt tomorrow at [facility] at 1100. MILLA spoke with Celestina at [facility] who confirms that they can accept pt tomorrow and has set up transportation for tomorrow at 1030. MILLA updated MD who will completed discharge orders in the morning. MILLA called jerry Wyman and provided him with update. Garo states they will meet pt at facility at 1100. MILLA provided him with quote that they will need to pay, $7,800 tomorrow. Son agreeable. Jerry Wyman to update Jerry Rothman. MILLA will continue to follow. Assessment:Pt who will return to SNF with Hospice. Plan:Pt to discharge back to [facility] tomorrow at 1030 via cabulance. Hospice to open on service tomorrow at 1100. MD/Family updated and agreeable MILLA will continue to follow. ARTI Garduno Addendum: 12/08/16 at 1633 by JANAE FARRAR [facility] Hospice called back and states they cannot open until 2-3 tomorrow. MILLA called [facility] and arranged transport for 1300. MILLA updated pt's family via phone, all agreeable. ARTI Garduno
[2016-12-08] MEDS: Amoxicillin-Clav 500-125 mg Tablet PO SCH ×2 (14:54→20:56)
[2016-12-08 20:52] VITALS: BP 100/53; PULSE 62; RESP 36; O2SAT 96
--- NOTE | 2016-12-08 23:17 | PCM.PNMED ---
Subjective Date of Service Dec 08, 2016 Subjective Patient has no new complaints other than a very slight nosebleed which appears to stopped. Exam Vital Signs Vital Sign - Last Date Time Temp Pulse Resp B/P Pulse Ox O2 Delivery O2 Flow Rate FiO2 12/08/16 21:08 Supplement Oxygen 12/08/16 20:52 36.6 62 36 100/53 96 2.00 Intake and Output 12/07/16 12/07/16 12/08/16 Cumulative From/Thru 15:00 23:00 07:00 11/24/16 01:15 - 12/08/16 05:29 Intake Total 100 ml 1063 ml 24664 ml Output Total 1450 ml 400 ml 19045 ml Balance -1350 ml 663 ml -2350 ml Intake Oral 100 ml 960 ml 5738 ml IV Total 103 ml 6867 ml Output Urine Total 1450 ml 400 ml 96197 ml # Voids 4 # Bowel Movements 0 0 16 Exam General: Patient is in no apparent distress. She appears more awake and alert today. Her nosebleed earlier but this appears to have stopped. HEENT: Head is atraumatic normocephalic. Eyes: Pupils are equally round and reactive to light and accommodation. Extraocular muscles are intact. Sclera are white anicteric. Subconjunctival mucosa is pink. Ears and nose are unremarkable. Does not appear to be any further nosebleed. Oropharynx: There are no mucosal lesions, there is no thrush, there is no pharyngitis. Neck: Is supple, there are no nodes, or masses, or tenderness. Chest: The lungs are clearer gams today. Heart: Rate, rhythm is regular. There is no murmur, rub or gallop. Abdomen: Good bowel sounds are present. Abdomen is soft, nontender, no organomegaly or masses were appreciated. Extremities: Are symmetrical and well perfused. There is minimal edema, there is no cellulitis, no rash. Neurologic: There are no focal neurological deficits. Cranial nerves II through XII are intact. There are no sensory or motor deficits. Patient remains pleasantly confused. Psychiatric: Patients mood is calm and she shows no sign of agitation. She is pleasantly confused. Genital: Deferred Rectal: Deferred Lab and Diagnostics Result Diagram: 12/08/16 0912 12/08/16 0525 Microbiology Microbiology REGINALDO STREP PNEUMONIAE AG URINE Final 11/24/16 STREP PNEUMO AG NEGATIVE Tests performed directly on clinical specimens are intended for screening purposes only and should augment, not replace, culture procedures Please Note: Streptococcus pneumoniae vaccine may cause false positive results in urine in the 48 hours following injection. Hence, it is recommended that the Alere Strep pneumoniae Antigen testing not be performed within five days of receiving the S. pneumoniae vaccine ----- NASOPHARYNGEAL: Microbiology ADENOVIRUS RESPIRATORY PCR Final 11/24/16 Not Detected CORONOVIRUS 229E Final 11/24/16 Not Detected CORONOVIRUS HKU1 Final 11/24/16 Not Detected CORONOVIRUS NL63 Final 11/24/16 Not Detected CORONOVIRUS OC43 Final 11/24/16 Not Detected INFLUENZA A PCR Final 11/24/16 Not Detected INFLUENZA B PCR Final 11/24/16 Not Detected METAPNEUMOVIRUS PCR Final 11/24/16 Not Detected RHINOVIRUS OR ENTEROVIRUS PCR Final 11/24/16 Not Detected PARAINFLUENZA 1 PCR Final 11/24/16 Not Detected PARAINFLUENZA 2 PCR Final 11/24/16 Not Detected PARAINFLUENZA 3 PCR Final 11/24/16 Not Detected PARAINFLUENZA 4 PCR Final 11/24/16 Not Detected RESP SYNCYTIAL VIRUS PCR Final 11/24/16 Not Detected CHLAMDOPHILIA PNEUMONIAE PCR Final 11/24/16 Not Detected MYCOPLASMA PNEUMONIAE PCR Final 11/24/16 MYCO PNEUMONIAE PCR Not Detected Reference Interval Not Detected SISTER SUPERIOR swab is the only specimen type cleared by the FDA. Nasal wash, tracheal aspirate, and bronchial lavage specimen types have not been cleared by the FDA. Therefore results on any specimen type other than nasopharyngeal are considered investigational testing only. Microbiology REGINALDO OCCULT BLOOD IMMUNOCHEM Final 11/25/16-110 OCCULT BLD IMMUNOCHEMICAL POSITIVE REFERENCE INTERVAL NEGATIVE Microbiology REGINALDO CULT NASAL MRSA SCREEN Final 11/25/16-130 Screen NEGATIVE for Methicillin Resistant Staph Aureus Name: CALLIE SINCLAIR Age/Sex: 86/F Attend Dr: Jocelyn Black MD Acct: [id number] Unit: [id number] Status: [place] [facility] [place]11/24/[place] Disch: Specimen: [id number] Collected: 11/27/16 Status: MAGDI Req#: [id number] Received: 11/27/16 Source: RANDOM Sp Desc : Subm Dr: Xavier Cruz MD Ordered: URINE CULT Procedure Result Verified Site Microbiology REGINALDO CULT URINE Final 11/30/16-1030 Organism 1 EMILIA ALBICANS U COLONY COUNT/QUANTITY >100,000 CFU/ml SENSITIVITY COMMENTS Sensitivity not routinely performed on this org this source source X-Rays, CTs and MRIs PROCEDURE: X-RAY CHEST ONE VIEW, PORTABLE ([id number]) INDICATIONS: Follow up for congestive heart failure COMPARISON: [facility], CR, XR CHEST 1VW (PORTABLE), 10/17/2016, 12 :41. FINDINGS: Surgical changes and devices: Post median sternotomy with valvular replacement. Lungs and pleura: Interstitium is prominent no significant change from prior examination. No focal lung consolidation present. Mediastinum: Mediastinal contours appear normal. Heart size is enlarged. Bones and chest wall: No suspicious bony lesions. Overlying soft tissues appear unremarkable. IMPRESSION: 1. Cardiomegaly and chronic interstitial pulmonary densities with no significant change from prior examination which may be chronic but superimposed pulmonary edema cannot be excluded. Recommend clinical correlation. Dictated by: Kolby Turner RRA Interpreted: Tomas Medina MD on 10/23/2016 at 13: 46 Transcribed by: TRUDI on 10/23/2016 at 13:46 Approved by: Tomas Medina M.D. on 10/23/2016 at 15:37 PROCEDURE: CT ANGIO CHEST PULMONARY EMBOLISM ([id number]) FINDINGS: Pulmonary arteries: Pulmonary arteries are normal in size, and demonstrate no intraluminal filling defects to suggest central pulmonary embolism. Lungs and pleura: There are right lower lobe infiltrates and consolidation consistent with pneumonia. Hyperdensities in the right lung base may be related to aspiration. There are small bilateral effusions with basilar atelectasis, left greater than right. Bilateral interstitial thickening likely secondary to pulmonary edema. No pneumothorax. Central and peripheral airways are patent. Mediastinum: Heart is moderately to severely enlarged. No pericardial effusion. There is a prosthetic aortic valve. No mediastinal or hilar adenopathy. Thoracic aorta is normal in caliber and enhancement. Severe aortic calcification consistent with atherosclerosis with Esophagus is normal in caliber, without hiatal hernia. Bones and chest wall: No suspicious bony lesions. Ribs and thoracic spine appear intact throughout. Thyroid gland is normal. No axillary or supraclavicular adenopathy. Abdomen: There is IV contrast reflux into the hepatic vein. A 2.9 x 3.9 cm cystic structure is noted in the left upper quadrant anterior to the superior pole of the left kidney, probably an exophytic cyst. IMPRESSION: 1. No acute central pulmonary embolism. 2. Right lower lobe infiltrates and consolidation consistent pneumonia. 3. Bilateral small pleural effusions with basilar atelectasis. 4. Marked cardiomegaly and prosthetic aortic valve. There is bilateral interstitial thickening suggesting mild pulmonary edema secondary to congestive heart failure. 5. Hyperdense material in the right lung base suspicious for aspiration. Dictated by: Arsen Valenzuela M.D. on 11/26/2016 at 9:19 Approved by: Arsen Valenzuela M.D. on 11/26/2016 at 9:19 PROCEDURE: CT BRAIN WITHOUT CONTRAST ([id number]) INDICATIONS: change in mental status FINDINGS: Image quality: Excellent. CSF spaces: Basal cisterns are patent. No extra-axial fluid collections. The ventricles are symmetric in size and shape. Brain: No intracranial bleeds or masses. There is cerebral volume loss for age , with resultant ventricular and sulcal prominence. There are periventricular and deep white matter chronic small vessel ischemic changes. Old, small, left caudate body/barlow radiata lacunar infarct noted. Small punctate density in the left frontal periventricular white matter is stable compared to prior examination. There is intracranial internal carotid artery atherosclerosis. Skull and face: Calvarium and visualized facial bones appear intact, without suspicious lesions. Sinuses: Visualized sinuses and mastoids are clear. IMPRESSION: 1. No acute intracranial disease process. 2. No intracranial hemorrhage. Dictated by: Rachel Nichols MD, PhD on 11/27/2016 at 11:02 Approved by: Rachel Nichols MD, PhD on 11/27/2016 at 11:02 PROCEDURE: MRI BRAIN WITHOUT CONTRAST ([id number]) INDICATIONS: Slurred speech, unilateral weakness FINDINGS: Image quality: Motion artifact limits evaluation. CSF spaces: Ventricles appear symmetric in size and shape. Basal cisterns are patent. No extra-axial fluid collections. Brain: No intracranial bleeds or mass effects. There is minimal cerebral volume loss for age. There are mild periventricular and deep white matter chronic small vessel ischemic changes. Brainstem appears normal. Diffusion- weighted images show no acute ischemic insults. No chronic ischemic insults. Normal intravascular flow voids are present. Skull and face: Calvarial bone marrow is normal in signal. Orbits are normal. Sinuses: Sinuses and mastoids are clear. IMPRESSION: 1. Markedly limited study due to motion artifact. However, is no increased restricted diffusion to suggest acute or subacute infarct. 2. Considering patient age, there are only trace senescent finding likely associated with microvascular ischemia. Dictated by: Naida Matos M.D. on 11/27/2016 at 16:02 Approved by: Naida Matos M.D. on 11/27/2016 at 16:02 PROCEDURE: US RENAL SONOGRAM INDICATIONS: reba IMPRESSION: 1. Normal-appearing kidneys noting exophytic cyst upper pole left kidney 2. Urinary bladder not evaluated secondary to indwelling Arias catheter. Dictated by: Christopher Garcia M.D. on 11/28/2016 at 13:44 Approved by: Christopher Garcia M.D. on 11/28/2016 at 13:44 PROCEDURE: X-RAY CHEST ONE VIEW, PORTABLE ([id number]) INDICATIONS: Acute kidney injury COMPARISON: [facility], CR, XR CHEST 1VW (PORTABLE), 11/27/2016, 5: 45. FINDINGS: Surgical changes and devices: Sternotomy wires and cardiac valvular prosthesis.. Lungs and pleura: Bilateral small layering pleural effusions. Retrocardiac consolidation unchanged. Diffuse groundglass opacities are unchanged suggesting pulmonary edema. No pneumothorax. Mediastinum: Mediastinal contours appear normal. Heart size is normal. Bones and chest wall: No suspicious bony lesions. Overlying soft tissues appear unremarkable. IMPRESSION: Overall, no gross interval change since 11/27/16 Dictated by: Fili Carlos M.D. on 11/29/2016 at 11:56 Approved by: Fili Carlos M.D. on 11/29/2016 at 11:56 PROCEDURE: X-RAY CHEST, TWO VIEWS ([id number]) INDICATIONS: Follow up for CHF? Pneumonia TECHNIQUE: 2 views of the chest were acquired. COMPARISON: [facility], CR, XR CHEST 1VW (PORTABLE), 12/04/2016, 20: 33. FINDINGS: Surgical changes and devices: Valvular prostheses and sternotomy wires. Lungs and pleura: No pleural effusions or pneumothorax. Patchy perihilar and bibasilar consolidative opacities grossly unchanged since yesterday. Mediastinum: Mediastinal contours are normal. Heart size is enlarged. Bones and chest wall: No suspicious bony abnormalities. Soft tissues appear unremarkable. IMPRESSION: Overall, stable examination since yesterday as above Dictated by: Fili Carlos M.D. on 12/05/2016 at 17:43 Approved by: Fili Carlos M.D. on 12/05/2016 at 17:43 ADDENDUM: COMPARISON: [facility], CR, XR CHEST 2VW, 10/06/2016, 10:25. Lower thoracic/upper lumbar vertebral body anterior wedging unchanged Dictated by: Fili Carlos M.D. on 12/05/2016 at 17:45 Approved by: Fili Carlos M.D. on 12/05/2016 at 17:45 12-lead ECG EKG: Right and left arm electrode reversal, interpretation assumes no reversal . Atrial fibrillation . Ventricular premature complex . Low voltage, extremity leads . Nonspecific T abnormalities, lateral leads . Prolonged QT interval Cardiac Echo Impressions Echocardiogram Report Interpretation Summary Limited echo to evaluate valve gradients for acute shortness of breath. Patient is in chronic afib with RVR. HR 87-105 bpm. Normal LV size; severe concentric LVH; global hypokinesis. EF is 30--35%. Valves are not well seen. 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 Aortic valve is replaced with a mechanical prosthesis. There is mild aortic stenosis. Mean gradient is 17 mm Hg. Compared to prior study 10/19/2016 EF is less dynamic, particularly on apical views. EF is down from about 45-50% to now 30-35%. Valve function is unchanged Reading Physician:09:34 AM Echocardiogram Report Name: CALLIE SINCLAIR Study Date: 12/06/2016 Height: 60 in Hospital Exam Location: [facility] Weight: 161 lb Gender: Female BSA: 1.7 m2 : 1930 Age: 86 yrs BP: 113/61 mm Hg Reason For Study: Hypotension Ordering Physician: HOSPITALIST SVHPerformed By: Andra King Referring Physician: Dr. Titi Chapman Interpretation Summary This is a limited study 1. LV function appears stable as compared to the previous study of 11/25/16 2. Gradients across the mitral and aortic valves have not increased when compared to the study of 11/25/16 Assessment & Plan Patient is an 86-year-old female with CHF, atrial fibrillation, and history of aortic valve replacement and mitral valve replacement, on warfarin, COPD, DM2 and hypothyroidism who presented to [facility] from her SNF complaining of shortness of breath. SNF called EMS who reported 73% on 3L O2. SNF reports diaphoresis, cough and decreased responsiveness in last day. Acute, active # REBA, present on admission, Secondary to contrast and intravascular volume depletion, Abdominal ultrasound revealed normal-appearing kidneys with exophytic cyst upper pole left kidney, the serum creatinine has normalized. - appreciate Nephrology input - Stopped IV hydration, IV hydration started again and stopped 12/03/2016 due to fluid overload. -We will continue to avoid nephrotoxins. - s/p Lasix 60mg IV, bumex 1mg bid per nephro. This was then re discuss with Dr. Borrego changed to Bumex 1 mg by mouth daily. Patient appeared to still be fluid overloaded and the dose was increased to twice a day again on 12/05/2015. -We gave an extra dose of Lasix 40 mg IV today, 12/04/2016. -Discussed again with Dr. Martin of nephrology and asked her to reassess the patient and her assessment and recommendations are as follows: "1. REBA secondary to contrast-induced nephropathy. 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 - with CHF exacerbation. 3. AMS. - no acute abnormality. - will check ABG, suspected CO2 retention. 4. Metabolic alkalosis - check ABG. Plan: check ABG. d/c PO bumex. start IV lasix 40 mg q 8 hr. add Mg sulfate 2 gm IVPB". Nephrology consult appreciated and will follow their recommendations. # Pneumonia, present on admission, CT angio chest: right lower lobe consolidation, bilateral small pleural effusion, hyperdense material in the right lung base suspicious for aspiration - Continue Augmentin 875/125 PO bid day #12 of -; start date 11/26 pm dose - Procalcitonin dropped to 0.30 - CXR 11/29/15: overall no gross change from 11/27/15. Will repeat chest x-ray today as there are more adventitious sounds on physical exam today. # Urinary tract infection, present on admission, urine culture reportedly positive for Klebsiella Pneumoniae. However, urine culture from 11/27/2015 is positive for Emilia albicans. I see no evidence of a recent Klebsiella pneumonia urinary tract infection -We have started Diflucan 200 mg by mouth daily 12/03/2016. We will continue -We discontinued the Arias catheter. This was done this morning 12/04/2016 - Continue Augmentin PO day #11 of 12-14 days. Chronic, stable, # TIA, acute, not present on admission, resolved - Etiology is unclear. Patient is on warfarin for A-fib with goal INR of 2.5- 3.5 d/t aortic and mitral valve replacement - STAT CT of the brain and MRI negative - Neurology consulted, we appreciate their assistance - Stopped Aspirin and Warfarin (FOBT positive, INR 5.38) after admission. Hemoglobin and hematocrit INR stable. IV heparin for bridging therapy and oral Coumadin has been restarted. - MRA head and neck and MRI with contrast when kidney injury is resolved # Elevated troponin of unknown significance, present on admission, unknown chronicity - Chronically elevated in September 2016. 0.070 on admission - EKG at [facility]: Atrial fibrillation, ventricular premature complex, nonspecific T abnormalities, lateral leads, prolonged QT interval - Cardiology consult, Dr. Baez, appreciate your assistance - ECHO: EF down from about 45-50% in September 2016 to 30-35%; marked cardiomegaly - Atorvastatin 20 mg PO hs - Metoprolol 25 mg PO q6h - Patient is not a candidate for cardiac catheterization d/t her advanced age, frailty, chronic oral anticoagulation, the technical aspects of the procedure per Dr. 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 There is any evidence of bleeding IV heparin may be discontinued. - Monitor HGB&HCT - I have asked social science analyst to set up a family meeting bike and discuss the patient's case with the many family members as possible. With 2 mechanical valves one in the mitral position and one in the aortic position patient needs to be on warfarin anticoagulation. If she is not able to tolerate warfarin anticoagulation would recommend hospice care for the patient. This advanced care plan meeting was held today and included the patient's son Stephan along with his and son Garo along with his . We discussed the patient's complicated medical conditions and her long-term prognosis which is very poor. We discussed her frequent admissions over the last 3 months her swallowing difficulties and her quality of life. Dr. Borrego of nephrology was briefly involved in the discussion as well. Sandra from social science analyst was also present. All were in agreement that patient was ready for end-of-life care and hospice will be consulted for an informational meeting. Hospice met with the family today and have except the patient and the plan is for patient to go with [facility]. # Lactic acidosis, acute, present on admission, resolved - 3.3 at [facility], decreased to 0.8 # Acute on chronic hypoxia, present on admission, resolved - Initially required 5 L, but now on 3 L which is her home dose # CHF, diastolic, present on admission, chronic - BNP is elevated chronically. However patient appears to be fluid overloaded at this time. Will increase Bumex 2 twice a day - ECHO 11/25/16: EF down from about 45-50% in September 2016 to 30-35%; marked cardiomegaly -Bumex has been changed to Lasix IV every 8 hours by nephrology service. Appreciate their help. # Hypertension. present on admission. chronic - currently controlled. Re-evaluate # Hypothyroidism, present on admission, chronic - continue levothyroxine # Depression, present on admission, chronic - continue Citalopram # Deconditioning, present on admission, chronic - PT ordered # Urinary Retention, present on admission, chronic. - Continued tamsulosin - Arias removed on 10/04/2016. However, due to significant postvoid residual and risk of obstructive uropathy Arias was removed placed and will remain in place. # Dyslipidemia, present on admission, chronic - Continued statin - Acetaminophen as needed for mild pain/fever/headache - Bowel regimen as needed - Antiemetic as needed Code status: Per POLST, DNR/DNI Pain Evaluation: Adequate Pain Control GI Prophylaxis: Proton Pump Inhibitor VTE Prophylaxis: Sub-Q Heparin (Unfractionated), SCDs VTE Mechanical Devices: Venous Foot Pump Resuscitation Status: DNR/DNI:Do Not Resuscitate/Intubate Limited Interventions: BiPAP, Medications and IV Fluid Oniel Kasper MD Dec 08, 2016 23:17
--- NOTE | 2016-12-09 05:06 | NUR ---
Uneventful Night: Pt had an uneventful night, no c/o pain, chest pain or SOB. Pt slept most of the night, pleasant and cooperative with care.
[2016-12-09 05:14] LABS: BASOPHILS % (AUTO) 0.4 % (0-3); EOSINOPHILS % (AUTO) 1.7 % (0-5); MONOCYTES % (AUTO) 11.4 % (4-12); Mean Corpuscular Volume 95.8 fL (81-100); NEUTROPHILS % (AUTO) 61.8 % (40-74); Platelet Count 91 bil/L (150-400)
[2016-12-09 05:29] VITALS: BP 116/66; PULSE 74; RESP 32; O2SAT 95
[2016-12-09 05:49] LABS: INR 1.55 ratio
[2016-12-09 08:33] VITALS: PULSE 59; RESP 20; O2SAT 96
[2016-12-09] MEDS: Amoxicillin-Clav 500-125 mg Tablet PO SCH (08:46)
[2016-12-09] MEDS: Potassium Chloride 20 mEq/15 mL 15mL Oral Soln PO SCH (08:46)
[2016-12-09] MEDS: Pantoprazole 40 mg ER24 Tablet PO SCH (08:47)
--- NOTE | 2016-12-09 11:31 | PCM.DIMED ---
Discharge Instructions Date of Service Dec 09, 2016 Dates of Hospitalization Nov 24, 2016 at 00:58 Discharge Diagnosis Discharge Diagnosis CHF with Renal Failure with AVR and MVR with recent GI bleeding on Coumadin Diet Heart Healthy Activity Outpatient Physical Therapy (PT to evaluate and treat) Call your provider Fever or Chills, Shortness of breath, Bleeding, Chest pain, Vomitting, Excessive diarrhea, Weakness (unilateral), Other Patient Instructions Follow-up Provider: Zafar Chapman DO Follow-up with PCP in: 1 week Provider: Sissy Baez MD Follow-up in: 2 weeks Oniel Kasper MD Dec 09, 2016 11:31
[2016-12-09] MEDS ORDERED: WARF3TAB7 PO (11:36)
--- NOTE | 2016-12-09 12:26 | NUR ---
Discharge Report called to Nelia BURGOS at [facility], IV d/c intact, tele removed, Arias catheter to remain in per MD orders ([facility] aware). Care continues until pickup at 1300. Addendum: 12/09/16 at 1404 by ENEDELIA HOGUE RN pt taken off unit via WC by transport with all belongings at approx 1305
--- NOTE | 2016-12-09 13:11 | NUR ---
Social Work-discharge: Data:EMR reviewed. Pt is on day 15 of hospitalization for AFIB per H&P. Pt is medically stable for discharge today. SW confirmed plan with Hospice and they are able to open with pt today at 2-3. SW confirmed with [facility] admissions at at [facility] that they are able to accept today. [facility] has arranged transport for 1300. SW updated pt's son Garo and he is agreeable to plan. Family to make payment at facility today. RN,UC,pt/family, and [facility] all updated and agreeable to plan. Assessment:Pt to benefit from SNF with Hospice. Plan:Pt to discharge back to [facility] today via cabulance at 1300. Family to make private pay payment today. Hospice to open this afternoon between 2-3. RN,UC,pt/family, and [facility] all updated and agreeable to plan. ARTI Garduno
--- NOTE | 2016-12-10 01:01 | PCM.DC.MED ---
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 FINDINGS: Surgical changes and devices: Post median sternotomy with valvular replacement. Lungs and pleura: Interstitium is prominent no significant change from prior examination. No focal lung consolidation present. Mediastinum: Mediastinal contours appear normal. Heart size is enlarged. Bones and chest wall: No suspicious bony lesions. Overlying soft tissues appear unremarkable. IMPRESSION: 1. Cardiomegaly and chronic interstitial pulmonary densities with no significant change from prior examination which may be chronic but superimposed pulmonary edema cannot be excluded. Recommend clinical correlation. Dictated by: Kolby Turner RR Interpreted: Tomas Medina MD on 10/23/2016 at 13: 46 Transcribed by: TRUDI on 10/23/2016 at 13:46 Approved by: Tomas Medina M.D. on 10/23/2016 at 15:37 PROCEDURE: CT ANGIO CHEST PULMONARY EMBOLISM ([id number]) FINDINGS: Pulmonary arteries: Pulmonary arteries are normal in size, and demonstrate no intraluminal filling defects to suggest central pulmonary embolism. Lungs and pleura: There are right lower lobe infiltrates and consolidation consistent with pneumonia. Hyperdensities in the right lung base may be related to aspiration. There are small bilateral effusions with basilar atelectasis, left greater than right. Bilateral interstitial thickening likely secondary to pulmonary edema. No pneumothorax. Central and peripheral airways are patent. Mediastinum: Heart is moderately to severely enlarged. No pericardial effusion. There is a prosthetic aortic valve. No mediastinal or hilar adenopathy. Thoracic aorta is normal in caliber and enhancement. Severe aortic calcification consistent with atherosclerosis with Esophagus is normal in caliber, without hiatal hernia. Bones and chest wall: No suspicious bony lesions. Ribs and thoracic spine appear intact throughout. Thyroid gland is normal. No axillary or supraclavicular adenopathy. Abdomen: There is IV contrast reflux into the hepatic vein. A 2.9 x 3.9 cm cystic structure is noted in the left upper quadrant anterior to the superior pole of the left kidney, probably an exophytic cyst. IMPRESSION: 1. No acute central pulmonary embolism. 2. Right lower lobe infiltrates and consolidation consistent pneumonia. 3. Bilateral small pleural effusions with basilar atelectasis. 4. Marked cardiomegaly and prosthetic aortic valve. There is bilateral interstitial thickening suggesting mild pulmonary edema secondary to congestive heart failure. 5. Hyperdense material in the right lung base suspicious for aspiration. Dictated by: Arsen Valenzuela M.D. on 11/26/2016 at 9:19 Approved by: Arsen Valenzuela M.D. on 11/26/2016 at 9:19 PROCEDURE: CT BRAIN WITHOUT CONTRAST ([id number]) INDICATIONS: change in mental status FINDINGS: Image quality: Excellent. CSF spaces: Basal cisterns are patent. No extra-axial fluid collections. The ventricles are symmetric in size and shape. Brain: No intracranial bleeds or masses. There is cerebral volume loss for age , with resultant ventricular and sulcal prominence. There are periventricular and deep white matter chronic small vessel ischemic changes. Old, small, left caudate body/barlow radiata lacunar infarct noted. Small punctate density in the left frontal periventricular white matter is stable compared to prior examination. There is intracranial internal carotid artery atherosclerosis. Skull and face: Calvarium and visualized facial bones appear intact, without suspicious lesions. Sinuses: Visualized sinuses and mastoids are clear. IMPRESSION: 1. No acute intracranial disease process. 2. No intracranial hemorrhage. Dictated by: Rachel Nichols MD, PhD on 11/27/2016 at 11:02 Approved by: Rachel Nichols MD, PhD on 11/27/2016 at 11:02 PROCEDURE: MRI BRAIN WITHOUT CONTRAST ([id number]) INDICATIONS: Slurred speech, unilateral weakness FINDINGS: Image quality: Motion artifact limits evaluation. CSF spaces: Ventricles appear symmetric in size and shape. Basal cisterns are patent. No extra-axial fluid collections. Brain: No intracranial bleeds or mass effects. There is minimal cerebral volume loss for age. There are mild periventricular and deep white matter chronic small vessel ischemic changes. Brainstem appears normal. Diffusion- weighted images show no acute ischemic insults. No chronic ischemic insults. Normal intravascular flow voids are present. Skull and face: Calvarial bone marrow is normal in signal. Orbits are normal. Sinuses: Sinuses and mastoids are clear. IMPRESSION: 1. Markedly limited study due to motion artifact. However, is no increased restricted diffusion to suggest acute or subacute infarct. 2. Considering patient age, there are only trace senescent finding likely associated with microvascular ischemia. Dictated by: Naida Matos M.D. on 11/27/2016 at 16:02 Approved by: Naida Matos M.D. on 11/27/2016 at 16:02 PROCEDURE: US RENAL SONOGRAM INDICATIONS: reba IMPRESSION: 1. Normal-appearing kidneys noting exophytic cyst upper pole left kidney 2. Urinary bladder not evaluated secondary to indwelling Arias catheter. Dictated by: Christopher Garcia M.D. on 11/28/2016 at 13:44 Approved by: Christopher Garcia M.D. on 11/28/2016 at 13:44 PROCEDURE: X-RAY CHEST ONE VIEW, PORTABLE ([id number]) INDICATIONS: Acute kidney injury COMPARISON: [facility], CR, XR CHEST 1VW (PORTABLE), 11/27/2016, 5: 45. FINDINGS: Surgical changes and devices: Sternotomy wires and cardiac valvular prosthesis.. Lungs and pleura: Bilateral small layering pleural effusions. Retrocardiac consolidation unchanged. Diffuse groundglass opacities are unchanged suggesting pulmonary edema. No pneumothorax. Mediastinum: Mediastinal contours appear normal. Heart size is normal. Bones and chest wall: No suspicious bony lesions. Overlying soft tissues appear unremarkable. IMPRESSION: Overall, no gross interval change since 11/27/16 Dictated by: Fili Carlos M.D. on 11/29/2016 at 11:56 Approved by: Fili Carlos M.D. on 11/29/2016 at 11:56 PROCEDURE: X-RAY CHEST, TWO VIEWS ([id number]) INDICATIONS: Follow up for CHF? Pneumonia TECHNIQUE: 2 views of the chest were acquired. COMPARISON: [facility], CR, XR CHEST 1VW (PORTABLE), 12/04/2016, 20: 33. FINDINGS: Surgical changes and devices: Valvular prostheses and sternotomy wires. Lungs and pleura: No pleural effusions or pneumothorax. Patchy perihilar and bibasilar consolidative opacities grossly unchanged since yesterday. Mediastinum: Mediastinal contours are normal. Heart size is enlarged. Bones and chest wall: No suspicious bony abnormalities. Soft tissues appear unremarkable. IMPRESSION: Overall, stable examination since yesterday as above Dictated by: Fili Carlos M.D. on 12/05/2016 at 17:43 Approved by: Fili Carlos M.D. on 12/05/2016 at 17:43 ADDENDUM: COMPARISON: [facility], CR, XR CHEST 2VW, 10/06/2016, 10:25. Lower thoracic/upper lumbar vertebral body anterior wedging unchanged Dictated by: Fili Carlos M.D. on 12/05/2016 at 17:45 Approved by: Fili Carlos M.D. on 12/05/2016 at 17:45 ECG 12 Lead EKG: Right and left arm electrode reversal, interpretation assumes no reversal . Atrial fibrillation . Ventricular premature complex . Low voltage, extremity leads . Nonspecific T abnormalities, lateral leads . Prolonged QT interval Cardiac Echo Impression Echocardiogram Report Interpretation Summary Limited echo to evaluate valve gradients for acute shortness of breath. Patient is in chronic afib with RVR. HR 87-105 bpm. Normal LV size; severe concentric LVH; global hypokinesis. EF is 30--35%. Valves are not well seen. 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 Aortic valve is replaced with a mechanical prosthesis. There is mild aortic stenosis. Mean gradient is 17 mm Hg. Compared to prior study 10/19/2016 EF is less dynamic, particularly on apical views. EF is down from about 45-50% to now 30-35%. Valve function is unchanged Reading Physician:09:34 AM Echocardiogram Report Name: CALLIE SINCLAIR Study Date: 12/06/2016 Height: 60 in Hospital Exam Location: [facility] Weight: 161 lb Gender: Female BSA: 1.7 m2 : 1930 Age: 86 yrs BP: 113/61 mm Hg Reason For Study: Hypotension Ordering Physician: HOSPITALIST SVHPerformed By: Andra King Referring Physician: Dr. Titi Chapman Interpretation Summary This is a limited study 1. LV function appears stable as compared to the previous study of 11/25/16 2. Gradients across the mitral and aortic valves have not increased when compared to the study of 11/25/16 Brief History 86 yo patient who had been living with her son Garo for the past 12 yrs- starting after her AVR/MVR in 2005 at . She has needed progressive assistance over the past yr or so until end of Aug when she became ill and seen in ER then hospital. She has been hospitalized 10/03 and 10/17 and then again 11/24/16 gor CHF, UTI and now pneumonia- concern for aspiration. She had an EF on ECHO of 45- 50% in Sep but then with this hospitalization it dropped to 30-35% with mod MS otherwise OK valve protheses. She has afib on aticoag and had acute L weakness with dx of TIA 11/27/16.The families hope was for her to get stronger so she could go to a more social assisted care environment. Instead she seems to be getting weaker. She has had hx of CRI with a baseline 1.6 which is now 2.3 down from 2.81 She has been treated with IV fluids and antibiotics. Recent UTI- Klebsiella, pneumonia R base- dense and chronic anemia and thrombocytopenia which is unchanged. She was admitted to the hospitalist service again for evaluation and treatment. Hospital Course Patient is an 86-year-old female with CHF, atrial fibrillation, and history of aortic valve replacement and mitral valve replacement, on warfarin, COPD, DM2 and hypothyroidism who presented to [facility] from her SNF complaining of shortness of breath. SNF called EMS who reported 73% on 3L O2. SNF reports diaphoresis, cough and decreased responsiveness in last day. Acute, active # REBA, present on admission, Secondary to contrast and intravascular volume depletion, Abdominal ultrasound revealed normal-appearing kidneys with exophytic cyst upper pole left kidney, the serum creatinine has normalized. - appreciate Nephrology input - Stopped IV hydration, IV hydration started again and stopped 12/03/2016 due to fluid overload. -We will continue to avoid nephrotoxins. - s/p Lasix 60mg IV, bumex 1mg bid per nephro. This was then re discuss with Dr. Borrego changed to Bumex 1 mg by mouth daily. Patient appeared to still be fluid overloaded and the dose was increased to twice a day again on 12/05/2015. -We gave an extra dose of Lasix 40 mg IV today, 12/04/2016. -Discussed again with Dr. Martin of nephrology and asked her to reassess the patient and her assessment and recommendations are as follows: "1. REBA secondary to contrast-induced nephropathy. 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 - with CHF exacerbation. 3. AMS. - no acute abnormality. - will check ABG, suspected CO2 retention. 4. Metabolic alkalosis - check ABG. Plan: check ABG. d/c PO bumex. start IV lasix 40 mg q 8 hr. add Mg sulfate 2 gm IVPB". Nephrology consult appreciated and will follow their recommendations. # Pneumonia, present on admission, CT angio chest: right lower lobe consolidation, bilateral small pleural effusion, hyperdense material in the right lung base suspicious for aspiration - Continue Augmentin 875/125 PO bid day #12 of -; start date 11/26 pm dose - Procalcitonin dropped to 0.30 - CXR 11/29/15: overall no gross change from 11/27/15. Will repeat chest x-ray today as there are more adventitious sounds on physical exam today. # Urinary tract infection, present on admission, urine culture reportedly positive for Klebsiella Pneumoniae. However, urine culture from 11/27/2015 is positive for Emilia albicans. I see no evidence of a recent Klebsiella pneumonia urinary tract infection -We have started Diflucan 200 mg by mouth daily 12/03/2016. We will continue -We discontinued the Arias catheter. This was done this morning 12/04/2016 - Continue Augmentin PO day #11 of 12-14 days. Chronic, stable, # TIA, acute, not present on admission, resolved - Etiology is unclear. Patient is on warfarin for A-fib with goal INR of 2.5- 3.5 d/t aortic and mitral valve replacement - STAT CT of the brain and MRI negative - Neurology consulted, we appreciate their assistance - Stopped Aspirin and Warfarin (FOBT positive, INR 5.38) after admission. Hemoglobin and hematocrit INR stable. IV heparin for bridging therapy and oral Coumadin has been restarted. - MRA head and neck and MRI with contrast when kidney injury is resolved # Elevated troponin of unknown significance, present on admission, unknown chronicity - Chronically elevated in September 2016. 0.070 on admission - EKG at [facility]: Atrial fibrillation, ventricular premature complex, nonspecific T abnormalities, lateral leads, prolonged QT interval - Cardiology consult, Dr. Baez, appreciate your assistance - ECHO: EF down from about 45-50% in September 2016 to 30-35%; marked cardiomegaly - Atorvastatin 20 mg PO hs - Metoprolol 25 mg PO q6h - Patient is not a candidate for cardiac catheterization d/t her advanced age, frailty, chronic oral anticoagulation, the technical aspects of the procedure per Dr. Baez - Follow up as an outpatient with patient's primary meat team member # Atrial fibrillation, present on admission, chronic - On admit: INR 5.38, Vit K 10 mg IV given - H/o mitral and aortic valve replacement, maintain INR 2.5-3.5 - Metoprolol 25 mg PO q6h - Aspirin and Warfarin were stopped (stool was occult blood positive) we will restart Coumadin with IV heparin drip for bridging therapy. There is any evidence of bleeding IV heparin may be discontinued. - Monitor HGB&HCT - I have asked social work program coordinator to set up a family meeting bike and discuss the patient's case with the many family members as possible. With 2 mechanical valves one in the mitral position and one in the aortic position patient needs to be on warfarin anticoagulation. If she is not able to tolerate warfarin anticoagulation would recommend hospice care for the patient. This advanced care plan meeting was held today and included the patient's son Stephan along with his and son Garo along with his . We discussed the patient's complicated medical conditions and her long-term prognosis which is very poor. We discussed her frequent admissions over the last 3 months her swallowing difficulties and her quality of life. Dr. Borrego of nephrology was briefly involved in the discussion as well. Sandra from social work program coordinator was also present. All were in agreement that patient was ready for end-of-life care and hospice will be consulted for an informational meeting. Hospice met with the family today and have except the patient and the plan is for patient to go with hospice care tomorrow morning at [facility]. # Lactic acidosis, acute, present on admission, resolved - 3.3 at [facility], decreased to 0.8 # Acute on chronic hypoxia, present on admission, resolved - Initially required 5 L, but now on 3 L which is her home dose # CHF, diastolic, present on admission, chronic - BNP is elevated chronically. However patient appears to be fluid overloaded at this time. Will increase Bumex 2 twice a day - ECHO 11/25/16: EF down from about 45-50% in September 2016 to 30-35%; marked cardiomegaly -Bumex has been changed to Lasix IV every 8 hours by nephrology service. Appreciate their help. # Hypertension. present on admission. chronic - currently controlled. Re-evaluate # Hypothyroidism, present on admission, chronic - continue levothyroxine # Depression, present on admission, chronic - continue Citalopram # Deconditioning, present on admission, chronic - PT ordered # Urinary Retention, present on admission, chronic. - Continued tamsulosin - Arias removed on 10/04/2016. However, due to significant postvoid residual and risk of obstructive uropathy Arias was removed placed and will remain in place. # Dyslipidemia, present on admission, chronic - Continued statin - Acetaminophen as needed for mild pain/fever/headache - Bowel regimen as needed - Antiemetic as needed Code status: Per POLST, DNR/DNI Disposition: Patient is being discharged to [facility] facility with hospice today. Exam Vital Signs (Last) Date Time Temp Pulse Resp B/P Pulse Ox O2 Delivery O2 Flow Rate FiO2 12/09/16 08:33 59 20 96 Nasal Cannula 2.00 12/09/16 05:29 36.4 116/66 Exam General: Patient is in no apparent distress. She appears awake and alert today. She has no new complaint HEENT: Head is atraumatic normocephalic. Eyes: Pupils are equally round and reactive to light and accommodation. Extraocular muscles are intact. Sclera are white anicteric. Subconjunctival mucosa is pink. Ears and nose are unremarkable. Does not appear to be any further nosebleed. Oropharynx: There are no mucosal lesions, there is no thrush, there is no pharyngitis. Neck: Is supple, there are no nodes, or masses, or tenderness. Chest: The lungs are clearer gams today. Heart: Rate, rhythm is regular. There is no murmur, rub or gallop. Abdomen: Good bowel sounds are present. Abdomen is soft, nontender, no organomegaly or masses were appreciated. Extremities: Are symmetrical and well perfused. There is minimal edema, there is no cellulitis, no rash. Neurologic: There are no focal neurological deficits. Cranial nerves II through XII are intact. There are no sensory or motor deficits. Patient remains pleasantly confused. Psychiatric: Patients mood is calm and she shows no sign of agitation. She is pleasantly confused. Genital: Deferred Rectal: Deferred Test 11/24/16 03:10 11/24/16 05:00 11/25/16 05:20 11/27/16 15:44 Hemoglobin A1c 6.0% (4.8-5.6) Lactic Acid Level 0.8mmol/L (0.4-2.0) Urine Legionella pneumophilia Ag Negative (Negative) Troponin T 0.052ug/L (0.0-0.011) Urine Color Yellow (YELLOW) Urine Appearance Cloudy (CLEAR,HAZY) Urine pH 5.5 (5.0-8.0) Urine Specific [place] 1.020 (1.003-1.035) Urine Protein 30mg/dL (NEG,TRACE) Urine Glucose (UA) Negativemg/dL (NEGATIVE) Urine Ketones Negativemg/dL (NEGATIVE) Urine Occult Blood Moderate (NEGATIVE) Urine Nitrite Negative (NEGATIVE) Urine Bilirubin Negative (NEGATIVE) Urine Urobilinogen Normalmg/dL (NORMAL) Urine Leukocyte Esterase Large (NEGATIVE) Urine RBC 3-10/hpf (0-2) Urine WBC >50/hpf (0-5) Urine Epithelial Cells Many/hpf (NONE-MOD) Urine Crystals None seen (NONE SEEN) Urine Bacteria Moderate/hpf (NONE-FEW) Urine Hyaline Casts None/lpf (NONE) Urine Granular Casts None seen (NONE SEEN) Urine Waxy Casts None seen (NONE SEEN) Urine Red Blood Cell Casts None seen (NONE SEEN) Urine White Blood Cell Casts None seen (NONE SEEN) Urine Mucus None seen (None Seen) Urine Trichomonas None seen (NONE SEEN) Urine Yeast None (NONE SEEN) Urinalysis Comment None Urine Culture Reflexed Indicated Test 11/28/16 05:25 12/02/16 05:40 12/04/16 06:39 12/06/16 06:22 Uric Acid 12.4mg/dL (2.6-7.2) Iron Level 71ug/dL (35-150) Total Iron Binding Capacity 363ug/dL (250-450) Percent Iron Saturation 20%sat (15-50) Unsaturated Iron Binding 291.5ug/dL Globulin (PEP) 4.3g/dL (2.2-3.9) Albumin/Globulin Ratio 0.7 (0.7-1.7) Adxpl-4-Aomlhnnjl 0.3g/dL (0.0-0.4) Daqrz-4-Bqfepimux 0.6g/dL (0.4-1.0) Beta Globulins 1.6g/dL (0.7-1.3) Gamma Globulins 1.8g/dL (0.4-1.8) Serum Monoclonal Protein 0.5g/dL (Not Observed) Protein Electrophoresis Comment Comment (.) Protein Electrophoresis Interpret Comment (.) Ferritin 109ng/mL (13-150) Procalcitonin < 0.05ng/mL (See Comment) Erythrocyte Sedimentation Rate 48mm/hr (0-40) Test 12/07/16 08:00 12/08/16 05:25 12/09/16 05:05 Phosphorus Level 3.3mg/dL (2.5-4.9) Magnesium Level 1.7mg/dL (1.6-2.6) Activated Partial Thromboplast Time 61.3sec (22.8-33.0) White Blood Count 4.8th/mm3 (3.8-10.1) Red Blood Count 3.11mil/mm3 (3.90-5.20) Hemoglobin 8.7g/dL (12.0-15.6) Hematocrit 29.8% (35.0-46.0) Mean Corpuscular Volume 95.8fL (81-100) Mean Corpuscular Hemoglobin 28.0pg (27.0-35.0) Mean Corpuscular Hemoglobin Concent 29.2% (32.0-37.0) Red Cell Distribution Width 16.4% (12.3-15.4) Platelet Count 91bil/L (150-400) Neutrophils (%) (Auto) 61.8% (40-74) Lymphocytes (%) (Auto) 24.5% (14-46) Monocytes (%) (Auto) 11.4% (4-12) Eosinophils (%) (Auto) 1.7% (0-5) Basophils (%) (Auto) 0.4% (0-3) Prothrombin Time 16.7sec (8.1-12.5) Prothromb Time International Ratio 1.55ratio Sodium Level 138mEq/L (134-144) Potassium Level 4.0mEq/L (3.5-5.2) Chloride Level 97mEq/L (97-108) Carbon Dioxide Level 29mmol/L (18-29) Blood Urea Nitrogen 26mg/dL (8-27) Creatinine 0.92mg/dL (0.57-1.00) Estimat Glomerular Filtration Rate 83mL/min (>59) Glucose Level 83mg/dL (60-99) Calcium Level 9.2mg/dL (8.5-10.1) Total Bilirubin 0.5mg/dL (0.0-1.2) Aspartate Amino Transf (AST/SGOT) 24U/L (0-50) Alanine Aminotransferase (ALT/SGPT) 5U/L (0-32) Alkaline Phosphatase 41U/L (25-165) Pro-B-Type Natriuretic Peptide 3579pg/mL (0-738) Total Protein 7.3g/dL (6.4-8.4) Albumin 3.1g/dL (3.4-5.0) Microbiology Results Microbiology REGINALDO STREP PNEUMONIAE AG URINE Final 11/24/16 STREP PNEUMO AG NEGATIVE Tests performed directly on clinical specimens are intended for screening purposes only and should augment, not replace, culture procedures Please Note: Streptococcus pneumoniae vaccine may cause false positive results in urine in the 48 hours following injection. Hence, it is recommended that the Alere Strep pneumoniae Antigen testing not be performed within five days of receiving the S. pneumoniae vaccine ----- NASOPHARYNGEAL: Microbiology ADENOVIRUS RESPIRATORY PCR Final 11/24/16 Not Detected CORONOVIRUS 229E Final 11/24/16 Not Detected CORONOVIRUS HKU1 Final 11/24/16 Not Detected CORONOVIRUS NL63 Final 11/24/16 Not Detected CORONOVIRUS OC43 Final 11/24/16 Not Detected INFLUENZA A PCR Final 11/24/16 Not Detected INFLUENZA B PCR Final 11/24/16 Not Detected METAPNEUMOVIRUS PCR Final 11/24/16 Not Detected RHINOVIRUS OR ENTEROVIRUS PCR Final 11/24/16 Not Detected PARAINFLUENZA 1 PCR Final 11/24/16 Not Detected PARAINFLUENZA 2 PCR Final 11/24/16 Not Detected PARAINFLUENZA 3 PCR Final 11/24/16 Not Detected PARAINFLUENZA 4 PCR Final 11/24/16 Not Detected RESP SYNCYTIAL VIRUS PCR Final 11/24/16 Not Detected CHLAMDOPHILIA PNEUMONIAE PCR Final 11/24/16 Not Detected MYCOPLASMA PNEUMONIAE PCR Final 11/24/16 MYCO PNEUMONIAE PCR Not Detected Reference Interval Not Detected CUTTING PRESSMAN swab is the only specimen type cleared by the FDA. Nasal wash, tracheal aspirate, and bronchial lavage specimen types have not been cleared by the FDA. Therefore results on any specimen type other than nasopharyngeal are considered investigational testing only. Microbiology REGINALDO OCCULT BLOOD IMMUNOCHEM Final 11/25/16-1104 OCCULT BLD IMMUNOCHEMICAL POSITIVE REFERENCE INTERVAL NEGATIVE Microbiology REGINALDO CULT NASAL MRSA SCREEN Final 11/25/16 Screen NEGATIVE for Methicillin Resistant Staph Aureus Name: CALLIE SINCLAIR Age/Sex: 86/F Attend Dr: Jocelyn Black MD Acct: [id number] Unit: [id number] Status: ADM IN [place] [facility] [place] 3004-1 Re11/24/16 Disch: Specimen: [id number] Collected: 11/27/16 Status: COMP Req#: [id number] Received: 11/27/16 Source: RANDOM Sp Desc : Subm Dr: Xavier Cruz MD Ordered: URINE CULT Procedure Result Verified Site Microbiology REGINALDO CULT URINE Final 11/30/16-1030 Organism 1 EMILIA ALBICANS U COLONY COUNT/QUANTITY >100,000 CFU/ml SENSITIVITY COMMENTS Sensitivity not routinely performed on this org this source source Discharge Medications Discharge Medications Aspirin (Aspirin) 81 Mg Tablet 81 MG PO DAILY (Reported) Cholecalciferol (Vitamin D3) (Vitamin D3) 2,000 Unit Tablet 2,000 UNIT PO DAILY (Reported) Citalopram (Citalopram) 40 Mg Tablet 40 MG PO DAILY (Reported) Furosemide (Lasix) 80 Mg Tablet 80 MG PO DAILY (Reported) Levothyroxine (Levothyroxine) 100 Mcg Tablet 100 MCG PO QAM (Reported) Potassium Chloride ER (Potassium Chloride ER) 10 Meq Tablet 10 MEQ PO DAILY ( Reported) TAKE WITH FOOD Simvastatin (Simvastatin) 40 Mg Tablet 40 MG PO HS (Reported) Tamsulosin (Flomax) 0.4 Mg Capsule 0.4 MG PO QPM (Reported) Tolterodine Tartrate (Tolterodine Tartrate) 2 Mg Tablet 2 MG PO QPM (Reported) Warfarin Sodium (Warfarin Sodium) 3 Mg Tablet 2 MG PO QPM Prescribed by: CAROLIN PINEDA MD As needed Acetaminophen (Acetaminophen) 325 Mg Tablet 650 MG PO Q4H PRN PRN For Pain ( Reported) Bisacodyl (Dulcolax Rectal) 10 Mg Supp.rect 10 MG RC ONCE PRN PRN For Constipation (Reported) Ipratropium/Albuterol Sulfate (Iprat-Albut 0.5-3(2.5) mg/3 mL Inhalant Soln) 3 Ml Ampul.neb 3 ML IH q4 PRN PRN For Shortness of Breath (Reported) Magnesium Hydroxide (Milk of Magnesia) 400 Mg/5 Ml Oral.susp 30 ML PO ONCE PRN PRN For Constipation (Reported) NTE 2x/month Followup Plan Disposition: She is being discharged to [facility] with hospice today. Discharge Diet: Heart Healthy Discharge Activity: Outpatient Physical Therapy (PT to evaluate and treat) Follow-up Provider: Zafar Chapman DO Follow-up with PCP in: 1 week Provider: Sissy Baez MD Follow-up in: 2 weeks Time spent Time spent on discharging this patient was greater than 35 minutes, over half of which was involved in counseling and coordination of care. Oniel Pineda MD Dec 10, 2016 01:01
--- NOTE | 2016-12-15 07:40 | PROCED ---
[address] [address] EEG PATIENT: CALLIE SINCLAIR : 1930 MR#: [id number] ADMIT: 11/24/2016 JOB ID: [id number] DATE: 11/28/2016 HISTORY: The patient is an 86-year-old woman with intermittent confusion. TECHNICAL DESCRIPTION: This digital EEG was recorded using 25 scalp and ear, and two EKG electrodes. It was reviewed in bipolar and referential montages following reformatting in the [employer]. During the recording, the patient was noted to be awake. The background was composed of a polymorphic mixture of delta and theta, approximately 4-5 hertz, 20-50 microvolts of posterior dominant rhythm that appeared disorganized. However, appeared to be at least partially attenuated with eye opening. There is diffuse slowing throughout this recording. This recording was limited by a myogenic and movement artifact. Hyperventilation was not performed. Photic stimulation was not performed. Shortly into this recording, the patient became agitated and took all the electrodes off and the recording was stopped. No sleep was appreciated during this recording. There were no focal, lateralized or epileptiform discharges noted. There were no seizures seen. No sleep was appreciated. The EKG rhythm strip revealed a heart rate of 60-120 beats per minute with no apparent arrhythmias other than tachycardia. IMPRESSION: This EEG performed in the awake state, which was limited, is abnormal. It is suggestive of mild-moderate cerebral cortical dysfunction/encephalopathy. This is a nonspecific finding and may be seen in a wide variety of different clinical conditions, including toxic, metabolic, hypoxic, inflammatory, autoimmune, and infectious states. Clinical correlation is advised. If clinically indicated, a repeat study can be pursued.
== END 2016-12-09 13:12 | DRG 291 ==
LOC: MPC 11-24 00:58
PROVIDERS: ADMIT Specialist; ATTEND Specialist
PROC: 4A033R1 Measurement of Arterial Saturation, Peripheral, Percutaneous Approach (ICD-10-PCS; principal; 2016-12-06)
DX: I50.33 Acute on chronic diastolic (congestive) heart failure (principal); J18.9 Pneumonia, unspecified organism; J96.21 Acute and chronic respiratory failure with hypoxia; E87.2 Acidosis; N39.0 Urinary tract infection, site not specified; G45.9 Transient cerebral ischemic attack, unspecified; N17.8 Other acute kidney failure; Z79.01 Long term (current) use of anticoagulants; E11.9 Type 2 diabetes mellitus without complications; E03.9 Hypothyroidism, unspecified; I10 Essential (primary) hypertension; E78.5 Hyperlipidemia, unspecified; J44.9 Chronic obstructive pulmonary disease, unspecified; I48.2 Chronic atrial fibrillation; Z51.5 Encounter for palliative care; F32.9 Major depressive disorder, single episode, unspecified; R41.82 Altered mental status, unspecified